=== PATIENT | female | born 1930 | race Caucasian/White ===

== ENCOUNTER → 2016-10-18 | Outpatient (CLI) | payer OTHER ==
[~2016-10-18] MED LIST: ACET325T82 PO; BENZ100C6 PO; BISA10SU5 RE; CALCTAB7 PO; CARB1SOL OPB; CMD/25 PO; CMD25 PO; DTRSR5 PO; FRRG PO; HYG/25 PO; LEVO125T4 PO; LEVO75TA PO; LPR25 PO; LSN20 PO; MELO7.5T5 PO; MEMA1CAP7 PO; METO25TA56 PO; OXYBUTYNIN PO; POTA-327 PO; POTA20TA16 PO; RIVA1DIS TOP; SIMV20TA2 PO; SIMV5TAB2 PO; SODIENE PR; SYN200 PO; VTMD1000 PO
[2016-10-18 12:45] LABS: BASO % 0.5 %; BASO ABS # 0.03 K/uL (0-0.2); EOS % 2.9 %; HEMATOCRIT 26.4 % (37-47); IG% 0.2 %; LYMPH % 22.6 %; LYMPH ABS # 1.46 K/uL (1.2-3.4); MEAN CORPUSCULAR HEMOGLOBIN 19.3 pg (25-34); MEAN CORPUSCULAR HGB CONC 29.2 g/dl (32-36); MEAN PLATELET VOLUME 10.8 fL (7.4-10.4); NEUT % 64.8 %; PLATELET COUNT 227 K/uL (130-400); WHITE BLOOD COUNT 6.47 K/uL (4.8-10.8)
[2016-10-18 13:01] LABS: ALT/SGPT 15 U/L (12-78); AST/SGOT 13 U/L (15-37); BLOOD UREA NITROGEN 23 mg/dl (7-18); BUN/CREATININE RATIO 28.3 (10-20); CALCIUM 9.3 mg/dl (8.5-10.1); CARBON DIOXIDE 20 mmol/L (21-32); CHLORIDE 109 mmol/L (98-107); CHOLESTEROL 201 mg/dl (0-200); CREATININE 0.82 mg/dl (0.60-1.20); GLUCOSE 118 mg/dl (70-99); POTASSIUM 4.3 mmol/L (3.5-5.1); SODIUM 141 mmol/L (136-145); TRIGLYCERIDES 131 mg/dl (0-150); VERY LOW DENSITY LIPOPROT CALC 26 mg/dl
[2016-10-18 13:10] LABS: ALB/GLOB RATIO 1.1 (0.9-2); ALKALINE PHOSPHATASE 69 U/L (45-117); CHOLESTEROL/HDL RATIO 3.5; HDL CHOLESTEROL 58 mg/dl; THYROID STIMULATING HORMONE 0.805 uIu/ml (0.300-4.500)
[2016-10-18 13:32] LABS: ESTIMATED AVERAGE GLUCOSE 126 mg/dl; HA1C FLAG Normal (Normal)
[2016-10-18 14:19] LABS: COMPLETE YES; MICROCYTOSIS PRESENT; OVALOCYTES 1+
== END | disposition home or self-care (01) ==
LOC: C.LABSPEC 12:23
PROVIDERS: ATTEND Internal Medicine
DX: E11.9 Type 2 diabetes mellitus without complications (principal); E78.5 Hyperlipidemia, unspecified; I10 Essential (primary) hypertension; E03.9 Hypothyroidism, unspecified; D64.9 Anemia, unspecified

== ENCOUNTER 2016-10-19 15:00 | Inpatient (IN) | payer OTHER ==
[~2016-10-19] VITALS: Ht 162.6 cm; Wt 71.0 kg
[2016-10-19] VITALS (9 sets, daily range): BP systolic 156–196; BP diastolic 64–87; PULSE 78–112; TEMP 36.4–36.8; O2SAT 96–99; Ht 162.6 cm; Wt 71.0 kg
[~2016-10-19 15:00] MED LIST changes: -CALCTAB7 PO; -DTRSR5 PO; -FRRG PO; -LEVO125T4 PO; -LSN20 PO; -MELO7.5T5 PO; -METO25TA56 PO; -OXYBUTYNIN PO; -POTA20TA16 PO; -SIMV5TAB2 PO; -SYN200 PO; -VTMD1000 PO
[2016-10-19] MEDS ORDERED: ACETAMINOPHEN 325 MG TAB PO PRN (16:15)
[2016-10-19] MEDS ORDERED: PANTOprazole INJ 80 MG in DEXTROSE 5% 100ML IV SCH (18:00)
[2016-10-19 18:27] LABS: HEMATOCRIT 26.4 % (37-47); MEAN CELL VOLUME 67.3 fL (80-100); MEAN CORPUSCULAR HEMOGLOBIN 19.4 pg (25-34); MEAN CORPUSCULAR HGB CONC 28.8 g/dl (32-36); MEAN PLATELET VOLUME 9.7 fL (7.4-10.4); PLATELET COUNT 203 K/uL (130-400); RED BLOOD COUNT 3.92 M/uL (4.2-5.4); WHITE BLOOD COUNT 6.38 K/uL (4.8-10.8)
[2016-10-19 18:33] LABS: INR 1.1 (0.9-1.1); PARTIAL THROMBOPLASTIN RATIO 0.9; PROTHROMBIN TIME (PATIENT) 11.4 SECONDS (9.0-12.0)
[2016-10-19 18:50] LABS: ALB/GLOB RATIO 1.1 (0.9-2); ALKALINE PHOSPHATASE 68 U/L (45-117); ALT/SGPT 16 U/L (12-78); AST/SGOT 11 U/L (15-37); BLOOD UREA NITROGEN 26 mg/dl (7-18); BUN/CREATININE RATIO 26.8 (10-20); CARBON DIOXIDE 23 mmol/L (21-32); CHLORIDE 110 mmol/L (98-107); CREATININE 0.98 mg/dl (0.60-1.20); GLUCOSE 125 mg/dl (70-99); POTASSIUM 4.5 mmol/L (3.5-5.1); SODIUM 142 mmol/L (136-145)
[2016-10-19 18:55] LABS: ANISOCYTOSIS PRESENT; BASO % 0.5 %; BASO ABS # 0.03 K/uL (0-0.2); COMPLETE YES; EOS % 1.7 %; IG% 0.2 %; LYMPH % 16.3 %; LYMPH ABS # 1.04 K/uL (1.2-3.4); MICROCYTOSIS PRESENT; MONO % 9.7 %; NEUT % 71.6 %; OVALOCYTES 1+
[2016-10-19] MEDS ORDERED: OXYBUTYNIN PO (19:40)
[2016-10-19] MEDS ORDERED: POTA20TA16 PO (19:40)
[2016-10-19] MEDS ORDERED: NURSING VERBAL MED ORDER ONE ×2 (19:45→21:30)
[2016-10-19] MEDS ORDERED: METO25TA56 PO (19:47)
[2016-10-19] MEDS ORDERED: LSN20 PO (19:48)
[2016-10-19] MEDS ORDERED: SIMV5TAB2 PO (19:50)
[2016-10-19] MEDS ORDERED: LEVO125T4 PO (19:50)
[2016-10-19] MEDS ORDERED: CALCTAB7 PO (19:51)
[2016-10-19] MEDS: METOPROLOL TARTRATE 25 MG TAB PO SCH (19:54)
[2016-10-19] MEDS: SODIUM CHLORIDE 0.9% 1000ML 1,000 ML IV SCH (19:54)
[2016-10-19] MEDS: SIMVASTATIN 5 MG TAB PO SCH (19:54)
[2016-10-19] MEDS ORDERED: MELO7.5T5 PO (19:58)
[2016-10-19] MEDS: LAVAGE SOLUTION 4000ML PO SCH (20:15)
[2016-10-19] MEDS: PANTOprazole INJ 40 MG in DEXTROSE 5% 100ML IV SCH ×2 (20:15→23:39)
[2016-10-19] MEDS: BISACODYL 5 MG TABEC PO SCH (20:57)
[2016-10-19] MEDS ORDERED: HydrALAZINE HCL 20 MG/ML VIAL IV. STA (21:30)
--- NOTE | 2016-10-19 22:13 | HISTORY & PHYSICAL EXAMINATION ---
DATE OF ADMISSION: 10/19/2016 An 86-year-old female, admitted directly from home with severe microcytic hypochromic anemia and evidence of GI bleed. The patient with multiple medical problems including inflammatory arthritis, arterial hypertension, hypothyroidism and severe osteoarthritis. She has a history of colonic polyps back in 2008; that was when she had a colonoscopy, she had some polyps and also she had an area of stenosis of the sigmoid colon. Subsequently, she underwent a sigmoid resection by Dr. Das and the pathology was benign. In 2009, she had a colonoscopy which did not really show any new pathology. The patient was seen in the office yesterday for regularly scheduled visits. Overall, she was doing well. She did not complain of any dizziness or any lightheadedness. She had no headache. No chest pain, no shortness of breath. Denied any abdominal pain, no nausea, no vomiting. Has not had any problem with her bowel movements. Did not notice any blood in her stool. She does not really recall seeing any dark stool. The patient does take Mobic for her osteoarthritis. When I saw yesterday multiple laboratory tests were ordered. Today, the reports became available. Her CBC showed a WBC count of 6470, hemoglobin 7.7, hematocrit 26.4. Her MCV was decreased to 66 and her MCH was down to 19.3. Her platelet count was 227. Her chemistry profile showed sodium of 141, potassium 4.3, chloride 109, CO2 20, BUN 23, creatinine 0.83, glucose 118, calcium 9.3, total bilirubin 0.8, AST 13, ALT 15, alkaline phosphatase 69, total protein 8, albumin 4.1, triglycerides 131 and cholesterol 201. Direct LDL 122, HDL cholesterol 58. Her TSH was 0.805. Her free T4 was 1.4. Once we received the results, we did call the patient and made arrangements for her to be admitted directly from home. PAST MEDICAL HISTORY: 1. She had a fall and fracture of her distal femur on 10/10/2014. She did require surgery. 2. She was admitted on 11/06/2014 with lethargy and severe weakness. At that time, she presented with an acute respiratory failure. Her creatinine was up to 3.27. She was dehydrated. She responded to treatment. 3. 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 4. Spinal stenosis, had prior surgery in 2006. 5. She had a fall in 2011 and sustained a scalp and facial lacerations. 6. Inflammatory polyarthritis. She has been on prednisone in the past. Also she has taken nonsteroidal anti-inflammatory medications. 7. Longstanding history of hypothyroidism, compensated. 8. Arterial hypertension, treated since the 1970s. 9. Dyspepsia and hiatal hernia. 10. Severe osteoarthritis, especially her knees. 11. Left facial neuropathy in 2010, was treated with Lyrica. 12. Urinary incontinence. She has had a urology evaluation in the past and was seen by Dr. Miller. She is on Ditropan. 13. Hysterectomy in 1972 because of prolapse. 14. Right knee surgery back in the for a cartilage injury. 15. Rotator cuff surgeries on both sides in 1988 and 1989. 16. Plantar fasciitis also requiring surgery in the past back in 1986. 17. Bilateral carpal tunnel release in 1990 and 1991. 18. Tonsillectomy in 1950. 19. Left cataract surgery on 07/13/2015. SOCIAL HISTORY: She is a . Has one daughter. No history of any smoking, no alcohol. No excessive coffee, tea or soft drinks. She worked at the [employer] for many years. 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 FAMILY HISTORY: Her mother in her 80s, had heart disease and hypertension. Her father at age 49, had tuberculosis. She had 4 brothers and 1 sister. One brother in a motor vehicle accident. One brother of cancer, not sure of the type. ALLERGIES: IT IS LISTED ON HER ALLERGY LIST THAT SHE IS ALLERGIC AND INTOLERANT TO MANY PRODUCTS AND MEDICATIONS INCLUDING BACITRACIN, CODEINE AND CORTISONE; but I know she is not allergic to cortisone because she has been on prednisone in the past and also she has received intra-articular injections of steroids. IT IS ALSO LISTED THAT SHE IS ALLERGIC TO ERYTHROMYCIN. SHE ALSO HAD A REACTION TO IV CONTRAST. SHE HAD CONTACT DERMATITIS WITH LATEX. ALSO IT IS LISTED THAT SHE HAD A REACTION TO NEOMYCIN, POLYMYXIN B, PROPRANOLOL AND TRAMADOL. CURRENT MEDICATIONS: Include; 1. Levothyroxine 200 mcg daily. 2. Lisinopril 20 mg daily. 3. Metoprolol tartrate 25 mg twice a day. 4. Ditropan XL 5 mg daily. 5. Potassium chloride 20 mEq daily. 6. Simvastatin 5 mg daily. 7. Calcium with vitamin D one tablet twice a day. 8. Vitamin D 2000 international units daily. 9. Meloxicam 7.5 mg daily. REVIEW OF SYSTEMS: Mostly as noted above. PHYSICAL EXAMINATION: GENERAL: Well-developed, in no acute distress. Her recorded weight is 71 kg, height 162.6 cm and BMI 26.9. VITAL SIGNS: On arrival her blood pressure was 189/64, pulse 112, respirations 20, temperature 36.7 and oxygen saturation 98% on room air. SKIN: Warm and dry. No rash. HEENT: She wears glasses. She has upper and lower partials. No mucosal abnormalities. NECK: Supple. Nontender. No adenopathy, no thyromegaly. No JVD. Normal carotid pulses. No bruits. CHEST: Normal. HEART: Regular heart sounds without any murmur, rub or gallop. LUNGS: Clear. ABDOMEN: Soft, nontender, without organomegaly or masses. Surgical scars. BACK: Scar from prior surgery. EXTREMITIES: Scars from prior surgeries. Osteoarthritis, especially of her right knee. No edema, clubbing or cyanosis. Absent dorsalis pedis pulses. Good posterior tibialis pulses. NEUROLOGIC: She is alert and oriented without evidence of any deficits. RECTAL: Showed no anorectal abnormality. Her stool tested positive for occult blood. LABORATORY TESTS: WBC count 6380, hemoglobin 7.6, hematocrit 26.4, MCV 67.3, MCH 19.4 and platelet count 203,000. Prothrombin time 11.4, INR 1.1 and PTT 22.8. Sodium 142, potassium 4.5, chloride 110, CO2 23, BUN 26, creatinine 0.98, glucose 125, calcium 9.0, total bilirubin 0.6, AST 11, ALT 16, alkaline phosphatase 68, total protein 7.8, albumin 4.1 and globulin 3.1. Urinalysis is still pending. Her electrocardiogram showed sinus rhythm without any acute abnormalities. ASSESSMENT: 1. Severe anemia; hemoglobin of 7.6, microcytic hypochromic, consistent with iron deficiency. 2. Evidence of gastrointestinal bleed with positive Hemoccult. 3. Arterial hypertension. 4. Hypothyroidism. 5. Osteopenia. 6. Vitamin D deficiency. 7. Inflammatory arthritis. 8. Osteoarthritis. She is on Mobic. PLAN: The patient was admitted to a medical bed. Resuscitation level 1. All her laboratory tests were ordered. GI consultation was requested. I spoke with Dr. Moeller. She was typed and cross matched for 2 units of packed RBCs. She will be receiving 2 units tonight. We will repeat her laboratory tests in the morning. She was continued on her oral medications. Her Mobic was discontinued. The plan as it stands tonight is we will transfuse her. She is currently in a stable medical condition. If everything remains stable tomorrow, then we will proceed with an EGD and colonoscopy.
[2016-10-20] VITALS (12 sets, daily range): BP systolic 131–174; BP diastolic 67–82; PULSE 0–80; TEMP 36.4–36.9; O2SAT 95–98
[2016-10-20] MEDS: BISACODYL 5 MG TABEC PO SCH (04:07)
[2016-10-20] MEDS: PANTOprazole INJ 40 MG in DEXTROSE 5% 100ML IV SCH ×3 (04:13→14:47)
[2016-10-20] MEDS: LAVAGE SOLUTION 4000ML PO SCH (04:13)
[2016-10-20] MEDS: LEVOTHYROXINE 200 MCG TAB PO SCH (04:44)
[2016-10-20] MEDS: SODIUM CHLORIDE 0.9% 1000ML 1,000 ML IV SCH ×2 (05:37→19:05)
[2016-10-20] MEDS ORDERED: MAGNESIUM CITRATE 296 ML/BTL ONE (06:27)
[2016-10-20] MEDS ORDERED: NURSING VERBAL MED ORDER ONE (06:30)
[2016-10-20 06:33] LABS: HEMATOCRIT 32.8 % (37-47); MEAN CELL VOLUME 69.9 fL (80-100); MEAN CORPUSCULAR HGB CONC 31.4 g/dl (32-36); MEAN PLATELET VOLUME 9.9 fL (7.4-10.4); PLATELET COUNT 181 K/uL (130-400); RED BLOOD COUNT 4.69 M/uL (4.2-5.4); WHITE BLOOD COUNT 6.58 K/uL (4.8-10.8)
[2016-10-20] MEDS ORDERED: MAGNESIUM CITRATE 296 ML/BTL PO STA (06:41)
[2016-10-20 07:04] LABS: BUN/CREATININE RATIO 21.3 (10-20); CALCIUM 8.8 mg/dl (8.5-10.1); CREATININE 0.91 mg/dl (0.60-1.20); POTASSIUM 4.2 mmol/L (3.5-5.1)
[2016-10-20] MEDS: LISINOPRIL 20 MG TAB PO SCH (07:58)
[2016-10-20] MEDS: METOPROLOL TARTRATE 25 MG TAB PO SCH ×2 (07:58→19:44)
[2016-10-20] MEDS ORDERED: ONDANSETRON INJ 8 MG in DEXTROSE 5% 50ML 50 ML IV PRN (08:30)
--- NOTE | 2016-10-20 09:33 | Clinical Documentation Query ---
[facility]ICAL [facility] QUERY Patient is an 86 year old female direct admit from home for severe microcytic hypochromic anemia and evidence of GI bleed. She is being monitored by serial hematology and is to be seen in consultation by GI and has been transfused 2 units of PRBC's. Please clarify as clinically appropriate. Thank you. In your clinical opinion is this patient being managed for: ( ) Acute blood loss microcytic hypochromic iron deficiency anemia ( x ) Chronic blood loss microcytic hypochromic iron deficiency anemia ( ) Other explanation of clinical findings (Please Explain) ( ) Unable to determine (Please Define) ( ) Need to Discuss ( ) Not Agree The medical record reflects the following clinical findings, treatment, and risk factors. Clinical Indicators: As above Treatment:She is being monitored by serial hematology and is to be seen in consultation by GI and has been transfused 2 units of PRBC's. Risk Factors: Age, Mobic use Please clarify and document your clinical opinion in the progress notes and discharge summary. Terms such as "probable", "suspected", "likely", "questionable", "possible", or "still to be ruled out" are acceptable. IF IN AGREEMENT, YOU MUST DOCUMENT ABOVE DIAGNOSTIC STATEMENT IN DAILY PROGRESS NOTES AND DISCHARGE SUMMARY. This document is not part of the patient's record. Thank You, Kameron Zambrano, RN [phone]
[2016-10-20] MEDS ORDERED: PROPOFOL IV EMULSION 10 MG/ML 20 ML VIAL IV ONE ×3 (10:30→11:40)
[2016-10-20] MEDS ORDERED: LIDOCAINE HCL 2% 2 ML VIAL (20MG/ML) ONE ×2 (10:30→10:33)
--- NOTE | 2016-10-20 10:50 | Gastroenterology Progress Note ---
Progress Note Date of Service: Oct 20, 2016 Subjective Pt evaluation today including: conversation w/ patient, physical exam, chart review (nothing in [facility] EMR), lab review, review of studies, review of inpatient medication list CC anemia HPI Pt noted to be anemicwhtih Hgb 7.7 and low MCV on 10/18/16. Looking back note Hgb 8.3 on 06/20/16 also low MCV. Pt with occosional gerd but otherwise no GI symptoms. NO bloody nor black stools. Hx of colon polyps and colon resection for sigmoid stenosis. Last colo 2009 reportedly negative. No recollection of previous EGD. Some abd pain with prep otherwise none. Dr Lees did rectal exam and noted to be heme positive. She is on Mobic for polyarthritis. Medications Current Inpatient Medications Medications (Trade) Dose Ordered Sig/Ya Route Start Time Stop Time Status Last Admin Dose Admin Acetaminophen 650 mg 650 mg Q4H PRN PO 10/19/16 16:15 11/18/16 16:14 Sodium Chloride (Nss 1000ml) 1,000 ml @ 75 mls/hr [id number] IV 10/19/16 16:30 11/18/16 16:29 10/20/16 05:37 75 MLS/HR Levothyroxine Sodium (Synthroid Tab) 200 mcg DAILYBB PO 10/20/16 06:30 11/19/16 06:59 Lisinopril (Zestril Tab) 20 mg QAM PO 10/20/16 08:00 11/19/16 08:59 10/20/16 07:58 20 MG Metoprolol Tartrate (Lopressor Tab) 25 mg BID PO 10/19/16 20:00 11/18/16 20:59 10/20/16 07:58 25 MG Simvastatin (Zocor Tab) 5 mg PM PO 10/19/16 21:00 11/18/16 20:59 10/19/16 19:54 5 MG Oxybutynin Chloride (Ditropan-Xl Tab) 5 mg QAM PO 10/20/16 08:00 11/19/16 08:59 Cholecalciferol 2000 inter.unit 2,000 inter.unit QAM PO 10/20/16 08:00 11/19/16 08:59 Pantoprazole Sodium 40 mg/ Dextrose 100 ml @ 20 mls/hr Q5H IV 10/19/16 18:15 11/18/16 18:14 10/20/16 09:49 20 MLS/HR Ondansetron HCl/ Dextrose (Zofran Inj/D5 50ml) 54 ml @ 200 mls/hr Q4H PRN IV 10/20/16 08:30 11/19/16 08:29 10/20/16 08:54 200 MLS/HR Objective Vital Signs Date Time Temp Pulse Resp B/P Pulse Ox O2 Delivery O2 Flow Rate FiO2 10/20/16 08:15 36.6 80 22 160/82 97 Room Air 10/20/16 04:15 36.8 76 18 164/70 10/20/16 03:45 36.8 75 18 172/72 10/20/16 03:10 36.6 80 22 160/82 97 Room Air 10/20/16 02:45 36.7 70 18 168/74 10/20/16 02:15 36.8 69 18 170/71 10/20/16 01:45 36.8 80 20 171/82 10/20/16 01:30 36.7 78 20 161/80 98 10/20/16 01:00 Room Air 10/19/16 23:50 36.8 79 20 167/71 97 10/19/16 23:23 88 179/74 10/19/16 22:50 36.7 80 18 179/69 96 10/19/16 22:15 36.7 83 18 156/73 97 10/19/16 21:50 36.4 86 18 182/78 97 10/19/16 21:20 36.7 84 18 196/87 98 10/19/16 21:05 36.6 84 18 188/76 97 10/19/16 20:46 36.7 78 18 188/74 99 0.0 10/19/16 19:11 36.7 112 20 189/64 98 Room Air Physical Exam General Appearance: WD/WN, no apparent distress Respiratory/Chest: lungs clear, no respiratory distress Cardiovascular: regular rate, rhythm, no edema, no murmur Abdomen: normal bowel sounds, non tender, soft, no organomegaly Neurologic/Psych: normal mood/affect, oriented x 3 Laboratory Results Last 24 Hours Test 10/19/16 18:12 10/20/16 06:02 White Blood Count 6.38 K/uL 6.58 K/uL Red Blood Count 3.92 M/uL 4.69 M/uL Hemoglobin 7.6 g/dL 10.3 g/dL Hematocrit 26.4 % 32.8 % Mean Corpuscular Volume 67.3 fL 69.9 fL Mean Corpuscular Hemoglobin 19.4 pg 22.0 pg Mean Corpuscular Hemoglobin Concent 28.8 g/dl 31.4 g/dl Platelet Count 203 K/uL 181 K/uL Mean Platelet Volume 9.7 fL 9.9 fL Neutrophils (%) (Auto) 71.6 % Lymphocytes (%) (Auto) 16.3 % Monocytes (%) (Auto) 9.7 % Eosinophils (%) (Auto) 1.7 % Basophils (%) (Auto) 0.5 % Neutrophils # (Auto) 4.57 K/uL Lymphocytes # (Auto) 1.04 K/uL Monocytes # (Auto) 0.62 K/uL Eosinophils # (Auto) 0.11 K/uL Basophils # (Auto) 0.03 K/uL RDW Standard Deviation 40.8 fL 49.5 fL RDW Coefficient of Variation 16.4 % 19.6 % Immature Granulocyte % (Auto) 0.2 % Immature Granulocyte # (Auto) 0.01 K/uL Anisocytosis PRESENT Microcytosis PRESENT Ovalocytes 1+ Prothrombin Time 11.4 SECONDS Prothromb Time International Ratio 1.1 Activated Partial Thromboplast Time 22.8 SECONDS Partial Thromboplastin Ratio 0.9 Sodium Level 142 mmol/L 142 mmol/L Potassium Level 4.5 mmol/L 4.2 mmol/L Chloride Level 110 mmol/L 110 mmol/L Carbon Dioxide Level 23 mmol/L 22 mmol/L Anion Gap 9.0 mmol/L 10.0 mmol/L Blood Urea Nitrogen 26 mg/dl 19 mg/dl Creatinine 0.98 mg/dl 0.91 mg/dl Estimated GFR () 61.4 67.1 Estimated GFR (Non- 53.0 57.9 BUN/Creatinine Ratio 26.8 21.3 Random Glucose 125 mg/dl 121 mg/dl Calcium Level 9.0 mg/dl 8.8 mg/dl Total Bilirubin 0.6 mg/dl Aspartate Amino Transf (AST/SGOT) 11 U/L Alanine Aminotransferase (ALT/SGPT) 16 U/L Alkaline Phosphatase 68 U/L Total Protein 7.8 gm/dl Albumin 4.1 gm/dl Globulin 3.7 gm/dl Albumin/Globulin Ratio 1.1 Est Creatinine Clear Calc Drug Dose 44.5 ml/min Assessment and Plan GI consult to be dictated also. Heme positive stool---No localizing signs/symptoms to recommend EGD and colonoscopy and she is prepped for that today. Procedures and risks explained which include but not limited to medication reaction, bleeding, perforation, aspiration and missed lesions. Microcytic anemia--presumably Fe deficiency from chronic GI blood loss.
--- NOTE | 2016-10-20 11:52 | GI REPORT ---
Procedure Date: 10/20/2016 10:57 AM Procedure: Upper GI endoscopy Indications: Iron deficiency anemia, Heme positive stool Medicines: Monitored Anesthesia Care Complications: No immediate complications. Estimated Blood Loss: Estimated blood loss was minimal. Procedure: Pre-Anesthesia Assessment: - The risks and benefits of the procedure and the sedation options and risks were discussed with the patient. All questions were answered and informed consent was obtained. - Patient identification and proposed procedure were verified prior to the procedure by the physician, the nurse and the medical device sales representative. The procedure was verified in the procedure room. After obtaining informed consent, the endoscope was passed under direct vision. Throughout the procedure, the patient's blood pressure, pulse, and oxygen saturations were monitored continuously. The Scope was introduced through the mouth, and advanced to the second part of duodenum. The upper GI endoscopy was accomplished without difficulty. The patient tolerated the procedure well. Procedure and risks explained to patient which include but not limited to medication reaction, bleeding, perforation, aspiration , and missed lesions. Judicious gas insufflation was used and gas removal done on the way out. The lumen was always visualized when advancing the scope. Prep was good. Washes and suctioning used as needed to get good visualization of the mucosa. Retroflexion to look at the fundus and cardia of the stomach and GE junction was done. Findings: Esophagogastric landmarks were identified: the Z-line was found at 35 cm from the incisors. A large hiatus hernia was present. Patchy mildly erythematous mucosa was found in the entire examined stomach. Striped mildly erythematous mucosa without bleeding was found in the gastric antrum. Biopsies were taken with a cold forceps for Helicobacter pylori testing. Estimated blood loss was minimal. The Z-line was irregular. Biopsies were taken with a cold forceps for histology. Estimated blood loss was minimal. The 2nd part of the duodenum was normal. Biopsies for histology were taken with a cold forceps for evaluation of celiac disease. Estimated blood loss was minimal. The exam was otherwise without abnormality. Impression: - Esophagogastric landmarks identified. - Large hiatus hernia. - Erythematous mucosa in the stomach. - Erythematous mucosa in the antrum. Biopsied. - Z-line irregular. Biopsied. - Normal 2nd part of the duodenum. Biopsied. - The examination was otherwise normal. Recommendation: - Return patient to [facility] for ongoing care. - No explanation for anemia and heme positive stool so proceed with colonoscopy. Kameron Marrero M.D. Kameron Marrero MD 10/20/2016 11:51:34 AM This report has been signed electronically. Note Initiated On: 10/20/2016 10:57 AM I attest to the content of the Intraoperative Record and orders documented therein, exceptions below
--- NOTE | 2016-10-20 12:08 | Anesthesiology Progress Note ---
Anesthesia Post Op Note Date & Time Oct 20, 2016 at 12:08 Vital Signs Pain Intensity: 0 Vital Signs Past 12 Hours Date Time Temp Pulse Resp B/P Pulse Ox O2 Delivery O2 Flow Rate FiO2 10/20/16 12:04 66 16 133/62 99 Room Air 10/20/16 11:49 60 16 110/53 96 Nasal Cannula 2 10/20/16 10:48 36.8 80 16 202/87 98 Room Air 10/20/16 08:15 36.6 80 22 160/82 97 Room Air 10/20/16 08:10 Room Air 10/20/16 04:15 36.8 76 18 164/70 10/20/16 03:45 36.8 75 18 172/72 10/20/16 03:10 36.6 80 22 160/82 97 Room Air 10/20/16 02:45 36.7 70 18 168/74 10/20/16 02:15 36.8 69 18 170/71 10/20/16 01:45 36.8 80 20 171/82 10/20/16 01:30 36.7 78 20 161/80 98 10/20/16 01:00 Room Air Notes Mental Status: alert / awake / arousable, participated in evaluation Pt Amnestic to Procedure: Yes Nausea / Vomiting: adequately controlled Pain: adequately controlled Airway Patency, RR, SpO2: stable & adequate BP & HR: stable & adequate Hydration State: stable & adequate Anesthetic Complications: no major complications apparent
--- NOTE | 2016-10-20 12:09 | GI REPORT ---
Procedure Date: 10/20/2016 10:56 AM Procedure: Colonoscopy Indications: Heme positive stool, Iron deficiency anemia Medicines: Monitored Anesthesia Care Complications: No immediate complications. Estimated Blood Loss: Estimated blood loss was minimal. Procedure: Pre-Anesthesia Assessment: - The risks and benefits of the procedure and the sedation options and risks were discussed with the patient. All questions were answered and informed consent was obtained. - Patient identification and proposed procedure were verified prior to the procedure by the physician, the nurse and the supervisor logging. The procedure was verified in the procedure room. After I obtained informed consent, the scope was passed under direct vision. Throughout the procedure, the patient's blood pressure, pulse, and oxygen saturations were monitored continuously. The scope was introduced through the anus with the intention of advancing to the cecum. The scope was advanced to the ascending colon but possibly the cecum before the procedure was aborted. Medications were given. The colonoscopy was performed without difficulty. The patient tolerated the procedure well. The quality of the bowel preparation was fair. The bowel preparation used was split dose golytely and an additional dose of Mag citrate. Procedure and risks explained to patient which include but not limited to med reaction, bleeding, perforation, aspiration and missed lesions. Judicious gas insufflation and gas removal done on the way out. The lumen always well visualized when advancing the scope. Washes and suctioning used as needed and was helpful for most of colon to obtain adequate prep but encountered stool in ascending colon versus cecum with chunks that could not be washed and suctioned. . Retroflexion in the rectum to look at the distal rectum and anal canal done. Findings: Two localized angioectasias one with bleeding on contact were found in the proximal ascending colon versus cecum. Coagulation for bleeding prevention using argon plasma was successful. Estimated blood loss was minimal. A 5 mm polyp was found in the transverse colon. The polyp was sessile. The polyp was removed with a lift and cut technique using a cold snare. Resection and retrieval were complete. Estimated blood loss was minimal. There was evidence of a prior end-to-side colo-colonic anastomosis in the sigmoid colon. This was patent and was characterized by healthy appearing mucosa. Exam to right colon either cecum or ascending colon but solid material noted which could not be washed and suctioned. The exam was otherwise without abnormality on direct and retroflexion views. 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 Treated with argon plasma coagulation (APC). - One 5 mm polyp in the transverse colon, removed using lift and cut and a cold snare. Resected and retrieved. - Patent end-to-side colo-colonic anastomosis, characterized by healthy appearing mucosa. - The examination was otherwise normal on direct and retroflexion views. - Exam to right colon either cecum or ascending colon but solid material noted which could not be washed and suctioned. - The examination was otherwise normal on direct and retroflexion views. Recommendation: - Return patient to hospital [facility] for ongoing care. - Discussed with Dr Lees and recommend repeat Colonoscopy with 2 day prep as outpt in 4 weeks to document adequate coagulation of AVMs and look at colon not able to be visulized today secondary to prep. Kameron Marrero M.D. Kameron Marrero MD 10/20/2016 12:08:37 PM This report has been signed electronically. Note Initiated On: 10/20/2016 10:56 AM I attest to the content of the Intraoperative Record and orders documented therein, exceptions below
--- NOTE | 2016-10-20 12:27 | GASTROINTESTINAL CONSULTATION ---
DATE OF CONSULTATION: 10/20/2016 REQUESTING PHYSICIAN: Miky Latham MD REASON FOR CONSULTATION: Anemia. CHIEF COMPLAINT: anemia. HISTORY OF PRESENT ILLNESS: The patient has not noted any gross red blood or black stools. No abdominal pain. No change in bowel habits. No dysphagia. She said she lost a lot of weight around the femur fracture surgery. She has chills as in being cold but no fever, no nausea, vomiting, occasional GERD. No knowledge of a hiatal hernia or liver disease. No knowledge of having an EGD. in the past. Per Dr. Latham's note, she had a colonoscopy in 2008 showing polyps and sigmoid stenosis and then showed a sigmoid resection by Dr. Das and a followup colonoscopy in 2009 was unremarkable. There was no [facility] records, going back in our [facility] records though, however, I saw she was anemic on 06/20/2016 with a hemoglobin of 8.3 and MCV 68. On October 18, her hemoglobin was 7.7 and on admission 7.6. After transfusion, up to 10.3. PT and PTT were okay. CMP: BUN 26, glucose 125, and chloride 110, otherwise unremarkable. PAST MEDICAL HISTORY: ALLERGIES: THERE ARE NUMEROUS ALLERGIES LISTED INCLUDING ALOE, BACITRACIN, CODEINE, CORTISONE, ERYTHROMYCIN, IODINATED CONTRAST, LATEX AND NEOMYCIN. MEDICATIONS: On admission included levothyroxine, lisinopril, metoprolol, Ditropan, potassium, simvastatin, calcium, vitamin D, and Meloxicam. MEDICAL PROBLEMS AND SURGERIES: Include distal femur fracture on 10/10/2014, acute respiratory failure in 2014, sigmoid resection in 2009, spinal stenosis surgery in 2006, inflammatory polyarthritis, hypothyroidism, hypertension and actually shows in Dr. Latham's note, she has a history of hiatal hernia, she is not aware of that. Left facial neuropathy, urinary incontinence, hysterectomy, knee surgery, rotator cuff surgery, plantar fasciotomy surgery, carpal tunnel surgery, tonsillectomy, and cataract surgery. FAMILY HISTORY: Coronary artery disease. SOCIAL HISTORY: Tobacco negative and ethanol negative. REVIEW OF SYSTEMS: CONSTITUTIONAL: Weak. EYES: Negative. EARS, NOSE, MOUTH AND THROAT: Negative. CARDIOVASCULAR: Negative. RESPIRATORY: Negative. GENITOURINARY: Negative. MUSCULOSKELETAL: Arthritis. INTEGUMENTARY: Skin is dry. PSYCHIATRIC: Negative. ENDOCRINE: Hypothyroidism. HEMATOLOGIC: As above. PHYSICAL EXAMINATION: GENERAL: Female, appears stated age in no acute distress. VITAL SIGNS: Most recent vital signs in the chart, temp 36.6, pulse 80, respirations 18, BP 160/82, and O2 saturation 97% on room air. EYES: Conjunctivae and lids normal. ENT: Oropharynx is clear. NECK: Without obvious mass or thyroid enlargement. RESPIRATORY: Normal effort, clear to anterior auscultation. CARDIOVASCULAR: Regular rate and rhythm. EXTREMITIES: Without edema. ABDOMEN: Positive bowel sounds, soft, nontender. No obvious organomegaly or masses are appreciated. I did not repeat a rectal examination. Dr. Latham says in his note he did one and that was heme positive. LYMPH: No obvious neck or groin nodes. MUSCULOSKELETAL: Digits and nails normal. SKIN: Without obvious rash or induration anteriorly. NEUROLOGIC: Cranial nerves intact. Sensation intact. PSYCHIATRIC: Recent and remote memory good. Insight and judgment good. DATA: As above. No current imaging studies. IMPRESSION AND PLAN: 1. Heme positive stool. There are no localizing signs or symptoms, so I recommend EGD and colonoscopy and she is prepped for both of those today. The procedure and risks explained, which include but are not limited to medication reaction, bleeding, perforation, aspiration and missed lesions. 2. Microcytic anemia, presumed iron deficiency from chronic GI blood loss ---as above. MTDD
[2016-10-20] MEDS: OXYBUTYNIN CHLORIDE 5 MG TABCR PO SCH (12:48)
[2016-10-20] MEDS: CHOLECALCIFEROL 1000 INTER.UNIT TAB PO SCH (12:48)
[2016-10-20 19:09] LABS: URINE APPEARANCE CLEAR (CLEAR); URINE BILIRUBIN NEG (NEG); URINE COLOR YELLOW; URINE EPITHELIAL CELL AUTO >30 /lpf (0-5); URINE NITRITE NEG (NEG); URINE SPECIFIC GRAVITY 1.014 (1.000-1.030); UROBILINOGEN NEG (NEG)
[2016-10-20 19:14] LABS: MANUAL MICROSCOPIC REQUIRED? NO; REVIEW REQ? NO
[2016-10-20] MEDS: SIMVASTATIN 5 MG TAB PO SCH (19:44)
--- NOTE | 2016-10-20 20:08 | PROGRESS NOTE ---
DATE: 10/20/2016 SUBJECTIVE: An 86-year-old female admitted with severe microcytic hypochromic anemia. Her medical problems include arterial hypertension, inflammatory arthritis, osteoarthritis, degenerative disc disease, and spinal stenosis required prior surgery. She has had prior sigmoid resection because of stenosis but the pathology was benign. The patient was admitted. Her stool tested positive for occult blood, but she did not have any acute fresh bleeding. The fact that her indices were significantly microcytic and hypochromic, is more in favor of chronic blood loss. The patient was admitted. She was started on IV Protonix. She was transfused 2 units of packed RBCs. GI consultation was requested and she was seen by Dr. Marrero. Today, patient had an EGD and a colonoscopy done. 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 The areas were treated. Overall, she is doing well. She is comfortable. She denied any headache or dizziness. No chest pain, no shortness of breath. No abdominal pain, no nausea, no vomiting. She is always quite uncomfortable with her prep for the colonoscopy. PHYSICAL EXAMINATION: GENERAL: Well-developed, in no acute distress. VITAL SIGNS: Blood pressure 131/67, pulse 67, respirations 16, temperature 36.4, oxygen saturation 98% on room air. SKIN: Warm and dry. No rash. HEENT: No mucosal abnormality. NECK: No JVD, no adenopathy. HEART: Regular heart sounds. LUNGS: Clear. ABDOMEN: Soft, nontender. BACK: Surgical scar from prior surgery. EXTREMITIES: No edema, clubbing, or cyanosis. TODAY'S LABORATORY TESTS: WBC count 6580, hemoglobin 10.3, hematocrit 32.8, platelet count 181,000. Sodium 142, potassium 4.2, chloride 110, CO2 22, BUN 19, creatinine 0.91, glucose 121, calcium 8.8. ASSESSMENT: 1. Severe anemia, microcytic hypochromic. 2. Chronic gastrointestinal blood loss. 3. Inflammatory arthritis. 4. Osteoarthritis. 5. Arterial hypertension. PLAN: 1. I spoke with Dr. Marrero after he did the procedure today. He did locate the AVM. He treated the lesions. He thought the preparation was not adequate, so he is recommending that we repeat her colonoscopy in about 4 weeks, looking for any additional AVM or any additional need for cauterization. 2. We will continue monitoring her hemoglobin and hematocrit. 3. We will see how she is in the morning. If her condition remains stable, she will be able to go home.
[2016-10-21] MEDS: LEVOTHYROXINE 200 MCG TAB PO SCH (06:39)
[2016-10-21 07:06] VITALS: BP 168/74; PULSE 76; TEMP 36.9; O2SAT 96
[2016-10-21] MEDS: LISINOPRIL 20 MG TAB PO SCH (07:44)
[2016-10-21] MEDS: OXYBUTYNIN CHLORIDE 5 MG TABCR PO SCH (07:44)
[2016-10-21] MEDS: METOPROLOL TARTRATE 25 MG TAB PO SCH (07:44)
[2016-10-21] MEDS: CHOLECALCIFEROL 1000 INTER.UNIT TAB PO SCH (07:44)
[2016-10-21 08:30] LABS: HEMATOCRIT 30.3 % (37-47); MEAN CELL VOLUME 71.1 fL (80-100); MEAN CORPUSCULAR HEMOGLOBIN 21.6 pg (25-34); MEAN CORPUSCULAR HGB CONC 30.4 g/dl (32-36); MEAN PLATELET VOLUME 10.2 fL (7.4-10.4); PLATELET COUNT 174 K/uL (130-400); RED BLOOD COUNT 4.26 M/uL (4.2-5.4); WHITE BLOOD COUNT 6.75 K/uL (4.8-10.8)
[2016-10-21] MEDS: SODIUM CHLORIDE 0.9% 1000ML 1,000 ML IV SCH (08:54)
[2016-10-21 08:58] LABS: BUN/CREATININE RATIO 17.4 (10-20); CALCIUM 8.6 mg/dl (8.5-10.1); CREATININE 0.89 mg/dl (0.60-1.20); POTASSIUM 4.2 mmol/L (3.5-5.1)
[2016-10-21] MEDS ORDERED: SYN200 PO (09:40)
[2016-10-21] MEDS ORDERED: VTMD1000 PO (09:40)
[2016-10-21] MEDS ORDERED: DTRSR5 PO (09:40)
[2016-10-21] MEDS ORDERED: FRRG PO (09:41)
--- NOTE | 2016-10-21 09:46 | Discharge Instructions ---
Discharge Instructions Date of Service Oct 21, 2016. Admission Reason for Admission: SEVERE ANEMIA GASTROINTESTINAL BLEED ARTERIAL HYPERTENSION INFLAMMATORY ARTHRITIS OSTEOARTHRITIS HYPOTHYROIDISM Discharge Discharge Diagnosis / Problem: ANGIOECTASIA RIGHT COLON.,ANEMIA Discharge Goals Goal(s): Decrease discomfort, Improve function, Increase independence, Improve disease control Activity Recommendations Activity Limitations: resume your previous activity . Instructions / Follow-Up Instructions / Follow-Up DR KUHN IN ONE WEEK Current Hospital Diet Patient's current hospital diet: AHA Diet (Heart Healthy) Discharge Diet Recommended Diet: Regular Diet Procedures Procedures Performed: EGD with biopsies, Colonoscopy with hemostatsis and polypectomy Pending Studies Studies pending at discharge: no List of pending studies: BIOPSY RESULTS Laboratory Results Hemoglobin A1c Test 10/18/16 09:45 Range/Units Estimated Average Glucose 126 mg/dl Hemoglobin A1c 6.0 H 4.5-5.6 % Lipid Panel Test 10/18/16 09:45 Range/Units Triglycerides Level 131 0-150 mg/dl Cholesterol Level 201 H 0-200 mg/dl HDL Cholesterol 58 mg/dl LDL Cholesterol Direct 122 mg/dl Cholesterol/HDL Ratio 3.5 LDL Cholesterol, Calculated mg/dl Medical Emergencies . Who to Call and When: Medical Emergencies: If at any time you feel your situation is an emergency, please call 911 immediately. . Non-Emergent Contact Non-Emergency issues call your: Primary Care Provider . . "Provider Documentation" section prepared by Miky Kuhn. VTE Core Measure Inpt VTE Proph given/why not?: Contraindicated
[2016-10-21 09:49] VITALS: BP 168/74; PULSE 76; TEMP 36.9; O2SAT 96
--- NOTE | 2016-10-21 21:22 | PROGRESS NOTE ---
DATE: 10/21/2016 SUBJECTIVE: This 86-year-old female admitted with microcytic hypochromic anemia and evidence of GI bleed. Her medical problems include arterial hypertension, inflammatory arthritis, osteoarthritis, and hypothyroidism. The patient was admitted. She was started on IV fluids. She was transfused 2 units of packed RBCs. She was seen in GI consultation by Dr. Marrero. Yesterday she had an EGD and a colonoscopy. She has evidence of angioectasia in the right colon, which was cauterized. Overall, she is doing well. Denied any problems or complaints. Good appetite. No abdominal pain, no nausea, no vomiting. PHYSICAL EXAMINATION: GENERAL: Well developed, in no distress. VITAL SIGNS: Blood pressure 168/74, pulse 76, respirations 18, temperature 36.9, oxygen saturation 96% on room air. SKIN: Warm and dry. No rash. HEENT: No evidence of any mucosal abnormality. NECK: No JVD, no adenopathy. HEART: Regular heart sounds. LUNGS: Clear. ABDOMEN: Soft, nontender. EXTREMITIES: No edema, clubbing, or cyanosis. LABORATORY TESTS: WBC count 6750, hemoglobin 9.2, hematocrit 30.3, platelet count 174,000. ASSESSMENT: 1. Severe anemia. Microcytic hypochromic. 2. Gastrointestinal bleed secondary to angioectasia. 3. Arterial hypertension. 4. Inflammatory arthritis. PLAN: 1. Overall, her condition is stable. She is completely asymptomatic. She is tolerating her diet. 2. She was discharged home today. 3. We will see her in the office next week. We will repeat her CBC. 4. Ferrous gluconate 324 mg 3 times a day was added.
--- NOTE | 2016-11-04 17:54 | DISCHARGE SUMMARY ---
DISCHARGE DIAGNOSES: 1. Angioectasia of the colon. 2. Severe anemia. 3. Gastrointestinal bleed secondary to the angioectasia. 4. Arterial hypertension. 5. Inflammatory arthritis. 6. Osteoarthritis. 7. Hypothyroidism. DISCHARGE MEDICATIONS: 1. Vitamin D3 2000 international units daily. 2. Ferrous gluconate 324 mg 3 times a day. 3. Levothyroxine 200 mcg daily. 4. Oxybutynin 5 mg daily. 5. Calcium with vitamin D 600 mg daily. 6. Lisinopril 20 mg daily. 7. Metoprolol tartrate 25 mg twice a day. 8. Potassium chloride 10 mEq 2 capsules daily. 9. Simvastatin 5 mg daily. CONSULTATIONS: 1. Dr. Kameron Marrero in gastroenterology. PROCEDURE: 1. EGD and colonoscopy both done by Dr. Marrero with argon plasma coagulation of the lesions. HISTORY OF PRESENT ILLNESS: Mrs. Krishna is an 86-year-old female admitted from home with severe microcytic hypochromic anemia with evidence of GI bleed. The patient with multiple medical problems as noted above. She was seen in the office on the day prior to her admission. She was doing well. She did not have any complaint of any dizziness or any lightheadedness. She had no headache. No chest pain or shortness of breath. No abdominal pain, no nausea or vomiting. Has not had any problem with her bowel movement. Did not notice any blood in her stool. When I saw her in the office blood tests were ordered. Her hemoglobin was markedly decreased to 7.7. Hematocrit 26.4. Her MCV and MCH were decreased. The rest her laboratory tests were all quite unremarkable. Once I received the lab results I contacted the patient and made arrangements for her to be admitted for further evaluation. Past medical history, social history and family history were all as noted. ALLERGIES: IT IS LISTED THAT SHE HAS MULTIPLE ALLERGIES AND INTOLERANCES TO DIFFERENT MEDICATIONS INCLUDING BACITRACIN, CODEINE AND CORTISONE. IT IS ALSO LISTED THAT SHE IS ALLERGIC TO ERYTHROMYCIN. SHE HAD REACTION TO IV CONTRAST. SHE HAS HAD DERMATITIS WITH THE LATEX. ALSO LISTED ALLERGY TO PROPRANOLOL, TRAMADOL, POLYMYXIN B AND NEOMYCIN. MEDICATIONS ON ADMISSION: All as noted on her history and physical. PHYSICAL EXAMINATION AND ADMISSION LABORATORY TESTS: All as noted. HOSPITAL COURSE: The patient was admitted to medical bed. Resuscitation level 1. All her laboratory tests were ordered. GI consultation was requested. Blood transfusions were ordered. She received a total of 2 units of packed RBCs. They were well tolerated. Her condition remained stable. The patient was seen in GI consultation by Dr. Marrero. An EGD was done was unremarkable. A colonoscopy was done. There was evidence of AVM in her colon that was treated with argon plasma coagulation. The procedure was well tolerated. Her condition improved. She remained completely asymptomatic. She was tolerating her diet. Ambulating. The patient was discharged home. Medications as noted above. We will be monitoring her blood count as an outpatient. We will monitor for any recurrent evidence of any bleeding in the future.
== END 2016-10-21 12:23 | disposition home or self-care (01) | DRG 379 ==
LOC: C.4E 16:15 → UNDOADMIN 17:28 → C.4E 17:28
PROVIDERS: ADMIT Internal Medicine; ATTEND Internal Medicine
PROC: 0DJ08ZZ Inspection of Upper Intestinal Tract, Via Natural or Artificial Opening Endoscopic (ICD-10-PCS; principal; 2016-10-20 10:37)
PROC: 0DJD8ZZ Inspection of Lower Intestinal Tract, Via Natural or Artificial Opening Endoscopic (ICD-10-PCS; principal; 2016-10-20 10:37)
DX: K92.2 Gastrointestinal hemorrhage, unspecified (principal); D50.9 Iron deficiency anemia, unspecified; E55.9 Vitamin D deficiency, unspecified; E03.9 Hypothyroidism, unspecified; M81.0 Age-related osteoporosis without current pathological fracture; I10 Essential (primary) hypertension; E11.9 Type 2 diabetes mellitus without complications; E78.5 Hyperlipidemia, unspecified

== ENCOUNTER → 2016-10-27 | Outpatient (CLI) | payer OTHER ==
[~2016-10-27] MED LIST changes: -ACET325T82 PO; -BENZ100C6 PO; -BISA10SU5 RE; +CALCTAB7 PO; -CARB1SOL OPB; -CMD/25 PO; -CMD25 PO; +DTRSR5 PO; +FRRG PO; -HYG/25 PO; -LEVO75TA PO; +LSN20 PO; -MEMA1CAP7 PO; -RIVA1DIS TOP; -SIMV20TA2 PO; +SIMV5TAB2 PO; -SODIENE PR; +SYN200 PO; +VTMD1000 PO
[2016-10-27 13:28] LABS: HEMATOCRIT 34.9 % (37-47); MEAN CELL VOLUME 73.8 fL (80-100); MEAN CORPUSCULAR HEMOGLOBIN 22.6 pg (25-34); MEAN CORPUSCULAR HGB CONC 30.7 g/dl (32-36); MEAN PLATELET VOLUME 10.7 fL (7.4-10.4); PLATELET COUNT 196 K/uL (130-400); RED BLOOD COUNT 4.73 M/uL (4.2-5.4); WHITE BLOOD COUNT 6.54 K/uL (4.8-10.8)
== END | disposition home or self-care (01) ==
LOC: C.LABSPEC 12:33
PROVIDERS: ATTEND Internal Medicine
DX: K92.2 Gastrointestinal hemorrhage, unspecified (principal); D64.9 Anemia, unspecified

== ENCOUNTER → 2016-12-27 | Outpatient (CLI) | payer OTHER ==
[2016-12-27 13:33] LABS: BASO % 0.3 %; BASO ABS # 0.02 K/uL (0-0.2); COMPLETE YES; EOS % 1.6 %; HEMATOCRIT 35.8 % (37-47); IG% 0.2 %; LYMPH % 22.7 %; MEAN CELL VOLUME 82.5 fL (80-100); MEAN CORPUSCULAR HEMOGLOBIN 27.4 pg (25-34); MEAN CORPUSCULAR HGB CONC 33.2 g/dl (32-36); MEAN PLATELET VOLUME 10.4 fL (7.4-10.4); MONO % 9.6 %; NEUT % 65.6 %; PLATELET COUNT 193 K/uL (130-400); RED BLOOD COUNT 4.34 M/uL (4.2-5.4); WHITE BLOOD COUNT 5.73 K/uL (4.8-10.8)
[2016-12-27 13:44] LABS: BLOOD UREA NITROGEN 17 mg/dl (7-18); BUN/CREATININE RATIO 23.3 (10-20); CALCIUM 9.3 mg/dl (8.5-10.1); CARBON DIOXIDE 27 mmol/L (21-32); CHLORIDE 109 mmol/L (98-107); CREATININE 0.75 mg/dl (0.60-1.20); GLUCOSE 117 mg/dl (70-99); POTASSIUM 4.5 mmol/L (3.5-5.1); SODIUM 142 mmol/L (136-145)
== END | disposition home or self-care (01) ==
LOC: C.LABSPEC 12:22
PROVIDERS: ATTEND Internal Medicine
DX: I10 Essential (primary) hypertension (principal); D64.9 Anemia, unspecified

== ENCOUNTER → 2017-04-25 | Outpatient (CLI) | payer OTHER ==
[2017-04-25 12:50] LABS: ALT/SGPT 38 U/L (12-78); BLOOD UREA NITROGEN 16 mg/dl (7-18); BUN/CREATININE RATIO 20.5 (10-20); CALCIUM 9.5 mg/dl (8.5-10.1); CARBON DIOXIDE 27 mmol/L (21-32); CHLORIDE 107 mmol/L (98-107); GLUCOSE 116 mg/dl (70-99); POTASSIUM 4.3 mmol/L (3.5-5.1); SODIUM 138 mmol/L (136-145)
[2017-04-25 13:01] LABS: ALKALINE PHOSPHATASE 110 U/L (45-117); AST/SGOT 28 U/L (15-37)
[2017-04-25 13:06] LABS: ESTIMATED AVERAGE GLUCOSE 117 mg/dl; HA1C FLAG Normal (Normal)
== END | disposition home or self-care (01) ==
LOC: C.LABSPEC 12:15
PROVIDERS: ATTEND Internal Medicine
DX: I10 Essential (primary) hypertension (principal); R73.9 Hyperglycemia, unspecified; E03.9 Hypothyroidism, unspecified

== ENCOUNTER → 2017-08-29 | Outpatient (CLI) | payer OTHER ==
[2017-08-29 13:51] LABS: BASO % 0.3 %; BASO ABS # 0.02 K/uL (0-0.2); EOS % 0.8 %; EOS ABS # 0.05 K/uL (0-0.5); HEMOGLOBIN 12.9 g/dL (12.0-16.0); IG# 0.01 K/uL (0.00-0.02); LYMPH % 20.5 %; LYMPH ABS # 1.28 K/uL (1.2-3.4); MEAN CELL VOLUME 90.3 fL (80-100); MEAN CORPUSCULAR HEMOGLOBIN 29.9 pg (25-34); MEAN CORPUSCULAR HGB CONC 33.1 g/dl (32-36); MEAN PLATELET VOLUME 11.2 fL (7.4-10.4); MONO % 9.5 %; MONO ABS # 0.59 K/uL (0.11-0.59); NEUT % 68.7 %; NEUT ABS # 4.29 K/uL (1.4-6.5); PLATELET COUNT 206 K/uL (130-400); RED CELL DISTRIBUTION WIDTH CV 12.7 % (11.5-14.5); RED CELL DISTRIBUTION WIDTH SD 42.4 fL (36.4-46.3); WHITE BLOOD COUNT 6.24 K/uL (4.8-10.8)
[2017-08-29 14:14] LABS: ALBUMIN 3.9 gm/dl (3.4-5.0); ALT/SGPT 18 U/L (12-78); AST/SGOT 17 U/L (15-37); BLOOD UREA NITROGEN 17 mg/dl (7-18); CALCIUM 9.1 mg/dl (8.5-10.1); CARBON DIOXIDE 26 mmol/L (21-32); CREATININE 0.89 mg/dl (0.60-1.20); GLUCOSE 106 mg/dl (70-99); POTASSIUM 4.5 mmol/L (3.5-5.1); SODIUM 137 mmol/L (136-145)
[2017-08-29 14:23] LABS: ALKALINE PHOSPHATASE 71 U/L (45-117); CHOLESTEROL 201 mg/dl (0-200); LDL CHOLESTEROL (DIRECT) 118 mg/dl; TOTAL PROTEIN 7.6 gm/dl (6.4-8.2)
== END | disposition home or self-care (01) ==
LOC: C.LABSPEC 12:19
PROVIDERS: ATTEND Internal Medicine
DX: E03.9 Hypothyroidism, unspecified (principal); I10 Essential (primary) hypertension; E78.5 Hyperlipidemia, unspecified; M19.90 Unspecified osteoarthritis, unspecified site

== ENCOUNTER 2017-10-10 14:02 | Emergency (ER) | payer OTHER ==
[~2017-10-10] VITALS: Ht 162.6 cm; Wt 67.0 kg
[~2017-10-10 14:02] MED LIST changes: -LSN20 PO; -SIMV5TAB2 PO
[2017-10-10 14:07] VITALS: TEMP 36.7; Ht 162.6 cm; Wt 67.0 kg
[2017-10-10] MEDS ORDERED: ACETAMINOPHEN 500 MG TAB PO STA (14:25)
[2017-10-10] MEDS ORDERED: MELO7.5T5 PO (15:24)
[2017-10-10] MEDS ORDERED: LEVO100T7 PO (15:24)
[2017-10-10] MEDS ORDERED: POTA10CA28 PO (15:24)
[2017-10-10] MEDS ORDERED: FERR324T PO (15:24)
[2017-10-10] MEDS ORDERED: OXYB5TAB PO (15:24)
--- NOTE | 2017-10-10 15:32 | DIAGNOSTIC IMAGING REPORT ---
R SHOULDER MIN 2 VIEWS ROUTINE CLINICAL HISTORY: L shoulder pain, heard/felt snap with abduction. COMPARISON: None FINDINGS: Incidental note is made of an anterior cervical spine fusion. Alignment of the left shoulder is anatomic anatomic. No fracture or suspicious lesion is identified. There is moderate to severe AC joint arthrosis with subacromial spurring. There is narrowing of the subacromial space. There is moderate arthritis of the left glenohumeral joint. IMPRESSION: 1. No acute fracture or dislocation of the left shoulder. 2. Moderate to severe osteoarthritis of the left acromioclavicular joint with subacromial spurring. Moderate osteoarthritis of the left glenohumeral joint. Electronically signed by: Bora Gale M.D. 10/10/2017 3:30 PM Dictated Date/Time: 10/10/2017 3:29 PM
--- NOTE | 2017-10-10 16:02 | EMERGENCY ROOM VISIT NOTE ---
History First contact with patient: 14:19 Chief Complaint: SHOULDER PAIN Stated Complaint: SHOULDER PAIN, NUMBNESS IN FINGERS History of Present Illness The patient is a 87 year old female who presents to the Emergency Room via private vehicle accompanied by female with complaints of "shoulder pain, numbness in fingers". The patient states that earlier today she was ascending a flight of steps she notes that she reached up with her left hand to adjust the light switch when she felt/heard a pop in the left anterior shoulder. She notes decreased range of motion at this time secondary to the pain that occurred when she heard the pop/snap. She rates the overall level of pain as an 8/10. The left shoulder is her area of concern and she is right-handed. She notes no chest pain or shortness of breath. She states that since she heard a snap there is a slight tingling sensation in her left hand however she notes that she still is able to appreciate sensation and movement of her hand. Review of Systems A complete 6-point Review of Systems was discussed with the patient, with pertinent positives and negatives listed in the History of Present Illness. All remaining Review of Systems questions can be considered negative unless otherwise specified. Past Medical/Surgical History Medical Problems: (1) ANEMIA. GI BLEED (2) ANEMIA. GI BLEED, (3) Benign hypertension (4) DJD (degenerative joint disease) (5) History of bronchitis (6) History of kidney stones (7) History of urinary tract infections Surgical Problems: (1) History of cholecystectomy (2) History of tonsillectomy Family History Diabetes mellitus Social History Smoking Status: Never Smoker Alcohol Use: none Drug Use: none Marital Status: Housing Status: lives with family Occupation Status: retired Current/Historical Medications Scheduled Ferrous Gluconate (Iron Supplement), 324 MG PO TIDM Levothyroxine Sodium (Levothyroxine Sodium), 100 MCG PO DAILY Lisinopril (Lisinopril), 1 TAB PO DAILY Meloxicam (Mobic), 7.5 MG PO DAILY Metoprolol Tartrate (Lopressor), 25 MG PO BID Oxybutynin Chloride (Oxybutynin Chloride Er), 5 MG PO DAILY Potassium Chloride (Micro-K Ext Rel), 10 MEQ PO DAILY Simvastatin (Zocor), 5 MG PO DAILY Allergies Coded Allergies: Bacitracin (Verified Allergy, Mild, itching, 07/13/15) Neomycin (Verified Allergy, Mild, itching, 07/13/15) Polymyxin B (Verified Allergy, Mild, itching, 07/13/15) Tramadol (Verified Allergy, Mild, 07/13/15) Aloe (Verified Allergy, Unknown, itching, 07/13/15) Codeine (Verified Allergy, Unknown, PT TOLERATED MORPHINE ON MULT ADMISSIONS, 07/13/15) Cortisone (Verified Allergy, Unknown, ., 06/11/15) Erythromycin (Verified Allergy, Unknown, 11/13/11) Iodinated Diagnostic Agents (Verified Allergy, Unknown, ., 07/13/15) Latex1 -Allergic Contact Dermititis (Verified Allergy, Unknown, 07/13/15) Propranolol (Verified Allergy, Unknown, 07/13/15) Triamcinolone (Verified Allergy, Unknown, ., 07/13/15) Physical Exam Vital Signs Date Time Temp Pulse Resp B/P (MAP) Pulse Ox O2 Delivery O2 Flow Rate FiO2 10/10/17 16:10 64 16 193/86 99 10/10/17 14:07 36.7 93 20 203/92 95 Room Air Physical Exam VITAL SIGNS - Vital signs and nursing notes were reviewed. Hypertensive at 203/ 92. Non-tachycardic and is saturating on room air 95%. She is afebrile. GENERAL -87-year-old female appearing her stated age who is in no acute distress. Communicates well with provider and answers questions appropriately. SKIN - Without rashes. No petechial rashes. The skin is intact overlying the left shoulder and upper extremity. HEAD - NC/AT. NECK - Neck with FROM. There is minimal tenderness to palpation overlying the left superior trapezius muscle the lateral aspect of the left side of the neck. LUNGS - Chest wall symmetric without accessory muscle use, intercostals retractions, or central cyanosis. Normal vesicular breath sounds CTA B/L. No wheezes, rales, or rhonchi appreciated. CARDIAC - no definite murmur noted. EXTREMITIES -decreased range of motion actively within the left shoulder. There is tenderness to palpation overlying the anterior most aspect of the left shoulder. There is no distal tenderness. Excellent pulse radially. 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 She is neurovascularly intact in this region. Medical Decision & Procedures ER Provider Diagnostic Interpretation: R SHOULDER MIN 2 VIEWS ROUTINE CLINICAL HISTORY: L shoulder pain, heard/felt snap with abduction. COMPARISON: None FINDINGS: Incidental note is made of an anterior cervical spine fusion. Alignment of the left shoulder is anatomic anatomic. No fracture or suspicious lesion is identified. There is moderate to severe AC joint arthrosis with subacromial spurring. There is narrowing of the subacromial space. There is moderate arthritis of the left glenohumeral joint. IMPRESSION: 1. No acute fracture or dislocation of the left shoulder. 2. Moderate to severe osteoarthritis of the left acromioclavicular joint with subacromial spurring. Moderate osteoarthritis of the left glenohumeral joint. Electronically signed by: Bora Gale M.D. 10/10/2017 3:30 PM Dictated Date/Time: 10/10/2017 3:29 PM Medications Administered Medications (Trade) Dose Ordered Sig/Ya Route Start Time Stop Time Status Last Admin Dose Admin Acetaminophen (Tylenol Tab) 500 mg NOW STAT PO 10/10/17 14:25 10/10/17 14:27 DC 10/10/17 15:07 500 MG Medical Decision Patient was seen and evaluated as above. She presents to us today with left shoulder pain status post lifting left hand above her head to adjust a light switch. Her pain is reducible on exam. There is no chest pain or shortness of breath. After obtaining a thorough history and physical examination the above work up was performed. X-ray reveals no acute fracture or dislocation. I suspect she is likely experiencing either ligamentous or musculature injury to the left shoulder. Benefits versus risk of adding a shoulder sling was discussed, and at this time I do not believe that this would be appropriate or concern for development of frozen shoulder. She states that she would like to follow up for her knee anyway with Dr. Farrell, and I informed her that if that is who she will see for the knees, then perhaps follow-up with him for the left shoulder would be appropriate as well. She was found be hypertensive here which she was made aware of, she notes that she is not this high however I believe that given her level of pain is likely contributing to this. However, she certainly is to follow-up with the family doctor to ensure that this is not persistent. In addition, she was given Tylenol here for pain. She is to use [id number] medications like Tylenol for her pain. She declined higher strength pain medication. She was also seen by the attending physician. The patient was educated upon management, had questions answered prior to discharge , and was discharged home in good condition. Case was discussed with the attending physician I attest that I have personally reviewed the patient medication list. The patient's blood pressure was reviewed and was found to be elevated likely secondary to situation however, PCP follow up is recommended. In the evaluation and treatment of this patient, the following differential diagnoses were considered: Shoulder Contusion, Shoulder Fracture, Shoulder Dislocation, Thoracic Outlet Syndrome, Adhesive Capsulitis, Rotator Cuff Tear, Proximal Clavicle Head Fracture, Apical Pneumonia, Pneumothorax, Hemothorax, or TB. Impression Primary Impression: Shoulder pain, left Departure Information Dispostion Home / Self-Care Condition GOOD Referrals Miky Benitez M.D. (PCP) Isael Farrell M.D. Patient Instructions My [facility] Additional Instructions You have been treated in the Emergency Department for Shoulder Pain. For pain control, you can use the following [id number] medicines (if >12 yo): - Regular strength (325mg/tab) Tylenol (acetaminophen) 2 tabs every 4-6 hours as needed. Do not exceed 12 tablets in a 24 hour period. Avoid taking more than 3 grams (3000 mg) of Tylenol per day. This includes any other sources of acetaminophen you may take on a regular basis. You have been provided the number for an Orthopaedic Surgeon. You should call this number as soon as possible to establish a follow-up visit from today's Emergency Department visit. Return to the Emergency Department if your current symptoms worsen despite treatment course outlined above, or if you develop any of the following symptoms : intractable pain despite aforementioned treatment course or new onset of numbness or tingling of the arm.
[2017-10-10 16:10] VITALS: BP 193/86; PULSE 64; O2SAT 99
[2017-10-10] MEDS ORDERED: LSN20 PO (19:48)
[2017-10-10] MEDS ORDERED: SIMV5TAB2 PO (19:50)
--- NOTE | 2017-10-10 20:55 | EMERGENCY ROOM VISIT NOTE ---
ED Visit Note First contact with patient: 14:19 I have personally evaluated this patient examined her and reviewed the pertinent labs and data. I have discussed the case with Sahil Payne, the physician appeals assistant and agree with the plan. Please refer to the PA note. This patient comes in after having left shoulder pain she was reaching for something and felt a pop. X-rays show no fracture or dislocation. On my exam , she has some mild tenderness laterally but has full range of motion. she has a good distal pulse. She has nothing to suggest that she has cardiac disease. there was no actual trauma directly to this. She is to follow-up with Dr. Farrell and return if any new problems or concerns.
== END 2017-10-10 16:12 | disposition home or self-care (01) ==
LOC: C.EDB 14:03 → C.EDD 16:12
DX: M25.512 Pain in left shoulder (principal); I10 Essential (primary) hypertension; M19.90 Unspecified osteoarthritis, unspecified site; Z87.440 Personal history of urinary (tract) infections; Z87.442 Personal history of urinary calculi; Z83.3 Family history of diabetes mellitus; Z79.899 Other long term (current) drug therapy; Z88.1 Allergy status to other antibiotic agents; Z88.5 Allergy status to narcotic agent; Z91.040 Latex allergy status; Z88.8 Allergy status to other drugs, medicaments and biological substances

== ENCOUNTER → 2017-12-26 | Outpatient (CLI) | payer OTHER ==
[~2017-12-26] MED LIST changes: -CALCTAB7 PO; -DTRSR5 PO; +FERR324T PO; -FRRG PO; +LEVO100T7 PO; +LSN20 PO; +MELO7.5T5 PO; +OXYB5TAB PO; -POTA-327 PO; +POTA10CA28 PO; +SIMV5TAB2 PO; -SYN200 PO; -VTMD1000 PO
[2017-12-26 17:15] LABS: BASO % 0.4 %; BASO ABS # 0.02 K/uL (0-0.2); EOS % 1.1 %; EOS ABS # 0.06 K/uL (0-0.5); HEMATOCRIT 37.2 % (37-47); HEMOGLOBIN 12.7 g/dL (12.0-16.0); IG# 0.01 K/uL (0.00-0.02); LYMPH % 24.1 %; LYMPH ABS # 1.27 K/uL (1.2-3.4); MEAN CELL VOLUME 89.2 fL (80-100); MEAN CORPUSCULAR HEMOGLOBIN 30.5 pg (25-34); MEAN CORPUSCULAR HGB CONC 34.1 g/dl (32-36); MEAN PLATELET VOLUME 10.3 fL (7.4-10.4); MONO % 8.7 %; MONO ABS # 0.46 K/uL (0.11-0.59); NEUT % 65.5 %; NEUT ABS # 3.45 K/uL (1.4-6.5); PLATELET COUNT 177 K/uL (130-400); RED CELL DISTRIBUTION WIDTH CV 13.6 % (11.5-14.5); WHITE BLOOD COUNT 5.27 K/uL (4.8-10.8)
[2017-12-26 17:44] LABS: ALBUMIN 3.9 gm/dl (3.4-5.0); ALKALINE PHOSPHATASE 80 U/L (45-117); ALT/SGPT 20 U/L (12-78); AST/SGOT 20 U/L (15-37); BLOOD UREA NITROGEN 15 mg/dl (7-18); CALCIUM 9.2 mg/dl (8.5-10.1); CARBON DIOXIDE 27 mmol/L (21-32); CHOLESTEROL 190 mg/dl (0-200); CREATININE 0.92 mg/dl (0.60-1.20); GLUCOSE 110 mg/dl (70-99); LDL CHOLESTEROL (DIRECT) 119 mg/dl; POTASSIUM 4.2 mmol/L (3.5-5.1); SODIUM 140 mmol/L (136-145); TOTAL PROTEIN 7.8 gm/dl (6.4-8.2)
[2017-12-26 17:45] LABS: HEMOGLOBIN A1C 5.6 % (4.5-5.6)
== END | disposition home or self-care (01) ==
LOC: C.LABSPEC 16:46
PROVIDERS: ATTEND Internal Medicine
DX: R73.9 Hyperglycemia, unspecified (principal); I10 Essential (primary) hypertension; E78.5 Hyperlipidemia, unspecified; E03.9 Hypothyroidism, unspecified; R10.9 Unspecified abdominal pain

== ENCOUNTER → 2017-12-28 | Outpatient (CLI) | payer OTHER ==
[~2017-12-28] MED LIST changes: +OPTIRAY 320 IV PRN
--- NOTE | 2017-12-28 09:13 | DIAGNOSTIC IMAGING REPORT ---
ABDOMEN AND PELVIS CT WITH ORAL CONTRAST CT DOSE: HISTORY: LEFT SIDE ABDOMINAL PAIN TECHNIQUE: Multiaxial CT images of the abdomen and pelvis were performed following the use of oral contrast. Intravenous contrast was not used due to the patient's reported contrast allergy. A dose lowering technique was utilized adhering to the principles of ALARA. COMPARISON STUDY: Abdomen and pelvis CT 05/03/2013. FINDINGS: Stable nodules within the base of the left lung with the largest measuring 9 mm. Large hiatus hernia is again noted. No pneumoperitoneum. No pneumatosis. Posterior fusion within the lower lumbar spine. Small fat-containing umbilical hernia. Trace left pleural effusion. A few jejunal diverticula. Cholecystectomy. The unenhanced liver, spleen, and adrenal glands are unremarkable. Bilateral renal hypodense lesions are incompletely characterized on this noncontrast study but favor cysts. No renal or ureteral stones. No hydronephrosis. Small bilateral peripelvic cysts. Hysterectomy. The bladder is unremarkable. The pancreas is within normal limits. Moderate calcified plaque within the normal caliber abdominal aorta. No retroperitoneal lymphadenopathy. Moderate to large amount well-formed stool seen within the distal colon and rectum. Suture material within the distal sigmoid colon consistent with prior partial resection of the colon. There is also moderate to large amount of stool within the proximal and transverse colon. Distal colon is decompressed. No bowel wall thickening or obstruction. IMPRESSION: 1. No bowel wall thickening or obstruction. 2. Moderate to large amount of well-formed stool seen throughout the colon. 3. Trace left pleural effusion. 4. Large hiatus hernia, unchanged. 5. Stable left lung base nodules. 6. Additional findings as described above. Electronically signed by: Eloy Ryder M.D. 12/28/2017 9:11 AM Dictated Date/Time: 12/28/2017 8:58 AM
== END | disposition home or self-care (01) ==
LOC: C.CTS 07:53
PROVIDERS: ATTEND Internal Medicine
DX: R10.9 Unspecified abdominal pain (principal)

== ENCOUNTER 2020-03-27 17:41 | Inpatient (IN) ==
[2020-03-27] MEDS ORDERED: SODIUM CHLORIDE 0.9% 1000ML 500 ML IV ONE ×3 (18:12→23:24)
[2020-03-27 18:45] LABS: Basophils # (auto) 0.01 K/uL (0-0.2); Basophils % (auto) 0.2 %; Eosinophils # (auto) 0.07 K/uL (0-0.5); Eosinophils % (auto) 1.1 %; Hematocrit (blood only) 29.2 % (37-47); Immature Granulocytes # (auto) 0.01 K/uL (0.00-0.02); Immature Granulocytes % (auto) 0.2 %; Lymphocytes # (auto) 1.11 K/uL (1.2-3.4); Lymphocytes % (auto) 17.2 %; Mean Corpuscular Hemoglobin 30.4 pg (25-34); Mean Corpuscular Hgb Conc 34.2 g/dL (32-36); Mean Corpuscular Volume 88.8 fL (80-100); Mean Platelet Volume 10.6 fL (7.4-10.4); Monocytes # (auto) 0.63 K/uL (0.11-0.59); Monocytes % (auto) 9.8 %; Neutrophils # (auto) 4.63 K/uL (1.4-6.5); Neutrophils % (auto) 71.5 %; Platelet Count 133 K/uL (130-400); RDW Coefficient of Variation 13.2 % (11.5-14.5); RDW Standard Deviation 42.6 fL (36.4-46.3); Red Blood Count 3.29 M/uL (4.2-5.4); White Blood Count 6.46 K/uL (4.8-10.8)
--- NOTE | 2020-03-27 18:47 | XRay Report ---
XR chest 1V portable CLINICAL HISTORY: weakness COMPARISON STUDY: 03/08/2019 FINDINGS: The study is slightly rotated. The cardiac and mediastinal contours remain stable. The steven ent remains hyperinflated. There is no failure. There is no focal pulmonary consolidation. There are no significant pleural effusions. Postsurgical changes are present the cervical spine.[ IMPRESSION: No active disease in the chest. ACT 112: Negative or not required by law. Electronically signed by: Suhas Claire M.D. 03/27/2020 6:45 PM
[2020-03-27 19:00] LABS: iSTAT Hemoglobin 10.2 g/dl (12.0-16.0); iSTAT Ionized Calcium 1.37 mmol/l (1.12-1.32); iSTAT Potassium 5.2 mmol/L (3.3-5.0)
[2020-03-27 19:11] LABS: Alanine Aminotransferase 20 U/L (12-78); Albumin Level 3.7 gm/dl (3.4-5.0); Aspartate Aminotransferase 18 U/L (15-37); BUN Creatinine Ratio 35.9 (10-20); Blood Urea Nitrogen 68 mg/dl (7-18); Calcium 8.9 mg/dl (8.5-10.1); Carbon Dioxide 15 mmol/L (21-32); Chloride 120 mmol/L (98-107); Est GFR (Non-African American) 23.3; Glucose 115 mg/dl (70-99); Potassium 5.3 mmol/L (3.5-5.1); Sodium 141 mmol/L (136-145)
[2020-03-27] MEDS ORDERED: SUCRALFATE 1 GM TAB PO STA (19:18)
[2020-03-27] MEDS ORDERED: GI COCKTAIL ED USE PO ONE (19:18)
[2020-03-27] MEDS ORDERED: FAMOTIDINE 40 MG TABLET PO ONE (19:18)
[2020-03-27 19:22] LABS: Alkaline Phosphatase 55 U/L (45-117); Bilirubin,Total 0.9 mg/dl (0.2-1); Creatine Kinase 54 U/L (26-192); Globulin 3.7 gm/dl (2.5-4.0); Total Protein 7.4 gm/dl (6.4-8.2); Troponin I < 0.015 ng/ml (0-0.045)
--- NOTE | 2020-03-27 19:23 | Emergency Department Note ---
History of Present Illness General Chief complaint: Illness Stated complaint: WEAKNESS Time Seen by Provider: 03/27/20 17:57 History of Present Illness Maximum Pain Intensity: 0 Home Medications Home Medications Medication Instructions Recorded Confirmed Type ferrous gluconate 324 mg PO DIRECTED 12/18/18 03/27/20 History levothyroxine 125 mcg PO QAM 12/18/18 03/27/20 History meloxicam [Mobic] 7.5 mg PO DAILY 12/18/18 03/27/20 History oxybutynin chloride 5 mg PO BID 12/18/18 03/27/20 History potassium chloride 2 tab PO QAM 12/18/18 03/27/20 History simvastatin 20 mg PO PM 12/18/18 03/27/20 History metoprolol tartrate 50 mg PO BID 03/08/19 03/27/20 History triamterene-hydrochlorothiazid 0 tab PO DAILY 07/08/19 03/27/20 History lisinopril 20 mg PO DAILY 03/27/20 03/27/20 History Allergies Allergy/AdvReac Type Severity Reaction Status Date / Time aloe Allergy Mild itching Verified 03/27/20 19:31 bacitracin Allergy Mild itching Verified 03/27/20 19:31 codeine Allergy Mild ITCHING Verified 03/27/20 19:31 cortisone Allergy Mild Rash Verified 03/27/20 19:31 erythromycin base Allergy Mild ITCHING Verified 03/27/20 19:31 latex Allergy Mild ITCHING Verified 03/27/20 19:31 neomycin Allergy Mild itching Verified 03/27/20 19:31 polymyxin B Allergy Mild itching Verified 03/27/20 19:31 tramadol Allergy Mild Rash Verified 03/27/20 19:31 triamcinolone Allergy Mild ITCHING Verified 03/27/20 19:31 Iodinated Contrast Media Allergy Unknown DOES NOT Verified 07/08/19 11:52 REMEMBER propranolol Allergy Unknown DOES NOT Verified 07/08/19 11:52 REMEMBER Past Med/Surg History Medical History Anemia Degenerative disc disease Hyperlipidemia Hypertension Hypothyroidism Rheumatoid arthritis Urinary frequency Surgical History Fusion of spine LUMBAR SURGERY X 2 History of adenoidectomy History of cataract surgery RT/LEFT History of cholecystectomy History of colonoscopy History of dilatation and curettage History of discectomy CERVICAL History of open reduction and internal fixation (ORIF) procedure RT FEMUR History of tonsillectomy History of tooth extraction History of total abdominal hysterectomy and bilateral salpingo-oophorectomy Family History Mother Family history of diabetes mellitus Social History Smoking Status: Never smoker Second Hand Exposure: No; Hx Alcohol Use: No Hx Substance Use: No Preferred Language: Lao Communication Ability: Effective Tests Superintendent Required: No Beliefs That Will Affect Care: None Current Living Situation: Family Current Living Situation Comment: Daughter Keya Feels Safe at Home: Yes Safety Concerns: Feels Safe At This Time Review of Systems A total of 10 systems reviewed and were otherwise negative Physical Exam Vital Signs Vital Signs - 24 hr 03/27/20 17:49 03/27/20 19:10 03/27/20 19:35 Temperature 36.7 C Temperature Source Oral Pulse Rate 101 H Pulse Rate [Apical] 97 H 72 Pulse Rate from SpO2 Sensor Respiratory Rate 16 18 18 Respiratory Effort / Characteristics Non-Labored Respiratory Depth Normal Blood Pressure 140/65 Blood Pressure [Left Arm] 127/101 H 140/74 Blood Pressure Mean 90 Blood Pressure Mean [Left Arm] 109 96 Blood Pressure Position [Left Arm] Sitting Sitting Pulse Oximetry 100 94 99 Oxygen Delivery Method Room Air Room Air Room Air Sepsis Recent Fever Within 48 Hours No Sepsis New/Unexplained Change in Mental Status No Sepsis Action Taken by Nursing No Action Required 03/27/20 20:09 03/27/20 20:20 03/27/20 20:30 Temperature Temperature Source Pulse Rate 94 H 100 H 96 H Pulse Rate [Apical] Pulse Rate from SpO2 Sensor 98 H 87 Respiratory Rate 24 23 37 H Respiratory Effort / Characteristics Respiratory Depth Blood Pressure 166/85 H 166/85 H 158/89 H Blood Pressure [Left Arm] Blood Pressure Mean 112 127 105 Blood Pressure Mean [Left Arm] Blood Pressure Position [Left Arm] Pulse Oximetry 100 97 96 Oxygen Delivery Method Sepsis Recent Fever Within 48 Hours Sepsis New/Unexplained Change in Mental Status Sepsis Action Taken by Nursing 03/27/20 21:31 03/27/20 22:00 Temperature Temperature Source Pulse Rate 95 H 88 Pulse Rate [Apical] Pulse Rate from SpO2 Sensor 96 H Respiratory Rate 22 22 Respiratory Effort / Characteristics Respiratory Depth Blood Pressure 178/77 H 160/77 H Blood Pressure [Left Arm] Blood Pressure Mean 128 100 Blood Pressure Mean [Left Arm] Blood Pressure Position [Left Arm] Pulse Oximetry 100 99 Oxygen Delivery Method Sepsis Recent Fever Within 48 Hours Sepsis New/Unexplained Change in Mental Status Sepsis Action Taken by Nursing VITAL SIGNS - Vital signs and nursing notes were reviewed. GENERAL - 89-year-old cachectic appearing stated age who is in no acute distress. Communicates well with provider and answers questions appropriately. SKIN - Without rashes. HEAD - NC/AT. EYES - PERRL with EOMI bilaterally. Sclera anicteric. Palpebral conjunctiva pink and moist with no injection noted. EARS - No deformities of external structures noted on gross examination bilaterally. No pain elicited with palpation of the tragus bilaterally. External auditory canals without discharge or otorrhea. Tympanic membranes pearly mancia without retraction or bulging. No fluid or purulent material visualized behind the TM. Handle of malleus, umbo, cone of light, pars tensa/flaccid all easily visualized. NOSE - Midline and without cyanosis. No epistaxis or purulent drainage noted. Septum midline without deviation or septal hematoma noted. MOUTH/OROPHARYNX - Without perioral cyanosis. Buccal mucosa pink and moist and without leukoplakia. Tongue midline with equal elevation of palate bilaterally. No tonsillar hypertrophy, erythema, or exudates noted. dentition noted. NECK - Neck with FROM. Supple to palpation. lymphadenopathy noted. No nuchal rigidity. LUNGS - Chest wall symmetric without accessory muscle use, intercostals retractions, or central cyanosis. Normal vesicular breath sounds CTA B/L. No wheezes, rales, or rhonchi appreciated. CARDIAC - RRR with S1/S2. No murmur, rubs, or gallops appreciated. ABDOMEN - Abdominal contour without pulsations or visible masses. BS normoactive all four quadrants. No tenderness, palpable masses, hepatosplenomegaly, or ascites noted. EXTREMITIES -Old surgical scars bilaterally to shoulders No clubbing or peripheral cyanosis. No pretibial edema present. +3/5 radial, posterior tibial, and dorsalis pedis pulses palpated throughout. +5/5 strength noted in UE/LE bilaterally. NEUROLOGIC - Cranial nerves II through XII grossly intact. Sensory intact to light touch throughout. Patellar reflexes +2/4. PSYCH - A&Ox3 and cooperates fully with examiner. Pt is very pleasant and interacts well with examiner. Course Administered Medications Diclofenac Sodium (Diclofenac Sod 1% Gel 100 Gm Tube) 2 gm EXT QID UMER Stop: 04/27/20 08:59 Last Admin: 03/28/20 13:01 Dose: 2 gm Documented by: [id number] Admin: 03/28/20 08:13 Dose: 2 gm Documented by: [id number] Famotidine (Famotidine 20 Mg Tab) 20 mg PO BID UMER Stop: 04/27/20 12:59 Last Admin: 03/28/20 13:01 Dose: 20 mg Documented by: [id number] Heparin Sodium (Porcine) (Heparin Sod 5,000 Unit/0.5 Ml Vial) 5,000 units SQ Q12 UMER Stop: 04/27/20 08:59 Last Admin: 03/28/20 08:12 Dose: 5,000 units Documented by: [id number] Cosigned by: [id number] Sodium Chloride (Nss 1000ml) 1,000 mls @ 80 mls/hr IV .[id number] UMER Stop: 04/27/20 12:29 Last Admin: 03/28/20 13:02 Dose: 80 mls/hr Documented by: [id number] Metoprolol Tartrate (Metoprolol Tartrate 50 Mg Tab) 50 mg PO BID UMER Stop: 04/27/20 08:59 Last Admin: 03/28/20 08:12 Dose: 50 mg Documented by: [id number] Discontinued Medications Al Hydrox/Mg Hydrox/Simethicone (Gi Cocktail Ed Use) 1 dose PO ONE ONE Stop: 03/27/20 19:19 Last Admin: 03/27/20 19:29 Dose: 1 dose Documented by: [id number] Famotidine (Famotidine 40 Mg Tablet) 40 mg PO NOW ONE Stop: 03/27/20 19:19 Last Admin: 03/27/20 19:29 Dose: Not Given Documented by: [id number] Famotidine (Famotidine 20 Mg Tab) Confirm Administered Dose 40 mg .ROUTE .STK- MED ONE Stop: 03/27/20 19:27 Last Admin: 03/27/20 19:29 Dose: 40 mg Documented by: [id number] Sodium Chloride (Nss 1000ml) 500 mls @ 999 mls/hr IV .Q31M ONE Stop: 03/27/20 18:42 Last Infusion: 03/27/20 19:13 Dose: 0 mls/hr Documented by: [id number] Admin: 03/27/20 18:36 Dose: 999 mls/hr Documented by: [id number] Sodium Chloride (Nss 1000ml) 500 mls @ 999 mls/hr IV .Q31M ONE Stop: 03/27/20 19:21 Last Infusion: 03/27/20 20:33 Dose: 0 mls/hr Documented by: [id number] Admin: 03/27/20 19:13 Dose: 999 mls/hr Documented by: [id number] Sodium Chloride (Nss 1000ml) 500 mls @ 999 mls/hr IV .Q31M ONE Stop: 03/27/20 23:54 Last Infusion: 03/28/20 00:33 Dose: 0 mls/hr Documented by: [id number] Admin: 03/28/20 00:01 Dose: 999 mls/hr Documented by: [id number] Sucralfate (Sucralfate 1 Gm Tab) 1 gm PO NOW STA Stop: 03/27/20 19:19 Last Admin: 03/27/20 19:29 Dose: 1 gm Documented by: [id number] Medical Decision Making Differential Diagnosis Infection, dehydration, metabolic abnormality, hypo/hyperglycemia, electrolyte disturbance, anemia, hypoxia, cardiac sources, intracerebral event, toxicologic, neurologic, as well as other pathologies. Medical Records Attestation: I reviewed the patient's medical records. Home Medications Current Medication List: was personally reviewed by me Laboratory Data Attestation: I reviewed the patient's lab results. Result diagrams: 03/28/20 07:29 03/28/20 07:29 Lab Results 03/27/20 03/27/20 03/27/20 Range/Units 18:30 18:30 18:47 WBC 6.46 (4.8-10.8) K/uL RBC 3.29 L (4.2-5.4) M/uL Hgb 10.0 L (12.0-16.0) g/dL POC Hgb 10.2 L (12.0-16.0) g/dl Hct 29.2 L (37-47) % POC Hct 30 L (37-47) % MCV 88.8 (80-100) fL MCH 30.4 (25-34) pg MCHC 34.2 (32-36) g/dL RDW Std Deviation 42.6 (36.4-46.3) fL RDW Coeff of Rafael 13.2 (11.5-14.5) % Plt Count 133 (130-400) K/uL MPV 10.6 H (7.4-10.4) fL Immature Gran % (Auto) 0.2 % Neut % (Auto) 71.5 % Lymph % (Auto) 17.2 % Baker % (Auto) 9.8 % Eos % (Auto) 1.1 % Baso % (Auto) 0.2 % Neut # (Auto) 4.63 (1.4-6.5) K/uL Lymph # (Auto) 1.11 L (1.2-3.4) K/uL Baker # (Auto) 0.63 H (0.11-0.59) K/uL Eos # (Auto) 0.07 (0-0.5) K/uL Baso # (Auto) 0.01 (0-0.2) K/uL Immature Gran # (Auto) 0.01 (0.00-0.02) K/uL POC Sodium 141 (135-144) mmol/L Sodium 141 (136-145) mmol/L POC Potassium 5.2 H (3.3-5.0) mmol/L Potassium 5.3 H (3.5-5.1) mmol/L POC Chloride 115 H (101-112) mmol/L Chloride 120 H (98-107) mmol/L Carbon Dioxide 15 L (21-32) mmol/L POC Total CO2 15 L (24-31) mmol/L Anion Gap 6.0 (3-11) POC Anion Gap 17.0 (16-25) mmol/L POC BUN 76 H (7-18) mg/dl BUN 68 H (7-18) mg/dl Creatinine 1.90 H (0.6-1.2) mg/dl POC Creatinine 2.0 H (0.6-1.3) mg/dl Est Cr Clr Drug Dosing Not Reportable Est GFR ( Amer) 27.0 Est GFR (Non-Af Amer) 23.3 BUN/Creatinine Ratio 35.9 H (10-20) Glucose 115 H (70-99) mg/dl POC Glucose (other) 114 H (70-99) mg/dl Calcium 8.9 (8.5-10.1) mg/dl POC Ioniz Calcium Curt 1.37 H (1.12-1.32) mmol/l Total Bilirubin 0.9 (0.2-1) mg/dl AST 18 (15-37) U/L ALT 20 (12-78) U/L Alkaline Phosphatase 55 (45-117) U/L Total Creatine Kinase 54 (26-192) U/L Troponin I < 0.015 (0-0.045) ng/ml Total Protein 7.4 (6.4-8.2) gm/dl Albumin 3.7 (3.4-5.0) gm/dl Globulin 3.7 (2.5-4.0) gm/dl Albumin/Globulin Ratio 1.0 (0.9-2) TSH 0.010 L (0.300-4.500) uIu/ml Free T4 1.95 H (0.8-1.6) ng/dl Specimen Hemolysis Imaging Data Attestation: I personally reviewed and interpreted this imaging study as follows: Radiologist's Impression: [facility], [place] [phone] CT Scan Report Patient: ROBBIE KRISHNA Date: 03/27/20 MR#: [id number]: [address] Acct ID:[id number]: Date: 1930[facility] Zip: [place] [address] Age: 89Location: 2W Sex: F Room/Bed: [facility] Att Phy: Bhupendra Sanchez M.D.Diagnosis: PRESYNCOPE,DEXTER,HYPERKALEMIA Cass Phy: Miky Benitez M.D.Service Date: 03/27/20 Fam Phy:Interpreting Phy: Suhas Claire MD Admit Phy: Kilo Flores MD Ordering Phy: Checo Roth MD cc: ~ CT head/brain wo con CLINICAL HISTORY: Weakness CHANGE IN NEUROLOGICAL STATUS COMPARISON STUDY: 03/08/2019 TECHNIQUE: Axial CT of the brain is performed from the vertex to the skull base. IV contrast was not administered for this examination. A dose lowering technique was utilized adhering to the principles of ALARA. CT DOSE: 1074.96 mGy.cm FINDINGS: No intra or extra-axial mass lesions are visualized. There is no CT evidence of acute cortical infarction. There is no evidence of midline shift. There is no acute hemorrhage. No calvarial fractures are visualized. There are patchy white matter hypodensities likely on a small vessel basis. There is no evidence of pathologic ventricular dilatation. There is no evidence of acute sinusitis IMPRESSION: No acute intracranial findings ACT 112: Negative or not required by law. Electronically signed by: Suhas Claire M.D. 03/28/2020 7:30 AM Dictated: 03/28/20728 Transcribed: 03/28/20728 17 Ready for Discharge: Author: Checo Roth MD Last Saved at 03/27/20 19:23 undefined undefined Differential Diagnosis Infection,dehydra tion,metabolicabnormality,hypo/hyperglycemia,electrolytedisturbance,anemia,hypox ia,cardiacsources,in tracerebralevent,toxicologic,neurologic,aswellasotherpathologies. Attestation Additional Comments Click to Enter Additional Comments Current Medication List Additional Comments Click to Enter Additional Comments Attestation Lab results narrative Click to Enter Lab results narrative Result diagrams Today 07:29 Today 07:29 Labs Lab Results 03/27/20 03/27/20 03/27/20 Range/Units 18:30 18:30 18:47 WBC 6.46 (4.8-10.8) K/uL RBC 3.29 L (4.2-5.4) M/uL Hgb 10.0 L (12.0-16.0) g/dL POC Hgb 10.2 L (12.0-16.0) g/dl Hct 29.2 L (37-47) % POC Hct 30 L (37-47) % MCV 88.8 (80-100) fL MCH 30.4 (25-34) pg MCHC 34.2 (32-36) g/dL RDW Std Deviation 42.6 (36.4-46.3) fL RDW Coeff of Rafael 13.2 (11.5-14.5) % Plt Count 133 (130-400) K/uL MPV 10.6 H (7.4-10.4) fL Immature Gran % (Auto) 0.2 % Neut % (Auto) 71.5 % Lymph % (Auto) 17.2 % Baker % (Auto) 9.8 % Eos % (Auto) 1.1 % Baso % (Auto) 0.2 % Neut # (Auto) 4.63 (1.4-6.5) K/uL Lymph # (Auto) 1.11 L (1.2-3.4) K/uL Baker # (Auto) 0.63 H (0.11-0.59) K/uL Eos # (Auto) 0.07 (0-0.5) K/uL Baso # (Auto) 0.01 (0-0.2) K/uL Immature Gran # (Auto) 0.01 (0.00-0.02) K/uL POC Sodium 141 (135-144) mmol/L Sodium 141 (136-145) mmol/L POC Potassium 5.2 H (3.3-5.0) mmol/L Potassium 5.3 H (3.5-5.1) mmol/L POC Chloride 115 H (101-112) mmol/L Chloride 120 H (98-107) mmol/L Carbon Dioxide 15 L (21-32) mmol/L POC Total CO2 15 L (24-31) mmol/L Anion Gap 6.0 (3-11) POC Anion Gap 17.0 (16-25) mmol/L POC BUN 76 H (7-18) mg/dl BUN 68 H (7-18) mg/dl Creatinine 1.90 H (0.6-1.2) mg/dl POC Creatinine 2.0 H (0.6-1.3) mg/dl Est Cr Clr Drug Dosing Not Reportable Est GFR ( Amer) 27.0 Est GFR (Non-Af Amer) 23.3 BUN/Creatinine Ratio 35.9 H (10-20) Glucose 115 H (70-99) mg/dl POC Glucose (other) 114 H (70-99) mg/dl Calcium 8.9 (8.5-10.1) mg/dl POC Ioniz Calcium Curt 1.37 H (1.12-1.32) mmol/l Total Bilirubin 0.9 (0.2-1) mg/dl AST 18 (15-37) U/L ALT 20 (12-78) U/L Alkaline Phosphatase 55 (45-117) U/L Total Creatine Kinase 54 (26-192) U/L Troponin I < 0.015 (0-0.045) ng/ml Total Protein 7.4 (6.4-8.2) gm/dl Albumin 3.7 (3.4-5.0) gm/dl Globulin 3.7 (2.5-4.0) gm/dl Albumin/Globulin Ratio 1.0 (0.9-2) TSH 0.010 L (0.300-4.500) uIu/ml Free T4 1.95 H (0.8-1.6) ng/dl Specimen Hemolysis Click to Enter Labs Attestation My Impression Click to Enter My Impression Radiologist's Impression [facility] [phone] :KATE KRISHNAdmitDate:03/27/20MR#:[id number]:[id number]:Priya hDate:2CityStZip:[place]Age:89Location:2WSex:FRoom/Bed:W256- 2AttPhy:Earnest SanchezDiagnosis:PRESYNCOPE,DEXTER,HYPERKALEMIAPriPhy:Miky Lees M.D.Serv iceDate:03/27/20FamP hy:InterpretingPhy:AriRShenaowitzMDAdmitPhy:PaulC. Flores MDOrderingPhy:KevinM. Satya,MDcc:~CThe ad/brainwoconCLINICALHISTORY:WeaknessCHANGEINNEUROLOGICALSTATUSCOMPARISONSTUDY:TECHNIQUE:Ax ialCTofthebrainisperformedfromthevertextotheskullbase.IVcontrastwasnotadminister edforthisexamination .AdoseloweringtechniquewasutilizedadheringtotheprinciplesofALARA.CTDOSE:1074.96m Gy.cmFINDINGS:Nointr aorextra-axialmasslesionsarevisualized.ThereisnoCTevidenceofacutecorticalinfarct ion.Thereisnoevidenc eofmidlineshift.Thereisnoacutehemorrhage.Nocalvarialfracturesarevisualized.There arepatchywhitematter hypodensitieslikelyonasmallvesselbasis.Thereisnoevidenceofpathologicventriculard ilatation.Thereisnoe videnceofacutesinusitisIMPRESSION:LuyczwarbrozdxclhqieppmxwhfDCO385:Negativeorno trequiredbylaw.Elect ronicallysignedby:Chanel Levin:30AMDictated:[id number] bed: Prescription Drug Monitoring Prescription Drug Findings Click to Enter Prescription Drug Findings Blood Pressure Findings Blood Pressure Disposition Additional Comments Click to Enter Additional Comments * MDM Narrative Click to Enter MDM Narrative Robbie Krishna, F1 ADM IN, 2W W256 -2 5ft 4.5in 50.3kg BMI: 18.7kg/m Search Chart itching itching ITCHING Rash ITCHING ITCHING itching itching Rash ITCHING DOES NOT REMEMBER DOES NOT REMEMBER No Data to Display ONSET Today 15:51 *from earlier documentation Signed 03/27/20 Signed 03/27/20 Signed 03/27/20 Signed 03/27/20 Trop I WBC Hb Hct Plt BUN Cr Na K BSG Glu Total Bili ROBBIE KRISHNA 89 F 1930 Sign [facility] [place] [phone] XRay Report Patient: ROBBIE KRISHNA Date: 03/27/20 MR#: [id number]: [address] [facility] Acct ID:[id number]: Date: 1930[facility] Zip: [place] [address] Age: 89Location: ED Sex: F Room/Bed: Att Phy:Diagnosis: WEAKNESS Cass Phy: Miky Benitez M.D.Service Date: 03/27/20 Fam Phy:Interpreting Phy: Suhas Claire MD Admit Phy: Ordering Phy: Checo Roth MD cc: ~ XR shoulder LT min 2V routine CLINICAL HISTORY: Left shoulder pain COMPARISON: None. DISCUSSION: No acute fractures or dislocations are visualized. The bones are osteopenic. Degenerative changes are present within the glenohumeral joint. Postsurgical changes are present within the cervical spine IMPRESSION: 1. Osteopenia 2. No acute fractures 3. Degenerative change ACT 112: Negative or not required by law. Electronically signed by: Suhas Claire M.D. 03/27/2020 7:43 PM Dictated: 03/27/201941 Transcribed: 03/27/201941 [place], [place] [phone] XRay Report Patient: ROBBIE KRISHNA Date: 03/27/20 MR#: [id number]: [address] [facility] Acct ID:[id number]: Date: [address] [place] [address] Zip: [place] [address] Age: 89Location: ED Sex: F Room/Bed: Att Phy:Diagnosis: WEAKNESS Cass Phy: Miky Benitez M.D.Service Date: 03/27/20 Fam Phy:Interpreting Phy: Suhas Claire MD Admit Phy: Ordering Phy: Checo Roth MD cc: ~ XR shoulder RT min 2V routine CLINICAL HISTORY: Right shoulder pain COMPARISON: None. DISCUSSION: No acute fractures are visualized. The bones are osteopenic. There are degenerative changes present. Postsurgical changes are present within the cervical spine IMPRESSION: 1. Osteopenia 2. No acute fractures 3. Mild degenerative change ACT 112: Negative or not required by law. Electronically signed by: Suhas Claire M.D. 03/27/2020 7:44 PM Dictated: 03/27/201942 Transcribed: 03/27/201942 [place], [place] [phone] XRay Report Patient: ROBBIE KRISHNA Date: 03/27/20 MR#: [id number]: [address] [facility] Acct ID:[id number]: Date: [address] [place] [address] Zip: [place] [address] Age: 89Location: ED Sex: F Room/Bed: Att Phy:Diagnosis: WEAKNESS Cass Phy: Miky Benitez M.D.Service Date: 03/27/20 [facility] Phy:Interpreting Phy: Suhas Claire MD Admit Phy: Ordering Phy: Checo Roth MD cc: ~ XR chest 1V portable CLINICAL HISTORY: weakness COMPARISON STUDY: 03/08/2019 FINDINGS: The study is slightly rotated. The cardiac and mediastinal contours remain stable. The patient remains hyperinflated. There is no failure. There is no focal pulmonary consolidation. There are no significant pleural effusions. Postsurgical changes are present the cervical spine.[ IMPRESSION: No active disease in the chest. ACT 112: Negative or not required by law. Electronically signed by: Suhas Claire M.D. 03/27/2020 6:45 PM Dictated: 03/27/201844 Transcribed: 03/27/201844 ECG Data Attestation: I personally reviewed and interpreted this ECG as follows: Indication: + weakness Rate (beats per minute): 87 Rhythm: + normal sinus ECG [place]: + Normal ECG ST segments: no ST depression and no ST elevation ECG Findings: + Q waves (Lateral, septal) Comparison ECG Date: from (03/08/2019) Change: the following changes noted (New lateral infarct) MDM Narrative Patient was seen and evaluated as above in room C3. Review was performed of nursing notes and vital signs. I did review pertinent previous visits and patient history. After obtaining a thorough history and physical examination the above work up was performed. This is an 89-year-old female who presents emergency department complaining of generalized weakness that has been ongoing for the past several weeks. Family is concerned that the patient is unable to take care of herself. Her creatinine is elevated and the patient potassium is also elevated. Due to this I did discuss the case to the hospital service who did agree to admit the patient. Patient family in agreement with the treatment plan. Patient was given a normal saline bolus while in the emergency department. The patient was evaluated during the global COVID-19 pandemic, and that diagnosis was suspected/considered upon their initial presentation. Their evaluation, treatment and testing was consistent with current guidelines for patients who present with complaints or symptoms that may be related to COVID- 19. Impression & Plan Hyperkalemia, DEXTER (acute kidney injury), Weakness Discharge Plan Visit Data Chief Complaint: Illness Stated Complaint: WEAKNESS ED Provider: Checo Roth Discharge Problem: Hyperkalemia, DEXTER (acute kidney injury), Weakness Patient Disposition: Admitted As Inpatient Discharge Instructions Interventions: ED Discharge Assessment Last Done: 03/27/20 22:43
[2020-03-27] MEDS ORDERED: FAMOTIDINE 20 MG TAB ONE (19:26)
[2020-03-27 19:35] LABS: T4 Free Thyroxine 1.95 ng/dl (0.8-1.6)
--- NOTE | 2020-03-27 19:44 | XRay Report ---
XR shoulder LT min 2V routine CLINICAL HISTORY: Left shoulder pain COMPARISON: None. DISCUSSION: No acute fractures or dislocations are visualized. The bones are osteopenic. Degenerative changes are present within the glenohumeral joint. Postsurgical changes are present within the cervi isma spine IMPRESSION: 1. Osteopenia 2. No acute fractures 3. Degenerative change ACT 112: Negative or not required by law. Electronically signed by: Suhas Claire M.D. 03/27/2020 7:43 PM
--- NOTE | 2020-03-27 19:45 | XRay Report ---
XR shoulder RT min 2V routine CLINICAL HISTORY: Right shoulder pain COMPARISON: None. DISCUSSION: No acute fractures are visualized. The bones are osteopenic. There are degenerative pompa es present. Postsurgical changes are present within the cervical spine IMPRESSION: 1. Osteopenia 2. No acute fractures 3. Mild degenerative change ACT 112: Negative or not required by law. Electronically signed by: Suhas Claire M.D. 03/27/2020 7:44 PM
--- NOTE | 2020-03-27 21:31 | History & Physical Report ---
Date of Service March 27, 2020 Assessment & Plan (1) Dehydration: (2) Hyperkalemia: (3) DEXTER (acute kidney injury): (4) Iatrogenic hyperthyroidism: Glenny is an 89-year-old female with a past medical history of hypothyroidism, degenerative joint disease, rheumatoid arthritis, hypertension, and hyperlipidemia who presents with weight loss, increasing appetite intolerance, hair loss, episodes of palpitations without syncope, and "just feeling off "who has an DEXTER with hyperkalemia, evidence of iatrogenic hyperthyroidism, and concern for septal/lateral EKG changes in the ED. Palpitations with presyncope, decreased appetite suspect 2/2 iatrogenic hyperthyroidism Patient reports her Synthroid dose has not changed in many years, but she has had weight loss due to decreased appetite TSH 0.010, free T4 1.9 on admission Hold Synthroid, anticipate T4 decrease of approximately 50% over 7 days with T3 decrease in approximately 24 hours Dose reduce Synthroid to 75 mcg when resumed Admit to [facility] telemetry React eval as below - CThead: No acute findings Concern for septal/lateral ischemic changes on EKG Dobutamine stress echo 01/2018 aborted due to hypertension, but normal EF 60-65% without resting changes observed at the time Patient without chest pain Troponin negative, trend x2. No ST changes. Deferred TTE at this time. Optimize electrolytes as above DEXTER 2/2 prerenal depletion, associated hyperkalemia Creatinine acutely elevated to 1.9 from baseline of approximately 1 Received 1 L NSS while in ED Poor p.o. intake, NSS 120 cc/h until improved Chronic left shoulder pain - Shoulder x-ray: Degenerative changes, no acute fracture or acute findings -Hyperthyroidism above may contribute to bone remodeling and pain, treatment as above Tylenol 650 mg p.o. as needed every 6 hours Defer oral Mobic/NSAID treatment due to hypertensive and cardiac concern May use Voltaren 4 g, and lidocaine patch as needed MedTele DVT: Heparin 5000 Diet: Regular Code: Full History of Present Illness Primary Care Provider: Miky Latham MD Glenny is a 89yo F here for decreased appetite and feelings of lightheadedness without syncope. She repots decreased appetite. She endorses sore throat. She has intermittent stomach aches which make her have to sit down to avoid passing out. Denies syncope, endorses pre-syncope. Endorses decreased fluid intake for 'a while.' SHe felt today was different in that the decreased appetite 'just hit me different' and she was itchy which made her concerned. She has been peeing regularly but her bowels 'were upset' and she had some intermittent diarrhea. She endorses decreased urinary output for ~2 days. Denies fevers, chills, and sweats. She endorses feeling 'very cold very often.' She endorses spells where she feels like her heart races and she is going to pass out if she does not sit down. Episodes are new in the last few days, happen sporadically once or twice a day. She has had some difficulty with memory. She has 'lost a lot of weight latel.' She broke her R femur in 2014 and went to [facility] for rehab. She feels she got very poor care and her leg 'is in terrible shape.' and the 'food turned my stomach.' passed on 2015, both were hard on her and caused her to lose weight. Weight stable int he last year, but with decreased appetite. Been losing hair at an increasing weight since being on her thyroid. Endorses dry cough x1 week after a sore throat. No muscle aches/body aches. No fever. No taste at all for several weeks. No sinus congestion. "Don't eat because nothing tastes good.' Last colo 'few years ago.' Social: Lives in [place] with her daughter. Denies alcohol, tobacco, recreational drug use. Code Status: Full Code Allergies Allergy/AdvReac Type Severity Reaction Status Date / Time aloe Allergy Mild itching Verified 03/27/20 19:31 bacitracin Allergy Mild itching Verified 03/27/20 19:31 codeine Allergy Mild ITCHING Verified 03/27/20 19:31 cortisone Allergy Mild Rash Verified 03/27/20 19:31 erythromycin base Allergy Mild ITCHING Verified 03/27/20 19:31 latex Allergy Mild ITCHING Verified 03/27/20 19:31 neomycin Allergy Mild itching Verified 03/27/20 19:31 polymyxin B Allergy Mild itching Verified 03/27/20 19:31 tramadol Allergy Mild Rash Verified 03/27/20 19:31 triamcinolone Allergy Mild ITCHING Verified 03/27/20 19:31 Iodinated Contrast Media Allergy Unknown DOES NOT Verified 07/08/19 11:52 REMEMBER propranolol Allergy Unknown DOES NOT Verified 07/08/19 11:52 REMEMBER Home Medications Home Medications Medication Instructions Recorded Confirmed Type ferrous gluconate 324 mg PO DIRECTED 12/18/18 03/27/20 History levothyroxine 125 mcg PO QAM 12/18/18 03/27/20 History meloxicam [Mobic] 7.5 mg PO DAILY 12/18/18 03/27/20 History oxybutynin chloride 5 mg PO BID 12/18/18 03/27/20 History potassium chloride 2 tab PO QAM 12/18/18 03/27/20 History simvastatin 20 mg PO PM 12/18/18 03/27/20 History metoprolol tartrate 50 mg PO BID 03/08/19 03/27/20 History triamterene-hydrochlorothiazid 0 tab PO DAILY 07/08/19 03/27/20 History lisinopril 20 mg PO DAILY 03/27/20 03/27/20 History Past Med/Surg History Medical History Anemia Degenerative disc disease Hyperlipidemia Hypertension Hypothyroidism Rheumatoid arthritis Urinary frequency Surgical History Fusion of spine LUMBAR SURGERY X 2 History of adenoidectomy History of cataract surgery RT/LEFT History of cholecystectomy History of colonoscopy History of dilatation and curettage History of discectomy CERVICAL History of open reduction and internal fixation (ORIF) procedure RT FEMUR History of tonsillectomy History of tooth extraction History of total abdominal hysterectomy and bilateral salpingo-oophorectomy Family History Mother Family history of diabetes mellitus Social History Smoking Status: Never smoker Second Hand Exposure: No; Hx Alcohol Use: No Hx Substance Use: No Preferred Language: German Communication Ability: Effective Coal Sample Tester Required: No Beliefs That Will Affect Care: None Current Living Situation: Family Current Living Situation Comment: Daughter Keya Feels Safe at Home: Yes Safety Concerns: Feels Safe At This Time Review of Systems Review of Systems: All systems reviewed & are unremarkable except as noted in HPI & below Physical Exam Physical Exam: General: A&Ox 2. Appears thin. No acute distress HEENT: Atraumatic, normocephalic. Peoples equal and reactive to light and accommodation. exophthalmos not appreciated. Pulm: CTAB A&P. -wheezes, -rales, -rhonchi. Symmetrical chest rise. No increase work of breathing. No respiratory distress. Cardiac: Tachycardic, -mrg. Radial pulses intact and symmetrical. Abdominal: Nontender, nondistended, soft. BS increased. Results & Data Results & Data ([facility]) Vital Signs (Past 12 Hours) Vital Signs Temp Pulse Pulse Resp BP BP Pulse Ox 03/27/20 20:09 94 H 24 166/85 H 100 03/27/20 19:35 72 18 140/74 99 03/27/20 19:10 97 H 18 127/101 H 94 03/27/20 17:49 36.7 C 101 H 16 140/65 100 Supervising Physician Co-Signing Physician Notes Attending addendum: I have physically seen this patient, have supervised the medical residents activities, and agree with the H&P unless as otherwise noted. Assessment and Plan: Abnormal EKG/presyncope/palpitations- Septal/lateral changes on EKG. The patient will be admitted to telemetry for serial cardiac enzymes, serial EKG's, cardiac rhythm monitoring and a 2-D echocardiogram with Dopplers. Hold dosing of levothyroxine for now, secondary to labs tending toward hyperthyroidism Consult cardiology Acute kidney injury- Creatinine 1.90 with baseline 1.09. Given 1 L normal saline in ED. Continue 120 mL's per hour. Repeat labs in a.m. Hypothyroidism- TSH 0.010 and free T4 1.9, both suggest need for thyroid hormone supplement to decrease. Will be held for now. Remaining notations as noted. Resident Activity Tracking Resident Involvement: Resident Care Provided Care Provided: Adult Hospital Medicine
[2020-03-27] MEDS ORDERED: ACETAMINOPHEN 325 MG TAB PO PRN (23:24)
[2020-03-27] MEDS ORDERED: POLYETHYLENE (MIRALAX) 17 GM PACK PO PRN (23:24)
[2020-03-28] LABS: Appearance Urine Clear (Clear); Bilirubin Urine Negative (Negative); Blood Urine 2+ (Negative); Color Urine Yellow; Glucose Urine UA Negative (Negative); Ketones Urine Negative (Negative); Leukocyte Esterase Urine 1+ (Negative); Nitrite Urine Negative (Negative); Protein Urine Negative (Negative); Specific Gravity Urine 1.025 (1.000-1.030); Urobilinogen Urine Negative (Negative)
[2020-03-28 00:37] LABS: Bacteria Urine Negative (Negative); Epithelial Cell Urine >30 /lpf (0-5); RBC Urine 0-4 /hpf (0-4); WBC Urine >30 /hpf (0-5)
--- NOTE | 2020-03-28 07:31 | CT Scan Report ---
CT head/brain wo con CLINICAL HISTORY: Weakness CHANGE IN NEUROLOGICAL STATUS COMPARISON STUDY: 03/08/2019 TECHNIQUE: Axial CT of the brain is performed from the vertex to the skull base. IV contrast was not administered for this examination. A dose lowering technique was utilized adhering to the principles of ALARA. CT DOSE: 1074.96 mGy.cm FINDINGS: No intra or extra-axial mass lesions are visualized. There is no CT evidence of acute cortical infarc tion. There is no evidence of midline shift. There is no acute hemorrhage. No calvarial fractures ar e visualized. There are patchy white matter hypodensities likely on a small vessel basis. There is no evidence of pathologic ventricular dilatation. There is no evidence of acute sinusitis IMPRESSION: No acute intracranial findings ACT 112: Negative or not required by law. Electronically signed by: Suhas Claire M.D. 03/28/2020 7:30 AM
[2020-03-28 08:02] LABS: Basophils # (auto) 0.01 K/uL (0-0.2); Basophils % (auto) 0.2 %; Eosinophils # (auto) 0.07 K/uL (0-0.5); Eosinophils % (auto) 1.7 %; Hematocrit (blood only) 28.1 % (37-47); Hemoglobin 9.6 g/dL (12.0-16.0); Immature Granulocytes # (auto) 0.01 K/uL (0.00-0.02); Immature Granulocytes % (auto) 0.2 %; Lymphocytes # (auto) 0.82 K/uL (1.2-3.4); Lymphocytes % (auto) 19.9 %; Mean Corpuscular Hemoglobin 30.1 pg (25-34); Mean Corpuscular Hgb Conc 34.2 g/dL (32-36); Mean Corpuscular Volume 88.1 fL (80-100); Mean Platelet Volume 10.5 fL (7.4-10.4); Monocytes # (auto) 0.44 K/uL (0.11-0.59); Monocytes % (auto) 10.7 %; Neutrophils # (auto) 2.78 K/uL (1.4-6.5); Neutrophils % (auto) 67.3 %; Platelet Count 115 K/uL (130-400); RDW Coefficient of Variation 13.1 % (11.5-14.5); RDW Standard Deviation 42.2 fL (36.4-46.3); Red Blood Count 3.19 M/uL (4.2-5.4); White Blood Count 4.13 K/uL (4.8-10.8)
[2020-03-28] MEDS: HEPARIN SOD 5,000 UNIT/0.5 ML VIAL SQ SCH ×2 (08:12→21:44)
[2020-03-28] MEDS: METOPROLOL TARTRATE 50 MG TAB PO SCH ×2 (08:12→22:12)
[2020-03-28] MEDS: DICLOFENAC SOD 1% GEL 100 GM TUBE EXT SCH ×4 (08:13→21:52)
[2020-03-28 09:47] LABS: BUN Creatinine Ratio 42.4 (10-20); Calcium 8.7 mg/dl (8.5-10.1); Est GFR (African American) 44.4; Est GFR (Non-African American) 38.3; Potassium 4.8 mmol/L (3.5-5.1)
[2020-03-28] MEDS: FAMOTIDINE 20 MG TAB PO SCH ×2 (13:01→21:47)
[2020-03-28] MEDS: SODIUM CHLORIDE 0.9% 1000ML 1,000 ML IV SCH (13:02)
--- NOTE | 2020-03-28 16:28 | Hospitalist Progress Note ---
Date of Service March 28, 2020 Assessment & Plan (1) Iatrogenic hyperthyroidism: Glenny is an 89-year-old female with a past medical history of hypothyroidism, degenerative joint disease, rheumatoid arthritis, hypertension, and hyperlipidemia who presents with weight loss, increasing appetite intolerance, hair loss, episodes of palpitations without syncope, and "just feeling off "who has an DEXTER with hyperkalemia, evidence of iatrogenic hyperthyroidism, and concern for septal/lateral EKG changes in the ED. Iatrogenic hyperthyroidism Admit to med telemetry -Patient with complaints of palpitations with presyncope, decreased appetite, significant hair loss TSH 0.010, free T4 1.9 on admission. Patient takes Synthroid 125 mcg Patient reports her Synthroid dose has not changed in many years, but she has had weight loss due to decreased appetite Hold Synthroid, anticipate T4 decrease of approximately 50% over 7 days with T3 decrease in approximately 24 hours Likely dose reduce Synthroid two standards to 88 mcg when resumed Patient notes improvement in symptoms since admission already Concern for septal/lateral ischemic changes on EKG Dobutamine stress echo 01/2018 aborted due to hypertension, but normal EF 60-65% without resting changes observed at the time Patient without chest pain. Low concern for ACS Troponin negative. No ST changes. Deferred TTE at this time. Optimize electrolytes as above DEXTER 2/2 prerenal depletion, associated hyperkalemia-resolved Creatinine acutely elevated to 1.9 on admission from baseline of approximately 1 In the setting of poor p.o. intake -NSS at 80 mls/hour Daily BMP Chronic left shoulder pain - Shoulder x-ray: Degenerative changes, no acute fracture or acute findings -Hyperthyroidism above may contribute to bone remodeling and pain, treatment as above Tylenol 650 mg p.o. as needed every 6 hours Defer oral Mobic/NSAID treatment due to hypertensive and cardiac concern May use Voltaren 4 g, and lidocaine patch as needed DVT prophylaxis: Heparin SQ 5000 Diet: Regular Code: Full Dispo: Med telemetry Admission and Anticipated Discharge Date Admission Date: March 27, 2020 Supervising Physician Co-Signing Physician Notes I also saw the patient with the resident physician and confirmed rios portions of the history and physical examination. I agree with the impression and plan as noted above. Upon examination, the patient is sleeping but she easily awakens to my voice. She does complain of some heartburn -she actually fell asleep in the midst of eating her lunch. When she awakens, she is alert and oriented. She is a fairly good historian. 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 DEXTER Improved with IV hydration BMP in a.m. Urine cultures pending Lisinopril and triamterenehydrochlorothiazide are being held Hypertension High but reasonable given we are holding her antihypertensives Reasonable to start lisinopril tomorrow if creatinine continues to improve It is not clear to me if she was taking the triamterenehydrochlorothiazide at home, but given her age, it may be best to see if we can maintain her blood pressure without thiazide diuretics. Due need to be cautious with respect to her potassium. Hypothyroidism, oversupplementation Hold Synthroid supplementation Restart reduced dose in a couple days Follow-up with PCP for TSH in 4 to 6 weeks. Subjective Patient found in bed this morning. No acute overnight events. Patient notes appetite is improved, ate more today. Denies other symptoms [place] of stomach aches, lightheadedness. Admits to some reflux symptoms. Patient with no other acute concerns or complaints. Review of Systems Review of Systems: All systems reviewed & are unremarkable except as noted in HPI & below Physical Exam Constitutional: + thin Eyes: PERRL, conjunctivae normal, anicteric sclerae ENMT: external ear and nose normal, oropharynx normal Cardiovascular: Rate/Rhythm: regular rhythm and + bradycardic Gastrointestinal (Abdomen): normal bowel sounds, soft, nontender, no hepatosplenomegaly Skin: no rashes, warm and dry Psychiatric: A+Ox3, euthymic affect Results & Data Results & Data ([facility]) Vital Signs (Past 12 Hours) Vital Signs Temp Pulse Pulse Pulse Resp BP BP 03/28/20 15:51 36.4 C L 58 L 18 148/64 H 03/28/20 15:06 51 L 03/28/20 11:27 36.3 C L 52 L 20 154/61 H 03/28/20 08:47 83 03/28/20 07:19 36.9 C 79 18 156/67 H 03/28/20 05:27 36.6 C 84 20 171/65 H Pulse Ox 03/28/20 15:51 97 03/28/20 15:06 03/28/20 11:27 03/28/20 08:47 03/28/20 07:19 100 03/28/20 05:27 99 Laboratory Results Laboratory Results - last 24 hr 03/27/20 03/27/20 03/27/20 18:30 18:30 18:47 WBC 6.46 RBC 3.29 L Hgb 10.0 L POC Hgb 10.2 L Hct 29.2 L POC Hct 30 L MCV 88.8 MCH 30.4 MCHC 34.2 RDW Std Deviation 42.6 RDW Coeff of Rafael 13.2 Plt Count 133 MPV 10.6 H Immature Gran % (Auto) 0.2 Neut % (Auto) 71.5 Lymph % (Auto) 17.2 [place] % (Auto) 9.8 Eos % (Auto) 1.1 Baso % (Auto) 0.2 Neut # (Auto) 4.63 Lymph # (Auto) 1.11 L [place] # (Auto) 0.63 H Eos # (Auto) 0.07 Baso # (Auto) 0.01 Immature Gran # (Auto) 0.01 POC Sodium 141 Sodium 141 POC Potassium 5.2 H Potassium 5.3 H POC Chloride 115 H Chloride 120 H Carbon Dioxide 15 L POC Total CO2 15 L Anion Gap 6.0 POC Anion Gap 17.0 POC BUN 76 H BUN 68 H Creatinine 1.90 H POC Creatinine 2.0 H Est Cr Clr Drug Dosing Not Reportable Est GFR ( Amer) 27.0 Est GFR (Non-Af Amer) 23.3 BUN/Creatinine Ratio 35.9 H Glucose 115 H POC Glucose POC Glucose (other) 114 H Calcium 8.9 POC Ioniz Calcium Curt 1.37 H Total Bilirubin 0.9 AST 18 ALT 20 Alkaline Phosphatase 55 Total Creatine Kinase 54 Troponin I < 0.015 Total Protein 7.4 Albumin 3.7 Globulin 3.7 Albumin/Globulin Ratio 1.0 TSH 0.010 L Free T4 1.95 H Specimen Hemolysis Urine Color Urine Appearance Urine pH Ur Specific [place] Urine Protein Urine Glucose (UA) Urine Ketones Urine Blood Urine Nitrite Urine Bilirubin Urine Urobilinogen Ur Leukocyte Esterase Urine RBC Urine WBC Ur Epithelial Cells Urine Bacteria 03/27/20 03/28/20 03/28/20 23:35 07:29 07:29 WBC 4.13 L RBC 3.19 L Hgb 9.6 L POC Hgb Hct 28.1 L POC Hct MCV 88.1 MCH 30.1 MCHC 34.2 RDW Std Deviation 42.2 RDW Coeff of Rafael 13.1 Plt Count 115 L MPV 10.5 H Immature Gran % (Auto) 0.2 Neut % (Auto) 67.3 Lymph % (Auto) 19.9 [place] % (Auto) 10.7 Eos % (Auto) 1.7 Baso % (Auto) 0.2 Neut # (Auto) 2.78 Lymph # (Auto) 0.82 L [place] # (Auto) 0.44 Eos # (Auto) 0.07 Baso # (Auto) 0.01 Immature Gran # (Auto) 0.01 POC Sodium Sodium 143 POC Potassium Potassium 4.8 POC Chloride Chloride 122 H Carbon Dioxide 16 L POC Total CO2 Anion Gap 5.0 POC Anion Gap POC BUN BUN 53 H Creatinine 1.26 H D POC Creatinine Est Cr Clr Drug Dosing 25.0 Est GFR ( Amer) 44.4 Est GFR (Non-Af Amer) 38.3 BUN/Creatinine Ratio 42.4 H Glucose 99 POC Glucose POC Glucose (other) Calcium 8.7 POC Ioniz Calcium Curt Total Bilirubin AST ALT Alkaline Phosphatase Total Creatine Kinase Troponin I Total Protein Albumin Globulin Albumin/Globulin Ratio TSH Free T4 Specimen Hemolysis Urine Color Yellow Urine Appearance Clear Urine pH 5.0 Ur Specific [place] 1.025 Urine Protein Negative Urine Glucose (UA) Negative Urine Ketones Negative Urine Blood 2+ H Urine Nitrite Negative Urine Bilirubin Negative Urine Urobilinogen Negative Ur Leukocyte Esterase 1+ H Urine RBC 0-4 Urine WBC >30 H Ur Epithelial Cells >30 H Urine Bacteria Negative 03/28/20 16:22 WBC RBC Hgb POC Hgb Hct POC Hct MCV MCH MCHC RDW Std Deviation RDW Coeff of [place] Plt Count MPV Immature Gran % (Auto) Neut % (Auto) Lymph % (Auto) [place] % (Auto) Eos % (Auto) Baso % (Auto) Neut # (Auto) Lymph # (Auto) [place] # (Auto) Eos # (Auto) Baso # (Auto) Immature Gran # (Auto) POC Sodium Sodium POC Potassium Potassium POC Chloride Chloride Carbon Dioxide POC Total CO2 Anion Gap POC Anion Gap POC BUN BUN Creatinine POC Creatinine Est Cr Clr Drug Dosing Est GFR ( Amer) Est GFR (Non-Af Amer) BUN/Creatinine Ratio Glucose POC Glucose 107 H POC Glucose (other) Calcium POC Ioniz Calcium Curt Total Bilirubin AST ALT Alkaline Phosphatase Total Creatine Kinase Troponin I Total Protein Albumin Globulin Albumin/Globulin Ratio TSH Free T4 Specimen Hemolysis Urine Color Urine Appearance Urine pH Ur Specific [place] Urine Protein Urine Glucose (UA) Urine Ketones Urine Blood Urine Nitrite Urine Bilirubin Urine Urobilinogen Ur Leukocyte Esterase Urine RBC Urine WBC Ur Epithelial Cells Urine Bacteria Medications Administered Current Inpatient Medications Acetaminophen (Acetaminophen 325 Mg Tab) 650 mg PO Q4H PRN PRN Reason: Pain or Fever Stop: 04/26/20 23:23 Diclofenac Sodium (Diclofenac Sod 1% Gel 100 Gm Tube) 2 gm EXT QID [facility] Stop: 04/27/20 08:59 Last Admin: 03/28/20 13:01 Dose: 2 gm Documented by: Famotidine (Famotidine 20 Mg Tab) 20 mg PO BID [facility] Stop: 04/27/20 12:59 Last Admin: 03/28/20 13:01 Dose: 20 mg Documented by: Heparin Sodium (Porcine) (Heparin Sod 5,000 Unit/0.5 Ml Vial) 5,000 units SQ Q12 [facility] Stop: 04/27/20 08:59 Last Admin: 03/28/20 08:12 Dose: 5,000 units Documented by: Sodium Chloride (Nss 1000ml) 1,000 mls @ 80 mls/hr IV .[id number] [facility] Stop: 04/27/20 12:29 Last Admin: 03/28/20 13:02 Dose: 80 mls/hr Documented by: Metoprolol Tartrate (Metoprolol Tartrate 50 Mg Tab) 50 mg PO BID [facility] Stop: 04/27/20 08:59 Last Admin: 03/28/20 08:12 Dose: 50 mg Documented by: Polyethylene Glycol (Polyethylene (Miralax) 17 Gm Pack) 17 gm PO DAILY PRN PRN Reason: Constipation Stop: 04/26/20 23:23 Simvastatin (Simvastatin 20 Mg Tab) 20 mg PO PM [facility] Stop: 04/27/20 20:59 Resident Activity Tracking Resident Involvement: Resident Care Provided Care Provided: Adult Hospital Medicine
--- NOTE | 2020-03-28 19:40 | Billing Data ---
Date of Service March 28, 2020 Coding Level of Care Code 55784 Initial Inpt Care Lvl 3
[2020-03-28] MEDS: SIMVASTATIN 20 MG TAB PO SCH (21:47)
[2020-03-29] MEDS: SODIUM CHLORIDE 0.9% 1000ML 1,000 ML IV SCH ×2 (01:01→13:33)
[2020-03-29] MEDS: HEPARIN SOD 5,000 UNIT/0.5 ML VIAL SQ SCH ×2 (08:40→22:07)
[2020-03-29 08:43] LABS: Basophils # (auto) 0.01 K/uL (0-0.2); Basophils % (auto) 0.2 %; Eosinophils # (auto) 0.09 K/uL (0-0.5); Eosinophils % (auto) 2.2 %; Hemoglobin 9.9 g/dL (12.0-16.0); Immature Granulocytes # (auto) 0.01 K/uL (0.00-0.02); Immature Granulocytes % (auto) 0.2 %; Lymphocytes # (auto) 1.02 K/uL (1.2-3.4); Lymphocytes % (auto) 24.9 %; Mean Corpuscular Hemoglobin 30.3 pg (25-34); Mean Corpuscular Hgb Conc 34.1 g/dL (32-36); Mean Corpuscular Volume 88.7 fL (80-100); Mean Platelet Volume 10.6 fL (7.4-10.4); Monocytes # (auto) 0.24 K/uL (0.11-0.59); Monocytes % (auto) 5.9 %; Neutrophils # (auto) 2.73 K/uL (1.4-6.5); Neutrophils % (auto) 66.6 %; Platelet Count 117 K/uL (130-400); RDW Coefficient of Variation 13.3 % (11.5-14.5); RDW Standard Deviation 43.3 fL (36.4-46.3); Red Blood Count 3.27 M/uL (4.2-5.4)
[2020-03-29] MEDS: FAMOTIDINE 20 MG TAB PO SCH ×2 (09:44→22:08)
[2020-03-29] MEDS: METOPROLOL TARTRATE 50 MG TAB PO SCH ×2 (09:44→23:53)
[2020-03-29] MEDS: DICLOFENAC SOD 1% GEL 100 GM TUBE EXT SCH ×4 (09:45→22:07)
[2020-03-29 09:46] LABS: BUN Creatinine Ratio 32.6 (10-20); Calcium 8.7 mg/dl (8.5-10.1); Creatinine Clr Calc Pharmacy 29.7 ml/min; Est GFR (African American) 54.1; Est GFR (Non-African American) 46.6; Potassium 4.5 mmol/L (3.5-5.1)
--- NOTE | 2020-03-29 10:14 | Hospitalist Progress Note ---
Date of Service March 29, 2020 Assessment & Plan (1) Iatrogenic hyperthyroidism: Glenny is an 89-year-old female with a past medical history of hypothyroidism, degenerative joint disease, rheumatoid arthritis, hypertension, and hyperlipidemia who presents with weight loss, increasing appetite intolerance, hair loss, episodes of palpitations without syncope, and "just feeling off "who has an DEXTER with hyperkalemia, evidence of iatrogenic hyperthyroidism, and concern for septal/lateral EKG changes in the ED. Iatrogenic hyperthyroidism TSH 0.010, free T4 1.9 on admission. Home Synthroid 125 mcg held Patient reports her Synthroid dose has not changed in many years, but she has had weight loss due to decreased appetite Likely dose reduce Synthroid two standards to 88 mcg when resumed Patient notes improvement in symptoms since admission already Concern for septal/lateral ischemic changes on EKG Dobutamine stress echo 01/2018 aborted due to hypertension, but normal EF 60-65% without resting changes observed at the time Patient without chest pain. Low concern for ACS Troponin negative. No ST changes. Deferred TTE at this time. Optimize electrolytes as above DEXTER 2/2 prerenal depletion, associated hyperkalemia-resolved Creatinine acutely elevated to 1.9 on admission from baseline of approximately 1 - resolved, Cr 1.07 today Chronic left shoulder pain - Shoulder x-ray: Degenerative changes, no acute fracture or acute findings -Hyperthyroidism above may contribute to bone remodeling and pain, treatment as above Tylenol 650 mg p.o. as needed every 6 hours Defer oral Mobic/NSAID treatment due to hypertensive and cardiac concern May use Voltaren 4 g, and lidocaine patch as needed DVT prophylaxis: Heparin SQ 5000 Diet: Regular Code: Full Dispo: Med telemetry Admission and Anticipated Discharge Date Admission Date: March 27, 2020 Supervising Physician Co-Signing Physician Notes I personally examined the patient and verified all rios points of history and exam, discussed case, and agree with decision making with Dr Westfall. feeling about the same - was upset wtih herself for "being nasty" with nursing this AM. dtr ended up having to go to ER earlier today. vitals noted nad heent nc at mmm breathing unlabored no accessory msucles good effort skin no rashes no pallor or icterus hyperthyroidism -synthroid reduced, will take time to level out DEXTER -likely dehydration related present on admission - now improved. OK to stop IVF delirium/metabolic encephalopathy -mild hallucinations and erratic behaviors likely relate to above + age, compounded by hospital environment -reassurrance, supportive care. remarkably, her inpatient roommate has done an incredible job voluntarily talking to calm her/ talk about familiar things to keep her calm and as oriented as possible! DVT proph - heparin SQ dispo - PT/OT eval and treat. almost certainly will need 24/7 supervision - so if doesn't need SNF/rehab then situation with dtr will be critical to her safety at home Subjective Feeling improved compared to admission this am. laments that she was irritable and mean to 2 of her nurses this morning. She says that she has been feeling off and feeling that she is floating above the wall, looking down on the clock and tv even though she recognizes that they are on the wall, not the floor. Review of Systems Constitutional: + chills and + fatigue; no fever and no body aches Respiratory: no cough and no dyspnea Cardiovascular: no chest pain, no dyspnea and no edema Gastrointestinal: no abdominal pain, no nausea, no vomiting, no constipation and no diarrhea/loose stools Integumentary: + dry skin and + change in hair Psychiatric: no auditory hallucinations and no visual hallucinations Physical Exam Constitutional: + thin, + frail appearing and cooperative; no acute distress and not ill appearing Respiratory: normal respiratory effort and able to speak in complete sentences; no respiratory distress, no labored breathing, no retractions, no cough and no audible wheezes Auscultation: lungs clear to auscultation bilaterally; no crackles, no rales, no rhonchi and no wheezes Cardiovascular: Rate/Rhythm: regular rate and regular rhythm Heart Sounds: normal S1 and normal S2; no gallop, no murmur and no cardiac rub Vessels: posterior tibial pulses present Extremities: no pedal edema and no edema Gastrointestinal (Abdomen): Inspection/Auscultation: abdomen normal to i nspection and normal bowel sounds; abdomen not distended Percussion/Palpation: abdomen soft; abdomen nontender, no guarding, abdomen not rigid and no abdominal mass Skin: + dry skin and + hair thinning Results & Data Results & [facility]) Vital Signs (Past 12 Hours) Vital Signs Temp Pulse Pulse Resp BP Pulse Ox 03/29/20 07:28 36.8 C 72 16 152/63 H 98 03/29/20 07:00 64 08/17/20 04:55 36.8 C 59 L 18 152/52 H 97 03/29/20 01:17 72 03/28/20 23:35 36.8 C 76 18 148/67 H 97 Laboratory Results WBC 4.10 K/uL (4.8-10.8) L 03/29/20 08:29 RBC 3.27 M/uL (4.2-5.4) L 03/29/20 08:29 Hgb 9.9 g/dL (12.0-16.0) L 03/29/20 08:29 POC Hgb 10.2 g/dl (12.0-16.0) L 03/27/20 18:47 Hct 29.0 % (37-47) L 03/29/20 08:29 POC Hct 30 % (37-47) L 03/27/20 18:47 MCV 88.7 fL (80-100) 03/29/20 08:29 MCH 30.3 pg (25-34) 03/29/20 08:29 MCHC 34.1 g/dL (32-36) 03/29/20 08:29 RDW Std Deviation 43.3 fL (36.4-46.3) 03/29/20 08:29 RDW Coeff of [place] 13.3 % (11.5-14.5) 03/29/20 08:29 Plt Count 117 K/uL (130-400) L 03/29/20 08:29 MPV 10.6 fL (7.4-10.4) H 03/29/20 08:29 Immature Gran % (Auto) 0.2 % 03/29/20 08:29 Neut % (Auto) 66.6 % 03/29/20 08:29 Lymph % (Auto) 24.9 % 03/29/20 08:29 [place] % (Auto) 5.9 % 03/29/20 08:29 Eos % (Auto) 2.2 % 03/29/20 08:29 Baso % (Auto) 0.2 % 03/29/20 08:29 Neut # (Auto) 2.73 K/uL (1.4-6.5) 03/29/20 08:29 Lymph # (Auto) 1.02 K/uL (1.2-3.4) L 03/29/20 08:29 [place] # (Auto) 0.24 K/uL (0.11-0.59) 03/29/20 08:29 Eos # (Auto) 0.09 K/uL (0-0.5) 03/29/20 08:29 Baso # (Auto) 0.01 K/uL (0-0.2) 03/29/20 08:29 Immature Gran # (Auto) 0.01 K/uL (0.00-0.02) 03/29/20 08:29 POC Sodium 141 mmol/L (135-144) 03/27/20 18:47 Sodium 146 mmol/L (136-145) H 03/29/20 08:29 POC Potassium 5.2 mmol/L (3.3-5.0) H 03/27/20 18:47 Potassium 4.5 mmol/L (3.5-5.1) 03/29/20 08:29 POC Chloride 115 mmol/L (101-112) H 03/27/20 18:47 Chloride 124 mmol/L (98-107) H 03/29/20 08:29 Carbon Dioxide 12 mmol/L (21-32) L 03/29/20 08:29 POC Total CO2 15 mmol/L (24-31) L 03/27/20 18:47 Anion Gap 10.0 (3-11) 03/29/20 08:29 POC Anion Gap 17.0 mmol/L (16-25) 03/27/20 18:47 POC BUN 76 mg/dl (7-18) H 03/27/20 18:47 BUN 35 mg/dl (7-18) H 03/29/20 08:29 Creatinine 1.07 mg/dl (0.6-1.2) 03/29/20 08:29 POC Creatinine 2.0 mg/dl (0.6-1.3) H 03/27/20 18:47 Est Cr Clr Drug Dosing 29.7 ml/min 03/29/20 08:29 Est GFR ( Amer) 54.1 03/29/20 08:29 Est GFR (Non-Af Amer) 46.6 03/29/20 08:29 BUN/Creatinine Ratio 32.6 (10-20) H 03/29/20 08:29 Glucose 96 mg/dl (70-99) 03/29/20 08:29 POC Glucose 107 mg/dl (70-99) H 03/28/20 16:22 POC Glucose (other) 114 mg/dl (70-99) H 03/27/20 18:47 Calcium 8.7 mg/dl (8.5-10.1) 03/29/20 08:29 POC Ioniz Calcium Curt 1.37 mmol/l (1.12-1.32) H 03/27/20 18:47 Total Bilirubin 0.9 mg/dl (0.2-1) 03/27/20 18:30 AST 18 U/L (15-37) 03/27/20 18:30 ALT 20 U/L (12-78) 03/27/20 18:30 Alkaline Phosphatase 55 U/L (45-117) 03/27/20 18:30 Total Creatine Kinase 54 U/L (26-192) 03/27/20 18:30 Troponin I < 0.015 ng/ml (0-0.045) 03/27/20 18:30 Total Protein 7.4 gm/dl (6.4-8.2) 03/27/20 18:30 Albumin 3.7 gm/dl (3.4-5.0) 03/27/20 18:30 Globulin 3.7 gm/dl (2.5-4.0) 03/27/20 18:30 Albumin/Globulin Ratio 1.0 (0.9-2) 03/27/20 18:30 TSH 0.010 uIu/ml (0.300-4.500) L 03/27/20 18:30 Free T4 1.95 ng/dl (0.8-1.6) H 03/27/20 18:30 Specimen Hemolysis 03/27/20 18:30 Urine Color Yellow 03/27/20 23:35 Urine Appearance Clear (Clear) 03/27/20 23:35 Urine pH 5.0 (4.5-7.5) 03/27/20 23:35 Ur Specific [place] 1.025 (1.000-1.030) 03/27/20 23:35 Urine Protein Negative (Negative) 03/27/20 23:35 Urine Glucose (UA) Negative (Negative) 03/27/20 23:35 Urine Ketones Negative (Negative) 03/27/20 23:35 Urine Blood 2+ (Negative) H 03/27/20 23:35 Urine Nitrite Negative (Negative) 03/27/20 23:35 Urine Bilirubin Negative (Negative) 03/27/20 23:35 Urine Urobilinogen Negative (Negative) 03/27/20 23:35 Ur Leukocyte Esterase 1+ (Negative) H 03/27/20 23:35 Urine RBC 0-4 /hpf (0-4) 03/27/20 23:35 Urine WBC >30 /hpf (0-5) H 03/27/20 23:35 Ur Epithelial Cells >30 /lpf (0-5) H 03/27/20 23:35 Urine Bacteria Negative (Negative) 03/27/20 23:35 Resident Activity Tracking Resident Involvement: Resident Care Provided Care Provided: Adult Hospital Medicine
--- NOTE | 2020-03-29 19:00 | Billing Data ---
Date of Service March 29, 2020 Coding Level of Care Code 82905 Subseq Hosp Care Lvl 3
[2020-03-29] MEDS: SIMVASTATIN 20 MG TAB PO SCH (22:08)
[2020-03-30] MEDS: DICLOFENAC SOD 1% GEL 100 GM TUBE EXT SCH ×3 (07:42→16:23)
[2020-03-30] MEDS: FAMOTIDINE 20 MG TAB PO SCH (07:42)
[2020-03-30] MEDS: METOPROLOL TARTRATE 50 MG TAB PO SCH (07:42)
[2020-03-30] MEDS: HEPARIN SOD 5,000 UNIT/0.5 ML VIAL SQ SCH (08:42)
--- NOTE | 2020-03-30 11:06 | Hospitalist Progress Note ---
Date of Service March 30, 2020 Assessment & Plan (1) Iatrogenic hyperthyroidism: Glenny is an 89-year-old female with a past medical history of hypothyroidism, degenerative joint disease, rheumatoid arthritis, hypertension, and hyperlipidemia who presents with weight loss, increasing appetite intolerance, hair loss, episodes of palpitations without syncope, and "just feeling off "who has an DEXTER with hyperkalemia, evidence of iatrogenic hyperthyroidism, and concern for septal/lateral EKG changes in the ED. Iatrogenic hyperthyroidism TSH 0.010, free T4 1.9 on admission. Home Synthroid 125 mcg held Patient reports her Synthroid dose has not changed in many years, but she has had weight loss due to decreased appetite Likely dose reduce Synthroid two standards to 88 mcg when resumed Patient notes improvement in symptoms since admission already Concern for septal/lateral ischemic changes on EKG Dobutamine stress echo 01/2018 aborted due to hypertension, but normal EF 60-65% without resting changes observed at the time Patient without chest pain. Low concern for ACS Troponin negative. No ST changes. Deferred TTE at this time. Optimize electrolytes as above DEXTER 2/2 prerenal depletion, associated hyperkalemia-resolved Creatinine acutely elevated to 1.9 on admission from baseline of approximately 1 - resolved, Cr 1.07 today Chronic left shoulder pain - Shoulder x-ray: Degenerative changes, no acute fracture or acute findings -Hyperthyroidism above may contribute to bone remodeling and pain, treatment as above Tylenol 650 mg p.o. as needed every 6 hours Defer oral Mobic/NSAID treatment due to hypertensive and cardiac concern May use Voltaren 4 g, and lidocaine patch as needed DVT prophylaxis: Heparin SQ 5000 Diet: Regular Code: Full Dispo: Med telemetry Admission and Anticipated Discharge Date Admission Date: March 27, 2020 Results & Data Results & Data ([facility]) Vital Signs (Past 12 Hours) Vital Signs Temp Pulse Resp BP Pulse Ox 03/30/20 04:57 36.6 C 82 20 184/72 H 96 03/29/20 23:26 36.5 C 76 20 176/69 H 96
--- NOTE | 2020-03-30 12:37 | Electrocardiogram Report ---
Test Reason : Blood Pressure : / mmHG Vent. Rate : 087 BPM Atrial Rate : 087 BPM P-R Int : 188 ms QRS Dur : 096 ms QT Int : 360 ms P-R-T Axes : 000 025 140 degrees QTc Int : 433 ms Poor data quality, interpretation may be adversely affected Normal sinus rhythm Septal infarct (cited on or before 27-MAR-2020) Lateral infarct , age undetermined Abnormal ECG When compared with ECG of 08-MAR-2019 17:42, Lateral infarct is now Present Confirmed by Cali Darby ([id number]) on 03/30/2020 12:37:20 PM Referred By: REFERRED SELF Confirmed By:Cali Darby
[2020-03-30 15:22] VITALS: TEMP 97.5; O2SAT 97
[2020-03-30 18:01] VITALS: BP 184/72; PULSE 58
--- NOTE | 2020-03-30 20:03 | Discharge Summary ---
Date of Service March 30, 2020 Admission HPI Per Admitting Provider Glenny is a 89yo F here for decreased appetite and feelings of lightheadedness without syncope. She repots decreased appetite. She endorses sore throat. She has intermittent stomach aches which make her have to sit down to avoid passing out. Denies syncope, endorses pre-syncope. Endorses decreased fluid intake for 'a while.' SHe felt today was different in that the decreased appetite 'just hit me different' and she was itchy which made her concerned. She has been peeing regularly but her bowels 'were upset' and she had some intermittent diarrhea. She endorses decreased urinary output for ~2 days. Denies fevers, chills, and sweats. She endorses feeling 'very cold very often.' She endorses spells where she feels like her heart races and she is going to pass out if she does not sit down. Episodes are new in the last few days, happen sporadically once or twice a day. She has had some difficulty with memory. She has 'lost a lot of weight latel.' She broke her R femur in 2014 and went to [facility] for rehab. She feels she got very poor care and her leg 'is in terrible shape.' and the 'food turned my stomach.' passed on 2015, both were hard on her and caused her to lose weight. Weight stable int he last year, but with decreased appetite. Been losing hair at an increasing weight since being on her thyroid. Endorses dry cough x1 week after a sore throat. No muscle aches/body aches. No fever. No taste at all for several weeks. No sinus congestion. "Don't eat because nothing tastes good.' Last colo 'few years ago.' Social: Lives in [place] with her daughter. Denies alcohol, tobacco, recreational drug use. Code Status: Full Code Principal Diagnosis hyperthyroidism DEXTER Discharge Exam gen aao pleasant nad heent nc at mmm breathing unlabored no accessory muscles good effort skin no rashes no pallor or icterus neuro no focal deficits Discharge Data Allergies Allergy/AdvReac Type Severity Reaction Status Date / Time aloe Allergy Mild itching Verified 03/27/20 19:31 bacitracin Allergy Mild itching Verified 03/27/20 19:31 codeine Allergy Mild ITCHING Verified 03/27/20 19:31 cortisone Allergy Mild Rash Verified 03/27/20 19:31 erythromycin base Allergy Mild ITCHING Verified 03/27/20 19:31 latex Allergy Mild ITCHING Verified 03/27/20 19:31 neomycin Allergy Mild itching Verified 03/27/20 19:31 polymyxin B Allergy Mild itching Verified 03/27/20 19:31 tramadol Allergy Mild Rash Verified 03/27/20 19:31 triamcinolone Allergy Mild ITCHING Verified 03/27/20 19:31 Iodinated Contrast Media Allergy Unknown DOES NOT Verified 07/08/19 11:52 REMEMBER propranolol Allergy Unknown DOES NOT Verified 07/08/19 11:52 REMEMBER Consultations 03/27/20 20:12 ED Decision to Admit Stat Ordered Studies 03/27/20 19:37 CT head/brain wo con Stat Hospital Course (1) Iatrogenic hyperthyroidism: Glenny is an 89-year-old female with a past medical history of hypothyroidism, degenerative joint disease, rheumatoid arthritis, hypertension, and hyperlipidemia who presents with weight loss, increasing appetite intolerance, hair loss, episodes of palpitations without syncope, and "just feeling off "who has an DEXTER with hyperkalemia, evidence of iatrogenic hyperthyroidism, and concern for septal/lateral EKG changes in the ED. Iatrogenic hyperthyroidism TSH 0.010, free T4 1.9 on admission. Home Synthroid 125 mcg held Patient reports her Synthroid dose has not changed in many years, but she has had weight loss due to decreased appetite stable for discharge - will Rx synthroid at 75mcg and have her follow up w PCP / repeat TSH ~4wks Concern for septal/lateral ischemic changes on EKG Dobutamine stress echo 01/2018 aborted due to hypertension, but normal EF 60-65% without resting changes observed at the time Patient without chest pain. Low concern for ACS Troponin negative. No ST changes. Deferred TTE at this time. DEXTER 2/2 prerenal depletion, associated hyperkalemia-resolved Creatinine acutely elevated to 1.9 on admission from baseline of approximately 1 - resolved, stable for home, outpt f/u Chronic left shoulder pain - Shoulder x-ray: Degenerative changes, no acute fracture or acute findings -Hyperthyroidism above may contribute to bone remodeling and pain, treatment as above underweight w BMI 18.9 -likely related heavily to iatrogenic hyperthyroidism stable for home, d/w dtr extensively >30mins Total Time Total Time Spent Total Time Spent (In Minutes): >30 Discharge Plan Discharge Items Patient Disposition: Home - Home Health Services Reason For Visit: PRESYNCOPE,DEXTER,HYPERKALEMIA Discharge Diagnosis: hyperthyroidism (see below - medication related), dehydration (resolved) Activity: Resume your previous activity Non-emergency contact: Primary Care Provider Call non-emergency contact if: you have any medication questions Follow-up/Referrals: Miky Latham MD [Primary Care Provider] - Diet: Regular Addtl Attending Provider Instructions: thyroid replacement -as we discussed, as we age, sometimes our metabolism of medications slows down -- because of this, there are times where we're on a medicine at the same dose we've had for a long time, but the "functional dose" ends up going up because we're not processing it as fast as we once did -- with thyroid hormone this becomes a "double problem" because then too much thyroid hormone drives our body on "overdrive" leading to weight loss - and making the dose of the synthroid functionally even higher -it's a little tough to tell exactly what the right dose will be for you moving forward - the only clear answer is "less" -thyroid hormone medicine like synthroid is a very slowly cleared medicine - so changes in dosing usually take a month or more to really show up on our labwork -we'll have you drop your dose to 75 mcg for the time being - and then by about the first week of april, dr mac will repeat thyroid bloodwork to see where you're running and make further dose adjustments if need be dehydration -you also were quite dry when you arrived - probably in part from the heat and partly from the thyroid levels -fortunately this has corrected nicely -try to make sure you get in at least 50 ounces of fluids a day -Dr Mac will keep an eye on how you're doing with this (and probably repeat labs for this as well) -to help protect against future dehydration, we've opted to have you stop your diuretic (triamterene/hydrochlorothiazide)(and once it's stopped you don't need the potassium either) -- if your blood pressure stays up, then Dr Mac can substitute a different medication -we'd also recommend minimizing how often you take the mobic (meloxicam) as medications like that can be a little hard on your kidneys when taken routinely (it's one of the safest anti-inflammatories, but it's always best to minimize taking them when you can - try substituting tylenol on less severe pain days, etc) delirium -as we discussed, the confusion (and at times agitation) you were feeling all fit with what we call a delirium -deliriums are VERY common in the hospital (somewhere upwards of 70% of older folks at least get a little delirious when they're admitted) -in your case, the overactive thyroid levels and the dehydration would be the "brink that lit the fire" and then simply being in the hospital environment would be enough to keep the confusion ongoing - since it's such a foreign environment -typically people do much better once they're back at home, but realize that it can sometimes still take a little while (usually a few days to a week) for the delirium to clear. in rare instances, it can actually take a few months for people to get back to normal, although i highly doubt this will be the case for you. Pending Studies at Discharge: No Stand-Alone Forms: [facility], Smoking Cessation Medications and DC Order Prescriptions: New levothyroxine [Synthroid] 75 mcg tablet 75 mcg PO DAILY Qty: 30 RF: 0 Continued simvastatin 20 mg Tablet 20 mg PO PM RF: 0 oxybutynin chloride 5 mg Tablet 5 mg PO BID RF: 0 ferrous gluconate 324 mg (37.5 mg iron) Tablet 324 mg PO DIRECTED RF: 0 lisinopril 20 mg tablet 20 mg PO DAILY RF: 0 metoprolol tartrate 50 mg Tablet 50 mg PO BID RF: 0 Discontinued potassium chloride 10 mEq Tablet Extended Release 2 tab PO QAM RF: 0 meloxicam [Mobic] 7.5 mg Tablet 7.5 mg PO DAILY RF: 0 levothyroxine 125 mcg Tablet 125 mcg PO QAM RF: 0 triamterene-hydrochlorothiazid 37.5-25 mg tablet 0 tab PO DAILY RF: 0 Discharge Orders: Discharge Order (Routine); Ordered 03/30/20 Ordered By: Avtar Gonzales Admission Data Admit Date/Time: 03/27/20 22:11 Attending Provider: Avtar oGnzales Admit Provider: Kilo Flores Primary Care Provider: Miky Latham Other Providers: Bhupendra Sanchez ; Jelena Westfall ; Paul Toth Other Interventions: Discharge Summary Assessment (RN) Last Done: 03/30/20 17:59 Coding Level of Care Code D/C Day Management >30 mins Diagnoses Iatrogenic hyperthyroidism E05.80
== END 2020-03-30 18:30 | disposition home or self-care (01) | DRG 644 ==
LOC: ED 17:41 → 2W 22:11 → SUATTDRO 22:11 → 2W 22:43
DX: E05.90 Thyrotoxicosis, unspecified without thyrotoxic crisis or storm; E86.0 Dehydration; Z88.1 Allergy status to other antibiotic agents; E03.9 Hypothyroidism, unspecified; Z98.1 Arthrodesis status; I10 Essential (primary) hypertension; R63.6 Underweight; N17.9 Acute kidney failure, unspecified; M25.512 Pain in left shoulder; E87.5 Hyperkalemia; Z91.040 Latex allergy status; Z68.1 Body mass index [BMI] 19.9 or less, adult; M06.9 Rheumatoid arthritis, unspecified

== ENCOUNTER 2020-07-27 14:36 | Observation (INO) ==
[2020-07-27] MEDS ORDERED: MoRPHine SULFATE 2 MG/ML CARP IV STA (14:48)
[2020-07-27] MEDS ORDERED: ONDANSETRON INJ 2 MG/ML 2 ML VIAL IV STA (14:48)
--- NOTE | 2020-07-27 14:53 | Emergency Department Note ---
Impression & Plan Ambulatory dysfunction, Ankle strain, Hypertensive urgency ED Provider Note NAME: ROBBIE JENKINS AGE: 89 SEX: F : 1930 ARRIVES VIA: Ambulance INFORMANT: Patient ED PROVIDER(S): Avtar Andersen DO CHIEF COMPLAINT: Left ankle pain HPI: Patient is an 89-year-old female who presents the ER who ambulates with a walker. She notes that she got up yesterday and slid down to the ground. She has been having left ankle pain since then. She denies hitting her head or neck. No chest pain or shortness of breath. No nausea, vomiting or diarrhea. She notes she only has pain when she walks on it. No tingling or numbness. Pain is currently a 0 out of 10 and she is not walking on it. No hip or back pain. No other extremity pain. She lives at home with her daughter. Daughter notes that she cannot help her get up due to her bad back. She has been sitting in 1 position all day as she cannot get around. ROS: See above HPI for pertinent positives & negatives. A total of 10 systems reviewed and were otherwise negative. PAST MEDICAL HISTORY:See Below PAST SURGICAL HISTORY:See Below FAMILY HISTORY:See Below SOCIAL HISTORY:See Below HOME MEDICATIONS:See Below ALLERGIES:See Below VITALS:See Below PHYSICAL EXAMINATION: GENERAL: Sitting up in bed, alert, chronically ill-appearing, disheveled HEAD: NC/AT EYE EXAM: normal conjunctiva. OROPHARYNX: Dry mucous membranes NECK: supple, no nuchal rigidity, no adenopathy, non-tender LUNGS: Clear to auscultation. Normal chest wall mechanics HEART: no murmurs, S1 normal and S2 normal ABDOMEN: abdomen soft, non-tender, normo-active bowel sounds, no masses, no rebound or guarding. BACK: Back is symmetrical on inspection and there is no deformity, no midline tenderness, no CVA tenderness. SKIN: no rashes and no bruising UPPER EXTREMITIES: upper extremities are grossly normal. LOWER EXTREMITIES: No pitting edema. Flexion-extension left hip, knee intact. No tenderness throughout the femur. Bruising over the left lateral malleolus. DP and PT 2 out of 4. Gross sensation intact. Tenderness over the left lateral malleolus tracking over the mid arch of the foot. Skin is intact. NEURO EXAM: Normal sensorium, cranial nerves II-XII grossly intact, normal speech, no gross weakness of arms, no gross weakness of legs. MEDICAL DECISION MAKING: Patient is an 89-year-old female who presents the ER for left foot pain. This occurred yesterday. She has been unable to move since then. She notes she has been taking her medications. IV was established blood work was obtained. Labs show no significant leukocytosis or anemia. BMP was unremarkable with exception of slightly elevated glucose at T bili 2.8. Troponin was detectable but not +0.022. Lipase was normal. Rapid Covid was negative. X-rays of the left robbins ankle and foot showed no acute fractures. Discussed with daughter who is unable to care for her at home as she cannot get up on her own and the daughter cannot help due to her bad back. Patient has not moved since yesterday. Patient cannot go home at this time. Discussed placement but with her elevated blood pressure favor admission. Blood pressure was initially 220 upon arrival and she is given a dose of morphine due to pain. Blood pressure trended down to 180 and then trended back up to 211. Patient denies any pain at this time. She was given a dose of hydralazine. Updated bedside. Discussed with hospitalist for further evaluation and likely placement. Triage Nursing notes reviewed. Prior medical records reviewed Vital Signs: reviewed and remarkable for HTN Differential diagnosis: Differential diagnoses include major intracranial, cervical, spinal, thoracic, abdominal, pelvic and neurologic injury. Fracture, contusion, sprain, strain, laceration, abrasions included as well. ER treatment provided: See below Diagnostics interpreted by me: ECG: Sinus rhythm rate of 71 Left axis No PVCs QTC 428 Cardiac Monitoring: An order was placed for continuous cardiac monitoring. The monitor shows a rate of 74 with sinus rhythm. Laboratory studies: As stated above and show below. Imaging studies: X-ray tib-fib, foot and ankle are unremarkable Consultation(s): Discussed with hospitalist for further evaluation ED COURSE: Procedures: none Critical Care: None Past Med/Surg History Medical History DEXTER (acute kidney injury) Ambulatory dysfunction Anemia Degenerative disc disease Dehydration Hyperkalemia Hyperlipidemia Hypertension Hypothyroidism Rheumatoid arthritis Urinary frequency Surgical History Fusion of spine LUMBAR SURGERY X 2 History of adenoidectomy History of cataract surgery RT/LEFT History of cholecystectomy History of colonoscopy History of dilatation and curettage History of discectomy CERVICAL History of open reduction and internal fixation (ORIF) procedure RT FEMUR History of tonsillectomy History of tooth extraction History of total abdominal hysterectomy and bilateral salpingo-oophorectomy Family History Mother Family history of diabetes mellitus Social History Smoking Status: Never smoker Second Hand Exposure: No; Hx Alcohol Use: No Hx Substance Use: No Preferred Language: Azeri Communication Ability: Effective Director Of Kids Required: No Beliefs That Will Affect Care: None marital status: / Current Living Situation: Family Current Living Situation Comment: Daughter Keya How many Children do You have: 1 Feels Safe at Home: Yes Assistive Devices: Walker Allergies Allergies Allergy/AdvReac Type Severity Reaction Status Date / Time aloe Allergy Mild itching Verified 03/27/20 19:31 bacitracin Allergy Mild itching Verified 03/27/20 19:31 codeine Allergy Mild ITCHING Verified 03/27/20 19:31 cortisone Allergy Mild Rash Verified 03/27/20 19:31 erythromycin base Allergy Mild ITCHING Verified 03/27/20 19:31 latex Allergy Mild ITCHING Verified 03/27/20 19:31 neomycin Allergy Mild itching Verified 03/27/20 19:31 polymyxin B Allergy Mild itching Verified 03/27/20 19:31 tramadol Allergy Mild Rash Verified 03/27/20 19:31 triamcinolone Allergy Mild ITCHING Verified 03/27/20 19:31 Iodinated Contrast Media Allergy Unknown DOES NOT Verified 07/08/19 11:52 REMEMBER propranolol Allergy Unknown DOES NOT Verified 07/08/19 11:52 REMEMBER Home Meds Home Medications Medication Instructions Recorded Confirmed oxybutynin chloride 5 mg PO BID 12/18/18 07/27/20 leflunomide 10 mg PO DAILY 06/17/20 07/27/20 triamterene-hydrochlorothiazid 0.5 tab PO DAILY 06/17/20 07/27/20 prednisone 10 mg PO DAILY 07/27/20 07/27/20 Previous Rx's Medication Instructions Recorded levothyroxine [Synthroid] 75 mcg PO DAILY #30 tab 03/30/20 Results & Data (ED) Vital Signs Vital Signs - 24 hr 07/27/20 14:44 07/27/20 15:51 07/27/20 15:53 Temperature 36.9 C Temperature Source Oral Pulse Rate 80 70 68 Pulse Rate [Apical] Pulse Rate from SpO2 Sensor 70 68 Pulse Rhythm [Apical] Pulse Strength [Apical] Respiratory Rate 18 13 18 Respiratory Effort / Characteristics Respiratory Depth Respiratory Pattern Blood Pressure 218/138 H Blood Pressure [Right Arm] Blood Pressure Mean 164 Blood Pressure Mean [Right Arm] Blood Pressure Position [Right Arm] Pulse Oximetry 98 97 97 Oxygen Delivery Method Room Air Sepsis Recent Fever Within 48 Hours No Sepsis New/Unexplained Change in Mental Status No Sepsis Action Taken by Nursing No Action Required 07/27/20 16:00 07/27/20 16:01 07/27/20 16:15 Temperature Temperature Source Pulse Rate 73 66 72 Pulse Rate [Apical] 79 Pulse Rate from SpO2 Sensor 74 66 70 Pulse Rhythm [Apical] Regular Pulse Strength [Apical] Normal Respiratory Rate 20 19 20 Respiratory Effort / Characteristics Non-Labored Respiratory Depth Normal Respiratory Pattern Regular Blood Pressure 211/106 H 196/79 H Blood Pressure [Right Arm] 211/106 H Blood Pressure Mean 165 93 Blood Pressure Mean [Right Arm] 141 Blood Pressure Position [Right Arm] Lying Pulse Oximetry 99 98 99 Oxygen Delivery Method Room Air Sepsis Recent Fever Within 48 Hours Sepsis New/Unexplained Change in Mental Status Sepsis Action Taken by Nursing 07/27/20 16:30 07/27/20 16:31 Temperature Temperature Source Pulse Rate 77 72 Pulse Rate [Apical] Pulse Rate from SpO2 Sensor 76 72 Pulse Rhythm [Apical] Pulse Strength [Apical] Respiratory Rate 18 22 Respiratory Effort / Characteristics Respiratory Depth Respiratory Pattern Blood Pressure 165/60 H Blood Pressure [Right Arm] Blood Pressure Mean 80 Blood Pressure Mean [Right Arm] Blood Pressure Position [Right Arm] Pulse Oximetry 99 98 Oxygen Delivery Method Sepsis Recent Fever Within 48 Hours Sepsis New/Unexplained Change in Mental Status Sepsis Action Taken by Nursing Laboratory Data Result diagrams: 07/27/20 15:14 07/27/20 15:14 Lab Results 07/27/20 07/27/20 07/27/20 Range/Units 15:14 15:14 16:36 WBC 7.01 (4.8-10.8) K/uL RBC 4.13 L (4.2-5.4) M/uL Hgb 12.5 (12.0-16.0) g/dL Hct 37.0 (37-47) % MCV 89.6 (80-100) fL MCH 30.3 (25-34) pg MCHC 33.8 (32-36) g/dL RDW Std Deviation 43.5 (36.4-46.3) fL RDW Coeff of Rafael 13.2 (11.5-14.5) % Plt Count 107 L (130-400) K/uL MPV 10.7 H (7.4-10.4) fL Immature Gran % (Auto) 0.1 % Neut % (Auto) 87.1 % Lymph % (Auto) 5.0 % Gove % (Auto) 7.7 % Eos % (Auto) 0.0 % Baso % (Auto) 0.1 % Neut # (Auto) 6.10 (1.4-6.5) K/uL Lymph # (Auto) 0.35 L (1.2-3.4) K/uL Gove # (Auto) 0.54 (0.11-0.59) K/uL Eos # (Auto) 0.00 (0-0.5) K/uL Baso # (Auto) 0.01 (0-0.2) K/uL Immature Gran # (Auto) 0.01 (0.00-0.02) K/uL Sodium 140 (136-145) mmol/L Potassium 4.0 (3.5-5.1) mmol/L Chloride 105 (98-107) mmol/L Carbon Dioxide 28 (21-32) mmol/L Anion Gap 7.0 (3-11) BUN 17 (7-18) mg/dl Creatinine 0.94 (0.6-1.2) mg/dl Est Cr Clr Drug Dosing 35.7 ml/min Est GFR ( Amer) 62.8 Est GFR (Non-Af Amer) 54.2 BUN/Creatinine Ratio 17.7 (10-20) Glucose 166 H (70-99) mg/dl Calcium 9.2 (8.5-10.1) mg/dl Total Bilirubin 2.8 H (0.2-1) mg/dl AST 23 (15-37) U/L ALT 29 (12-78) U/L Alkaline Phosphatase 60 (45-117) U/L Troponin I 0.022 (0-0.045) ng/ml Total Protein 7.1 (6.4-8.2) gm/dl Albumin 3.4 (3.4-5.0) gm/dl Globulin 3.7 (2.5-4.0) gm/dl Albumin/Globulin Ratio 0.9 (0.9-2) Lipase 50 L (73-393) U/L SARS-CoV-2 Ag (Rapid) Negative (Negative) Administered Medications Discontinued Medications Hydralazine HCl (Hydralazine Hcl 20 Mg/Ml Vial) 10 mg IV NOW STA Stop: 07/27/20 16:10 Last Admin: 07/27/20 16:17 Dose: 10 mg Documented by: [id number] Morphine Sulfate (Morphine Sulfate 2 Mg/Ml Carp) 2 mg IV NOW STA Stop: 07/27/20 14:49 Last Admin: 07/27/20 15:22 Dose: 2 mg Documented by: [id number] Ondansetron HCl (Ondansetron Inj 2 Mg/Ml 2 Ml Vial) 4 mg IV NOW STA Stop: 07/27/20 14:49 Last Admin: 07/27/20 15:23 Dose: 4 mg Documented by: [id number] Discharge Plan Visit Data Chief Complaint: Fall ED Provider: Avtar Andersen Discharge Problem: Ambulatory dysfunction, Ankle strain, Hypertensive urgency Forms Stand Alone Forms: [facility] Prescriptions Prescriptions: No Action oxybutynin chloride 5 mg Tablet 5 mg PO BID RF: 0 levothyroxine [Synthroid] 75 mcg tablet 75 mcg PO DAILY Qty: 30 RF: 0 leflunomide 10 mg tablet 10 mg PO DAILY RF: 0 triamterene-hydrochlorothiazid 37.5-25 mg tablet 0.5 tab PO DAILY RF: 0 prednisone 10 mg tablet 10 mg PO DAILY RF: 0
--- NOTE | 2020-07-27 15:03 | XRay Report ---
XR tibia fibula LT 2V CLINICAL HISTORY: l robbins pain COMPARISON: Left knee radiographs July 08, 2019. FINDINGS: No fracture within the left tibia or fibula is identified. No osseous lesion is noted. The re is no evidence for soft tissue gas. There is extensive vascular calcification. IMPRESSION: No acute osseous abnormality within the left tibia or fibula. ACT 112: Negative or not required by law. Electronically signed by: Bora Gale M.D. 07/27/2020 3:02 PM
--- NOTE | 2020-07-27 15:05 | XRay Report ---
LEFT FOOT 3 VIEWS CLINICAL HISTORY: Left foot pain. FINDINGS: 3 views of the left foot are compared to study dated 04/08/2014. The skeletal structures are osteopenic. No fracture is identified. Mild to moderate osteoarthritic change is seen at the first m etatarsophalangeal joint. Moderate to advanced osteophytic arthritic change is seen throughout the mi dfoot involving the intertarsal and tarsometatarsal joints. Degenerative spurring is seen along the d orsal aspect of the tarsal bones. There are large dorsal and plantar calcaneal enthesophytes. The ove rlying soft tissues are normal as imaged. There is atherosclerotic calcification of the regional daniel romana. IMPRESSION: 1. No acute bony abnormality is identified. 2. Osteopenia with degenerative change and large heel spurs as above. Electronically signed by: Jose Luis Jauregui M.D. 07/27/2020 3:03 PM
--- NOTE | 2020-07-27 15:05 | XRay Report ---
XR ankle LT min 3V routine CLINICAL HISTORY: Left ankle pain. COMPARISON STUDY: None. FINDINGS: The bones are osteopenic. No fracture or dislocation within the left ankle. There is mild d iffuse soft tissue swelling. Vascular calcifications are noted. There are plantar and posterior calca rema spurs. Advanced degenerative changes within the intertarsal joints with large dorsal osteophytes . IMPRESSION: No fracture or dislocation within the left ankle. ACT 112: Negative or not required by law. Electronically signed by: Eloy Ryder M.D. 07/27/2020 3:03 PM
[2020-07-27 15:25] LABS: Basophils # (auto) 0.01 K/uL (0-0.2); Basophils % (auto) 0.1 %; Hemoglobin 12.5 g/dL (12.0-16.0); Immature Granulocytes # (auto) 0.01 K/uL (0.00-0.02); Immature Granulocytes % (auto) 0.1 %; Lymphocytes # (auto) 0.35 K/uL (1.2-3.4); Mean Corpuscular Hemoglobin 30.3 pg (25-34); Mean Corpuscular Hgb Conc 33.8 g/dL (32-36); Mean Corpuscular Volume 89.6 fL (80-100); Mean Platelet Volume 10.7 fL (7.4-10.4); Monocytes # (auto) 0.54 K/uL (0.11-0.59); Monocytes % (auto) 7.7 %; Neutrophils % (auto) 87.1 %; Platelet Count 107 K/uL (130-400); RDW Coefficient of Variation 13.2 % (11.5-14.5); RDW Standard Deviation 43.5 fL (36.4-46.3); Red Blood Count 4.13 M/uL (4.2-5.4); White Blood Count 7.01 K/uL (4.8-10.8)
[2020-07-27 15:44] LABS: Albumin Level 3.4 gm/dl (3.4-5.0); BUN Creatinine Ratio 17.7 (10-20); Calcium 9.2 mg/dl (8.5-10.1); Creatinine Clr Calc Pharmacy 35.7 ml/min; Est GFR (African American) 62.8; Est GFR (Non-African American) 54.2
[2020-07-27 15:48] LABS: Albumin Globulin Ratio 0.9 (0.9-2); Bilirubin,Total 2.8 mg/dl (0.2-1); Globulin 3.7 gm/dl (2.5-4.0); Total Protein 7.1 gm/dl (6.4-8.2); Troponin I 0.022 ng/ml (0-0.045)
[2020-07-27] MEDS ORDERED: hydrALAZINE HCL 20 MG/ML VIAL IV STA (16:09)
--- NOTE | 2020-07-27 17:36 | History & Physical Report ---
Date of Service July 27, 2020 Assessment & Plan (1) Rheumatoid arthritis: (2) Ambulatory dysfunction: Glenny is in 89-year-old female with a past medical history of hypothyroidism, rheumatoid arthritis, hypertension, hyperlipidemia, and chronic deconditioning who presents following a fall when her left leg "just gave out (causing her to lower herself to the floor. Fall 2/2 Ambulatory Dysfunction/Chronic Deconditioning Patient reports she lowered herself to ground rapidly, did not hit her head. No cervical/spine tenderness Patient reports she has had chronic heaviness in her legs and 2 episodes where she had to lower herself to the ground because she felt like she could not hold up her full weight. Legs did not give way suddenly Neuro exam intact Suspect frail baseline with chronic deconditioning limiting safe ambulation at home PT/OT pending. Clinical exam with left ankle contusion, tender. Left knee/lower leg/ankle/foot x-ray show no fracture. Rheumatoid arthritis Continue leflunomide and prednisone CADDYMASTER doses Discussed osteoporosis risk and increased risk of falls especially with deconditioning with patient Hypothyroidism Continue Synthroid 70 mcg daily Patient feels clinically euthyroid, no adjustment since prior hospitalization Bladder spasm Continue CADDYMASTER oxybutynin 5 mg p.o. twice daily Hypertension Continue Tri-Met hearinghydrochlorothiazide 0.5 tabs p.o. daily, home dose Admit to medical telemetry overnight, Lopressor 2.5 mg every 6 hours as needed for systolic greater than 180 or diastolic greater than 95 DVT prophylaxis: Heparin 5000 3 times daily Diet: Low sodium Disposition: Medical/surgical with telemetry, observation CODE STATUS: DNR/DNI, discussed with patient at bedside (3) Weakness: (4) Fall: History of Present Illness Chief Complaint: Fall Primary Care Provider: Miky Latham MD Glenny is in 89-year-old female with a past medical history of hypothyroidism, rheumatoid arthritis, hypertension, hyperlipidemia, and chronic deconditioning who presents following a fall when her left leg "just gave out (causing her to lower herself to the floor. Glenny reports that she has been in her usual state of health since her last admission in March and "used to fall a lot, but have not fallen until recently ". She reports that she has had 2 episodes in the last week which "were not falls "but during which "she felt like her legs were going to give out under her, and that she could not hold herself up causing her to lower herself to the floor. She reports she remembers these events, did not strike her head, and did not lose consciousness. She is not lightheaded, dizzy, or feeling like she was going to pass out during these episodes, but noted that her "legs would just not do what I wanted them to "and felt like "they were just heavy, or someone was holding me down ". Reports her balance is chronically poor at baseline, but that it has not changed recently. She has not had any numbness, tingling, or sensation change. She denies vision change. She denies dysarthria or difficulty speaking. She reports she was very tired and "out of sorts "because her grandson had a birthday constitution party and she gets "exhausted and stressed out "from too much commotion, but otherwise denies confusion. Endorses chronic memory problems. She reports she does not want to go to rehab, she remembers breaking her right femur in 2014 and had a "awful "experience at [facility] during which she experienced, seeing things that other people could not, but did not understand what I was seeing ". She denies recent leg swelling, endorses some tenderness and ankle swelling in her left ankle since her above fall. Ports her pain feels improved is not having pain at rest but ankle is tender to the touch. Medical history: Reviewed. Medications. Patient reports she last took her medications this morning. Patient is not a good historian of her medications, has assistance from her daughter at home. Surgical history: Reviewed Allergies: Reviewed Social: Denies tobacco, alcohol, and recreational drug use. She lives in [facility] with her daughter. Reports that she is normally able to get around okay, but has been trying to get a bedside commode due to difficulty walking distances and heaviness in her legs. CODE STATUS: DNR/DNI, confirmed with patient Allergies Allergy/AdvReac Type Severity Reaction Status Date / Time aloe Allergy Mild itching Verified 03/27/20 19:31 bacitracin Allergy Mild itching Verified 03/27/20 19:31 codeine Allergy Mild ITCHING Verified 03/27/20 19:31 cortisone Allergy Mild Rash Verified 03/27/20 19:31 erythromycin base Allergy Mild ITCHING Verified 03/27/20 19:31 latex Allergy Mild ITCHING Verified 03/27/20 19:31 neomycin Allergy Mild itching Verified 03/27/20 19:31 polymyxin B Allergy Mild itching Verified 03/27/20 19:31 tramadol Allergy Mild Rash Verified 03/27/20 19:31 triamcinolone Allergy Mild ITCHING Verified 03/27/20 19:31 Iodinated Contrast Media Allergy Unknown DOES NOT Verified 07/08/19 11:52 REMEMBER propranolol Allergy Unknown DOES NOT Verified 07/08/19 11:52 REMEMBER Home Medications Medication Instructions Recorded Confirmed Type oxybutynin chloride 5 mg PO BID 12/18/18 07/27/20 History levothyroxine [Synthroid] 75 mcg PO DAILY #30 tab 03/30/20 07/27/20 Rx leflunomide 10 mg PO DAILY 06/17/20 07/27/20 History triamterene-hydrochlorothiazid 0.5 tab PO DAILY 06/17/20 07/27/20 History prednisone 10 mg PO DAILY 07/27/20 07/27/20 History Past Med/Surg History Medical History DEXTER (acute kidney injury) Ambulatory dysfunction Anemia Degenerative disc disease Dehydration Hyperkalemia Hyperlipidemia Hypertension Hypothyroidism Rheumatoid arthritis Urinary frequency Surgical History Fusion of spine LUMBAR SURGERY X 2 History of adenoidectomy History of cataract surgery RT/LEFT History of cholecystectomy History of colonoscopy History of dilatation and curettage History of discectomy CERVICAL History of open reduction and internal fixation (ORIF) procedure RT FEMUR History of tonsillectomy History of tooth extraction History of total abdominal hysterectomy and bilateral salpingo-oophorectomy Family History Mother Family history of diabetes mellitus Social History Smoking Status: Never smoker Second Hand Exposure: No; Hx Alcohol Use: No Hx Substance Use: No Preferred Language: Kosovan Communication Ability: Effective Bottling Supervisor Required: No Beliefs That Will Affect Care: None marital status: / Current Living Situation: Family Current Living Situation Comment: Daughter Keya How many Children do You have: 1 Other Information That Helps Us Care for You: No Feels Safe at Home: Yes Safety Concerns: Feels Safe At This Time Assistive Devices: Glasses Review of Systems Review of Systems: Constitutional: Denies fever, chills, malaise. Endorses global weakness Eyes: Denies double vision, vision change, eye pain ENT: Denies ear pain, sore throat, sinus pain Cardiovascular: Denies Chest pain, chest pressure, palpitations, extremity swelling Respiratory: Denies shortness of breath, cough, sputum production, difficulty breathing Gastrointestinal: Denies abdominal pain, nausea, vomiting, constipation, diarrhea Genitourinary: Denies urinary change Musculoskeletal: As noted in HPI. Also endorses chronic joint pains and arthritis diffusely but mostly in her hands. Integumentary: Versus bruising and tenderness at her left ankle, see HPI. Neurological: Denies headache, numbness, tingling, focal weakness. Endorses forgetfulness/poor memory Physical Exam Physical Exam: General: Thin, frail-appearing elderly white female. Psych: Alert to name, month, year, place. NAD. Cooperative. Thought process linear. HEENT: Atraumatic, normocephalic. See neuro below. Pulm: CTAB A&P. -wheezes, -rales, -rhonchi. Symmetrical chest rise. No increase work of breathing. No respiratory distress. Cardiac: RRR, -mrg. Radial pulses intact and symmetrical. Abdominal: Nontender, nondistended, soft. BS present. CRANIAL NERVES: II: Pupils equal and reactive, no relative afferent pupillary defect, no VF cuts III, IV, : EOM intact, no gaze preference or deviation, no nystagmus. V: nd VII: no asymmetry, no nasolabial fold flattening VIII: normal hearing to speech IX, X: normal palatal elevation, no uvular deviation XI: 5/5 head turn XII: midline tongue protrusion MOTOR: RUE: 5/5 Shoulder internal rotation, external rotation 5/5 Elbow flexion/extension 5/5 geographic information systems analyst strength, finger flexion/extension, interosseus LUE: 5/5 Shoulder internal rotation, external rotation 5/5 Elbow flexion/extension 5/5 geographic information systems analyst strength, finger flexion/extension, interosseus RLE: 4+/5 to hip flexion, ankle dorsiflexion/plantarflexion LLE: 4+/5 to hip flexion/extension, ankle dorsiflexion/plantarflexion SENSORY: Normal to touchin lower extremities without deficit or asymmetry Results & Data Results & Data ([facility]) Vital Signs (Past 12 Hours) Vital Signs Temp Pulse Pulse Resp BP BP Pulse Ox 07/27/20 16:31 72 22 165/60 H 98 07/27/20 16:30 77 18 99 07/27/20 16:15 72 20 196/79 H 99 07/27/20 16:01 66 79 19 211/106 H 211/106 H 98 07/27/20 16:00 73 20 99 07/27/20 15:53 68 18 97 07/27/20 15:51 70 13 97 07/27/20 14:44 36.9 C 80 18 218/138 H 98 Supervising Physician Co-Signing Physician Notes Resident Physician Supervision Note: I independently interviewed and examined the patient and verified the rios history and physical, reviewed labs and image studies, discussed the case with the resident Dr. Flores and agree with the findings and care plan. Resident Activity Tracking Resident Involvement: Resident Care Provided Care Provided: Adult Hospital Medicine
[2020-07-27] MEDS ORDERED: MAGNESIUM HYDROXIDE SUSP 30 ML UDC PO PRN (19:13)
[2020-07-27] MEDS ORDERED: ALUMINUM/MAGNESIUM SUSP 30 ML UDC PO PRN (19:13)
[2020-07-27] MEDS ORDERED: ONDANSETRON INJ 2 MG/ML 2 ML VIAL IV PRN (19:13)
[2020-07-27] MEDS ORDERED: ACETAMINOPHEN 325 MG TAB PO PRN (19:13)
[2020-07-27] MEDS: OXYBUTYNIN CHLORIDE 5 MG TAB PO SCH (20:58)
[2020-07-27] MEDS: HEPARIN SOD 5,000 UNIT/0.5 ML VIAL SQ SCH (20:58)
[2020-07-28] MEDS ORDERED: LEVOTHYROXINE SODIUM 75 MCG TABLET PO SCH (06:30)
[2020-07-28 06:54] LABS: Eosinophils # (auto) 0.02 K/uL (0-0.5); Eosinophils % (auto) 0.4 %; Hematocrit (blood only) 35.1 % (37-47); Hemoglobin 11.8 g/dL (12.0-16.0); Lymphocytes # (auto) 0.92 K/uL (1.2-3.4); Lymphocytes % (auto) 17.7 %; Mean Corpuscular Hemoglobin 30.3 pg (25-34); Mean Corpuscular Hgb Conc 33.6 g/dL (32-36); Mean Platelet Volume 10.9 fL (7.4-10.4); Monocytes # (auto) 0.52 K/uL (0.11-0.59); Neutrophils # (auto) 3.73 K/uL (1.4-6.5); Neutrophils % (auto) 71.9 %; Platelet Count 109 K/uL (130-400); RDW Coefficient of Variation 13.5 % (11.5-14.5); RDW Standard Deviation 44.6 fL (36.4-46.3); White Blood Count 5.19 K/uL (4.8-10.8)
--- NOTE | 2020-07-28 06:56 | Hospitalist Progress Note ---
Date of Service July 28, 2020 Assessment & Plan (1) Ambulatory dysfunction: Glenny is in 89-year-old female with a past medical history of hypothyroidism, rheumatoid arthritis, hypertension, hyperlipidemia, and chronic deconditioning who presents following a fall when her left leg "just gave out (causing her to lower herself to the floor). Fall 2/2 Ambulatory Dysfunction/Chronic Deconditioning Patient reports she lowered herself to ground rapidly, did not hit her head. No cervical/spine tenderness Patient reports she has had chronic heaviness in her legs and 2 episodes where she had to lower herself to the ground because she felt like she could not hold up her full weight. Legs did not give way suddenly Neuro exam intact Suspect frail baseline with chronic deconditioning limiting safe ambulation at home PT/OT pending. Clinical exam with left ankle contusion, tender. Left knee/lower leg/ankle/foot x-ray show no fracture. 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 twice daily Hypertension Continue Triameterinehydrochlorothiazide 0.5 tabs p.o. daily, home dose Admit to medical telemetry overnight, Lopressor 2.5 mg every 6 hours as needed for systolic greater than 180 or diastolic greater than 95 DVT prophylaxis: Heparin 5000 3 times daily Diet: Low sodium Disposition: Medical/surgical with telemetry, observation CODE STATUS: DNR/DNI, discussed with patient at bedside (2) Rheumatoid arthritis: (3) Weakness: (4) Fall: Admission and Anticipated Discharge Date Admission Date: July 27, 2020 Results & Data Results & Data ([facility]) Vital Signs (Past 12 Hours) Vital Signs Temp Pulse Pulse Pulse Pulse Resp BP 07/28/20 04:00 36.8 C 69 18 131/58 L 07/28/20 01:34 72 07/27/20 22:42 36.3 C L 80 20 107/56 L 07/27/20 19:20 36.7 C 76 18 159/69 H 07/27/20 19:13 36.7 C 75 71 18 162/62 H Pulse Ox 07/28/20 04:00 97 07/28/20 01:34 07/27/20 22:42 98 07/27/20 19:20 99 07/27/20 19:13 97
[2020-07-28 07:35] LABS: Albumin Level 2.9 gm/dl (3.4-5.0); BUN Creatinine Ratio 19.9 (10-20); Calcium 8.7 mg/dl (8.5-10.1); Creatinine Clr Calc Pharmacy 36.6 ml/min; Est GFR (African American) 67.1; Est GFR (Non-African American) 57.9; Potassium 3.5 mmol/L (3.5-5.1)
[2020-07-28 07:38] LABS: Albumin Globulin Ratio 0.8 (0.9-2); Bilirubin,Total 2.4 mg/dl (0.2-1); Globulin 3.6 gm/dl (2.5-4.0); Total Protein 6.5 gm/dl (6.4-8.2)
[2020-07-28] MEDS: HEPARIN SOD 5,000 UNIT/0.5 ML VIAL SQ SCH (08:01)
[2020-07-28] MEDS: OXYBUTYNIN CHLORIDE 5 MG TAB PO SCH (08:01)
[2020-07-28] MEDS ORDERED: TRIAMTERENE/HCTZ 37.5/25MG TAB PO SCH (09:00)
[2020-07-28] MEDS ORDERED: LEFLUNOMIDE 10 MG TAB PO SCH (09:00)
[2020-07-28] MEDS ORDERED: predniSONE 10 MG TABLET PO SCH (09:00)
[2020-07-28] MEDS ORDERED: SODIUM CHLORIDE 0.9% 1000ML 500 ML IV ONE (12:05)
--- NOTE | 2020-07-28 14:04 | Discharge Summary ---
Date of Service July 28, 2020 Admission HPI Per Admitting Provider Glenny is in 89-year-old female with a past medical history of hypothyroidism, rheumatoid arthritis, hypertension, hyperlipidemia, and chronic deconditioning who presents following a fall when her left leg "just gave out (causing her to lower herself to the floor. Glenny reports that she has been in her usual state of health since her last admission in March and "used to fall a lot, but have not fallen until recently ". She reports that she has had 2 episodes in the last week which "were not falls "but during which "she felt like her legs were going to give out under her, and that she could not hold herself up causing her to lower herself to the floor. She reports she remembers these events, did not strike her head, and did not lose consciousness. She is not lightheaded, dizzy, or feeling like she was going to pass out during these episodes, but noted that her "legs would just not do what I wanted them to "and felt like "they were just heavy, or someone was holding me down ". Reports her balance is chronically poor at baseline, but that it has not changed recently. She has not had any numbness, tingling, or sensation change. She denies vision change. She denies dysarthria or difficulty speaking. She reports she was very tired and "out of sorts "because her grandson had a birthday constitution party and she gets "exhausted and stressed out "from too much commotion, but otherwise denies confusion. Endorses chronic memory problems. She reports she does not want to go to rehab, she remembers breaking her right femur in 2014 and had a "awful "experience at [facility] during which she experienced, seeing things that other people could not, but did not understand what I was seeing ". She denies recent leg swelling, endorses some tenderness and ankle swelling in her left ankle since her above fall. Ports her pain feels improved is not having pain at rest but ankle is tender to the touch. Medical history: Reviewed. Medications. Patient reports she last took her medications this morning. Felix fadiamelissa is not a good historian of her medications, has assistance from her daughter at home. Surgical history: Reviewed Allergies: Reviewed Social: Denies tobacco, alcohol, and recreational drug use. She lives in [place] with her daughter. Reports that she is normally able to get around okay, but has been trying to get a bedside commode due to difficulty walking distances and heaviness in her legs. CODE STATUS: DNR/DNI, confirmed with patient Admission Exam Per Admitting Provider General: Thin, frail-appearing elderly white female. Psych: Alert to name, month, year, place. NAD. Cooperative. Thought process linear. HEENT: Atraumatic, normocephalic. See neuro below. Pulm: CTAB A&P. -wheezes, -rales, -rhonchi. Symmetrical chest rise. No increase work of breathing. No respiratory distress. Cardiac: RRR, -mrg. Radial pulses intact and symmetrical. Abdominal: Nontender, nondistended, soft. BS present. CRANIAL NERVES: II: Pupils equal and reactive, no relative afferent pupillary defect, no VF cuts III, IV, : EOM intact, no gaze preference or deviation, no nystagmus. V: nd VII: no asymmetry, no nasolabial fold flattening VIII: normal hearing to speech IX, X: normal palatal elevation, no uvular deviation XI: 5/5 head turn XII: midline tongue protrusion MOTOR: RUE: 5/5 Shoulder internal rotation, external rotation 5/5 Elbow flexion/extension 5/5 rod puller and coiler strength, finger flexion/extension, interosseus LUE: 5/5 Shoulder internal rotation, external rotation 5/5 Elbow flexion/extension 5/5 rod puller and coiler strength, finger flexion/extension, interosseus RLE: 4+/5 to hip flexion, ankle dorsiflexion/plantarflexion LLE: 4+/5 to hip flexion/extension, ankle dorsiflexion/plantarflexion SENSORY: Normal to touchin lower extremities without deficit or asymmetry Principal Diagnosis Fall secondary to ambulatory dysfunction and chronic deconditioning Discharge Exam Constitutional cooperative and comfortable; no acute distress, not in distress, not combative and not lethargic Eyes PERRL, conjunctivae normal, anicteric sclerae ENMT external ear and nose normal, oropharynx normal Neck trachea midline, no thyromegaly Respiratory normal respiratory effort, lungs clear to auscultation Cardiovascular Rate/Rhythm: regular rate and regular rhythm Heart Sounds: normal S1 and normal S2 Vessels: no JVD Extremities: no edema Gastrointestinal (Abdomen) normal bowel sounds, soft, nontender, no hepatosplenomegaly Musculoskeletal Head/Neck/Chest: normocephalic and head atraumatic Contusion to the lateral portion of the L foot and ankle Neurologic CN's II-XI intact bilaterally, moves all extremities and awake Psychiatric A+Ox3, euthymic affect Discharge Data Allergies Allergy/AdvReac Type Severity Reaction Status Date / Time aloe Allergy Mild itching Verified 03/27/20 19:31 bacitracin Allergy Mild itching Verified 03/27/20 19:31 codeine Allergy Mild ITCHING Verified 03/27/20 19:31 cortisone Allergy Mild Rash Verified 03/27/20 19:31 erythromycin base Allergy Mild ITCHING Verified 03/27/20 19:31 latex Allergy Mild ITCHING Verified 03/27/20 19:31 neomycin Allergy Mild itching Verified 03/27/20 19:31 polymyxin B Allergy Mild itching Verified 03/27/20 19:31 tramadol Allergy Mild Rash Verified 03/27/20 19:31 triamcinolone Allergy Mild ITCHING Verified 03/27/20 19:31 Iodinated Contrast Media Allergy Unknown DOES NOT Verified 07/08/19 11:52 REMEMBER propranolol Allergy Unknown DOES NOT Verified 07/08/19 11:52 REMEMBER Consultations 07/27/20 16:11 ED Decision to Admit Stat Hospital Course (1) Ambulatory dysfunction: Glenny is in 89-year-old female with a past medical history of hypothyroidism, rheumatoid arthritis, hypertension, hyperlipidemia, and chronic deconditioning who presented following a fall when her left leg "just gave out" (causing her to lower herself to the floor). Fall 2/2 Ambulatory Dysfunction/Chronic Deconditioning Patient reported she lowered herself to ground rapidly, did not hit her head. No cervical/spine tenderness Patient reports she has had chronic heaviness in her legs and 2 episodes where she had to lower herself to the ground because she felt like she could not hold up her full weight. Legs did not give way suddenly. Clinical exam with left ankle contusion, tender. Left knee/lower leg/ankle/foot x-ray show no fracture. Neuro exam intact Suspect frail baseline with chronic deconditioning limiting safe ambulation at home PT/OT while inpatient -Discharge to [facility] for rehab. Tachycardia -Patient with tachycardia the morning of 07/28/20 with rates in the 120-150's sinus -Given a 500ml bolus of NSS, improved rates to the mid 80's -Tachycardia likely secondary to reduced volume status, continue to push PO intake at rehab. Rheumatoid arthritis Continued leflunomide and prednisone home doses Discussed osteoporosis risk and increased risk of falls especially with deconditioning with patient. Hypothyroidism Continued Synthroid 70 mcg daily Patient feels clinically euthyroid, no adjustment since prior hospitalization, no adjustment made during this stay. Bladder spasm Continued RETREAD OPERATOR oxybutynin 5 mg p.o. twice daily Hypertension Continued Triamterenehydrochlorothiazide 0.5 tabs p.o. daily, home dose (2) Rheumatoid arthritis: (3) Weakness: (4) Fall: Total Time Total Time Spent Total Time Spent (In Minutes): See attending attestation Discharge Plan Discharge Items Patient Disposition: Transfer [facility] Reason For Visit: FALL, HYPERTENSIVE URGENCY Discharge Diagnosis: Fall secondary to ambulatory dysfunction/chronic deconditioning Activity: Resume your previous activity Non-emergency contact: Primary Care Provider Call non-emergency contact if: your symptoms worsen Follow-up/Referrals: Miky Latham MD [Primary Care Provider] - Diet: Low Sodium (2gm) Addtl Attending Provider Instructions: Glenny is in 89-year-old female with a past medical history of hypothyroidism, rheumatoid arthritis, hypertension, hyperlipidemia, and chronic deconditioning who presents following a fall when her left leg "just gave out (causing her to lower herself to the floor). Fall 2/2 Ambulatory Dysfunction/Chronic Deconditioning Patient reports she lowered herself to ground rapidly, did not hit her head. No cervical/spine tenderness Patient reported she has had chronic heaviness in her legs and 2 episodes where she had to lower herself to the ground because she felt like she could not hold up her full weight. Legs did not give way suddenly. Neuro exam intact Suspect frail baseline with chronic deconditioning limiting safe ambulation at home Clinical exam with left ankle contusion, tender. Left knee/lower leg/ankle/foot x-ray show no fracture. -Discharge to [facility] for inpatient rehab. Tachycardia -Noted tachycardia 120-150's on morning of 07/28/20 -Resolved with 500ml bolus of NSS -Likely due to dehydration, recommend patient continue with increased oral intake. Push fluids. Rheumatoid arthritis Continue leflunomide and prednisone home doses Hypothyroidism Continue Synthroid 70 mcg daily Patient feels clinically euthyroid, no adjustment since prior hospitalization Bladder spasm Continue RETREAD OPERATOR oxybutynin 5 mg p.o. twice daily Hypertension Continue Triamterenehydrochlorothiazide 0.5 tabs p.o. daily, home dose Diet: Low sodium Disposition: [facility] CODE STATUS: DNR/DNI Pending Studies at Discharge: No Stand-Alone Forms: My [facility] Skilled Items Patient informed of condition?: Yes DNR: Yes Discharge Level of Care: Skilled Communicable Disease: No Discharge Prognosis: Stable Lines: None Urinary Catheter: No Medications and DC Order Prescriptions: Continued oxybutynin chloride 5 mg Tablet 5 mg PO BID RF: 0 levothyroxine [Synthroid] 75 mcg tablet 75 mcg PO DAILY Qty: 30 RF: 0 leflunomide 10 mg tablet 10 mg PO DAILY RF: 0 triamterene-hydrochlorothiazid 37.5-25 mg tablet 0.5 tab PO DAILY RF: 0 prednisone 10 mg tablet 10 mg PO DAILY RF: 0 Discharge Orders: Discharge Order (Routine); Ordered 07/28/20 Ordered By: Hiren Frausto Admission Data Admit Date/Time: 07/27/20 16:59 Attending Provider: Johnna Naranjo Admit Provider: Johnna Naranjo Primary Care Provider: Miky Latham Other Providers: Johnna Naranjo ; [facility] Other Interventions: Discharge Summary Assessment (RN) Last Done: 07/28/20 14:42 Supervising Physician Co-Signing Physician Notes Resident Physician Supervision Note: I independently interviewed and examined the patient and verified the rios history and physical, reviewed labs and image studies, discussed the case with the resident Dr. Frausto and agree with the findings and care plan. Resident Activity Tracking Resident Involvement: Resident Care Provided Care Provided: Adult Hospital Medicine
--- NOTE | 2020-07-28 22:10 | Electrocardiogram Report ---
Test Reason : Blood Pressure : / mmHG Vent. Rate : 071 BPM Atrial Rate : 071 BPM P-R Int : 162 ms QRS Dur : 088 ms QT Int : 394 ms P-R-T Axes : 079 003 046 degrees QTc Int : 428 ms Poor data quality, interpretation may be adversely affected Normal sinus rhythm Septal infarct , age undetermined Abnormal ECG When compared with ECG of 17-JUN-2020 12:38, No significant change Confirmed by Baljinder Eckert ([id number]) on 07/28/2020 10:09:43 PM Referred By: REFERRED SELF Confirmed By:Baljinder Eckert
== END 2020-07-28 15:04 ==
LOC: ED 14:36 → 2W 14:36

== ENCOUNTER 2020-12-12 23:57 | Inpatient (IN) ==
[2020-12-13] MEDS ORDERED: SODIUM CHLORIDE 0.9% 1000ML 1,000 ML IV SCH (00:30)
[2020-12-13] MEDS ORDERED: ONDANSETRON INJ 2 MG/ML 2 ML VIAL IV STA (00:32)
[2020-12-13] MEDS ORDERED: fentaNYL citrate 100 MCG/2 ML VIAL IV STA (00:32)
[2020-12-13 01:16] LABS: Basophils # (auto) 0.01 K/uL (0-0.2); Basophils % (auto) 0.1 %; Eosinophils # (auto) 0.01 K/uL (0-0.5); Eosinophils % (auto) 0.1 %; Hematocrit (blood only) 36.5 % (37-47); Hemoglobin 12.6 g/dL (12.0-16.0); Immature Granulocytes # (auto) 0.01 K/uL (0.00-0.02); Immature Granulocytes % (auto) 0.1 %; Lymphocytes # (auto) 0.61 K/uL (1.2-3.4); Lymphocytes % (auto) 5.5 %; Mean Corpuscular Hgb Conc 34.5 g/dL (32-36); Mean Corpuscular Volume 89.7 fL (80-100); Mean Platelet Volume 10.8 fL (7.4-10.4); Monocytes # (auto) 1.12 K/uL (0.11-0.59); Neutrophils # (auto) 9.41 K/uL (1.4-6.5); Neutrophils % (auto) 84.2 %; Platelet Count 146 K/uL (130-400); RDW Coefficient of Variation 13.2 % (11.5-14.5); RDW Standard Deviation 43.6 fL (36.4-46.3); Red Blood Count 4.07 M/uL (4.2-5.4); White Blood Count 11.17 K/uL (4.8-10.8)
[2020-12-13 01:17] LABS: Appearance Urine Clear (Clear); Bacteria Urine Automated Negative (Negative); Bilirubin Urine Negative (Negative); Blood Urine Trace (Negative); Color Urine Yellow; Epithelial Cell Urine Auto >30 /lpf (0-5); Glucose Urine UA Negative (Negative); Ketones Urine Trace (Negative); Leukocyte Esterase Urine Negative (Negative); Nitrite Urine Negative (Negative); Protein Urine 3+ (Negative); RBC Urine Automated 0-4 /hpf (0-4); Specific Gravity Urine 1.018 (1.000-1.030); Urobilinogen Urine Negative (Negative)
[2020-12-13 01:21] LABS: Prothrombin Time 10.3 Seconds (9.0-12.0)
[2020-12-13 01:33] LABS: Albumin Level 3.4 gm/dl (3.4-5.0); BUN Creatinine Ratio 25.4 (10-20); Calcium 9.5 mg/dl (8.5-10.1); Creatinine Clr Calc Pharmacy 31.7 ml/min; Est GFR (African American) 54.3; Est GFR (Non-African American) 46.8; Magnesium 1.9 mg/dl (1.8-2.4); Potassium 4.2 mmol/L (3.5-5.1)
[2020-12-13 01:46] LABS: Bilirubin,Total 1.1 mg/dl (0.2-1); Globulin 3.6 gm/dl (2.5-4.0); Thyroid Stimulating Hormone 3.01 uIu/ml (0.300-4.500); Troponin I 0.079 ng/ml (0-0.045)
[2020-12-13 03:26] LABS: Influenza A virus by PCR Negative (Neg); Influenza B virus by PCR Negative (Neg); RSV by PCR Negative (Neg); SARS CoV2 RNA(COVID-19) InHosp NEGATIVE (Negative)
[2020-12-13] MEDS ORDERED: MoRPHine SULFATE 2 MG/ML CARP IV PRN (03:56)
[2020-12-13] MEDS ORDERED: ONDANSETRON INJ 2 MG/ML 2 ML VIAL IV PRN (03:56)
[2020-12-13] MEDS ORDERED: ACETAMINOPHEN 325 MG TAB PO PRN (03:56)
[2020-12-13] MEDS ORDERED: DICLOFENAC SOD 1% GEL 100 GM TUBE EXT SCH (04:00)
--- NOTE | 2020-12-13 04:09 | History & Physical Report ---
Date of Service December 13, 2020 Assessment & Plan (1) Fall: 89-year-old female with a past medical history of hypothyroidism, rheumatoid arthritis, hypertension, hyperlipidemia, and chronic deconditioning who presents following a fall onto her left side. Fall 2/2 Ambulatory Dysfunction/Chronic Deconditioning: -Patient has a history of ambulatory dysfunction, and was admitted in July and ultimately discharged to [facility] for acute rehab. -Patient reports she did not hit her head on her fall that occurred earlier today. -CT Head without evidence of acute intracranial process. -XR knee, hip, elbow without fracture. Tenderness and ecchymosis over right elbow, hip, and knee. -Normal neurologic exam. -Patient has a frail baseline with chronic deconditioning. Patient was not using walker when she fell, though they have many in the house. -PT/OT pending. -Case Management consult placed to assist with dispo planning; patient may again require acute rehab after this current fall. Elevated troponin, HTN, HLD: -Presents with troponin mildly elevated to 0.079; not previously elevated. -EKG performed while tachycardic shows EKG changes, specifically ST depressions in V6 with new T wave inversions in lead III. -Suspect change is rate dependent (demand ischemia). -Echo ordered. -Trend troponins. -Repeat EKG when no longer tachycardic. -Continue home lisinopril, metoprolol. -Continue simvastatin. Rheumatoid arthritis -Continue leflunomide and prednisone daily. Hypothyroidism -TSH 3.010. -Continue Synthroid 75 mcg daily. Bladder spasm: -Continue home Myrbetriq. CODE STATUS: FULL CODE Diet: Regular DVT prophylaxis: Heparin 5000 SQ BID Disposition: Med/Surg with telemetry for observation (2) Ambulatory dysfunction: History of Present Illness Chief Complaint: fall, elevated troponin Primary Care Provider: Miky Wells MD 89-year-old female with a past medical history of hypothyroidism, rheumatoid arthritis, hypertension, hyperlipidemia, and chronic deconditioning presented to ER with daughter following a fall earlier this evening onto her right side. She reports that she did not hit her head. She is unsure how long she was on the floor, as is her daughter. Her daughter heard her yelling and went in and found her on the ground. She called EMS at that time. Patient denies dizziness, headache, chest pain, SOB, lightheadedness before she fell. She reports getting caught on her bed's blankets as she was turning down her bed. She has a walker at home, but was not using it at the time of fall. Of note, she was admitted in July for a fall and required inpatient rehab for conditioning. In the ER patient was found to be mildly tachycardic and hypertensive. She was given 1L NSS at 125cc/hr. XR of right hip, elbow, and knee were performed without evidence of acute fracture. CT Head performed without acute intracranial pathology. Labwork showed elevated troponin to 0.079, and EKG showed sinus tachycardia with ST depression in V6 and T wave inversions in Lead III. She was given Fentanyl and Zofran, and hospitalist service was consulted for admission. Allergies Allergy/AdvReac Type Severity Reaction Status Date / Time aloe Allergy Mild itching Verified 12/13/20 00:29 bacitracin Allergy Mild itching Verified 12/13/20 00:29 codeine Allergy Mild ITCHING Verified 12/13/20 00:29 cortisone Allergy Mild Rash Verified 12/13/20 00:29 erythromycin base Allergy Mild ITCHING Verified 12/13/20 00:29 latex Allergy Mild ITCHING Verified 12/13/20 00:29 neomycin Allergy Mild itching Verified 12/13/20 00:29 polymyxin B Allergy Mild itching Verified 12/13/20 00:29 tramadol Allergy Mild Rash Verified 12/13/20 00:29 triamcinolone Allergy Mild ITCHING Verified 12/13/20 00:29 Iodinated Contrast Media Allergy Unknown DOES NOT Verified 12/13/20 00:29 REMEMBER propranolol Allergy Unknown DOES NOT Verified 12/13/20 00:29 REMEMBER Home Medications Medication Instructions Recorded Confirmed Type levothyroxine [Synthroid] 75 mcg PO DAILY #30 tab 03/30/20 12/13/20 Rx leflunomide 10 mg PO DAILY 06/17/20 12/13/20 History prednisone 10 mg PO DAILY 07/27/20 12/13/20 History lisinopril 20 mg PO DAILY 12/13/20 12/13/20 History metoprolol tartrate 50 mg PO BID 12/13/20 12/13/20 History simvastatin 20 mg PO DAILY 12/13/20 12/13/20 History Past Med/Surg History Medical History DEXTER (acute kidney injury) Ambulatory dysfunction Anemia Degenerative disc disease Dehydration Hyperkalemia Hyperlipidemia Hypertension Hypothyroidism Rheumatoid arthritis Urinary frequency Surgical History Fusion of spine LUMBAR SURGERY X 2 History of adenoidectomy History of cataract surgery RT/LEFT History of cholecystectomy History of colonoscopy History of dilatation and curettage History of discectomy CERVICAL History of open reduction and internal fixation (ORIF) procedure RT FEMUR History of tonsillectomy History of tooth extraction History of total abdominal hysterectomy and bilateral salpingo-oophorectomy Family History Mother Family history of diabetes mellitus Social History Smoking Status: Never smoker Second Hand Exposure: No; Hx Alcohol Use: No Hx Substance Use: No Preferred Language: German Communication Ability: Effective Setter Off Required: No Beliefs That Will Affect Care: None marital status: / Current Living Situation: Family Current Living Situation Comment: Daughter Keya How many Children do You have: 1 Feels Safe at Home: Yes Assistive Devices: Walker Review of Systems Review of Systems: All systems reviewed & are unremarkable except as noted in HPI & below Constitutional: no fever, no chills and no malaise Respiratory: no cough and no dyspnea Cardiovascular: no chest pain, no palpitations and no edema Gastrointestinal: no abdominal pain, no constipation and no diarrhea/loose stools Genitourinary: no dysuria and no hematuria Physical Exam Constitutional: well developed and + thin; no acute distress Eyes: PERRL, conjunctivae normal, anicteric sclerae ENMT: external ear and nose normal, oropharynx normal Neck: normal visual inspection Respiratory: normal respiratory effort, lungs clear to auscultation Cardiovascular: Rate/Rhythm: regular rhythm and + tachycardic Heart Sounds: no murmur Extremities: no edema Gastrointestinal (Abdomen): normal bowel sounds, soft, nontender, no hepatosplenomegaly Musculoskeletal: strength symmetric bilateral UE and LE; no cyanosis Skin: No rashes. Ecchymosis noted over right knee, right elbow, and right hip Neurologic: AAOx3, normal speech. Bilateral UE, LE, and face without sensory or motor deficits. No tremor. Psychiatric: A+Ox3, euthymic affect Results & Data Results & Data ([facility]) Vital Signs (Past 12 Hours) Vital Signs Temp Pulse Resp BP Pulse Ox 12/13/20 03:01 90 22 188/77 H 97 12/13/20 02:01 94 H 21 148/105 H 97 12/13/20 01:05 97 12/13/20 01:01 106 H 22 201/90 H 100 12/13/20 00:35 97 H 19 187/108 H 96 12/13/20 00:08 36.9 C 111 H 18 201/108 H 95 Code Status & VTE Plan VTE Prophylaxis Plan VTE Prophylaxis will be ordered: Yes Resident Activity Tracking Resident Involvement: Resident Care Provided Care Provided: Adult Hospital Medicine (1) Fall Encounter type: initial encounter Qualified Code(s): W19.XXXA - Unspecified fall, initial encounter
[2020-12-13] MEDS ORDERED: METOPROLOL TARTRATE 1 MG/ML VIAL IV PRN (04:25)
[2020-12-13] MEDS ORDERED: POLYETHYLENE (MIRALAX) 17 GM PACK PO PRN (04:48)
[2020-12-13] MEDS: DICLOFENAC SOD 1% GEL 100 GM TUBE EXT SCH ×3 (06:02→21:22)
[2020-12-13] MEDS: LEVOTHYROXINE SODIUM 75 MCG TABLET PO SCH (06:02)
--- NOTE | 2020-12-13 06:57 | XRay Report ---
XR chest 1V portable CLINICAL HISTORY: Weakness TRAUMA COMPARISON STUDY: 06/17/2020 FINDINGS: The heart is the upper limits of normal in size. There is no failure. There is no focal pul monary consolidation. There are no pleural effusions. There is a retrocardiac opacity consistent with a hiatal hernia. Postsurgical changes are present within the cervical spine. Arthritic changes are p resent within the shoulders.[No pneumothorax is visualized. IMPRESSION: No active disease in the chest. ACT 112: Negative or not required by law. Electronically signed by: Suhas Claire M.D. 12/13/2020 6:56 AM
--- NOTE | 2020-12-13 06:57 | XRay Report ---
XR elbow RT 3V CLINICAL HISTORY: Right elbow pain status post trauma COMPARISON: None. DISCUSSION: No acute fractures or dislocations are visualized. The fat pads are not displaced. There are multiple soft tissue calcifications most of which are vascular. There are also triceps insertional calcifications. IMPRESSION: No acute fractures or dislocations identified ACT 112: Negative or not required by law. Electronically signed by: Suhas Claire M.D. 12/13/2020 6:55 AM JAYLON
--- NOTE | 2020-12-13 06:59 | XRay Report ---
XR knee RT 1 or 2V routine CLINICAL HISTORY: Right knee pain status post trauma COMPARISON: October 2014 DISCUSSION: The bones are osteopenic. There are postsurgical changes involving the distal femur. Ther e are moderately advanced osteoarthritic changes within the knee. These are most pronounced within th e patellofemoral joint and medial joint compartment. IMPRESSION: 1. Postsurgical changes 2. No acute fractures 2. Advanced osteoarthritic changes ACT 112: Negative or not required by law. Electronically signed by: Suhas Claire M.D. 12/13/2020 6:58 AM
--- NOTE | 2020-12-13 07:00 | XRay Report ---
XR hip RT min 2V CLINICAL HISTORY: Right hip pain status post trauma COMPARISON: 03/08/2019 DISCUSSION: The bones are osteopenic. No acute fractures or dislocations are visualized. There are mi ld degenerative changes. IMPRESSION: No acute fractures or dislocations identified. ACT 112: Negative or not required by law. Electronically signed by: Suhas Claire M.D. 12/13/2020 6:59 AM
--- NOTE | 2020-12-13 07:00 | XRay Report ---
XR knee LT 1 or 2V routine CLINICAL HISTORY: Left knee pain status post trauma COMPARISON: 07/27/2020 DISCUSSION: The bones are osteopenic. There are vascular calcifications present. There are no acute f ractures or dislocations. There are mild osteoarthritic changes. IMPRESSION: No acute fractures or dislocations identified. ACT 112: Negative or not required by law. Electronically signed by: Suhas Claire M.D. 12/13/2020 6:58 AM
--- NOTE | 2020-12-13 07:40 | CT Scan Report ---
CT head/brain wo con CLINICAL HISTORY: Head pain status post trauma COMPARISON STUDY: 06/17/2020 TECHNIQUE: Axial CT of the brain is performed from the vertex to the skull base. IV contrast was not administered for this examination. A dose lowering technique was utilized adhering to the principles of ALARA. CT DOSE: 537.48 mGy.cm FINDINGS: No intra or extra-axial mass lesions are visualized. There is no CT evidence of acute cortical infarc tion. There is no evidence of midline shift. There is no acute hemorrhage. No calvarial fractures ar e visualized. There are moderate white matter hypodensities likely on a small vessel basis. There is no evidence of pathologic ventricular dilatation. There is minor left maxillary sinus mucosal thickening IMPRESSION: No acute intracranial findings ACT 112: Negative or not required by law. Electronically signed by: Suhas Claire M.D. 12/13/2020 7:38 AM
--- NOTE | 2020-12-13 08:15 | Emergency Department Note ---
History of Present Illness General Chief complaint: Fall Stated complaint: FALL Time Seen by Provider: 12/13/20 00:08 Source: patient and RN notes reviewed Mode of arrival: ambulatory Limitations: no limitations History of Present Illness Provider complaint: Fall, right elbow contusion, right knee and right hip Maximum Pain Intensity: 0 This patient is an 89-year-old female who presents to the emergency department by ambulance after a fall. Patient states she was making her bed prior to going to bed when she caught her foot on the comforter. Patient states she knew she was going down and called for her daughter however she could not hear her. Patient was able to get herself over to the phone to call. She denies any loss of consciousness or significant head injury but is uncertain as to whether or not she hit her head. She denies blood thinners. Patient is mostly concerned with her right elbow. She also complains of abrasions/contusions to the bilateral knees and the right hip. Home Medications Medication Instructions Recorded Confirmed Type levothyroxine [Synthroid] 75 mcg PO DAILY #30 tab 03/30/20 12/13/20 Rx leflunomide 10 mg PO DAILY 06/17/20 12/13/20 History prednisone 10 mg PO DAILY 07/27/20 12/13/20 History lisinopril 20 mg PO DAILY 12/13/20 12/13/20 History metoprolol tartrate 50 mg PO BID 12/13/20 12/13/20 History simvastatin 20 mg PO DAILY 12/13/20 12/13/20 History Allergies Allergy/AdvReac Type Severity Reaction Status Date / Time aloe Allergy Mild itching Verified 12/13/20 00:29 bacitracin Allergy Mild itching Verified 12/13/20 00:29 codeine Allergy Mild ITCHING Verified 12/13/20 00:29 cortisone Allergy Mild Rash Verified 12/13/20 00:29 erythromycin base Allergy Mild ITCHING Verified 12/13/20 00:29 latex Allergy Mild ITCHING Verified 12/13/20 00:29 neomycin Allergy Mild itching Verified 12/13/20 00:29 polymyxin B Allergy Mild itching Verified 12/13/20 00:29 tramadol Allergy Mild Rash Verified 12/13/20 00:29 triamcinolone Allergy Mild ITCHING Verified 12/13/20 00:29 Iodinated Contrast Media Allergy Unknown DOES NOT Verified 12/13/20 00:29 REMEMBER propranolol Allergy Unknown DOES NOT Verified 12/13/20 00:29 REMEMBER Past Med/Surg History Medical History DEXTER (acute kidney injury) Ambulatory dysfunction Anemia Degenerative disc disease Dehydration Hyperkalemia Hyperlipidemia Hypertension Hypothyroidism Rheumatoid arthritis Urinary frequency Surgical History Fusion of spine LUMBAR SURGERY X 2 History of adenoidectomy History of cataract surgery RT/LEFT History of cholecystectomy History of colonoscopy History of dilatation and curettage History of discectomy CERVICAL History of open reduction and internal fixation (ORIF) procedure RT FEMUR History of tonsillectomy History of tooth extraction History of total abdominal hysterectomy and bilateral salpingo-oophorectomy Family History Mother Family history of diabetes mellitus Social History Smoking Status: Never smoker Second Hand Exposure: No; Hx Alcohol Use: No Hx Substance Use: No Preferred Language: Bengali Communication Ability: Effective 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 and A total of 10 systems reviewed and were otherwise negative Physical Exam Vital Signs Vital Signs - 24 hr 12/13/20 00:08 12/13/20 00:35 12/13/20 01:01 Temperature 36.9 C Temperature Source Oral Pulse Rate 111 H 97 H 106 H Pulse Rate from SpO2 Sensor 98 H 107 H Respiratory Rate 18 19 22 Respiratory Depth Normal Blood Pressure 201/108 H 187/108 H 201/90 H Blood Pressure Mean 139 134 127 Pulse Oximetry 95 96 100 Oxygen Delivery Method Room Air Room Air Room Air Sepsis Recent Fever Within 48 Hours No Sepsis New/Unexplained Change in Mental Status N/A Sepsis Action Taken by Nursing No Action Required 12/13/20 01:05 12/13/20 02:01 12/13/20 03:01 Temperature Temperature Source Pulse Rate 94 H 90 Pulse Rate from SpO2 Sensor 94 H 90 Respiratory Rate 21 22 Respiratory Depth Blood Pressure 148/105 H 188/77 H Blood Pressure Mean 119 114 Pulse Oximetry 97 97 97 Oxygen Delivery Method Room Air Room Air Room Air Sepsis Recent Fever Within 48 Hours Sepsis New/Unexplained Change in Mental Status Sepsis Action Taken by Nursing Vital signs reviewed. General: Well-appearing, elderly 89-year-old female, in no significant distress. HEENT: No scleral icterus, PERRLA, neck supple. Atraumatic. Cardiovascular: Regular rate and rhythm, no extra sounds. Pulmonary: Clear to auscultation bilaterally, normal work of breathing. Abdomen: Soft, nontender, nondistended, positive bowel sounds. Musculoskeletal: Atraumatic, no peripheral edema. significant ecchymosis noted to the right elbow, approximately the middle third of the arm. Full range of motion without significant pain. No deformity. Supination and pronation intact without significant pain. Mild abrasion over the right iliac crest and bilateral knees, right greater than left. Nontender to palpation over the cervical spine. Neurologic: Patient awake alert and oriented x 3 Skin: Warm, dry, no rash. Course Administered Medications Amlodipine Besylate (Amlodipine Besylate 5 Mg Tab) 5 mg PO BID [facility] Stop: 01/16/21 08:59 Last Admin: 12/17/20 20:17 Dose: 5 mg Documented by: [id number] Admin: 12/17/20 09:18 Dose: 5 mg Documented by: [id number] Cyanocobalamin (Cyanocobalamin 1000 Mcg/Ml Vial) 1,000 mcg IM DAILY [facility] Stop: 12/18/20 15:00 Last Admin: 12/17/20 10:13 Dose: 1,000 mcg Documented by: [id number] Admin: 12/16/20 07:57 Dose: 1,000 mcg Documented by: [id number] Admin: 12/15/20 10:22 Dose: 1,000 mcg Documented by: [id number] Admin: 12/14/20 13:53 Dose: 1,000 mcg Documented by: [id number] Diclofenac Sodium (Diclofenac Sod 1% Gel 100 Gm Tube) 4 gm EXT Q8H [facility] Stop: 01/12/21 05:59 Last Admin: 12/17/20 20:19 Dose: 4 gm Documented by: [id number] Admin: 12/17/20 13:33 Dose: 4 gm Documented by: [id number] Admin: 12/17/20 05:53 Dose: 4 gm Documented by: [id number] Admin: 12/16/20 21:30 Dose: 4 gm Documented by: [id number] Admin: 12/16/20 12:00 Dose: 4 gm Documented by: [id number] Admin: 12/16/20 05:26 Dose: Not Given Documented by: [id number] Admin: 12/15/20 19:33 Dose: 4 gm Documented by: [id number] Admin: 12/15/20 13:41 Dose: Not Given Documented by: [id number] Admin: 12/15/20 05:59 Dose: 4 gm Documented by: [id number] Admin: 12/14/20 19:57 Dose: 4 gm Documented by: [id number] Admin: 12/14/20 13:49 Dose: 4 gm Documented by: [id number] Admin: 12/14/20 05:59 Dose: 4 gm Documented by: [id number] Admin: 12/13/20 21:22 Dose: Not Given Documented by: [id number] Admin: 12/13/20 14:27 Dose: Not Given Documented by: [id number] Admin: 12/13/20 06:02 Dose: 4 gm Documented by: [id number] Heparin Sodium (Porcine) (Heparin Sod 5,000 Unit/0.5 Ml Vial) 5,000 units SQ Q12 [facility] Stop: 01/12/21 08:59 Last Admin: 12/17/20 20:17 Dose: 5,000 units Documented by: [id number] Admin: 12/17/20 10:17 Dose: 5,000 units Documented by: [id number] Admin: 12/16/20 21:24 Dose: 5,000 units Documented by: [id number] Admin: 12/16/20 07:57 Dose: 5,000 units Documented by: [id number] Admin: 12/15/20 19:31 Dose: 5,000 units Documented by: [id number] Admin: 12/15/20 08:34 Dose: 5,000 units Documented by: [id number] Admin: 12/14/20 19:56 Dose: 5,000 units Documented by: [id number] Admin: 12/14/20 07:38 Dose: 5,000 units Documented by: [id number] Admin: 12/13/20 21:23 Dose: 5,000 units Documented by: [id number] Admin: 12/13/20 08:31 Dose: 5,000 units Documented by: [id number] Insulin Aspart (Insulin Aspart 100 Units/Ml 3 Ml Pen) 0 units SC ACHS [facility] Stop: 01/15/21 04:59 Last Admin: 12/17/20 20:21 Dose: Not Given Documented by: [id number] Cosigned by: [id number] Admin: 12/17/20 18:09 Dose: 3 units Documented by: [id number] Cosigned by: [id number] Admin: 12/17/20 13:24 Dose: 8 units Documented by: [id number] Cosigned by: [id number] Admin: 12/17/20 09:09 Dose: 2 units Documented by: [id number] Cosigned by: [id number] Admin: 12/16/20 21:27 Dose: Not Given Documented by: [id number] Cosigned by: [id number] Admin: 12/16/20 16:53 Dose: 5 units Documented by: [id number] Cosigned by: [id number] Admin: 12/16/20 12:00 Dose: 2 units Documented by: [id number] Cosigned by: [id number] Admin: 12/16/20 07:58 Dose: Not Given Documented by: [id number] Admin: 12/16/20 05:25 Dose: 1 units Documented by: [id number] Cosigned by: [id number] Insulin Glargine (Insulin Glargine Solostar 100 Units/Ml 3 Ml Pen) 5 units SC BID [facility] Stop: 01/15/21 04:59 Last Admin: 12/17/20 20:21 Dose: 5 units Documented by: [id number] Cosigned by: [id number] Admin: 12/17/20 10:10 Dose: 5 units Documented by: [id number] Cosigned by: [id number] Admin: 12/16/20 21:27 Dose: 5 units Documented by: [id number] Cosigned by: [id number] Admin: 12/16/20 05:26 Dose: 5 units Documented by: [id number] Cosigned by: [id number] Levothyroxine Sodium (Levothyroxine Sodium 75 Mcg Tablet) 75 mcg PO DAILYBB [facility] Stop: 01/12/21 06:29 Last Admin: 12/17/20 05:52 Dose: 75 mcg Documented by: [id number] Admin: 12/16/20 05:26 Dose: 75 mcg Documented by: [id number] Admin: 12/15/20 05:59 Dose: 75 mcg Documented by: [id number] Admin: 12/14/20 05:58 Dose: 75 mcg Documented by: [id number] Admin: 12/13/20 06:02 Dose: 75 mcg Documented by: [id number] Lidocaine (Lidocaine 5% 1 Patch) 1 patch TD QAM [facility] Stop: 01/12/21 08:59 Last Admin: 12/17/20 10:20 Dose: 1 patch Documented by: [id number] Admin: 12/16/20 07:57 Dose: 1 patch Documented by: [id number] Admin: 12/15/20 08:33 Dose: Not Given Documented by: [id number] Admin: 12/14/20 07:37 Dose: Not Given Documented by: [id number] Admin: 12/13/20 08:31 Dose: Not Given Documented by: [id number] Lisinopril (Lisinopril 20 Mg Tab) 20 mg PO DAILY [facility] Stop: 01/12/21 08:59 Last Admin: 12/17/20 09:19 Dose: 20 mg Documented by: [id number] Admin: 12/16/20 08:28 Dose: 20 mg Documented by: [id number] Admin: 12/15/20 08:32 Dose: 20 mg Documented by: [id number] Admin: 12/14/20 07:38 Dose: 20 mg Documented by: [id number] Admin: 12/13/20 08:29 Dose: 20 mg Documented by: [id number] Melatonin (Melatonin 3 Mg Tab) 3 mg PO HS PRN PRN Reason: Sleep Stop: 01/16/21 19:50 Last Admin: 12/17/20 20:23 Dose: 3 mg Documented by: [id number] Metoprolol Tartrate (Metoprolol Tartrate 50 Mg Tab) 50 mg PO BID [facility] Stop: 01/12/21 08:59 Last Admin: 12/17/20 20:18 Dose: 50 mg Documented by: [id number] Admin: 12/17/20 09:18 Dose: 50 mg Documented by: [id number] Admin: 12/16/20 21:28 Dose: 50 mg Documented by: [id number] Admin: 12/16/20 07:57 Dose: 50 mg Documented by: [id number] Admin: 12/15/20 19:32 Dose: 50 mg Documented by: [id number] Admin: 12/15/20 08:32 Dose: 50 mg Documented by: [id number] Admin: 12/14/20 19:55 Dose: 50 mg Documented by: [id number] Admin: 12/14/20 07:38 Dose: 50 mg Documented by: [id number] Admin: 12/13/20 21:23 Dose: 50 mg Documented by: [id number] Admin: 12/13/20 08:29 Dose: 50 mg Documented by: [id number] Mirabegron (Mirabegron Er 25 Mg Tab) 25 mg PO DAILY [facility] Stop: 01/12/21 08:59 Last Admin: 12/17/20 09:19 Dose: 25 mg Documented by: [id number] Admin: 12/16/20 07:57 Dose: 25 mg Documented by: [id number] Admin: 12/15/20 08:31 Dose: 25 mg Documented by: [id number] Admin: 12/14/20 07:38 Dose: 25 mg Documented by: [id number] Admin: 12/13/20 08:29 Dose: 25 mg Documented by: [id number] Miscellaneous (Arava~Order Awaiting Action) 1 ea N/A QS [facility] Stop: 01/12/21 07:59 Last Admin: 12/18/20 00:02 Dose: Not Given Documented by: [id number] Admin: 12/17/20 15:47 Dose: Not Given Documented by: [id number] Admin: 12/17/20 09:12 Dose: Not Given Documented by: [id number] Admin: 12/17/20 00:16 Dose: Not Given Documented by: [id number] Admin: 12/16/20 16:06 Dose: Not Given Documented by: [id number] Admin: 12/16/20 07:07 Dose: Not Given Documented by: [id number] Admin: 12/16/20 01:37 Dose: Not Given Documented by: [id number] Admin: 12/15/20 15:08 Dose: Not Given Documented by: [id number] Admin: 12/15/20 07:13 Dose: Not Given Documented by: [id number] Admin: 12/15/20 01:03 Dose: 1 ea Documented by: [id number] Admin: 12/14/20 15:38 Dose: Not Given Documented by: [id number] Admin: 12/14/20 07:36 Dose: Not Given Documented by: [id number] Admin: 12/13/20 23:26 Dose: Not Given Documented by: [id number] Admin: 12/13/20 15:05 Dose: Not Given Documented by: [id number] Admin: 12/13/20 08:30 Dose: Not Given Documented by: [id number] Miscellaneous (Remove Lidoderm Patch) 1 ea N/A DAILY@2100 [facility] Stop: 01/12/21 20:59 Last Admin: 12/17/20 20:20 Dose: 1 ea Documented by: [id number] Admin: 12/16/20 21:42 Dose: 1 ea Documented by: [id number] Admin: 12/15/20 19:33 Dose: Not Given Documented by: [id number] Admin: 12/14/20 19:57 Dose: Not Given Documented by: [id number] Admin: 12/13/20 21:22 Dose: Not Given Documented by: [id number] Polyethylene Glycol (Polyethylene (Miralax) 17 Gm Pack) 17 gm PO DAILY PRN PRN Reason: Constipation Stop: 01/12/21 04:47 Last Admin: 12/18/20 00:04 Dose: 17 gm Documented by: [id number] Prednisone (Prednisone 10 Mg Tablet) 10 mg PO DAILY [facility] Stop: 01/12/21 08:59 Last Admin: 12/17/20 09:19 Dose: 10 mg Documented by: [id number] Admin: 12/16/20 07:57 Dose: 10 mg Documented by: [id number] Admin: 12/15/20 08:31 Dose: 10 mg Documented by: [id number] Admin: 12/14/20 07:38 Dose: 10 mg Documented by: [id number] Admin: 12/13/20 08:30 Dose: 10 mg Documented by: [id number] Risperidone (Risperidone Odt 0.5 Mg Soltab) 0.5 mg PO [facility] Stop: 01/14/21 20:59 Last Admin: 12/17/20 20:19 Dose: 0.5 mg Documented by: [id number] Admin: 12/16/20 21:29 Dose: 0.5 mg Documented by: [id number] Admin: 12/15/20 19:31 Dose: 0.5 mg Documented by: [id number] Simvastatin (Simvastatin 20 Mg Tab) 20 mg PO DAILY [facility] Stop: 01/12/21 08:59 Last Admin: 12/17/20 09:22 Dose: 20 mg Documented by: [id number] Admin: 12/16/20 07:57 Dose: 20 mg Documented by: [id number] Admin: 12/15/20 08:32 Dose: 20 mg Documented by: [id number] Admin: 12/14/20 07:38 Dose: 20 mg Documented by: [id number] Admin: 12/13/20 08:29 Dose: 20 mg Documented by: [id number] Thiamine HCl (Thiamine Hcl 100 Mg Tab) 200 mg PO BID [facility] Stop: 01/13/21 15:54 Last Admin: 12/17/20 20:19 Dose: 200 mg Documented by: [id number] Admin: 12/17/20 09:20 Dose: 200 mg Documented by: [id number] Admin: 12/16/20 21:29 Dose: 200 mg Documented by: [id number] Admin: 12/16/20 07:57 Dose: 200 mg Documented by: [id number] Admin: 12/15/20 19:31 Dose: 200 mg Documented by: [id number] Admin: 12/15/20 08:33 Dose: 200 mg Documented by: [id number] Admin: 12/14/20 19:55 Dose: 200 mg Documented by: [id number] Admin: 12/14/20 17:25 Dose: 200 mg Documented by: [id number] Discontinued Medications Amlodipine Besylate (Amlodipine Besylate 5 Mg Tab) 2.5 mg PO NOW ONE Stop: 12/14/20 13:51 Last Admin: 12/14/20 15:04 Dose: 2.5 mg Documented by: [id number] Amlodipine Besylate (Amlodipine Besylate 5 Mg Tab) 2.5 mg PO BID [facility] Stop: 01/13/21 20:59 Last Admin: 12/16/20 21:24 Dose: 2.5 mg Documented by: [id number] Admin: 12/16/20 07:57 Dose: 2.5 mg Documented by: [id number] Admin: 12/15/20 19:32 Dose: 2.5 mg Documented by: [id number] Admin: 12/15/20 08:32 Dose: 2.5 mg Documented by: [id number] Admin: 12/14/20 21:22 Dose: 2.5 mg Documented by: [id number] Diclofenac Sodium (Diclofenac Sod 1% Gel 100 Gm Tube) 4 gm EXT Q8H [facility] Stop: 01/12/21 03:59 Last Admin: 12/13/20 05:11 Dose: Not Given Documented by: [id number] Fentanyl Citrate (Fentanyl Citrate 100 Mcg/2 Ml Vial) 25 mcg IV NOW STA Stop: 12/13/20 00:33 Last Admin: 12/13/20 01:00 Dose: 25 mcg Documented by: [id number] Haloperidol (Haloperidol 0.5 Mg Tab) 0.5 mg PO ONE STA Stop: 12/15/20 14:11 Last Admin: 12/15/20 14:46 Dose: 0.5 mg Documented by: [id number] Sodium Chloride (Nss 1000ml) 1,000 mls @ 125 mls/hr IV .Q8H [facility] Stop: 12/13/20 08:29 Last Infusion: 12/13/20 09:30 Dose: 0 mls/hr Documented by: [id number] Admin: 12/13/20 01:00 Dose: 125 mls/hr Documented by: [id number] Ondansetron HCl (Ondansetron Inj 2 Mg/Ml 2 Ml Vial) 4 mg IV NOW STA Stop: 12/13/20 00:33 Last Admin: 12/13/20 01:01 Dose: 4 mg Documented by: [id number] Prednisone (Prednisone 10 Mg Tablet) 30 mg PO NOW STA Stop: 12/13/20 09:32 Last Admin: 12/13/20 10:17 Dose: 30 mg Documented by: [id number] Risperidone (Risperidone Odt 0.5 Mg Soltab) 0.25 mg PO HS [facility] Stop: 01/13/21 20:59 Last Admin: 12/14/20 21:22 Dose: 0.25 mg Documented by: [id number] Medical Decision Making Differential Diagnosis Infection, dehydration, metabolic abnormality, elbow fracture, knee fracture, hip fracture, hypo/hyperglycemia, electrolyte disturbance, anemia, hypoxia, cardiac sources, intracerebral event, toxicologic, neurologic, as well as other pathologies. Medical Records Attestation: I reviewed the patient's medical records. Home Medications Current Medication List: was personally reviewed by me Laboratory Data Attestation: I reviewed the patient's lab results. Result diagrams: 12/17/20 07:04 12/17/20 12:14 Lab Results 12/13/20 12/13/20 12/13/20 Range/Units 00:42 00:42 00:42 WBC 11.17 H (4.8-10.8) K/uL RBC 4.07 L (4.2-5.4) M/uL Hgb 12.6 (12.0-16.0) g/dL Hct 36.5 L (37-47) % MCV 89.7 (80-100) fL MCH 31.0 (25-34) pg MCHC 34.5 (32-36) g/dL RDW Std Deviation 43.6 (36.4-46.3) fL RDW Coeff of Rafael 13.2 (11.5-14.5) % Plt Count 146 (130-400) K/uL MPV 10.8 H (7.4-10.4) fL Immature Gran % (Auto) 0.1 % Neut % (Auto) 84.2 % Lymph % (Auto) 5.5 % [place] % (Auto) 10.0 % Eos % (Auto) 0.1 % Baso % (Auto) 0.1 % Neut # (Auto) 9.41 H (1.4-6.5) K/uL Lymph # (Auto) 0.61 L (1.2-3.4) K/uL [place] # (Auto) 1.12 H (0.11-0.59) K/uL Eos # (Auto) 0.01 (0-0.5) K/uL Baso # (Auto) 0.01 (0-0.2) K/uL Immature Gran # (Auto) 0.01 (0.00-0.02) K/uL PT 10.3 (9.0-12.0) Seconds INR 1.0 (0.9-1.1) Sodium 140 (136-145) mmol/L Potassium 4.2 (3.5-5.1) mmol/L Chloride 108 H (98-107) mmol/L Carbon Dioxide 24 (21-32) mmol/L Anion Gap 9.0 (3-11) BUN 27 H (7-18) mg/dl Creatinine 1.06 (0.6-1.2) mg/dl Est Cr Clr Drug Dosing 31.7 ml/min Est GFR ( Amer) 54.3 Est GFR (Non-Af Amer) 46.8 BUN/Creatinine Ratio 25.4 H (10-20) Glucose 185 H (70-99) mg/dl Estimat Average Glucose mg/dl Hemoglobin A1c (4.5-5.6) % Calcium 9.5 (8.5-10.1) mg/dl Magnesium 1.9 (1.8-2.4) mg/dl Total Bilirubin 1.1 H (0.2-1) mg/dl AST 17 (15-37) U/L ALT 28 (12-78) U/L Alkaline Phosphatase 57 (45-117) U/L Total Creatine Kinase 63 (26-192) U/L Troponin I 0.079 H* (0-0.045) ng/ml Total Protein 7.0 (6.4-8.2) gm/dl Albumin 3.4 (3.4-5.0) gm/dl Globulin 3.6 (2.5-4.0) gm/dl Albumin/Globulin Ratio 1.0 (0.9-2) Vitamin B12 (193-986) pg/ml 25-OH Vitamin D Total (30-100) ng/ml TSH 3.010 (0.300-4.500) uIu/ml Urine Color Urine Appearance (Clear) Urine pH (4.5-7.5) Ur Specific [place] (1.000-1.030) Urine Protein (Negative) Urine Glucose (UA) (Negative) Urine Ketones (Negative) Urine Blood (Negative) Urine Nitrite (Negative) Urine Bilirubin (Negative) Urine Urobilinogen (Negative) Ur Leukocyte Esterase (Negative) Urine WBC (Auto) (0-5) /hpf Urine RBC (Auto) (0-4) /hpf U Hyaline Cast (Auto) (0-5) /lpf U Epithel Cells (Auto) (0-5) /lpf Urine Bacteria (Auto) (Negative) COVID-19 Eval Order SARS-CoV-2 (PCR) (Negative) Influenza Type A (PCR) (Neg) Influenza Type B (PCR) (Neg) RSV (RT-PCR) (Neg) 12/13/20 12/13/20 12/13/20 Range/Units 00:47 02:20 02:20 WBC (4.8-10.8) K/uL RBC (4.2-5.4) M/uL Hgb (12.0-16.0) g/dL Hct (37-47) % MCV (80-100) fL MCH (25-34) pg MCHC (32-36) g/dL RDW Std Deviation (36.4-46.3) fL RDW Coeff of Rafael (11.5-14.5) % Plt Count (130-400) K/uL MPV (7.4-10.4) fL Immature Gran % (Auto) % Neut % (Auto) % Lymph % (Auto) % [place] % (Auto) % Eos % (Auto) % Baso % (Auto) % Neut # (Auto) (1.4-6.5) K/uL Lymph # (Auto) (1.2-3.4) K/uL [place] # (Auto) (0.11-0.59) K/uL Eos # (Auto) (0-0.5) K/uL Baso # (Auto) (0-0.2) K/uL Immature Gran # (Auto) (0.00-0.02) K/uL PT (9.0-12.0) Seconds INR (0.9-1.1) Sodium (136-145) mmol/L Potassium (3.5-5.1) mmol/L Chloride (98-107) mmol/L Carbon Dioxide (21-32) mmol/L Anion Gap (3-11) BUN (7-18) mg/dl Creatinine (0.6-1.2) mg/dl Est Cr Clr Drug Dosing ml/min Est GFR ( Amer) Est GFR (Non-Af Amer) BUN/Creatinine Ratio (10-20) Glucose (70-99) mg/dl Estimat Average Glucose mg/dl Hemoglobin A1c (4.5-5.6) % Calcium (8.5-10.1) mg/dl Magnesium (1.8-2.4) mg/dl Total Bilirubin (0.2-1) mg/dl AST (15-37) U/L ALT (12-78) U/L Alkaline Phosphatase (45-117) U/L Total Creatine Kinase (26-192) U/L Troponin I (0-0.045) ng/ml Total Protein (6.4-8.2) gm/dl Albumin (3.4-5.0) gm/dl Globulin (2.5-4.0) gm/dl Albumin/Globulin Ratio (0.9-2) Vitamin B12 (193-986) pg/ml 25-OH Vitamin D Total (30-100) ng/ml TSH (0.300-4.500) uIu/ml Urine Color Yellow Urine Appearance Clear (Clear) Urine pH 5.0 (4.5-7.5) Ur Specific [place] 1.018 (1.000-1.030) Urine Protein 3+ H (Negative) Urine Glucose (UA) Negative (Negative) Urine Ketones Trace H (Negative) Urine Blood Trace H (Negative) Urine Nitrite Negative (Negative) Urine Bilirubin Negative (Negative) Urine Urobilinogen Negative (Negative) Ur Leukocyte Esterase Negative (Negative) Urine WBC (Auto) 1-5 (0-5) /hpf Urine RBC (Auto) 0-4 (0-4) /hpf U Hyaline Cast (Auto) 1-5 (0-5) /lpf U Epithel Cells (Auto) >30 H (0-5) /lpf Urine Bacteria (Auto) Negative (Negative) COVID-19 Eval Order CovFluRsv at [facility] SARS-CoV-2 (PCR) NEGATIVE (Negative) Influenza Type A (PCR) Negative (Neg) Influenza Type B (PCR) Negative (Neg) RSV (RT-PCR) Negative (Neg) 12/13/20 12/13/20 12/14/20 Range/Units 07:43 16:10 10:26 WBC (4.8-10.8) K/uL RBC (4.2-5.4) M/uL Hgb (12.0-16.0) g/dL Hct (37-47) % MCV (80-100) fL MCH (25-34) pg MCHC (32-36) g/dL RDW Std Deviation (36.4-46.3) fL RDW Coeff of Rafael (11.5-14.5) % Plt Count (130-400) K/uL MPV (7.4-10.4) fL Immature Gran % (Auto) % Neut % (Auto) % Lymph % (Auto) % [place] % (Auto) % Eos % (Auto) % Baso % (Auto) % Neut # (Auto) (1.4-6.5) K/uL Lymph # (Auto) (1.2-3.4) K/uL [place] # (Auto) (0.11-0.59) K/uL Eos # (Auto) (0-0.5) K/uL Baso # (Auto) (0-0.2) K/uL Immature Gran # (Auto) (0.00-0.02) K/uL PT (9.0-12.0) Seconds INR (0.9-1.1) Sodium 141 (136-145) mmol/L Potassium 3.8 (3.5-5.1) mmol/L Chloride 110 H (98-107) mmol/L Carbon Dioxide 26 (21-32) mmol/L Anion Gap 5.0 (3-11) BUN 29 H (7-18) mg/dl Creatinine 1.12 (0.6-1.2) mg/dl Est Cr Clr Drug Dosing 29.7 ml/min Est GFR ( Amer) 50.8 Est GFR (Non-Af Amer) 43.8 BUN/Creatinine Ratio 25.7 H (10-20) Glucose 270 H (70-99) mg/dl Estimat Average Glucose mg/dl Hemoglobin A1c (4.5-5.6) % Calcium 9.0 (8.5-10.1) mg/dl Magnesium (1.8-2.4) mg/dl Total Bilirubin (0.2-1) mg/dl AST (15-37) U/L ALT (12-78) U/L Alkaline Phosphatase (45-117) U/L Total Creatine Kinase (26-192) U/L Troponin I 0.413 H* 0.473 H* 0.204 H* (0-0.045) ng/ml Total Protein (6.4-8.2) gm/dl Albumin (3.4-5.0) gm/dl Globulin (2.5-4.0) gm/dl Albumin/Globulin Ratio (0.9-2) Vitamin B12 (193-986) pg/ml 25-OH Vitamin D Total (30-100) ng/ml TSH (0.300-4.500) uIu/ml Urine Color Urine Appearance (Clear) Urine pH (4.5-7.5) Ur Specific [place] (1.000-1.030) Urine Protein (Negative) Urine Glucose (UA) (Negative) Urine Ketones (Negative) Urine Blood (Negative) Urine Nitrite (Negative) Urine Bilirubin (Negative) Urine Urobilinogen (Negative) Ur Leukocyte Esterase (Negative) Urine WBC (Auto) (0-5) /hpf Urine RBC (Auto) (0-4) /hpf U Hyaline Cast (Auto) (0-5) /lpf U Epithel Cells (Auto) (0-5) /lpf Urine Bacteria (Auto) (Negative) COVID-19 Eval Order SARS-CoV-2 (PCR) (Negative) Influenza Type A (PCR) (Neg) Influenza Type B (PCR) (Neg) RSV (RT-PCR) (Neg) 12/14/20 12/14/20 12/15/20 Range/Units 10:26 10:26 08:35 WBC (4.8-10.8) K/uL RBC (4.2-5.4) M/uL Hgb (12.0-16.0) g/dL Hct (37-47) % MCV (80-100) fL MCH (25-34) pg MCHC (32-36) g/dL RDW Std Deviation (36.4-46.3) fL RDW Coeff of Rafael (11.5-14.5) % Plt Count (130-400) K/uL MPV (7.4-10.4) fL Immature Gran % (Auto) % Neut % (Auto) % Lymph % (Auto) % [place] % (Auto) % Eos % (Auto) % Baso % (Auto) % Neut # (Auto) (1.4-6.5) K/uL Lymph # (Auto) (1.2-3.4) K/uL [place] # (Auto) (0.11-0.59) K/uL Eos # (Auto) (0-0.5) K/uL Baso # (Auto) (0-0.2) K/uL Immature Gran # (Auto) (0.00-0.02) K/uL PT (9.0-12.0) Seconds INR (0.9-1.1) Sodium 143 (136-145) mmol/L Potassium 3.4 L (3.5-5.1) mmol/L Chloride 112 H (98-107) mmol/L Carbon Dioxide 25 (21-32) mmol/L Anion Gap 7.0 (3-11) BUN 25 H (7-18) mg/dl Creatinine 1.00 (0.6-1.2) mg/dl Est Cr Clr Drug Dosing 33.5 ml/min Est GFR ( Amer) 58.3 Est GFR (Non-Af Amer) 50.3 BUN/Creatinine Ratio 25.0 H (10-20) Glucose 255 H (70-99) mg/dl Estimat Average Glucose mg/dl Hemoglobin A1c (4.5-5.6) % Calcium 9.2 (8.5-10.1) mg/dl Magnesium (1.8-2.4) mg/dl Total Bilirubin (0.2-1) mg/dl AST (15-37) U/L ALT (12-78) U/L Alkaline Phosphatase (45-117) U/L Total Creatine Kinase (26-192) U/L Troponin I (0-0.045) ng/ml Total Protein (6.4-8.2) gm/dl Albumin (3.4-5.0) gm/dl Globulin (2.5-4.0) gm/dl Albumin/Globulin Ratio (0.9-2) Vitamin B12 202 (193-986) pg/ml 25-OH Vitamin D Total 42.8 (30-100) ng/ml TSH (0.300-4.500) uIu/ml Urine Color Urine Appearance (Clear) Urine pH (4.5-7.5) Ur Specific [place] (1.000-1.030) Urine Protein (Negative) Urine Glucose (UA) (Negative) Urine Ketones (Negative) Urine Blood (Negative) Urine Nitrite (Negative) Urine Bilirubin (Negative) Urine Urobilinogen (Negative) Ur Leukocyte Esterase (Negative) Urine WBC (Auto) (0-5) /hpf Urine RBC (Auto) (0-4) /hpf U Hyaline Cast (Auto) (0-5) /lpf U Epithel Cells (Auto) (0-5) /lpf Urine Bacteria (Auto) (Negative) COVID-19 Eval Order SARS-CoV-2 (PCR) (Negative) Influenza Type A (PCR) (Neg) Influenza Type B (PCR) (Neg) RSV (RT-PCR) (Neg) 12/15/20 Range/Units 08:35 WBC (4.8-10.8) K/uL RBC (4.2-5.4) M/uL Hgb (12.0-16.0) g/dL Hct (37-47) % MCV (80-100) fL MCH (25-34) pg MCHC (32-36) g/dL RDW Std Deviation (36.4-46.3) fL RDW Coeff of Rafael (11.5-14.5) % Plt Count (130-400) K/uL MPV (7.4-10.4) fL Immature Gran % (Auto) % Neut % (Auto) % Lymph % (Auto) % [place] % (Auto) % Eos % (Auto) % Baso % (Auto) % Neut # (Auto) (1.4-6.5) K/uL Lymph # (Auto) (1.2-3.4) K/uL [place] # (Auto) (0.11-0.59) K/uL Eos # (Auto) (0-0.5) K/uL Baso # (Auto) (0-0.2) K/uL Immature Gran # (Auto) (0.00-0.02) K/uL PT (9.0-12.0) Seconds INR (0.9-1.1) Sodium (136-145) mmol/L Potassium (3.5-5.1) mmol/L Chloride (98-107) mmol/L Carbon Dioxide (21-32) mmol/L Anion Gap (3-11) BUN (7-18) mg/dl Creatinine (0.6-1.2) mg/dl Est Cr Clr Drug Dosing ml/min Est GFR ( Amer) Est GFR (Non-Af Amer) BUN/Creatinine Ratio (10-20) Glucose (70-99) mg/dl Estimat Average Glucose 174 mg/dl Hemoglobin A1c 7.7 H (4.5-5.6) % Calcium (8.5-10.1) mg/dl Magnesium (1.8-2.4) mg/dl Total Bilirubin (0.2-1) mg/dl AST (15-37) U/L ALT (12-78) U/L Alkaline Phosphatase (45-117) U/L Total Creatine Kinase (26-192) U/L Troponin I (0-0.045) ng/ml Total Protein (6.4-8.2) gm/dl Albumin (3.4-5.0) gm/dl Globulin (2.5-4.0) gm/dl Albumin/Globulin Ratio (0.9-2) Vitamin B12 (193-986) pg/ml 25-OH Vitamin D Total (30-100) ng/ml TSH (0.300-4.500) uIu/ml Urine Color Urine Appearance (Clear) Urine pH (4.5-7.5) Ur Specific [place] (1.000-1.030) Urine Protein (Negative) Urine Glucose (UA) (Negative) Urine Ketones (Negative) Urine Blood (Negative) Urine Nitrite (Negative) Urine Bilirubin (Negative) Urine Urobilinogen (Negative) Ur Leukocyte Esterase (Negative) Urine WBC (Auto) (0-5) /hpf Urine RBC (Auto) (0-4) /hpf U Hyaline Cast (Auto) (0-5) /lpf U Epithel Cells (Auto) (0-5) /lpf Urine Bacteria (Auto) (Negative) COVID-19 Eval Order SARS-CoV-2 (PCR) (Negative) Influenza Type A (PCR) (Neg) Influenza Type B (PCR) (Neg) RSV (RT-PCR) (Neg) Imaging Data Radiologist's Impression: Elbow X-Ray 12/13/20 00:26 XR elbow RT 2V CLINICAL HISTORY: Right elbow pain status post trauma COMPARISON: None. DISCUSSION: No acute fractures or dislocations are visualized. The fat pads are not displaced. There are multiple soft tissue calcifications most of which are vascular. There are also triceps insertional calcifications. IMPRESSION: No acute fractures or dislocations identified ACT 112: Negative or not required by law. Electronically signed by: Suhas Claire M.D. 12/13/2020 6:[address] 12/13/20 00:26 CT head/brain wo con CLINICAL HISTORY: Head pain status post trauma COMPARISON STUDY: 06/17/2020 TECHNIQUE: Axial CT of the brain is performed from the vertex to the skull base. IV contrast was not administered for this examination. A dose lowering technique was utilized adhering to the principles of ALARA. CT DOSE: 537.48 mGy.cm FINDINGS: No intra or extra-axial mass lesions are visualized. There is no CT evidence of acute cortical infarction. There is no evidence of midline shift. There is no acute hemorrhage. No calvarial fractures are visualized. There are moderate white matter hypodensities likely on a small vessel basis. There is no evidence of pathologic ventricular dilatation. There is minor left maxillary sinus mucosal thickening IMPRESSION: No acute intracranial findings ACT 112: Negative or not required by law. Electronically signed by: Suhas Claire M.D. 12/13/2020 7:38 AM Knee X-Ray 12/13/20 00:26 XR knee LT 1 or 2V routine CLINICAL HISTORY: Left knee pain status post trauma COMPARISON: 07/27/2020 DISCUSSION: The bones are osteopenic. There are vascular calcifications present. There are no acute fractures or dislocations. There are mild osteoarthritic changes. IMPRESSION: No acute fractures or dislocations identified. ACT 112: Negative or not required by law. Electronically signed by: Suhas Claire M.D. 12/13/2020 6:58 AM Knee X-Ray 12/13/20 00:26 XR knee RT 1 or 2V routine CLINICAL HISTORY: Right knee pain status post trauma COMPARISON: October 2014 DISCUSSION: The bones are osteopenic. There are postsurgical changes involving the distal femur. There are moderately advanced osteoarthritic changes within the knee. These are most pronounced within the patellofemoral joint and medial joint compartment. IMPRESSION: 1. Postsurgical changes 2. No acute fractures 2. Advanced osteoarthritic changes ACT 112: Negative or not required by law. Electronically signed by: Suhas Claire M.D. 12/13/2020 6:58 AM Chest X-Ray 12/13/20 00:27 XR chest 1V portable CLINICAL HISTORY: Weakness TRAUMA COMPARISON STUDY: 06/17/2020 FINDINGS: The heart is the upper limits of normal in size. There is no failure. There is no focal pulmonary consolidation. There are no pleural effusions. There is a retrocardiac opacity consistent with a hiatal hernia. Postsurgical changes are present within the cervical spine. Arthritic changes are present within the shoulders.[No pneumothorax is visualized. IMPRESSION: No active disease in the chest. ACT 112: Negative or not required by law. Electronically signed by: Suhas Claire M.D. 12/13/2020 6:56 AM Hip X-Ray 12/13/20 00:32 XR hip RT min 2V CLINICAL HISTORY: Right hip pain status post trauma COMPARISON: 03/08/2019 DISCUSSION: The bones are osteopenic. No acute fractures or dislocations are visualized. There are mild degenerative changes. IMPRESSION: No acute fractures or dislocations identified. ACT 112: Negative or not required by law. Electronically signed by: Suhas Claire M.D. 12/13/2020 6:59 AM ECG Data Attestation: I personally reviewed and interpreted this ECG as follows: Indication: + weakness Rate (beats per minute): 100 Rhythm: + sinus rhythm ECG ST segments: + Nonspecific ST abnormalities and + repolarization abnormalities ECG Findings: + LVH and + Other (Premature supraventricular complexes); no PACs and no PVCs Blood Pressure Blood Pressure Findings: Elevated blood pressure Blood Pressure Disposition: further management by hospitalist Head Trauma GCS Score: 15 MDM Narrative This patient was evaluated and appeared to be in no significant distress. IV access was obtained and laboratory work was drawn. An order for cardiac monitoring was placed and the patient is noted to be in a sinus rhythm at 97 bpm. Patient was given IV fentanyl and Zofran for her discomforts. CT imaging of the head reveals no evidence of acute intracranial abnormality. X-ray of the right elbow, right hip and bilateral knees were performed and are negative for acute fracture. Patient's laboratory work reveals mildly elevated troponin. EK G reveals LVH with repolarization abnormality. An ambulation trial was attempted by nursing with the patient and she was unable to bear any significant weight without pain. Nursing felt she had failed the trial significantly. Patient was discussed with the hospitalist service who will evaluate the patient for further management. Impression & Plan Fall, Contusion of elbow, right, Contusion of hip, right, Contusion of knee, right, Contusion of knee, left, Weakness, Elevated troponin Discharge Plan Visit Data Chief Complaint: Fall Stated Complaint: FALL ED Provider: Mecca Peace Discharge Problem: Fall, Contusion of elbow, right, Contusion of hip, right, Contusion of knee, right, Contusion of knee, left, Weakness, Elevated troponin Patient Disposition: Admitted As Inpatient Discharge Instructions Interventions: ED Discharge Assessment Last Done: 12/13/20 04:34 Discharge Problem: Fall Qualifiers: Encounter type: initial encounter Qualified Code(s): W19.XXXA - Unspecified fall, initial encounter Contusion of elbow, right Qualifiers: Encounter type: initial encounter Qualified Code(s): S50.01XA - Contusion of right elbow, initial encounter Contusion of hip, right Qualifiers: Encounter type: initial encounter Qualified Code(s): S70.01XA - Contusion of right hip, initial encounter Contusion of knee, right Qualifiers: Encounter type: initial encounter Qualified Code(s): S80.01XA - Contusion of right knee, initial encounter Contusion of knee, left Qualifiers: Encounter type: initial encounter Qualified Code(s): S80.02XA - Contusion of left knee, initial encounter
[2020-12-13] MEDS: lisinopril 20 MG TAB PO SCH (08:29)
[2020-12-13] MEDS: SIMVASTATIN 20 MG TAB PO SCH (08:29)
[2020-12-13] MEDS: MIRABEGRON ER 25 MG TAB PO SCH (08:29)
[2020-12-13] MEDS: METOPROLOL TARTRATE 50 MG TAB PO SCH ×2 (08:29→21:23)
[2020-12-13] MEDS: predniSONE 10 MG TABLET PO SCH (08:30)
[2020-12-13] MEDS: LIDOCAINE 5% 1 PATCH TD SCH (08:31)
[2020-12-13] MEDS: HEPARIN SOD 5,000 UNIT/0.5 ML VIAL SQ SCH ×2 (08:31→21:23)
--- NOTE | 2020-12-13 09:08 | Electrocardiogram Report ---
Test Reason : Blood Pressure : / mmHG Vent. Rate : 100 BPM Atrial Rate : 100 BPM P-R Int : 166 ms QRS Dur : 102 ms QT Int : 364 ms P-R-T Axes : 095 006 007 degrees QTc Int : 469 ms Poor data quality, interpretation may be adversely affected Sinus rhythm with Premature supraventricular complexes Moderate voltage criteria for LVH, may be normal variant Nonspecific ST and T wave abnormality Abnormal ECG When compared with ECG of 27-JUL-2020 15:14, HR has increased by 29 bpm Criteria for Septal infarct no longer present Premature supraventricular complexes are now Present Confirmed by Toni Avila ([id number]) on 12/13/2020 9:08:11 AM Referred By: REFERRED SELF Confirmed By:Toni Avila
--- NOTE | 2020-12-13 09:24 | Electrocardiogram Report ---
Test Reason : Blood Pressure : / mmHG Vent. Rate : 086 BPM Atrial Rate : 086 BPM P-R Int : 160 ms QRS Dur : 100 ms QT Int : 364 ms P-R-T Axes : 077 010 -29 degrees QTc Int : 435 ms Poor data quality, interpretation may be adversely affected Normal sinus rhythm Minimal voltage criteria for LVH, may be normal variant Possible Old Septal infarct Abnormal ECG When compared with ECG of 13-DEC-2020 00:38, Premature supraventricular complexes are no longer Present Borderline Criteria for Septal infarct now present Confirmed by Toni Avila ([id number]) on 12/13/2020 9:24:28 AM Referred By: REFERRED SELF Confirmed By:Toni Avila
[2020-12-13] MEDS ORDERED: predniSONE 10 MG TABLET PO STA (09:31)
--- NOTE | 2020-12-13 10:20 | XCELERA ---
[id number]
--- NOTE | 2020-12-13 21:28 | Hospitalist Progress Note ---
Date of Service December 13, 2020 Assessment & Plan (1) Fall: accidental no prodromal symptoms check b12 level in am due to chronic ambulatory dysfunction suspect proprioceptive deficits due to age, advanced OA and RA, etc all contribute to fall risk patient adamant about NO rehab post-d/c daughter ok with bringing patient home - they live together (2) Rheumatoid arthritis: steroid dependent no active flare but in light of stress of fall will give "stress dose steroids" with 30mg additional today (3) Weakness: PT, OT recheck labs am COVID neg no evidence of any complicating infectious process (4) Hypertension: cont BB & OANH adjust if needed BPs high - due to pain? extra steroids? follow for now (5) Hypothyroidism: TSH wnl cont synthroid w/o changes (6) Elevated troponin: doubt ACS no ACS / cardiac symptoms echo w/o wall motion abnormalities likely myocardial demand ischemia (7) DVT prophylaxis: heparin BID ideally pt attend inpatient rehab post-d/c but patient refusing daughter aware watch overnight d/c home with HH tomorrow if stable and doing well cont local wound care to skin tears etc Admission and Anticipated Discharge Date Admission Date: December 13, 2020 Subjective tele overnight wnl patient adamant she is NOT going to rehab - attended [facility] - hated the food, had urinary incontinence and felt staff did not respond, etc. has been to [facility] in past - does not wish to go there either daughter lives w/ her -- essentially there [id number] mild discomfort around knees, R>L ,but denies pain in other locations Review of Systems Respiratory: no cough and no dyspnea Cardiovascular: no chest pain Gastrointestinal: no abdominal pain Physical Exam Constitutional: + thin and + frail appearing; no acute distress and no altered mental status ENMT: external ear and nose normal, oropharynx normal Respiratory: normal respiratory effort, lungs clear to auscultation Cardiovascular: Rate/Rhythm: regular rate and regular rhythm Heart Sounds: normal S1 and normal S2 Vessels: posterior tibial pulses present and dorsalis pedis pulses present; no JVD Extremities: no edema Gastrointestinal (Abdomen): normal bowel sounds, soft, nontender, no hepatosplenomegaly Musculoskeletal: traumatic ecchymoses around both knees; a few skin tears on b/l LEs, worse on right; no pain with passive ROM of either hip, either knee, or either ankle; no pain in shoulders, elbows, hands; no active synovitis of any joint; RA changes (Chronic) of small joints hands Results & Data Results & Data ([facility]) Vital Signs (Past 12 Hours) Vital Signs Temp Pulse Pulse Resp BP Pulse Ox 12/13/20 19:01 36.7 C 78 18 145/70 H 96 12/13/20 15:22 36.7 C 73 18 139/68 96 12/13/20 14:55 72 12/13/20 11:20 36.2 C L 67 19 126/72 98 all imaging reviewed and negative for fracture PG Care Time/CCT Total # of Minutes Spent Total Time Spent with Patient: Total time spent is greater than 50% in coordination of care (as documented) at patient's floor/unit and/or counseling patient: Coding Level of Care Code 62459 Subseq Obs Care Lvl 2 Diagnoses Fall W19.XXXA Encounter type: initial encounter Rheumatoid arthritis M06.9 Weakness R53.1 Hypertension I10 Hypothyroidism E03.9 Elevated troponin R77.8 DVT prophylaxis Z29.9 (1) Fall Encounter type: initial encounter Qualified Code(s): W19.XXXA - Unspecified fall, initial encounter
[2020-12-14] MEDS: LEVOTHYROXINE SODIUM 75 MCG TABLET PO SCH (05:58)
[2020-12-14] MEDS: DICLOFENAC SOD 1% GEL 100 GM TUBE EXT SCH ×3 (05:59→19:57)
[2020-12-14] MEDS: LIDOCAINE 5% 1 PATCH TD SCH (07:37)
[2020-12-14] MEDS: MIRABEGRON ER 25 MG TAB PO SCH (07:38)
[2020-12-14] MEDS: HEPARIN SOD 5,000 UNIT/0.5 ML VIAL SQ SCH ×2 (07:38→19:56)
[2020-12-14] MEDS: predniSONE 10 MG TABLET PO SCH (07:38)
[2020-12-14] MEDS: METOPROLOL TARTRATE 50 MG TAB PO SCH ×2 (07:38→19:55)
[2020-12-14] MEDS: SIMVASTATIN 20 MG TAB PO SCH (07:38)
[2020-12-14] MEDS: lisinopril 20 MG TAB PO SCH (07:38)
--- NOTE | 2020-12-14 09:32 | Electrocardiogram Report ---
Test Reason : Blood Pressure : / mmHG Vent. Rate : 077 BPM Atrial Rate : 077 BPM P-R Int : 166 ms QRS Dur : 102 ms QT Int : 382 ms P-R-T Axes : 074 002 006 degrees QTc Int : 432 ms Normal sinus rhythm Possible Old Septal infarct (cited on or before 27-MAR-2020) Abnormal ECG When compared with ECG of 13-DEC-2020 05:58, No significant change was found Confirmed by Toni Avila ([id number]) on 12/14/2020 9:31:49 AM Referred By: REFERRED SELF Confirmed By:Toni Avila
[2020-12-14 11:19] LABS: BUN Creatinine Ratio 25.7 (10-20); Creatinine Clr Calc Pharmacy 29.7 ml/min; Est GFR (African American) 50.8; Est GFR (Non-African American) 43.8; Potassium 3.8 mmol/L (3.5-5.1)
[2020-12-14 11:33] LABS: Troponin I 0.204 ng/ml (0-0.045)
[2020-12-14] MEDS ORDERED: amLODIPine BESYLATE 5 MG TAB PO ONE (13:50)
[2020-12-14] MEDS: CYANOCOBALAMIN 1000 MCG/ML VIAL IM SCH (13:53)
[2020-12-14] MEDS: THIAMINE HCL 100 MG TAB PO SCH ×2 (17:25→19:55)
--- NOTE | 2020-12-14 19:13 | Magnetic Resonance Report ---
MRI OF THE BRAIN WITHOUT CONTRAST CLINICAL HISTORY: visual disturbance, falls; eval subacute CVA COMPARISON STUDY: Noncontrast head CT dated 12/13/2020 FINDINGS: Sagittal T1, axial diffusion, proton density and T2 weighted axial, coronal FLAIR, and axial T1-weigh dmitry images were acquired. No intra or extra-axial mass lesions are visualized Axial diffusion-weighted images reveal no evidence of acute or subacute infarction. There is no evidence of ventricular dilatation. Proton density T2-weighted and FLAIR images reveal moderate foci of increased T2 signal within the wh ite matter, likely on a small vessel basis. Gradient echo images reveal a 2.5 mm focus of decreased signal within the left posterior lateral thal amus, likely representing hemosiderin from a prior tiny hemorrhage or alternatively, a tiny calcifica tion. This is not felt to be of acute clinical significance. Foci of decreased signal within the basa l ganglia, likely are secondary to basal ganglial mineralization There are no abnormal flow voids. IMPRESSION: 1. No acute intracranial findings 2. No evidence of intracranial mass in this noncontrast study 3. No evidence of acute or subacute infarction 4. Moderate white matter disease likely on a small vessel ischemic basis ACT 112: Negative or not required by law. Electronically signed by: Suhas Claire M.D. 12/14/2020 7:12 PM
--- NOTE | 2020-12-14 19:51 | Hospitalist Progress Note ---
Date of Service December 14, 2020 Assessment & Plan (1) Visual disturbance: I ordered MRI brain shortly after my visit today. MRI returned negative for old CVA or new CVA; no tumor, no acute ICH. Atrophy present. Her visual complaints may simply be very severe visual hallucinations - especially given the daughter's report. The hallucinations are scary to the patient and she is quite bothered by them. Thus, will start risperdal 0.25mg HS. re-eval tomorrow. will recommend eye exam post-d/c as well. given the nystagmus start thiamine 200mg BID in the event she has thiamine def (2) Fall: accidental no prodromal symptoms suspect proprioceptive deficits due to age, advanced OA and RA, etc all contribute to fall risk vitamin B12 deficiency can contribute to the proprioceptive issues and fall risk can also contribute to visual/mental status issues nursing staff report that patient sprung up out of bed today and nearly fell patient still adamant about going home at discharge daughter supports that plan (3) Rheumatoid arthritis: steroid dependent no active flare (4) Weakness: PT, OT COVID neg no evidence of any complicating infectious process B12 def can contribute to chronic weakness (5) Hypertension: cont BB & OANH increase amlodipine to 2.5mg BID (6) Hypothyroidism: TSH wnl cont synthroid w/o changes (7) Elevated troponin: doubt ACS no ACS / cardiac symptoms echo w/o wall motion abnormalities likely myocardial demand ischemia (8) Vitamin B12 deficiency: start b12 injections 1000mcg daily while hospitalized then 1000mcg po daily at home (9) DVT prophylaxis: heparin BID ideally pt attend inpatient rehab post-d/c but patient refusing daughter aware she still supports her mother returning home patient is not ready for discharge observe overnight on the risperdal Admission and Anticipated Discharge Date Admission Date: December 13, 2020 Subjective patient feeling confused during visit having visual disturbance/hallucinations she states that when she looks forward at the wall the TV and clock "fold downwards face-down" she also feels she is floating near the ceiling she is scared by these experiences has had this at home as well as at the hospital I spoke with pt's daughter by phone and she confirmed she has hallucinations at home - sees people that aren't there, etc denies visual loss, visual field cuts, or blurry vision Review of Systems Constitutional: no fever and no fatigue Respiratory: no cough and no dyspnea Cardiovascular: no chest pain Gastrointestinal: no abdominal pain, no nausea and no vomiting Physical Exam Constitutional: + thin, + altered mental status and + frail appearing; no acute distress Eyes: + nystagmus (with right lateral gaze ) visual turner full by direct confrontation ENMT: external ear and nose normal, oropharynx normal Respiratory: normal respiratory effort, lungs clear to auscultation Cardiovascular: Rate/Rhythm: regular rate and regular rhythm Heart Sounds: normal S1 and normal S2 Vessels: posterior tibial pulses present and dorsalis pedis pulses present; no JVD Extremities: no edema Gastrointestinal (Abdomen): normal bowel sounds, soft, nontender, no hepatosplenomegaly Neurologic: + confused; no focal motor deficits Cranial Nerves: EOM intact bilaterally +babinski on right Results & Data Results & Data ([facility]) Vital Signs (Past 12 Hours) Vital Signs Temp Pulse Pulse Resp BP BP Pulse Ox 12/14/20 19:16 36.2 C L 80 19 197/102 H 98 12/14/20 16:48 67 12/14/20 15:12 36.4 C L 97 H 16 176/75 H 95 12/14/20 11:40 36.5 C 62 18 185/75 H 97 12/14/20 09:18 190/89 H 194/74 H 12/14/20 09:00 82 Laboratory Results Laboratory Results - last 24 hr 12/14/20 12/14/20 12/14/20 10:26 10:26 10:26 Sodium 141 Potassium 3.8 Chloride 110 H Carbon Dioxide 26 Anion Gap 5.0 BUN 29 H Creatinine 1.12 Est Cr Clr Drug Dosing 29.7 Est GFR ( Amer) 50.8 Est GFR (Non-Af Amer) 43.8 BUN/Creatinine Ratio 25.7 H Glucose 270 H Calcium 9.0 Troponin I 0.204 H* Vitamin B12 202 25-OH Vitamin D Total 42.8 PG Care Time/CCT Total # of Minutes Spent Total Time Spent with Patient: Total time spent is greater than 50% in coordination of care (as documented) at patient's floor/unit and/or counseling patient: Coding Level of Care Code 63302 Subseq Obs Care Lvl 3 Diagnoses Visual disturbance H53.9 Fall W19.XXXA Encounter type: initial encounter Rheumatoid arthritis M06.9 Weakness R53.1 Hypertension I10 Hypothyroidism E03.9 Elevated troponin R77.8 Vitamin B12 deficiency E53.8 DVT prophylaxis Z29.9 (1) Fall Encounter type: initial encounter Qualified Code(s): W19.XXXA - Unspecified fall, initial encounter
[2020-12-14] MEDS ORDERED: risperiDONE ODT 0.5 MG SOLTAB PO SCH (21:00)
[2020-12-14] MEDS: amLODIPine BESYLATE 5 MG TAB PO SCH (21:22)
[2020-12-15] MEDS: DICLOFENAC SOD 1% GEL 100 GM TUBE EXT SCH ×3 (05:59→19:33)
[2020-12-15] MEDS: LEVOTHYROXINE SODIUM 75 MCG TABLET PO SCH (05:59)
[2020-12-15] MEDS: predniSONE 10 MG TABLET PO SCH (08:31)
[2020-12-15] MEDS: MIRABEGRON ER 25 MG TAB PO SCH (08:31)
[2020-12-15] MEDS: lisinopril 20 MG TAB PO SCH (08:32)
[2020-12-15] MEDS: METOPROLOL TARTRATE 50 MG TAB PO SCH ×2 (08:32→19:32)
[2020-12-15] MEDS: amLODIPine BESYLATE 5 MG TAB PO SCH ×2 (08:32→19:32)
[2020-12-15] MEDS: SIMVASTATIN 20 MG TAB PO SCH (08:32)
[2020-12-15] MEDS: LIDOCAINE 5% 1 PATCH TD SCH (08:33)
[2020-12-15] MEDS: THIAMINE HCL 100 MG TAB PO SCH ×2 (08:33→19:31)
[2020-12-15] MEDS: HEPARIN SOD 5,000 UNIT/0.5 ML VIAL SQ SCH ×2 (08:34→19:31)
[2020-12-15 09:13] LABS: Calcium 9.2 mg/dl (8.5-10.1); Creatinine Clr Calc Pharmacy 33.5 ml/min; Est GFR (African American) 58.3; Est GFR (Non-African American) 50.3; Potassium 3.4 mmol/L (3.5-5.1)
[2020-12-15 09:33] LABS: Estimated Average Glucose 174 mg/dl; Hemoglobin A1C 7.7 % (4.5-5.6)
[2020-12-15] MEDS: CYANOCOBALAMIN 1000 MCG/ML VIAL IM SCH (10:22)
[2020-12-15] MEDS ORDERED: haloperidoL 0.5 MG TAB PO STA (14:10)
[2020-12-15] MEDS: risperiDONE ODT 0.5 MG SOLTAB PO SCH (19:31)
--- NOTE | 2020-12-16 04:41 | Hospitalist Progress Note ---
Date of Service December 15, 2020 Assessment & Plan (1) Visual disturbance: Ongoing. MRI w/o old or new CVA. Her visual complaints are odd. However, I believe they are severe visual hallucinations. Daughter confirmed her mother had been having these hallucinations at home for some time. The hallucinations are scary to the patient and she is quite bothered by them. She tolerated the risperdal 0.25mg last night but given that these hallucinations are persistent will increase to 0.5mg tonight. During my visit she was actively hallucinating - gave haldol 0.5mg po x 1 as well. given the nystagmus on exam continue thiamine 200mg BID in the event she has thiamine deficiency/Wernecke's. (2) Fall: accidental no prodromal symptoms suspect proprioceptive deficits due to age, advanced OA and RA, etc all contribute to fall risk vitamin B12 deficiency can contribute to the proprioceptive issues and fall risk can also contribute to visual/mental status issues supplement the thiamine - thiamine def can cause neuropathy and balance issues patient still adamant about going home at discharge daughter supports that plan (3) Rheumatoid arthritis: steroid dependent no active flare (4) Weakness: PT, OT COVID neg no evidence of any complicating infectious process B12 def can contribute to chronic weakness - supplement (5) Hypertension: cont BB & OANH cont amlodipine 2.5mg BID (6) Hypothyroidism: TSH wnl cont synthroid w/o changes (7) Elevated troponin: doubt ACS no ACS / cardiac symptoms echo w/o wall motion abnormalities likely myocardial demand ischemia (8) Vitamin B12 deficiency: b12 injections 1000mcg daily while hospitalized then 1000mcg po daily at home supplement thiamine 200mg BID as well (9) Diabetes mellitus, new onset: a1c noted patient is quite thin - 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) pharmacy consult for insulin management change diet to T1DM diet (10) DVT prophylaxis: heparin BID ideally pt attend inpatient rehab post-d/c but patient refusing daughter aware she still supports her mother returning home change observation to admission given ongoing hallucinations, new onset DM, etc Admission and Anticipated Discharge Date Admission Date: December 15, 2020 Subjective patient still having severe visual disturbance/hallucinations still having the experience of seeing the TV and clock "folded down on themselves" and feeling like she is floating on the ceiling during the visit she asked several times if "I could tie her down to the bed so that she wouldn't float" I reassured her she was in the bed and was safe she admits to hearing voices of people talking to her at home she has not had this at the hospital she has had visual hallucinations of seeing people in the room at her home and had this at least once in the hospital she was confused during the visit - did not know the day or year Review of Systems Constitutional: no fever Respiratory: no cough and no dyspnea Cardiovascular: no chest pain Gastrointestinal: no abdominal pain Musculoskeletal: + joint pain (right knee - from recent fall ) Physical Exam Constitutional: + thin, + altered mental status and + frail appearing; no acute distress Eyes: + nystagmus (still present; horizontal ) ENMT: external ear and nose normal, oropharynx normal Respiratory: normal respiratory effort, lungs clear to auscultation Cardiovascular: Rate/Rhythm: regular rate and regular rhythm Heart Sounds: normal S1 and normal S2 Vessels: posterior tibial pulses present and dorsalis pedis pulses present; no JVD Extremities: no edema Gastrointestinal (Abdomen): normal bowel sounds, soft, nontender, no hepatosplenomegaly Skin: Trauma: + evidence of skin trauma (ecchymoses about the right knee improving; skin tear right knee area) Neurologic: + confused; no focal motor deficits Results & Data Results & Data ([facility]) Vital Signs (Past 12 Hours) Vital Signs Temp Pulse Pulse Resp BP Pulse Ox 12/16/20 02:06 36.4 C L 71 16 163/79 H 97 12/16/20 00:00 77 12/15/20 23:04 36.4 C L 64 16 158/76 H 96 12/15/20 19:06 36.4 C L 88 18 132/78 97 Laboratory Results Laboratory Results - last 24 hr 12/15/20 12/15/20 08:35 08:35 Sodium 143 Potassium 3.4 L Chloride 112 H Carbon Dioxide 25 Anion Gap 7.0 BUN 25 H Creatinine 1.00 Est Cr Clr Drug Dosing 33.5 Est GFR ( Amer) 58.3 Est GFR (Non-Af Amer) 50.3 BUN/Creatinine Ratio 25.0 H Glucose 255 H Estimat Average Glucose 174 Hemoglobin A1c 7.7 H Calcium 9.2 PG Care Time/CCT Total # of Minutes Spent Total Time Spent with Patient: Total time spent is greater than 50% in coordination of care (as documented) at patient's floor/unit and/or counseling patient: Coding Level of Care Code 43154 Subseq Hosp Care Lvl 3 Diagnoses Visual disturbance H53.9 Fall W19.XXXA Encounter type: initial encounter Rheumatoid arthritis M06.9 Weakness R53.1 Hypertension I10 Hypothyroidism E03.9 Elevated troponin R77.8 Vitamin B12 deficiency E53.8 Diabetes mellitus, new onset E11.9 DVT prophylaxis Z29.9 (1) Fall Encounter type: initial encounter Qualified Code(s): W19.XXXA - Unspecified fall, initial encounter
[2020-12-16] MEDS ORDERED: PHARMACY GLYCEMIC MGMT CONSULT PRN (04:48)
[2020-12-16] MEDS ORDERED: CARBOHYDRATES FOR HYPOGLYCEMIA PO PRN (05:00)
[2020-12-16] MEDS ORDERED: DEXTROSE 50% 50 ML SYRINGE IV PRN (05:00)
[2020-12-16] MEDS ORDERED: GLUCOSE 40% GEL 15 GM TUBE PO PRN (05:00)
[2020-12-16] MEDS ORDERED: GLUCAGON FOR INJ 1 MG VIAL SQ PRN (05:00)
[2020-12-16] MEDS ORDERED: GLUCOSE 10 TABS/TUBE PO PRN (05:00)
[2020-12-16] MEDS: INSULIN ASPART 100 UNITS/ML 3 ML PEN SC SCH ×5 (05:25→21:27)
[2020-12-16] MEDS: LEVOTHYROXINE SODIUM 75 MCG TABLET PO SCH (05:26)
[2020-12-16] MEDS: INSULIN GLARGINE SOLOSTAR 100 UNITS/ML 3 ML PEN SC SCH ×2 (05:26→21:27)
[2020-12-16] MEDS: DICLOFENAC SOD 1% GEL 100 GM TUBE EXT SCH ×3 (05:26→21:30)
[2020-12-16] MEDS: SIMVASTATIN 20 MG TAB PO SCH (07:57)
[2020-12-16] MEDS: amLODIPine BESYLATE 5 MG TAB PO SCH ×2 (07:57→21:24)
[2020-12-16] MEDS: predniSONE 10 MG TABLET PO SCH (07:57)
[2020-12-16] MEDS: METOPROLOL TARTRATE 50 MG TAB PO SCH ×2 (07:57→21:28)
[2020-12-16] MEDS: CYANOCOBALAMIN 1000 MCG/ML VIAL IM SCH (07:57)
[2020-12-16] MEDS: MIRABEGRON ER 25 MG TAB PO SCH (07:57)
[2020-12-16] MEDS: HEPARIN SOD 5,000 UNIT/0.5 ML VIAL SQ SCH ×2 (07:57→21:24)
[2020-12-16] MEDS: THIAMINE HCL 100 MG TAB PO SCH ×2 (07:57→21:29)
[2020-12-16] MEDS: LIDOCAINE 5% 1 PATCH TD SCH (07:57)
[2020-12-16] MEDS: lisinopril 20 MG TAB PO SCH (08:28)
--- NOTE | 2020-12-16 15:17 | Pharmacy Report ---
Pharmacy Glycemic Short Note 2 - Date of Service December 16, 2020 - Glycemic Short BSG Results (Last 24 hours): 12/16/20 12/16/20 12/16/20 05:24 07:44 11:42 POC Glucose 163 H 128 H 164 H OUTPATIENT ANTIDIABETIC REGIMEN: * n/a * Pt takes prednisone 10mg PO daily chronically. * HbA1c: 7.7% (12/15/20) ASSESSMENT: * Ms Krishna had a couple of episodes of hyperglycemia during admission (BSG >2 00mg/dL). This is likely due to steroid use. * Lantus and Novolog added conservatively this morning. * Do not anticipate that patient will require large doses of insulin. Will continue to adjust as required. PLAN FOR INPATIENT GLYCEMIC CONTROL: * Hold outpatient oral diabetes medications * Basal insulin * Lantus 5 units SQ BID * Bolus insulin * NovoLog per scale ACHS or Q6hrs while NPO * Goal Range: Low 110 mg/dL - High 140 mg/dL * Correction Factor: 45 mg/dL/unit * Nutritional / Prandial insulin per carb ratio of 1 unit per 15 grams CHO consumed PLAN FOR DISCHARGE: * HbA1c: 7.7% * This A1c would indeed indicate diabetes, however, goal A1c for an 89yo patient would be ~less than 8%, so do not anticipate that pt will reuqire the addition of any new medications. * Would recommend CDE consult to discuss important diet/lifestyle considerations.
--- NOTE | 2020-12-16 17:35 | Hospitalist Progress Note ---
Date of Service December 16, 2020 Assessment & Plan (1) Visual disturbance: Visual hallucinations - improved w/ risperdal 0.5mg HS. Daughter confirmed her mother had been having these hallucinations at home for some time. Given the nystagmus on exam continue thiamine 200mg BID in the event she has thiamine deficiency/Wernecke's contributing to her current state. (2) Encephalopathy acute: Patient continues with confusion/delirium. I suspect she has encephalopathy in setting of a baseline cognitive dysfunction. The risperdal should help the delirium. I will stop telemetry. Move to med/surg and try to optimize her environment -- access to windows/s unlight, reinforce sleep-wake cycle, etc. Replace low B12 with IM B12 injections. Cont thiamine supplementation. MRI brain a few days ago without old or new CVA. No evidence of UTI, pneumonia, COVID or other infectious issue. (3) Fall: accidental present on admission no prodromal symptoms suspect proprioceptive deficits due to age, advanced OA and RA, etc all contribute to fall risk vitamin B12 deficiency can contribute to the proprioceptive issues and fall risk can also contribute to visual/mental status issues supplement the thiamine - thiamine def can cause neuropathy and balance issues daughter now supportive of SNF for rehab at discharge - [facility]?? (4) Rheumatoid arthritis: steroid dependent no active flare (5) Weakness: age-related physical debility continue PT, OT COVID neg no evidence of any complicating infectious process B12 def can contribute to chronic weakness - supplement as above (6) Hypertension: cont BB & OANH cont amlodipine 2.5mg BID BPs still high - may need to titrate amlodipine further (7) Hypothyroidism: TSH wnl cont synthroid w/o changes (8) Elevated troponin: doubt ACS no ACS / cardiac symptoms echo w/o wall motion abnormalities likely myocardial demand ischemia (9) Vitamin B12 deficiency: b12 injections 1000mcg daily while hospitalized then 1000mcg po daily at home supplement thiamine 200mg BID as well (10) Diabetes mellitus, new onset: a1c 7.7% patient is quite thin - 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) pharmacy consult for insulin management change diet to T1DM diet DM education (11) Age-related physical debility: as above (12) DVT prophylaxis: heparin BID daughter extensively updated by phone today dispo - SNF d/c tele EKG today without QTc prolongation in setting of risperdal usage Admission and Anticipated Discharge Date Admission Date: December 15, 2020 Subjective patient state's visual hallucinations -- floating near ceiling, feeling like she is going to fall, TV/clock falling off wall, seeing people in room, etc -- are better however, during the visit, she reported "going to surgery this am" interestingly she knows it is 2020 and that she is in hospital denies new complaints appetite fair-poor tele overnight - wnl Review of Systems Constitutional: + fatigue and + anorexia; no fever Respiratory: no cough and no dyspnea Cardiovascular: no chest pain Gastrointestinal: no abdominal pain, no nausea and no vomiting Physical Exam Constitutional: + thin, + altered mental status and + frail appearing; no acu te distress Eyes: + nystagmus (still present; horizontal ) ENMT: external ear and nose normal, oropharynx normal Respiratory: normal respiratory effort, lungs clear to auscultation Cardiovascular: Rate/Rhythm: regular rate and regular rhythm Heart Sounds: normal S1 and normal S2 Vessels: posterior tibial pulses present and dorsalis pedis pulses present; no JVD Extremities: no edema Gastrointestinal (Abdomen): normal bowel sounds, soft, nontender, no hepatosplenomegaly Skin: Trauma: + evidence of skin trauma (ecchymoses about the right knee improving; skin tear right knee area) Neurologic: + confused Psychiatric: Insight: + poor insight Results & Data Results & Data ([facility]) Vital Signs (Past 12 Hours) Vital Signs Temp Pulse Pulse Resp BP Pulse Ox 12/16/20 15:08 36.4 C L 68 18 161/67 H 96 12/16/20 14:52 83 12/16/20 11:34 36.4 C L 73 18 153/70 H 96 12/16/20 08:00 36.3 C L 89 18 174/73 H 96 12/16/20 07:21 77 Laboratory Results Laboratory Results - last 24 hr 12/16/20 12/16/20 12/16/20 05:24 07:44 11:42 POC Glucose 163 H 128 H 164 H 12/16/20 16:50 POC Glucose 186 H PG Care Time/CCT Total # of Minutes Spent Total Time Spent with Patient: Total time spent is greater than 50% in coordination of care (as documented) at patient's floor/unit and/or counseling patient: Coding Level of Care Code 97648 Subseq Hosp Care Lvl 3 Diagnoses Visual disturbance H53.9 Encephalopathy acute G93.40 Fall W19.XXXA Encounter type: initial encounter Rheumatoid arthritis M06.9 Weakness R53.1 Hypertension I10 Hypothyroidism E03.9 Elevated troponin R77.8 Vitamin B12 deficiency E53.8 Diabetes mellitus, new onset E11.9 Age-related physical debility R54 DVT prophylaxis Z29.9 (1) Fall Encounter type: initial encounter Qualified Code(s): W19.XXXA - Unspecified fall, initial encounter
[2020-12-16] MEDS: risperiDONE ODT 0.5 MG SOLTAB PO SCH (21:29)
[2020-12-17] MEDS: LEVOTHYROXINE SODIUM 75 MCG TABLET PO SCH (05:52)
[2020-12-17] MEDS: DICLOFENAC SOD 1% GEL 100 GM TUBE EXT SCH ×3 (05:53→20:19)
[2020-12-17 07:56] LABS: Hematocrit (blood only) 36.8 % (37-47); Hemoglobin 12.3 g/dL (12.0-16.0); Mean Corpuscular Hemoglobin 30.3 pg (25-34); Mean Corpuscular Hgb Conc 33.4 g/dL (32-36); Mean Corpuscular Volume 90.6 fL (80-100); Platelet Count 141 K/uL (130-400); RDW Coefficient of Variation 13.4 % (11.5-14.5); RDW Standard Deviation 44.5 fL (36.4-46.3); Red Blood Count 4.06 M/uL (4.2-5.4)
[2020-12-17 08:54] LABS: BUN Creatinine Ratio 24.5 (10-20); Calcium 9.4 mg/dl (8.5-10.1); Creatinine Clr Calc Pharmacy 36.4 ml/min; Est GFR (African American) 67.1; Est GFR (Non-African American) 57.9
[2020-12-17] MEDS: INSULIN ASPART 100 UNITS/ML 3 ML PEN SC SCH ×4 (09:09→20:21)
--- NOTE | 2020-12-17 09:09 | Electrocardiogram Report ---
Test Reason : Blood Pressure : / mmHG Vent. Rate : 083 BPM Atrial Rate : 083 BPM P-R Int : 208 ms QRS Dur : 098 ms QT Int : 394 ms P-R-T Axes : 082 026 052 degrees QTc Int : 462 ms Normal sinus rhythm Anteroseptal infarct (cited on or before 27-MAR-2020) Minor Non-specific intra-ventricular conduction delay Nonspecific ST abnormality Inferior leads Abnormal ECG When compared with ECG of 14-DEC-2020 06:21, No significant change Confirmed by Toni Avila ([id number]) on 12/17/2020 9:09:09 AM Referred By: REFERRED SELF Confirmed By:Toni Avila
[2020-12-17] MEDS: METOPROLOL TARTRATE 50 MG TAB PO SCH ×2 (09:18→20:18)
[2020-12-17] MEDS: amLODIPine BESYLATE 5 MG TAB PO SCH ×2 (09:18→20:17)
[2020-12-17] MEDS: MIRABEGRON ER 25 MG TAB PO SCH (09:19)
[2020-12-17] MEDS: lisinopril 20 MG TAB PO SCH (09:19)
[2020-12-17] MEDS: predniSONE 10 MG TABLET PO SCH (09:19)
[2020-12-17] MEDS: THIAMINE HCL 100 MG TAB PO SCH ×2 (09:20→20:19)
[2020-12-17] MEDS: SIMVASTATIN 20 MG TAB PO SCH (09:22)
[2020-12-17] MEDS: INSULIN GLARGINE SOLOSTAR 100 UNITS/ML 3 ML PEN SC SCH ×2 (10:10→20:21)
[2020-12-17] MEDS: CYANOCOBALAMIN 1000 MCG/ML VIAL IM SCH (10:13)
[2020-12-17] MEDS: HEPARIN SOD 5,000 UNIT/0.5 ML VIAL SQ SCH ×2 (10:17→20:17)
[2020-12-17] MEDS: LIDOCAINE 5% 1 PATCH TD SCH (10:20)
[2020-12-17 12:41] LABS: Potassium 3.8 mmol/L (3.5-5.1)
[2020-12-17 12:42] LABS: Magnesium 2.1 mg/dl (1.8-2.4)
--- NOTE | 2020-12-17 20:16 | Hospitalist Progress Note ---
Date of Service December 17, 2020 Assessment & Plan (1) Visual disturbance: Visual hallucinations - improved w/ risperdal 0.5mg HS. Daughter confirmed her mother had been having these hallucinations at home for some time. Suspect she has underlying dementia at baseline. Given the nystagmus on exam continue thiamine 200mg BID in the event she has thiamine deficiency/Wernecke's contributing to her current state. (2) Encephalopathy acute: Patient continues with confusion/delirium. I suspect she has encephalopathy in setting of a baseline cognitive dysfunction/dementia. The risperdal should help the delirium. She may need the risperdal BID since she is also having daytime symptoms. Continue to try to optimize her environment -- access to windows/sunlight, reinforce sleep-wake cycle, etc. Replace low B12 with IM B12 injections. Cont thiamine supplementation. MRI brain a few days ago without old or new CVA. No evidence of UTI, pneumonia, COVID or other infectious issue. (3) Fall: accidental present on admission no prodromal symptoms suspect proprioceptive deficits due to age, advanced OA and RA, etc all contribute to fall risk vitamin B12 deficiency can contribute to the proprioceptive issues and fall risk can also contribute to visual/mental status issues supplement the thiamine - thiamine def can cause neuropathy and balance issues daughter now supportive of SNF for rehab at discharge - [facility]?? (4) Rheumatoid arthritis: steroid dependent - prednisone 10mg/day no active flare (5) Weakness: age-related physical debility continue PT, OT COVID neg no evidence of any complicating infectious process B12 def can contribute to chronic weakness - supplement as above Cont thiamine supplementation as well (6) Hypertension: cont BB & OANH cont amlodipine but increase to 5mg BID (7) Hypothyroidism: TSH wnl cont synthroid w/o changes (8) Elevated troponin: doubt ACS no ACS / cardiac symptoms echo w/o wall motion abnormalities likely myocardial demand ischemia (9) Vitamin B12 deficiency: b12 injections 1000mcg daily while hospitalized vit B12 level 200 then 1000mcg po daily at home supplement thiamine 200mg BID as well (10) Diabetes mellitus, new onset: a1c 7.7% patient is quite thin - 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 what did he say?" she also didn't realize that she had a roommate in bed 1 she denied, however, that she is still experiencing the visual hallucinations of floating on the ceiling, the clock falling off the wall, etc. nursing reports she has had a good day with fair appetite and orientation relatively intact Review of Systems Respiratory: no cough and no dyspnea Cardiovascular: no chest pain Gastrointestinal: no abdominal pain Physical Exam Constitutional: + thin, + altered mental status and + frail appearing; no acute distress Eyes: + nystagmus (horizontal, 2-3 beats w/ lateral gaze ) ENMT: external ear and nose normal, oropharynx normal Respiratory: normal respiratory effort, lungs clear to auscultation Cardiovascular: Rate/Rhythm: regular rate and regular rhythm Heart Sounds: normal S1 and normal S2 Vessels: posterior tibial pulses present and dorsalis pedis pulses present; no JVD Extremities: no edema Gastrointestinal (Abdomen): normal bowel sounds, soft, nontender, no hepatosplenomegaly Skin: Trauma: + evidence of skin trauma (ecchymoses about the right knee improving; skin tear right knee area) Neurologic: + confused Results & Data Results & Data ([facility]) Vital Signs (Past 12 Hours) Vital Signs Temp Pulse Resp BP Pulse Ox 12/17/20 15:34 36.4 C L 73 16 136/74 98 12/17/20 10:56 96 12/17/20 10:23 69 92/52 L Laboratory Results Laboratory Results - last 24 hr 12/16/20 12/17/20 12/17/20 20:58 07:04 07:04 WBC 5.40 RBC 4.06 L Hgb 12.3 Hct 36.8 L MCV 90.6 MCH 30.3 MCHC 33.4 RDW Std Deviation 44.5 RDW Coeff of Rafael 13.4 Plt Count 141 MPV 11.0 H Sodium 143 Potassium Chloride 110 H Carbon Dioxide 25 Anion Gap 8.0 BUN 22 H Creatinine 0.89 Est Cr Clr Drug Dosing 36.4 Est GFR ( Amer) 67.1 Est GFR (Non-Af Amer) 57.9 BUN/Creatinine Ratio 24.5 H Glucose 143 H POC Glucose 105 H Calcium 9.4 Magnesium 12/17/20 12/17/20 12/17/20 07:43 11:14 12:14 WBC RBC Hgb Hct MCV MCH MCHC RDW Std Deviation RDW Coeff of Rafael Plt Count MPV Sodium Potassium 3.8 Chloride Carbon Dioxide Anion Gap BUN Creatinine Est Cr Clr Drug Dosing Est GFR ( Amer) Est GFR (Non-Af Amer) BUN/Creatinine Ratio Glucose POC Glucose 123 H 202 H Calcium Magnesium 2.1 12/17/20 16:45 WBC RBC Hgb Hct MCV MCH MCHC RDW Std Deviation RDW Coeff of Rafael Plt Count MPV Sodium Potassium Chloride Carbon Dioxide Anion Gap BUN Creatinine Est Cr Clr Drug Dosing Est GFR ( Amer) Est GFR (Non-Af Amer) BUN/Creatinine Ratio Glucose POC Glucose 132 H Calcium Magnesium PG Care Time/CCT Total # of Minutes Spent Total Time Spent with Patient: Total time spent is greater than 50% in coordination of care (as documented) at patient's floor/unit and/or counseling patient: Coding Level of Care Code 40569 Subseq Hosp Care Lvl 2 Diagnoses Visual disturbance H53.9 Encephalopathy acute G93.40 Fall W19.XXXA Encounter type: initial encounter Rheumatoid arthritis M06.9 Weakness R53.1 Hypertension I10 Hypothyroidism E03.9 Elevated troponin R77.8 Vitamin B12 deficiency E53.8 Diabetes mellitus, new onset E11.9 Age-related physical debility R54 DVT prophylaxis Z29.9 (1) Fall Encounter type: initial encounter Qualified Code(s): W19.XXXA - Unspecified fall, initial encounter
[2020-12-17] MEDS: risperiDONE ODT 0.5 MG SOLTAB PO SCH (20:19)
[2020-12-17] MEDS: MELATONIN 3 MG TAB PO PRN (20:23)
[2020-12-18] MEDS: DICLOFENAC SOD 1% GEL 100 GM TUBE EXT SCH ×3 (06:02→20:05)
[2020-12-18] MEDS: LEVOTHYROXINE SODIUM 75 MCG TABLET PO SCH (06:02)
--- NOTE | 2020-12-18 08:16 | Hospitalist Progress Note ---
Date of Service December 18, 2020 Assessment & Plan (1) Visual disturbance: Visual hallucinations - resolved w/ risperdal 0.5mg HS. Daughter confirmed her mother had been having these hallucinations at home for some time. continue thiamine 200mg BID (2) Encephalopathy acute: Patient continues with confusion/delirium. suspect she has encephalopathy in setting of a baseline cognitive dysfunction. The risperdal has helped the delirium. Replace low B12 with IM B12 injections. Cont thiamine supplementation. MRI brain a few days ago without old or new CVA. No evidence of UTI, pneumonia, COVID or other infectious issue. (3) Fall: accidental no prodromal symptoms suspect proprioceptive deficits due to age, advanced OA and RA, etc all contribute to fall risk vitamin B12 deficiency can contribute to the proprioceptive issues and fall risk can also contribute to visual/mental status issues supplement the thiamine - thiamine def can cause neuropathy and balance issues daughter now supportive of SNF for rehab at discharge - [facility]?? (4) Rheumatoid arthritis: steroid dependent no active flare, no concern for addisons (5) Weakness: age-related physical debility continue PT, OT COVID neg no evidence of any complicating infectious process B12 def can contribute to chronic weakness - supplement as above (6) Hypertension: cont BB & OANH cont amlodipine 2.5mg BID BPs still high - may need to titrate amlodipine further (7) Hypothyroidism: TSH wnl cont synthroid w/o changes (8) Elevated troponin: doubt ACS no ACS / cardiac symptoms echo w/o wall motion abnormalities likely myocardial demand ischemia (9) Vitamin B12 deficiency: b12 injections 1000mcg daily while hospitalized then 1000mcg po daily at home supplement thiamine 200mg BID as well (10) Diabetes mellitus, new onset: a1c 7.7% pharmacy consult for insulin management DM education (11) Age-related physical debility: as above (12) DVT prophylaxis: heparin BID daughter extensively updated by phone today dispo - SNF d/c tele EKG today without QTc prolongation in setting of risperdal usage Admission and Anticipated Discharge Date Admission Date: December 15, 2020 Subjective patient resting comfortably, she offered no complaints she denied hallucinations today states she is leaving sunday and case management is projecting [facility] sunday nursing reports she continues to have a good day Review of Systems Review of Systems: Unobtainable due to cognitive status Physical Exam Physical Exam: The patient appeared calm with agitation buried beneath Vital signs as documented. Head exam is normocephalic atraumatic Neck is without JVD, thyromegaly, or carotid bruits. Lungs are clear to auscultation, no focal loss of breath sounds Cardiac exam, Rhythm is regular.. No murmurs, rubs or gallops. Abdominal exam reveals normal bowel sounds, soft non tender, no masses Extremities are nonedematous and both pedal pulses are present Neurologic exam is alert and oriented x2, no focal loss of strength or sensation Skin is without bruises or rashes Results & Data Results & Data ([facility]) Vital Signs (Past 12 Hours) Vital Signs Temp Pulse Resp BP Pulse Ox 12/18/20 00:04 97.3 F L 66 17 167/76 H 94 PG Care Time/CCT Total # of Minutes Spent Total Time Spent with Patient: Total time spent is greater than 50% in coordination of care (as documented) at patient's floor/unit and/or counseling patient: Coding Level of Care Code 87525 Subseq Hosp Care Lvl 2 Diagnoses Visual disturbance H53.9 Encephalopathy acute G93.40 Fall W19.XXXA Encounter type: initial encounter Rheumatoid arthritis M06.9 Weakness R53.1 Hypertension I10 Hypothyroidism E03.9 Elevated troponin R77.8 Vitamin B12 deficiency E53.8 Diabetes mellitus, new onset E11.9 Age-related physical debility R54 DVT prophylaxis Z29.9 (1) Fall Encounter type: initial encounter Qualified Code(s): W19.XXXA - Unspecified fall, initial encounter
[2020-12-18] MEDS: INSULIN ASPART 100 UNITS/ML 3 ML PEN SC SCH ×4 (08:54→20:44)
[2020-12-18] MEDS: MIRABEGRON ER 25 MG TAB PO SCH (08:56)
[2020-12-18] MEDS: amLODIPine BESYLATE 5 MG TAB PO SCH ×2 (08:56→20:03)
[2020-12-18] MEDS: METOPROLOL TARTRATE 50 MG TAB PO SCH ×2 (08:57→20:04)
[2020-12-18] MEDS: THIAMINE HCL 100 MG TAB PO SCH ×2 (08:57→20:05)
[2020-12-18] MEDS: SIMVASTATIN 20 MG TAB PO SCH (08:57)
[2020-12-18] MEDS: predniSONE 10 MG TABLET PO SCH (08:57)
[2020-12-18] MEDS: CYANOCOBALAMIN 1000 MCG/ML VIAL IM SCH (08:58)
[2020-12-18] MEDS: HEPARIN SOD 5,000 UNIT/0.5 ML VIAL SQ SCH ×2 (08:58→20:04)
[2020-12-18] MEDS ORDERED: INSULIN GLARGINE SOLOSTAR 100 UNITS/ML 3 ML PEN SC SCH ×2 (09:00→21:00)
[2020-12-18] MEDS: lisinopril 20 MG TAB PO SCH (09:04)
[2020-12-18] MEDS: LIDOCAINE 5% 1 PATCH TD SCH (09:05)
--- NOTE | 2020-12-18 12:46 | Pharmacy Report ---
Pharmacy Glycemic Short Note 2 - Date of Service December 18, 2020 - Glycemic Short BSG Results (Last 24 hours): 12/17/20 12/17/20 12/18/20 16:45 20:19 08:30 POC Glucose 132 H 132 H 178 H 12/18/20 12:12 POC Glucose 88 OUTPATIENT ANTIDIABETIC REGIMEN: * n/a * Pt takes prednisone 10mg PO daily chronically. * HbA1c: 7.7% (12/15/20) ASSESSMENT: 12/18: * Patient's BSGs were well controlled yesterday; however, fasting BSG was elevated at 178 mg/dL today * Increased Lantus this AM but lunch BSG dropped significantly to 88 mg/dL * Will decrease Lantus this evening back to 5 units BID * Tightened CF/CR this AM given high fasting but may have been too aggressive given lunch BSG * Will loosen with lunch 12/16: * Ms Krishna had a couple of episodes of hyperglycemia during admission (BSG >200mg/dL). This is likely due to steroid use. * Lantus and Novolog added conservatively this morning. * Do not anticipate that patient will require large doses of insulin. Will continue to adjust as required. PLAN FOR INPATIENT GLYCEMIC CONTROL: * Basal insulin * Lantus 8 units SC x 1 this AM * Lantus 5 units SC BID * Bolus insulin * NovoLog per scale ACHS or Q6hrs while NPO * Goal Range: Low 110 mg/dL - High 140 mg/dL * Correction Factor: 30 mg/dL/unit * Nutritional / Prandial insulin per carb ratio of 1 unit per 8 grams CHO consumed PLAN FOR DISCHARGE: * HbA1c: 7.7% * This A1c would indeed indicate diabetes, however, goal A1c for an 89yo patient would be ~less than 8%, so do not anticipate that pt will require the addition of any new medications. * Would recommend CDE consult to discuss important diet/lifestyle considerations.
[2020-12-18] MEDS: risperiDONE ODT 0.5 MG SOLTAB PO SCH (20:05)
[2020-12-19] MEDS: DICLOFENAC SOD 1% GEL 100 GM TUBE EXT SCH ×3 (06:25→20:31)
[2020-12-19] MEDS: LEVOTHYROXINE SODIUM 75 MCG TABLET PO SCH (06:25)
[2020-12-19] MEDS: amLODIPine BESYLATE 5 MG TAB PO SCH ×2 (09:30→20:29)
[2020-12-19] MEDS: LIDOCAINE 5% 1 PATCH TD SCH (09:30)
[2020-12-19] MEDS: HEPARIN SOD 5,000 UNIT/0.5 ML VIAL SQ SCH ×2 (09:30→20:29)
[2020-12-19] MEDS: lisinopril 20 MG TAB PO SCH (09:31)
[2020-12-19] MEDS: predniSONE 10 MG TABLET PO SCH (09:31)
[2020-12-19] MEDS: METOPROLOL TARTRATE 50 MG TAB PO SCH ×2 (09:31→20:30)
[2020-12-19] MEDS: MIRABEGRON ER 25 MG TAB PO SCH (09:31)
[2020-12-19] MEDS: INSULIN ASPART 100 UNITS/ML 3 ML PEN SC SCH ×4 (09:32→20:32)
[2020-12-19] MEDS: THIAMINE HCL 100 MG TAB PO SCH ×2 (09:32→20:31)
[2020-12-19] MEDS: SIMVASTATIN 20 MG TAB PO SCH (09:32)
--- NOTE | 2020-12-19 11:03 | Pharmacy Report ---
Pharmacy Glycemic Short Note 2 - Date of Service December 19, 2020 - Glycemic Short BSG Results (Last 24 hours): 12/18/20 12/18/20 12/18/20 12:12 16:51 20:38 POC Glucose 88 152 H 138 H 12/19/20 08:12 POC Glucose 71 OUTPATIENT ANTIDIABETIC REGIMEN: * n/a * Pt takes prednisone 10mg PO daily chronically. * HbA1c: 7.7% (12/15/20) ASSESSMENT: 12/19: * Patient's BSGs were acceptable yesterday: [id number] mg/dL * Fasting was low at 71 mg/dL today * Will hold AM Lantus dose * No change to Novolog 12/18: * Patient's BSGs were well controlled yesterday; however, fasting BSG was elev ated at 178 mg/dL today * Increased Lantus this AM but lunch BSG dropped significantly to 88 mg/dL * Will decrease Lantus this evening back to 5 units BID * Tightened CF/CR this AM given high fasting but may have been too aggressive given lunch BSG * Will loosen with lunch PLAN FOR INPATIENT GLYCEMIC CONTROL: * Basal insulin * Held AM Lantus * Resume Lantus 5 units SC BID this evening * Bolus insulin * NovoLog per scale ACHS or Q6hrs while NPO * Goal Range: Low 110 mg/dL - High 140 mg/dL * Correction Factor: 30 mg/dL/unit * Nutritional / Prandial insulin per carb ratio of 1 unit per 8 grams CHO consumed PLAN FOR DISCHARGE: * HbA1c: 7.7% * This A1c would indeed indicate diabetes, however, goal A1c for an 89yo patient would be ~less than 8%, so do not anticipate that pt will require the addition of any new medications. * Would recommend CDE consult to discuss important diet/lifestyle considerations.
--- NOTE | 2020-12-19 14:43 | Hospitalist Progress Note ---
Date of Service December 19, 2020 Assessment & Plan (1) Visual disturbance: Visual hallucinations - resolved w/ risperdal 0.5mg HS. Daughter confirmed her mother had been having these hallucinations at home for some time. continue thiamine 200mg BID (2) Encephalopathy acute: Patient continues with confusion/delirium. suspect she has encephalopathy in setting of a baseline cognitive dysfunction. The risperdal has helped the delirium. Replace low B12 with IM B12 injections. Cont thiamine supplementation. MRI brain a few days ago without old or new CVA. No evidence of UTI, pneumonia, COVID or other infectious issue. (3) Fall: accidental no prodromal symptoms suspect proprioceptive deficits due to age, advanced OA and RA, etc all contribute to fall risk vitamin B12 deficiency can contribute to the proprioceptive issues and fall risk can also contribute to visual/mental status issues supplement the thiamine - thiamine def can cause neuropathy and balance issues daughter now supportive of SNF for rehab at discharge - [facility]?? (4) Rheumatoid arthritis: steroid dependent no active flare, no concern for addisons (5) Weakness: age-related physical debility continue PT, OT COVID neg no evidence of any complicating infectious process B12 def can contribute to chronic weakness - supplement as above Cont thiamine supplementation as well (6) Hypertension: cont BB & OANH cont amlodipine but increase to 5mg BID (7) Hypothyroidism: TSH wnl cont synthroid w/o changes (8) Elevated troponin: doubt ACS no ACS / cardiac symptoms echo w/o wall motion abnormalities likely myocardial demand ischemia (9) Vitamin B12 deficiency: b12 injections 1000mcg daily while hospitalized vit B12 level 200 then 1000mcg po daily at home supplement thiamine 200mg BID as well (10) Diabetes mellitus, new onset: a1c 7.7% pharmacy consult for insulin management DM education (11) Age-related physical debility: as above (12) DVT prophylaxis: heparin BID daughter extensively updated by phone yesterday dispo - SNF EKG without QTc prolongation in setting of risperdal usage Admission and Anticipated Discharge Date Admission Date: December 15, 2020 Subjective patient resting comfortably, she offered no complaints she continues to deny hallucinations today states she is leaving Sunday and case management is projecting discharge to [facility] on Sunday nursing reports she continues to have a good day Review of Systems Review of Systems: Unobtainable due to cognitive status Physical Exam Physical Exam: The patient appeared calm with agitation buried beneath Vital signs as documented. Head exam is normocephalic atraumatic Neck is without JVD, thyromegaly, or carotid bruits. Lungs are clear to auscultation, no focal loss of breath sounds Cardiac exam, Rhythm is regular.. No murmurs, rubs or gallops. Abdominal exam reveals normal bowel sounds, soft non tender, no masses Extremities are nonedematous and both pedal pulses are present Neurologic exam is alert and oriented x2, no focal loss of strength or sensation Skin is without bruises or rashes Results & Data Results & Data ([facility]) Vital Signs (Past 12 Hours) Vital Signs Temp Pulse Resp BP Pulse Ox 12/19/20 07:53 97.3 F L 85 15 154/68 H 92 PG Care Time/CCT Total # of Minutes Spent Total Time Spent with Patient: Total time spent is greater than 50% in coordination of care (as documented) at patient's floor/unit and/or counseling patient: Coding Level of Care Code 56885 Subseq Hosp Care Lvl 2 Diagnoses Visual disturbance H53.9 Encephalopathy acute G93.40 Fall W19.XXXA Encounter type: initial encounter Rheumatoid arthritis M06.9 Weakness R53.1 Hypertension I10 Hypothyroidism E03.9 Elevated troponin R77.8 Vitamin B12 deficiency E53.8 Diabetes mellitus, new onset E11.9 Age-related physical debility R54 DVT prophylaxis Z29.9 (1) Fall Encounter type: initial encounter Qualified Code(s): W19.XXXA - Unspecified fall, initial encounter
[2020-12-19] MEDS: risperiDONE ODT 0.5 MG SOLTAB PO SCH (20:31)
[2020-12-19] MEDS: MELATONIN 3 MG TAB PO PRN (20:34)
[2020-12-20] MEDS: LEVOTHYROXINE SODIUM 75 MCG TABLET PO SCH (06:12)
[2020-12-20] MEDS: DICLOFENAC SOD 1% GEL 100 GM TUBE EXT SCH (06:12)
[2020-12-20] MEDS ORDERED: INSULIN GLARGINE SOLOSTAR 100 UNITS/ML 3 ML PEN SC SCH ×2 (09:00)
[2020-12-20] MEDS: amLODIPine BESYLATE 5 MG TAB PO SCH (09:51)
[2020-12-20] MEDS: predniSONE 10 MG TABLET PO SCH (09:52)
[2020-12-20] MEDS: METOPROLOL TARTRATE 50 MG TAB PO SCH (09:52)
[2020-12-20] MEDS: SIMVASTATIN 20 MG TAB PO SCH (09:52)
[2020-12-20] MEDS: lisinopril 20 MG TAB PO SCH (09:52)
[2020-12-20] MEDS: MIRABEGRON ER 25 MG TAB PO SCH (09:52)
[2020-12-20] MEDS: THIAMINE HCL 100 MG TAB PO SCH (09:52)
[2020-12-20] MEDS: INSULIN ASPART 100 UNITS/ML 3 ML PEN SC SCH ×2 (09:55→13:13)
[2020-12-20] MEDS: LIDOCAINE 5% 1 PATCH TD SCH (10:01)
[2020-12-20] MEDS: HEPARIN SOD 5,000 UNIT/0.5 ML VIAL SQ SCH (10:03)
--- NOTE | 2020-12-23 16:32 | Discharge Summary ---
Date of Service December 20, 2020 Admission HPI Per Admitting Provider 89-year-old female with a past medical history of hypothyroidism, rheumatoid arthritis, hypertension, hyperlipidemia, and chronic deconditioning presented to ER with daughter following a fall earlier this evening onto her right side. She reports that she did not hit her head. She is unsure how long she was on the floor, as is her daughter. Her daughter heard her yelling and went in and found her on the ground. She called EMS at that time. Patient denies dizziness, headache, chest pain, SOB, lightheadedness before she fell. She reports getting caught on her bed's blankets as she was turning down her bed. She has a walker at home, but was not using it at the time of fall. Of note, she was admitted in July for a fall and required inpatient rehab for conditioning. In the ER patient was found to be mildly tachycardic and hypertensive. She was given 1L NSS at 125cc/hr. XR of right hip, elbow, and knee were performed without evidence of acute fracture. CT Head performed without acute intracranial pathology. Labwork showed elevated troponin to 0.079, and EKG showed sinus tachycardia with ST depression in V6 and T wave inversions in Lead III. She was given Fentanyl and Zofran, and hospitalist service was consulted for admission. Principal Diagnosis Encephalopathy Discharge Exam Constitutional well developed, + thin and + frail appearing; no acute distress Neck trachea midline, no thyromegaly Respiratory normal respiratory effort, lungs clear to auscultation Cardiovascular RRR, no murmur, no edema Gastrointestinal (Abdomen) normal bowel sounds, soft, nontender, no hepatosplenomegaly Musculoskeletal Head/Neck/Chest: normocephalic, head atraumatic and neck supple Extremities: extremities normal to inspection and + abnormal strength (generalized weakness); no cyanosis, no clubbing and no petechiae Skin + turgor decreased and + dry skin Neurologic normal touch/pain/proprioception, CN's II-XI intact bilaterally, moves all extremities and awake; no focal motor deficits Psychiatric Orientation: alert, oriented to person and cooperative; + not oriented to place and + not oriented to time Discharge Data Allergies Allergy/AdvReac Type Severity Reaction Status Date / Time aloe Allergy Mild itching Verified 12/13/20 00:29 bacitracin Allergy Mild itching Verified 12/13/20 00:29 codeine Allergy Mild ITCHING Verified 12/13/20 00:29 cortisone Allergy Mild Rash Verified 12/13/20 00:29 erythromycin base Allergy Mild ITCHING Verified 12/13/20 00:29 latex Allergy Mild ITCHING Verified 12/13/20 00:29 neomycin Allergy Mild itching Verified 12/13/20 00:29 polymyxin B Allergy Mild itching Verified 12/13/20 00:29 tramadol Allergy Mild Rash Verified 12/13/20 00:29 triamcinolone Allergy Mild ITCHING Verified 12/13/20 00:29 Iodinated Contrast Media Allergy Unknown DOES NOT Verified 12/13/20 00:29 REMEMBER propranolol Allergy Unknown DOES NOT Verified 12/13/20 00:29 REMEMBER Consultations 12/13/20 02:04 ED Decision to Admit Stat Ordered Studies 12/13/20 00:26 CT head/brain wo con Urgent 12/14/20 15:52 MR brain wo con Routine Hospital Course (1) Encephalopathy acute: Patient presented with confusion/delirium. suspect she has encephalopathy in setting of a baseline cognitive dysfunction. The risperdal has helped the delirium. Replace low B12 with IM B12 injections. Cont thiamine supplementation. MRI brain a few days ago without old or new CVA. No evidence of UTI, pneumonia, COVID or other infectious issue she is calmer now, still with confusion but less agitated, less hallucinations continue on Thiamine, Risperdal 0.5mg HS (2) Visual disturbance: Visual hallucinations - resolved w/ risperdal 0.5mg HS. Daughter confirmed her mother had been having these hallucinations at home for some time. continue thiamine 200mg BID, continue Risperdal 0.5mg HS discharge to SNF rehab (3) Fall: accidental no prodromal symptoms suspect proprioceptive deficits due to age, advanced OA and RA, etc all contribute to fall risk vitamin B12 deficiency can contribute to the proprioceptive issues and fall risk can also contribute to visual/mental status issues supplement the thiamine - thiamine def can cause neuropathy and balance issues daughter now supportive of SNF for rehab at discharge - [facility] (4) Rheumatoid arthritis: steroid dependent no active flare, no concern for addisons (5) Weakness: age-related physical debility continue PT, OT COVID neg no evidence of any complicating infectious process B12 def can contribute to chronic weakness - supplement as above Cont thiamine supplementation as well (6) Hypertension: cont BB & OANH cont amlodipine but increase to 5mg BID (7) Hypothyroidism: TSH wnl cont synthroid w/o changes (8) Elevated troponin: doubt ACS no ACS / cardiac symptoms echo w/o wall motion abnormalities likely myocardial demand ischemia (9) Vitamin B12 deficiency: b12 injections 1000mcg daily while hospitalized vit B12 level 200 then 1000mcg po daily at home supplement thiamine 200mg BID as well (10) Diabetes mellitus, new onset: a1c 7.7% pharmacy consult for insulin management DM education (11) Age-related physical debility: as above (12) DVT prophylaxis: heparin BID daughter extensively updated by phone by Dr. Bruno dispo - [facility] Total Time Total Time Spent Total Time Spent (In Minutes): 31 Total Time Includes: Examination of the Patient, Discharge Planning and Medication Reconciliation Discharge Plan Discharge Items Patient Disposition: Transfer Long-Term Fac Reason For Visit: FALL, CONTUSIONS, WEAKNESS Discharge Diagnosis: Encephalopathy Hallucinations Weakness and falls Condition on Discharge: Good Goals: Risperdal for hallucinations improve strength and mobility with rehab Activity: Resume your previous activity Non-emergency contact: Primary Care Provider Call non-emergency contact if: you have any medication questions and your symptoms worsen Follow-up/Referrals: Miky Latham MD [Primary Care Provider] - (one week after discharge from rehab) Diet: Carb Consistent or DM2 Addtl Attending Provider Instructions: Medications: - THIAMINE: continue 200mg twice a day for supplementation, to help with any possible neuropathy and cognitive impairment - NORVASC: was on 5mg daily, increased to twice a day for better blood pressure control - RISPERDAL: 0.5mg at bedtime, started for hallucinations and it is helping, she has been having hallucinations for some time according to family Hallucinations, weakness, falls at home: ongoing for some time risperdal is helping with hallucinations no obvious cause for weakness (no infection, metabolic abnormalities, acute kidney injury) family agrees with rehab, will go to SNF DM type II, new diagnosis HbA1c is 7.7%, not on any medications for diabetes given her age of 89 and her propensity for weakness and falls, a goal for her would be HbA1c of < 8.0% recommend that she follow a low carbohydrate diet she is on Prednisone chronically for rheumatoid arthritis which cannot be stopped would not recommend adding any new medications at this time while here she was on Lantus 5mg BID and Novolog sliding scale Pending Studies at Discharge: No Stand-Alone Forms: My [facility] Skilled Items Patient informed of condition?: Yes DNR: No Discharge Level of Care: Skilled Communicable Disease: No Discharge Prognosis: Stable Lines: None Urinary Catheter: No Medications and DC Order Prescriptions: New amlodipine [Norvasc] 5 mg Tablet 5 mg PO BID 30 Days Qty: 60 RF: 2 risperidone 0.5 mg Tablet,Disintegrating 0.5 mg PO HS 30 Days Qty: 30 RF: 3 thiamine HCl (vitamin B1) [Vitamin B-1] 100 mg Tablet 200 mg PO BID 30 Days Qty: 120 RF: 2 Myrbetriq 25 mg Tablet Extended Release 24 Hr 25 mg PO DAILY 30 Days Qty: 30 RF: 3 Continued levothyroxine [Synthroid] 75 mcg tablet 75 mcg PO DAILY Qty: 30 RF: 0 leflunomide 10 mg tablet 10 mg PO DAILY RF: 0 prednisone 10 mg tablet 10 mg PO DAILY RF: 0 lisinopril 20 mg Tablet 20 mg PO DAILY RF: 0 simvastatin 20 mg Tablet 20 mg PO DAILY RF: 0 metoprolol tartrate 50 mg Tablet 50 mg PO BID RF: 0 Discharge Orders: Discharge Order (Routine); Ordered 12/20/20 Ordered By: Marlo Maradiaga Admission Data Admit Date/Time: 12/15/20 14:11 Attending Provider: Marlo Maradiaga Admit Provider: Roselyn Echeverria Primary Care Provider: Miky Latham Other Providers: Marty Zayas Henry[place] ; Bhupendra Sanchez Other Interventions: Discharge Summary Assessment (RN) Last Done: 12/20/20 10:43 Coding Level of Care Code D/C Day Management >30 mins Diagnoses Encephalopathy acute G93.40 Visual disturbance H53.9 Fall W19.XXXA Encounter type: initial encounter Rheumatoid arthritis M06.9 Weakness R53.1 Hypertension I10 Hypothyroidism E03.9 Elevated troponin R77.8 Vitamin B12 deficiency E53.8 Diabetes mellitus, new onset E11.9 Age-related physical debility R54 DVT prophylaxis Z29.9
== END 2020-12-20 13:43 | DRG 884 ==
LOC: 2W 23:57 → ED 23:57 → SUATTDRO 12-13 03:56 → 2W 12-13 04:34 → SUATTDRO 12-15 14:11 → 3N 12-16 19:44

== ENCOUNTER 2021-02-15 17:46 | Inpatient (IN) ==
[2021-02-15] MEDS ORDERED: ACETAMINOPHEN 1,000 MG/100 ML VIAL IV STA (18:57)
[2021-02-15] MEDS ORDERED: SODIUM CHLORIDE 0.9% 500 ML IV ONE (18:57)
--- NOTE | 2021-02-15 19:10 | Emergency Department Note ---
Impression & Plan Fall, Rheumatoid arthritis, Physical deconditioning ED Provider Note NAME: ROBBIE JENKINS AGE: 89 SEX: F : 1930 ARRIVES VIA: Walk-In INFORMANT: Patient, daughter ED PROVIDER(S): Checo Roth MD CHIEF COMPLAINT: multiple falls, ambulatory dysfx HPI: This is an 89-year-old female brought in by her daughter. The patient reports she was seen by home health rehab today. Home health was concerned that the patient had 2 falls and sent the patient to the emergency department. The patient reports that she fell on her right hip sometime last evening. She describes the pain as an aching sensation with no radiation. She reports not taking anything for the pain prior to arrival. She reports walking on the hip makes the pain worse however rest makes the pain better. The patient's daughter reports that the patient had a second fall earlier today and that the patient has a hematoma to her left anterior robbins. ROS: See above HPI for pertinent positives & negatives. A total of 10 systems reviewed and were otherwise negative. PAST MEDICAL HISTORY: See Below PAST SURGICAL HISTORY: See Below FAMILY HISTORY: See Below SOCIAL HISTORY: See Below HOME MEDICATIONS: See Below ALLERGIES: See Below VITALS: See Below PHYSICAL EXAMINATION: VITAL SIGNS - Vital signs and nursing notes were reviewed. GENERAL - 89-year-old female appearing stated age who is in no acute distress. Communicates well with provider and answers questions appropriately. SKIN - left hematoma to the robbins approx 3"x4', large contusion to Rt hip appears old approx 4"x6" HEAD - NC/AT. EYES - PERRL with EOMI bilaterally. Sclera anicteric. Palpebral conjunctiva pink and moist with no injection noted. EARS - No deformities of external structures noted on gross examination bilaterally. NOSE - Midline and without cyanosis. No epistaxis or purulent drainage noted. Septum midline without deviation or septal hematoma noted. MOUTH/OROPHARYNX - Without perioral cyanosis. Buccal mucosa pink and moist and without leukoplakia. Tongue midline with equal elevation of palate bilaterally. No tonsillar hypertrophy, erythema, or exudates noted. NECK - Neck with FROM. Supple to palpation. No nuchal rigidity. LUNGS - Chest wall symmetric without accessory muscle use, intercostals retractions, or central cyanosis. Normal vesicular breath sounds CTA B/L. No wheezes, rales, or rhonchi appreciated. CARDIAC - RRR with S1/S2. No murmur, rubs, or gallops appreciated. ABDOMEN - Abdominal contour without pulsations or visible masses. BS normoactive all four quadrants. No tenderness, palpable masses, hepatosplenomegaly, or ascites noted. EXTREMITIES - No clubbing or peripheral cyanosis. No pretibial edema present. +3/5 radial, posterior tibial, and dorsalis pedis pulses palpated throughout. +5 /5 strength noted in UE/LE bilaterally. NEUROLOGIC - Cranial nerves II through XII grossly intact. Sensory intact to light touch throughout. Patellar reflexes +2/4. PSYCH - A&Ox3 and cooperates fully with examiner. Pt is very pleasant and interacts well with examiner. MEDICAL DECISION MAKING: Patient was seen and evaluated as above in room B5. Review was performed of nursing notes and vital signs. I did review pertinent previous visits and patient history. After obtaining a thorough history and physical examination the above work up was performed. This is an 89-year-old female has had multiple falls over the past 2 days. She needed to be ambulated by 3 members of nursing staff between the bathroom as well as the bed. Patient and family are concerned that they can no longer care for the patient at home due to the multiple falls for this reason I did discuss the case with case management who recommended that the patient be admitted to the medicine service. An order was placed for continuous cardiac monitoring. The monitor shows a rate of 86 with Normal SInus rhythm. The patient was evaluated during a period of high volume and high acuity during the global COVID-19 pandemic, and that diagnosis was suspected/considered upon their initial presentation. Their evaluation, treatment and testing was consistent with current guidelines for patients who present with complaints or symptoms that may be related to COVID-19. Patient was seen while provider was wearing PPE. Triage Nursing notes reviewed. Prior medical records reviewed Vital Signs: reviewed and remarkable for no significant abnormalities Differential diagnosis: Fracture, subluxation, dislocation, contusion, ligamentous injury, neurovascular, compartment syndrome, rhabdomyolysis, as well as other pathologies. 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 Laboratory studies: As stated above and show below. Imaging studies: See below Consultation(s): Internal Medicine Past Med/Surg History Medical History DEXTER (acute kidney injury) Ambulatory dysfunction Anemia Contusion of elbow, right Contusion of hip, right Contusion of knee, left Contusion of knee, right Degenerative disc disease Dehydration Hyperkalemia Hyperlipidemia Hypertension Hypothyroidism Rheumatoid arthritis Urinary frequency Surgical History Fusion of spine LUMBAR SURGERY X 2 History of adenoidectomy History of cataract surgery RT/LEFT History of cholecystectomy History of colonoscopy History of dilatation and curettage History of discectomy CERVICAL History of open reduction and internal fixation (ORIF) procedure RT FEMUR History of tonsillectomy History of tooth extraction History of total abdominal hysterectomy and bilateral salpingo-oophorectomy Family History Mother Family history of diabetes mellitus Social History Smoking Status: Never smoker Second Hand Exposure: No; Hx Alcohol Use: No Hx Substance Use: No Preferred Language: Occitan Communication Ability: Effective [employer] Consultant Required: No Beliefs That Will Affect Care: None marital status: / Current Living Situation: Family Current Living Situation Comment: Daughter lives with her How many Children do You have: 1 Other Information That Helps Us Care for You: No Feels Safe at Home: Yes Safety Concerns: Feels Safe At This Time Assistive Devices: Walker Allergies Allergies Allergy/AdvReac Type Severity Reaction Status Date / Time aloe Allergy Mild itching Verified 12/13/20 00:29 bacitracin Allergy Mild itching Verified 12/13/20 00:29 codeine Allergy Mild ITCHING Verified 12/13/20 00:29 cortisone Allergy Mild Rash Verified 12/13/20 00:29 erythromycin base Allergy Mild ITCHING Verified 12/13/20 00:29 latex Allergy Mild ITCHING Verified 12/13/20 00:29 neomycin Allergy Mild itching Verified 12/13/20 00:29 polymyxin B Allergy Mild itching Verified 12/13/20 00:29 tramadol Allergy Mild Rash Verified 12/13/20 00:29 triamcinolone Allergy Mild ITCHING Verified 12/13/20 00:29 Iodinated Contrast Media Allergy Unknown DOES NOT Verified 12/13/20 00:29 REMEMBER propranolol Allergy Unknown DOES NOT Verified 12/13/20 00:29 REMEMBER Home Meds Home Medications Medication Instructions Recorded Confirmed leflunomide 10 mg PO DAILY 06/17/20 12/13/20 prednisone 10 mg PO DAILY 07/27/20 12/13/20 lisinopril 20 mg PO DAILY 12/13/20 12/13/20 metoprolol tartrate 50 mg PO BID 12/13/20 12/13/20 simvastatin 20 mg PO DAILY 12/13/20 12/13/20 Previous Rx's Medication Instructions Recorded levothyroxine [Synthroid] 75 mcg PO DAILY #30 tab 03/30/20 amlodipine [Norvasc] 5 mg PO BID 30 Days #60 tab 12/20/20 mirabegron [Myrbetriq] 25 mg PO DAILY 30 Days #30 tab 12/20/20 risperidone 0.5 mg PO HS 30 Days #30 tab 12/20/20 thiamine HCl (vitamin B1) [Vitamin 200 mg PO BID 30 Days #120 tab 12/20/20 B-1] Results & Data (ED) Vital Signs Vital Signs - 24 hr 02/15/21 18:29 02/15/21 18:56 Temperature 36.8 C Temperature Source Temporal Artery Scan Pulse Rate 96 H 86 Respiratory Rate 18 30 H Respiratory Effort / Characteristics Non-Labored Spontaneous Respiratory Depth Normal Respiratory Pattern Regular Blood Pressure 126/70 Blood Pressure Mean 88 Blood Pressure Position Sitting Pulse Oximetry 97 98 Oxygen Delivery Method Room Air Room Air Sepsis Recent Fever Within 48 Hours No Sepsis New/Unexplained Change in Mental Status N/A Sepsis Action Taken by Nursing No Action Required Laboratory Data Result diagrams: 02/15/21 18:59 02/15/21 18:59 Lab Results 02/15/21 02/15/21 02/15/21 Range/Units 18:59 18:59 19:13 WBC 8.99 (4.8-10.8) K/uL RBC 4.05 L (4.2-5.4) M/uL Hgb 12.6 (12.0-16.0) g/dL Hct 37.8 (37-47) % MCV 93.3 (80-100) fL MCH 31.1 (25-34) pg MCHC 33.3 (32-36) g/dL RDW Std Deviation 47.2 H (36.4-46.3) fL RDW Coeff of Rafael 13.7 (11.5-14.5) % Plt Count 159 (130-400) K/uL MPV 10.8 H (7.4-10.4) fL Immature Gran % (Auto) 0.1 % Neut % (Auto) 92.7 % Lymph % (Auto) 4.4 % Smith % (Auto) 2.7 % Eos % (Auto) 0.0 % Baso % (Auto) 0.1 % Neut # (Auto) 8.33 H (1.4-6.5) K/uL Lymph # (Auto) 0.40 L (1.2-3.4) K/uL Smith # (Auto) 0.24 (0.11-0.59) K/uL Eos # (Auto) 0.00 (0-0.5) K/uL Baso # (Auto) 0.01 (0-0.2) K/uL Immature Gran # (Auto) 0.01 (0.00-0.02) K/uL Sodium 141 (136-145) mmol/L Potassium 3.8 (3.5-5.1) mmol/L Chloride 109 H (98-107) mmol/L Carbon Dioxide 22 (21-32) mmol/L Anion Gap 10.0 (3-11) BUN 25 H (7-18) mg/dl Creatinine 1.16 (0.6-1.2) mg/dl Est Cr Clr Drug Dosing 28.8 ml/min Est GFR ( Amer) 48.7 ml/min Est GFR (Non-Af Amer) 42.0 ml/min BUN/Creatinine Ratio 21.9 H (10-20) Glucose 186 H (70-99) mg/dl Calcium 8.9 (8.5-10.1) mg/dl Total Bilirubin 1.0 (0.2-1) mg/dl AST 13 L (15-37) U/L ALT 21 (12-78) U/L Alkaline Phosphatase 61 (45-117) U/L Total Creatine Kinase 66 (26-192) U/L Troponin I 0.047 H* (0-0.045) ng/ml Total Protein 7.5 (6.4-8.2) gm/dl Albumin 4.0 (3.4-5.0) gm/dl Globulin 3.5 (2.5-4.0) gm/dl Albumin/Globulin Ratio 1.1 (0.9-2) TSH 1.300 (0.300-4.500) uIu/ml COVID-19 Eval Order Covid19 at [facility] SARS-CoV-2 (PCR) (Negative) 02/15/21 Range/Units 19:13 WBC (4.8-10.8) K/uL RBC (4.2-5.4) M/uL Hgb (12.0-16.0) g/dL Hct (37-47) % MCV (80-100) fL MCH (25-34) pg MCHC (32-36) g/dL RDW Std Deviation (36.4-46.3) fL RDW Coeff of Rafael (11.5-14.5) % Plt Count (130-400) K/uL MPV (7.4-10.4) fL Immature Gran % (Auto) % Neut % (Auto) % Lymph % (Auto) % Smith % (Auto) % Eos % (Auto) % Baso % (Auto) % Neut # (Auto) (1.4-6.5) K/uL Lymph # (Auto) (1.2-3.4) K/uL Smith # (Auto) (0.11-0.59) K/uL Eos # (Auto) (0-0.5) K/uL Baso # (Auto) (0-0.2) K/uL Immature Gran # (Auto) (0.00-0.02) K/uL Sodium (136-145) mmol/L Potassium (3.5-5.1) mmol/L Chloride (98-107) mmol/L Carbon Dioxide (21-32) mmol/L Anion Gap (3-11) BUN (7-18) mg/dl Creatinine (0.6-1.2) mg/dl Est Cr Clr Drug Dosing ml/min Est GFR ( Amer) ml/min Est GFR (Non-Af Amer) ml/min BUN/Creatinine Ratio (10-20) Glucose (70-99) mg/dl Calcium (8.5-10.1) mg/dl Total Bilirubin (0.2-1) mg/dl AST (15-37) U/L ALT (12-78) U/L Alkaline Phosphatase (45-117) U/L Total Creatine Kinase (26-192) U/L Troponin I (0-0.045) ng/ml Total Protein (6.4-8.2) gm/dl Albumin (3.4-5.0) gm/dl Globulin (2.5-4.0) gm/dl Albumin/Globulin Ratio (0.9-2) TSH (0.300-4.500) uIu/ml COVID-19 Eval Order SARS-CoV-2 (PCR) NEGATIVE (Negative) Administered Medications Amlodipine Besylate (Amlodipine Besylate 5 Mg Tab) 5 mg PO BID [facility] Stop: 03/18/21 08:59 Last Admin: 02/16/21 21:07 Dose: 5 mg Documented by: [id number] Admin: 02/16/21 10:02 Dose: 5 mg Documented by: [id number] Enoxaparin Sodium (Enoxaparin Inj 30 Mg/0.3 Ml Syr) 30 mg SQ Q24H UMER Stop: 03/18/21 08:59 Last Admin: 02/16/21 10:05 Dose: 30 mg Documented by: [id number] Leflunomide (Leflunomide 10 Mg Tab) 10 mg PO DAILY [facility] Stop: 03/18/21 08:59 Last Admin: 02/16/21 10:03 Dose: 10 mg Documented by: [id number] Levothyroxine Sodium (Levothyroxine Sodium 75 Mcg Tablet) 75 mcg PO DAILYBB [facility] Stop: 03/18/21 06:29 Last Admin: 02/16/21 05:46 Dose: 75 mcg Documented by: [id number] Lisinopril (Lisinopril 20 Mg Tab) 20 mg PO DAILY [facility] Stop: 03/18/21 08:59 Last Admin: 02/16/21 10:02 Dose: 20 mg Documented by: [id number] Metoprolol Tartrate (Metoprolol Tartrate 50 Mg Tab) 50 mg PO BID [facility] Stop: 03/18/21 08:59 Last Admin: 02/16/21 21:08 Dose: 50 mg Documented by: [id number] Admin: 02/16/21 10:04 Dose: 50 mg Documented by: [id number] Mirabegron (Mirabegron Er 25 Mg Tab) 25 mg PO DAILY [facility] Stop: 03/18/21 08:59 Last Admin: 02/16/21 10:04 Dose: 25 mg Documented by: [id number] Multivitamins (Multivitamin Tab) 1 tab PO QAM [facility] Stop: 03/18/21 08:59 Last Admin: 02/16/21 10:04 Dose: 1 tab Documented by: [id number] Prednisone (Prednisone 10 Mg Tablet) 10 mg PO DAILY [facility] Stop: 03/18/21 08:59 Last Admin: 02/16/21 10:03 Dose: 10 mg Documented by: [id number] Risperidone (Risperidone Odt 0.5 Mg Soltab) 0.5 mg PO HS [facility] Stop: 03/18/21 20:59 Last Admin: 02/16/21 21:08 Dose: 0.5 mg Documented by: [id number] Simvastatin (Simvastatin 20 Mg Tab) 20 mg PO DAILY [facility] Stop: 03/18/21 08:59 Last Admin: 02/16/21 10:03 Dose: 20 mg Documented by: [id number] Thiamine HCl (Thiamine Hcl 100 Mg Tab) 200 mg PO BID [facility] Stop: 03/18/21 08:59 Last Admin: 02/16/21 21:08 Dose: 200 mg Documented by: [id number] Admin: 02/16/21 10:04 Dose: 200 mg Documented by: [id number] Discontinued Medications Sodium Chloride (Nss) 500 mls @ 999 mls/hr IV .Q31M ONE Stop: 02/15/21 19:27 Last Infusion: 02/15/21 19:54 Dose: 0 mls/hr Documented by: [id number] Admin: 02/15/21 19:10 Dose: 999 mls/hr Documented by: [id number] Acetaminophen (Ofirmev) 1,000 mg in 100 mls @ 400 mls/hr IV NOW STA Stop: 02/15/21 19:11 Last Infusion: 02/15/21 19:26 Dose: 0 mls/hr Documented by: [id number] Admin: 02/15/21 19:10 Dose: 400 mls/hr Documented by: [id number] Discharge Plan Visit Data Chief Complaint: Fall Stated Complaint: FALL, HIP PAIN ED Provider: Checo Roth Discharge Problem: Fall, Rheumatoid arthritis, Physical deconditioning Patient Disposition: Admitted As Inpatient Discharge Instructions Interventions: ED Discharge Assessment Last Done: 07/06/21 22:46 Discharge Problem: Fall Qualifiers: Encounter type: initial encounter Qualified Code(s): W19.XXXA - Unspecified fall, initial encounter Rheumatoid arthritis Qualifiers: Rheumatoid arthritis location: unspecified site Rheumatoid factor presence: unspecified presence Qualified Code(s): M06.9 - Rheumatoid arthritis, unspecified
[2021-02-15 19:14] LABS: Basophils # (auto) 0.01 K/uL (0-0.2); Basophils % (auto) 0.1 %; Hematocrit (blood only) 37.8 % (37-47); Hemoglobin 12.6 g/dL (12.0-16.0); Immature Granulocytes # (auto) 0.01 K/uL (0.00-0.02); Immature Granulocytes % (auto) 0.1 %; Lymphocytes % (auto) 4.4 %; Mean Corpuscular Hemoglobin 31.1 pg (25-34); Mean Corpuscular Hgb Conc 33.3 g/dL (32-36); Mean Corpuscular Volume 93.3 fL (80-100); Mean Platelet Volume 10.8 fL (7.4-10.4); Monocytes # (auto) 0.24 K/uL (0.11-0.59); Monocytes % (auto) 2.7 %; Neutrophils # (auto) 8.33 K/uL (1.4-6.5); Neutrophils % (auto) 92.7 %; Platelet Count 159 K/uL (130-400); RDW Coefficient of Variation 13.7 % (11.5-14.5); RDW Standard Deviation 47.2 fL (36.4-46.3); Red Blood Count 4.05 M/uL (4.2-5.4); White Blood Count 8.99 K/uL (4.8-10.8)
[2021-02-15 19:32] LABS: BUN Creatinine Ratio 21.9 (10-20); Calcium 8.9 mg/dl (8.5-10.1); Creatinine Clr Calc Pharmacy 28.8 ml/min; Est GFR (African American) 48.7 ml/min; Potassium 3.8 mmol/L (3.5-5.1)
[2021-02-15 19:46] LABS: Albumin Globulin Ratio 1.1 (0.9-2); Globulin 3.5 gm/dl (2.5-4.0); Thyroid Stimulating Hormone 1.3 uIu/ml (0.300-4.500); Total Protein 7.5 gm/dl (6.4-8.2); Troponin I 0.047 ng/ml (0-0.045)
--- NOTE | 2021-02-15 20:24 | CT Scan Report ---
CT SCAN OF THE BRAIN WITHOUT IV CONTRAST CLINICAL HISTORY: Falls. COMPARISON STUDY: CT of the brain dated 12/13/2020. TECHNIQUE: Unenhanced axial CT scan of the brain is performed from the vertex to the skull base. A do se lowering technique was utilized adhering to the principles of ALARA. CT DOSE: 537.48 mGy.cm FINDINGS: Brain parenchyma: There are age-related involutional changes noting advanced confluent subcortical a nd periventricular microangiopathic change. There is no hemorrhage, mass effect, or evidence of acute territorial ischemia by CT criteria. Lopez-white matter differentiation is preserved. No extra-axial fluid collection is seen. Ventricles, sulci, cisterns: Prominent secondary to involutional change. Intracranial vasculature: There is atherosclerotic calcification of the cavernous carotid and vertebr al arteries. Calvarium: The skeletal structures are osteopenic. No depressed calvarial fracture is identified. Sinuses and mastoids: Trace mucosal thickening is seen within the maxillary antra. The remaining para nasal sinuses are clear. The mastoid air cells are well pneumatized. Orbits: The bony orbits are grossly intact. There are bilateral ocular lens implants. IMPRESSION: There is no hemorrhage, mass effect, or evidence of acute territorial ischemia by CT vinicius disla. ACT 112: Negative or not required by law. Electronically signed by: Jose Luis Jauregui M.D. 02/15/2021 8:22 PM
--- NOTE | 2021-02-15 21:06 | XRay Report ---
SINGLE VIEW CHEST CLINICAL HISTORY: Generalized weakness. FINDINGS: 2 AP, portable, upright chest radiographs are compared to study dated 12/13/2020. The heart i s top normal in size noting atherosclerotic calcification of the thoracic aorta. The pulmonary vascul ature is noncongested. Chronic interstitial thickening is similar to previous. There is mild bibasila r scarring/atelectasis. A hiatal hernia is noted. No airspace consolidation or large pleural effusion is identified. No pneumothorax is seen. The skeletal structures are osteopenic. The bony thorax is g rossly intact. Fusion hardware is noted in the lower cervical spine. Surgical clips are noted in the upper abdomen. IMPRESSION: 1. No active disease in the chest. 2. Hiatal hernia. ACT 112: Negative or not required by law. Electronically signed by: Jose Luis Jauregui M.D. 02/15/2021 9:04 PM
--- NOTE | 2021-02-15 21:13 | XRay Report ---
LEFT TIBIA AND FIBULA 2 VIEWS CLINICAL HISTORY: Fall with left leg injury. FINDINGS: AP and lateral views of the left tibia and fibula are compared to study dated 07/27/2020. T he skeletal structures are osteopenic. There is no radiographic evidence of left tibial or fibular fr acture. The knee and ankle joints are grossly maintained. There is mild pretibial soft tissue edema. Atherosclerotic calcification is noted in the regional arteries. There is a large dorsal calcaneal en thesophyte. IMPRESSION: Pretibial soft tissue swelling with no fracture identified. Electronically signed by: Jose Luis Jauregui M.D. 02/15/2021 9:12 PM
--- NOTE | 2021-02-15 21:17 | XRay Report ---
SINGLE VIEW PELVIS; 3 VIEWS RIGHT FEMUR CLINICAL HISTORY: Fall with right leg pain. FINDINGS: An AP view of the pelvis with AP, frog-leg, and crosstable lateral views of the right femur are correlated with radiographs of the right hip dated 12/13/2020 and radiographs of the right femur d ated 11/10/2014. The skeletal structures are osteopenic. There is no radiographic evidence of acute fr acture involving the hips or bony pelvis. There is no radiographic evidence of acute right femoral fr acture. There is chronic posttraumatic deformity of the distal femur status post buttress plate fixat ion. The orthopedic hardware appears intact. Mild to moderate degenerative joint space narrowing is p resent in the hips. Advanced arthritic change is noted in the partially imaged right knee joint. The overlying soft tissues are normal as visualized. Advanced degenerative and postoperative change is pa rtially visualized in the lumbar spine. There is no evidence of bowel obstruction. IMPRESSION: 1. There is no radiographic evidence of acute fracture involving the hips or bony pelvis. 2. There is no radiographic evidence of acute right femoral fracture. 3. Osteopenia with chronic posttraumatic, degenerative, and postoperative changes as above. Electronically signed by: Jose Luis Jauregui M.D. 02/15/2021 9:15 PM
--- NOTE | 2021-02-15 22:11 | History & Physical Report ---
Date of Service February 15, 2021 Assessment & Plan (1) Age-related physical debility: 89 yo F Hx hypothyroidism, RA on chronic steroid therapy, HTN, frequent falls admitted for physical deconditioning/debility likely requiring SNF placement. Physical deconditioning: - Recently admitted 12/2020 for falls related to weakness, improved with PT/OT and patient was at SNF for several weeks. - Again with fall x2 today with weakness of her legs. - No acute fractures, pathologies on imaging performed today. - No labwork that would suggest metabolic cause of falls. Hx of symptomatic anemia in the past, no blood loss this visit and Hgb normal. - PT/OT/Case Management orders placed; patient will likely require SNF on discharge. - Daily multivitamin given frailty and BMI. Elevated troponin: - Troponin 0.047 in ER; no changes on EKG and no complaints of chest pain. - History of elevated troponins on previous admissions. - Will not trend given no concern of [place] at this time. Hypothyroidism: - Continue home levothyroxine. HTN, HLD: - Continue home amlodipine, lisinopril, simvastatin. RA: - Continue home prednisone, leflunomide. Code Status: FULL CODE; long conversation had with patient and her daughter. Patient elects to be full code. She understands that due to her age and comorbidities, resuscitation efforts would likely be unsuccessful, however she would like to "try for her granddaughter" if her heart stops or she requires intubation. FEN: Regular DVT ppx: Lovenox Dispo: Med/Surg (2) Elevated glucose: (3) Physical deconditioning: (4) Hypothyroidism: (5) Hypertension: (6) Rheumatoid arthritis: History of Present Illness Chief Complaint: falls, weakness Primary Care Provider: Miky Latham MD 89 yo F presented to ER with daughter for complaints of LE weakness / "locking up" causing fall x2 today at home. She was using her walker during these falls. She does not endorse hitting her head with falls. She did not feel dizzy or lightheaded prior to the falls. No complaints of chest pain, SOB, recent fevers or chills, nausea or vomiting, diarrhea, urinary symptoms. She was admitted as recently as 12/2020 for weakness and deconditioning leading to falls, after which she went to SNF. She was discharged home about a month ago from SNF. Daughter admits that it takes a village to take care of her mother, and she is very stubborn about wanting to be home. In the ER patient had imaging including CT head, XR chest, hip/pelvis, left leg without acute pathology/fracture. Labwork largely normal save for troponin 0.047; history of elevated troponins on other admissions and no complaints of CP or anginal equivalents. Patient and patient's daughter admit that she may need to go back to SNF for PT/OT. Allergies Allergy/AdvReac Type Severity Reaction Status Date / Time aloe Allergy Mild itching Verified 12/13/20 00:29 bacitracin Allergy Mild itching Verified 12/13/20 00:29 codeine Allergy Mild ITCHING Verified 12/13/20 00:29 cortisone Allergy Mild Rash Verified 12/13/20 00:29 erythromycin base Allergy Mild ITCHING Verified 12/13/20 00:29 latex Allergy Mild ITCHING Verified 12/13/20 00:29 neomycin Allergy Mild itching Verified 12/13/20 00:29 polymyxin B Allergy Mild itching Verified 12/13/20 00:29 tramadol Allergy Mild Rash Verified 12/13/20 00:29 triamcinolone Allergy Mild ITCHING Verified 12/13/20 00:29 Iodinated Contrast Media Allergy Unknown DOES NOT Verified 12/13/20 00:29 REMEMBER propranolol Allergy Unknown DOES NOT Verified 12/13/20 00:29 REMEMBER Home Medications Medication Instructions Recorded Confirmed Type levothyroxine [Synthroid] 75 mcg PO DAILY #30 tab 03/30/20 12/13/20 Rx leflunomide 10 mg PO DAILY 06/17/20 12/13/20 History prednisone 10 mg PO DAILY 07/27/20 12/13/20 History lisinopril 20 mg PO DAILY 12/13/20 12/13/20 History metoprolol tartrate 50 mg PO BID 12/13/20 12/13/20 History simvastatin 20 mg PO DAILY 12/13/20 12/13/20 History amlodipine [Norvasc] 5 mg PO BID 30 Days #60 tab 12/20/20 Rx mirabegron [Myrbetriq] 25 mg PO DAILY 30 Days #30 tab 12/20/20 Rx risperidone 0.5 mg PO HS 30 Days #30 tab 12/20/20 Rx thiamine HCl (vitamin B1) [Vitamin 200 mg PO BID 30 Days #120 tab 12/20/20 Rx B-1] Past Med/Surg History Medical History DEXTER (acute kidney injury) Ambulatory dysfunction Anemia Contusion of elbow, right Contusion of hip, right Contusion of knee, left Contusion of knee, right Degenerative disc disease Dehydration Hyperkalemia Hyperlipidemia Hypertension Hypothyroidism Rheumatoid arthritis Urinary frequency Surgical History Fusion of spine LUMBAR SURGERY X 2 History of adenoidectomy History of cataract surgery RT/LEFT History of cholecystectomy History of colonoscopy History of dilatation and curettage History of discectomy CERVICAL History of open reduction and internal fixation (ORIF) procedure RT FEMUR History of tonsillectomy History of tooth extraction History of total abdominal hysterectomy and bilateral salpingo-oophorectomy Family History Mother Family history of diabetes mellitus Social History Smoking Status: Never smoker Second Hand Exposure: No; Hx Alcohol Use: No Hx Substance Use: No Preferred Language: Setswana Communication Ability: Effective Feed House Supervisor Required: No Beliefs That Will Affect Care: None marital status: / Current Living Situation: Family Current Living Situation Comment: Daughter lives with her How many Children do You have: 1 Other Information That Helps Us Care for You: No Feels Safe at Home: Yes Safety Concerns: Feels Safe At This Time Assistive Devices: Walker Review of Systems Review of Systems: All systems reviewed & are unremarkable except as noted in HPI & below Constitutional: no fever, no chills and no malaise Respiratory: no cough and no dyspnea Cardiovascular: no chest pain, no palpitations and no edema Gastrointestinal: no abdominal pain, no constipation and no diarrhea/loose stools Genitourinary: no dysuria and no hematuria Physical Exam Constitutional: WD/WN, vitals as above Eyes: PERRL, conjunctivae normal, anicteric sclerae ENMT: external ear and nose normal, oropharynx normal Neck: normal visual inspection Respiratory: normal respiratory effort, lungs clear to auscultation Cardiovascular: RRR, no murmur, no edema Gastrointestinal (Abdomen): normal bowel sounds, soft, nontender, no hepatosplenomegaly Skin: no rashes, warm and dry Neurologic: No focal neurologic deficits Psychiatric: A+Ox3, euthymic affect Results & Data Results & Data ([facility]) Vital Signs (Past 12 Hours) Vital Signs Temp Pulse Pulse Resp BP BP Pulse Ox 02/15/21 21:03 86 18 139/70 97 02/15/21 19:00 87 18 145/72 H 02/15/21 18:56 86 30 H 98 02/15/21 18:29 36.8 C 96 H 18 126/70 97 Supervising Physician Co-Signing Physician Notes Patient seen and examined, chart reviewed, case discussed with Dr. Echeverria and I agree with her assessment and plan as above. Briefly, patient is an 89yo female with history of HTN, RA on steroids and frequent falls presenting after a fall at home - secondary to weakness in legs, "giving out". No additional complaints at this time. On physical exam patient is afebrile, HD stable, NAD Skin - intact HEENT - NC/AT, PERRL, EOMI, Neck supple, some draining noted in left eye Hear t- +S1/S2, regular, no m/r/g Lungs - CTA Abd- +BS, soft, NT/ND Ext - No edema Labs and images reviewed Assessment/Plan -PT/OT evaluation appreciated -Case management - patient will most likely need placement -Elevated troponin as discussed above - patient with history of the same. No chest discomfort or EKG evidence of ischemia -Remainder of plan as above Resident Activity Tracking Resident Involvement: Resident Care Provided Care Provided: Adult [facility] Medicine
[2021-02-15] MEDS ORDERED: ACETAMINOPHEN 325 MG TAB PO PRN (23:20)
[2021-02-15] MEDS ORDERED: ONDANSETRON INJ 2 MG/ML 2 ML VIAL IV PRN (23:20)
[2021-02-16 02:17] LABS: Appearance Urine Clear (Clear); Bacteria Urine Automated Negative (Negative); Bilirubin Urine Negative (Negative); Blood Urine Negative (Negative); Color Urine Yellow; Epithelial Cell Urine Auto 20-30 /lpf (0-5); Glucose Urine UA Negative (Negative); Ketones Urine Negative (Negative); Leukocyte Esterase Urine Trace (Negative); Nitrite Urine Negative (Negative); Protein Urine Negative (Negative); RBC Urine Automated 0-4 /hpf (0-4); Specific Gravity Urine 1.009 (1.000-1.030); Urobilinogen Urine Negative (Negative)
[2021-02-16] MEDS: LEVOTHYROXINE SODIUM 75 MCG TABLET PO SCH (05:46)
--- NOTE | 2021-02-16 08:00 | Hospitalist Progress Note ---
Date of Service February 16, 2021 Assessment & Plan (1) Age-related physical debility: 89 yo F Hx hypothyroidism, RA on chronic steroid therapy, HTN, frequent falls admitted for physical deconditioning/debility likely requiring SNF placement. Physical deconditioning: - Recently admitted 12/2020 for falls related to weakness, improved with PT/OT and patient was at SNF for several weeks. - Again with fall x2 today with weakness of her legs. - No acute fractures, pathologies on imaging performed today. - No labwork that would suggest metabolic cause of falls. Hx of symptomatic anemia in the past, no blood loss this visit and Hgb normal. - PT/OT/Case Management orders placed; patient will likely require SNF on discharge. - Daily multivitamin given frailty and BMI. - QID boost supplementation added to meals for increased caloric intake. ideal body weight: 55.68 kgs, current weight 51.6 kg. Elevated troponin: - Troponin 0.047 in ER; no changes on EKG and no complaints of chest pain. - History of elevated troponins on previous admissions. - Will not trend given no concern of [place] at this time. Hypothyroidism: - Continue home levothyroxine. HTN, HLD: - Continue home amlodipine, lisinopril, simvastatin. RA: - Continue home prednisone, leflunomide. Code Status: FULL CODE; long conversation had with patient and her daughter. Patient elects to be full code. She understands that due to her age and comorbidities, resuscitation efforts would likely be unsuccessful, however she would like to "try for her granddaughter" if her heart stops or she requires intubation. FEN: Regular DVT ppx: Lovenox Dispo: Med/Surg; rehab vs snf pending PT and authorization (2) Elevated glucose: (3) Physical deconditioning: (4) Hypothyroidism: (5) Hypertension: (6) Rheumatoid arthritis: Admission and Anticipated Discharge Date Admission Date: February 15, 2021 Supervising Physician Co-Signing Physician Notes I personally examined the patient and verified all rios points of history and exam, discussed case, and agree with decision making with Dr Westfall No complaints. Visiting with her motel keeper when I see her. Awaiting placement. Vitals noted, in general she is awake and alert pleasant no distress. HEENT normocephalic atraumatic mucous membranes moist. Breathing unlabored no accessory muscle use good effort. Skin shows no rashes no pallor or icterus. Neuro without focal deficits. Weakness/deconditioningwithout any clear medical underlying exacerbating factorPT/OT eval and treat, anticipate SNF. Otherwise as above Subjective pleasant 89 yo F admitted overnight for multiple falls at home. Recently admitted for muscular decompensation, sent to rehab, improved and went home. states that she felt strong at home but could feel her legs getting weaker and weaker. Denies any unilateral weakness/numbness/pain. Denies dizziness/lightheaded. Review of Systems Constitutional: no fever, no chills, no sweats and no fatigue Respiratory: no cough and no dyspnea Cardiovascular: no chest pain, no dyspnea on exertion and no edema Gastrointestinal: no abdominal pain, no nausea and no vomiting Musculoskeletal: no myalgia Neurologic: + falls and + generalized weakness; no gait abnormality, no unsteadiness, no tingling, no numbness and no headache(s) Endocrine: no fatigue Physical Exam Physical Exam: Constitutional: elderly,, in no apparent distress, laying comfortably in bed. Eyes: EOMI, pupils equal and reactive bilaterally, no scleral icterus Cardiac: RRR, no murmurs, gallops or rubs. Normal S1, S2 Pulm: CTA BL, no wheezes, rhonchi, crackles or rubs, moving air well throughout both lungs Abd: soft, nontender, nondistended, normal bowel sounds, no rebound or guarding Extremities: 2+ peripheral pulses, no edema Neuro: no focal deficits, moving all 4 limbs, A&Ox3 Results & Data Results & Data ([facility]) Vital Signs (Past 12 Hours) Vital Signs Temp Pulse Resp BP BP Pulse Ox 02/15/21 23:36 152/70 H 02/15/21 23:21 36.6 C 79 17 189/75 H 98 02/15/21 22:41 88 18 139/85 96 02/15/21 22:00 88 18 166/82 H 98 02/15/21 21:03 86 18 139/70 97
[2021-02-16] MEDS: lisinopril 20 MG TAB PO SCH (10:02)
[2021-02-16] MEDS: amLODIPine BESYLATE 5 MG TAB PO SCH ×2 (10:02→21:07)
[2021-02-16] MEDS: LEFLUNOMIDE 10 MG TAB PO SCH (10:03)
[2021-02-16] MEDS: SIMVASTATIN 20 MG TAB PO SCH (10:03)
[2021-02-16] MEDS: predniSONE 10 MG TABLET PO SCH (10:03)
[2021-02-16] MEDS: METOPROLOL TARTRATE 50 MG TAB PO SCH ×2 (10:04→21:08)
[2021-02-16] MEDS: MIRABEGRON ER 25 MG TAB PO SCH (10:04)
[2021-02-16] MEDS: THIAMINE HCL 100 MG TAB PO SCH ×2 (10:04→21:08)
[2021-02-16] MEDS: MULTIVITAMIN TAB PO SCH (10:04)
[2021-02-16] MEDS: ENOXAPARIN INJ 30 MG/0.3 ML SYR SQ SCH (10:05)
--- NOTE | 2021-02-16 17:07 | Billing Data ---
Date of Service February 16, 2021 Coding Level of Care Code 14141 Subseq Hosp Care Lvl 1
[2021-02-16] MEDS: risperiDONE ODT 0.5 MG SOLTAB PO SCH (21:08)
--- NOTE | 2021-02-17 00:07 | Billing Data ---
Date of Service February 15, 2021 Coding Level of Care Code 59528 Initial Inpt Care Lvl 2
[2021-02-17] MEDS: LEVOTHYROXINE SODIUM 75 MCG TABLET PO SCH (05:34)
--- NOTE | 2021-02-17 06:04 | Electrocardiogram Report ---
Test Reason : Blood Pressure : / mmHG Vent. Rate : 086 BPM Atrial Rate : 086 BPM P-R Int : 152 ms QRS Dur : 096 ms QT Int : 366 ms P-R-T Axes : 079 -08 060 degrees QTc Int : 437 ms Poor data quality, interpretation may be adversely affected Sinus rhythm with Premature atrial complexes Left ventricular hypertrophy with repolarization abnormality Cannot rule out Septal infarct (cited on or before 27-MAR-2020) Abnormal ECG When compared with ECG of 16-DEC-2020 17:11, Premature atrial complexes are now Present Questionable change in initial forces of Anteroseptal leads ST no longer elevated in Anterior leads Nonspecific T wave abnormality now evident in Lateral leads Confirmed by Baljinder Eckert ([id number]) on 02/17/2021 6:04:28 AM Referred By: REFERRED SELF Confirmed By:Baljinder Eckert
[2021-02-17] MEDS: MIRABEGRON ER 25 MG TAB PO SCH (07:49)
[2021-02-17] MEDS: predniSONE 10 MG TABLET PO SCH (07:49)
[2021-02-17] MEDS: SIMVASTATIN 20 MG TAB PO SCH (07:49)
[2021-02-17] MEDS: METOPROLOL TARTRATE 50 MG TAB PO SCH ×2 (07:50→21:41)
[2021-02-17] MEDS: THIAMINE HCL 100 MG TAB PO SCH ×2 (07:50→21:42)
[2021-02-17] MEDS: amLODIPine BESYLATE 5 MG TAB PO SCH ×2 (07:50→21:39)
[2021-02-17] MEDS: LEFLUNOMIDE 10 MG TAB PO SCH (07:51)
[2021-02-17] MEDS: MULTIVITAMIN TAB PO SCH (07:51)
[2021-02-17] MEDS: lisinopril 20 MG TAB PO SCH (07:51)
[2021-02-17] MEDS: ENOXAPARIN INJ 30 MG/0.3 ML SYR SQ SCH (07:52)
[2021-02-17] MEDS ORDERED: GLUCOSE 40% GEL 15 GM TUBE PO PRN (09:24)
[2021-02-17] MEDS ORDERED: GLUCAGON FOR INJ 1 MG VIAL SQ PRN (09:24)
[2021-02-17] MEDS ORDERED: DEXTROSE 50% 50 ML SYRINGE IV PRN (09:24)
[2021-02-17] MEDS ORDERED: CARBOHYDRATES FOR HYPOGLYCEMIA PO PRN (09:24)
[2021-02-17] MEDS ORDERED: GLUCOSE 10 TABS/TUBE PO PRN (09:24)
--- NOTE | 2021-02-17 09:24 | Hospitalist Progress Note ---
Date of Service February 17, 2021 Assessment & Plan (1) Age-related physical debility: 89 yo F Hx hypothyroidism, RA on chronic steroid therapy, HTN, frequent falls admitted for physical deconditioning/debility likely requiring SNF placement. Physical deconditioning: - Recently admitted 12/2020 for falls related to weakness, improved with PT/OT and patient was at SNF for several weeks. - Again with fall x2 today with weakness of her legs. - No acute fractures, pathologies on imaging performed today. - No labwork that would suggest metabolic cause of falls. Hx of symptomatic anemia in the past, no blood loss this visit and Hgb normal. - PT/OT/Case Management orders placed; patient will likely require SNF on discharge. - Daily multivitamin given frailty and BMI. - QID boost supplementation added to meals for increased caloric intake. ideal body weight: 55.68 kgs, current weight 51.6 kg. Hospital Induced Delirium - window side bed to help with surrounding stabilization - blinds up in AM, closed at sunset - frequent re-orientation Elevated troponin: - Troponin 0.047 in ER; no changes on EKG and no complaints of chest pain. - History of elevated troponins on previous admissions. - Will not trend given no concern of [place] at this time. Hypothyroidism: - Continue home levothyroxine. HTN, HLD: - Continue home amlodipine, lisinopril, simvastatin. RA: - Continue home prednisone, leflunomide. Code Status: FULL CODE; FEN: carb control DVT ppx: Lovenox Dispo: Med/Surg; rehab recommending rehab, pending authorization (2) Elevated glucose: (3) Physical deconditioning: (4) Hypothyroidism: (5) Hypertension: (6) Rheumatoid arthritis: Admission and Anticipated Discharge Date Admission Date: February 15, 2021 Supervising Physician Co-Signing Physician Notes I personally examined the patient and verified all rios points of history and exam, discussed case, and agree with decision making with Dr Westfall No acute complaints. Apparently was a bit delirious overnight, but doing better now. Vitals noted, in general she is awake and alert pleasant no distress. HEENT normocephalic atraumatic mucous membranes moist. Breathing unlabored no accessory muscle use good effort. Skin shows no rashes no pallor or icterus. Neuro without focal deficits. Weakness/deconditioningwhile highly likely predominantly deconditioning, on further review she did have a low B12 level a few months agowhich may be contributory (although not entirely causative)supplement B12 IM for now and n.p.o. after discharge, follow-up after dischargePT/OT eval and treat, anticipate SNF. Otherwise as above Subjective doing well this morning. has been trying to walk with nursing using walker. enjoying the boost supplements. states that overnight she did have 2 episodes of hallucinations where she was looking down on the room as if she was floating above it, even though she knew she was sitting. She states she has a history of these during previous hospitalizations and is quite perturbed by them. discussed hospital delirium and that being most likely source. Review of Systems Review of Systems: All systems reviewed & are unremarkable except as noted in Subjective Physical Exam Physical Exam: Constitutional: elderly,, in no apparent distress,sitting in chair at bedside Eyes: EOMI, pupils equal and reactive bilaterally, no scleral icterus Cardiac: RRR, no murmurs, gallops or rubs. Normal S1, S2 Pulm: CTA BL, no wheezes, rhonchi, crackles or rubs, moving air well throughout both lungs Abd: soft, nontender, nondistended, normal bowel sounds, no rebound or guarding Extremities: 2+ peripheral pulses, no edema Neuro: no focal deficits, moving all 4 limbs, A&Ox3 Results & Data Results & Data ([facility]) Vital Signs (Past 12 Hours) Vital Signs Temp Pulse Resp BP BP Pulse Ox 02/17/21 07:58 36.5 C 75 20 187/79 H 97 02/16/21 22:35 36.7 C 64 16 124/63 97 Resident Activity Tracking Resident Involvement: Resident Care Provided Care Provided: Adult Hospital Medicine (1) Rheumatoid arthritis Rheumatoid arthritis location: unspecified site Rheumatoid factor presence: unspecified presence Qualified Code(s): M06.9 - Rheumatoid arthritis, unspecified
[2021-02-17] MEDS: INSULIN ASPART 100 UNITS/ML 3 ML PEN SC SCH ×3 (13:01→21:01)
[2021-02-17] MEDS: CYANOCOBALAMIN 1000 MCG/ML VIAL IM SCH (13:03)
--- NOTE | 2021-02-17 19:08 | Billing Data ---
Date of Service February 17, 2021 Coding Level of Care Code 85950 Subseq Hosp Care Lvl 2
[2021-02-17] MEDS: risperiDONE ODT 0.5 MG SOLTAB PO SCH (21:42)
[2021-02-18] MEDS: LEVOTHYROXINE SODIUM 75 MCG TABLET PO SCH (05:46)
--- NOTE | 2021-02-18 08:43 | Hospitalist Progress Note ---
Date of Service February 18, 2021 Assessment & Plan (1) Age-related physical debility: 89 yo F Hx hypothyroidism, RA on chronic steroid therapy, HTN, frequent falls admitted for physical deconditioning/debility likely requiring SNF placement. Physical deconditioning: - Recently admitted 12/2020 for falls related to weakness, improved with PT/OT and patient was at SNF for several weeks. - Again with fall x2 today with weakness of her legs. - No acute fractures, pathologies on imaging performed today. - No labwork that would suggest metabolic cause of falls. Hx of symptomatic anemia in the past, no blood loss this visit and Hgb normal. - PT/OT/Case Management orders placed; patient will likely require SNF on discharge. - Daily multivitamin given frailty and BMI. - QID boost supplementation added to meals for increased caloric intake. ideal body weight: 55.68 kgs, current weight 51.6 kg. Hospital Induced Delirium - window side bed to help with surrounding stabilization - blinds up in AM, closed at sunset - frequent re-orientation Elevated troponin: - Troponin 0.047 in ER; no changes on EKG and no complaints of chest pain. - History of elevated troponins on previous admissions. - Will not trend given no concern of [place] at this time. Hypothyroidism: - Continue home levothyroxine. HTN, HLD: - Continue home amlodipine, lisinopril, simvastatin. RA: - Continue home prednisone, leflunomide. Code Status: FULL CODE; FEN: carb control DVT ppx: Lovenox Dispo: Med/Surg; rehab recommending rehab, pending authorization (2) Elevated glucose: (3) Physical deconditioning: (4) Hypothyroidism: (5) Hypertension: (6) Rheumatoid arthritis: Admission and Anticipated Discharge Date Admission Date: February 15, 2021 Physical Exam Physical Exam: Constitutional: elderly,, in no apparent distress,sitting in chair at bedside Eyes: EOMI, pupils equal and reactive bilaterally, no scleral icterus Cardiac: RRR, no murmurs, gallops or rubs. Normal S1, S2 Pulm: CTA BL, no wheezes, rhonchi, crackles or rubs, moving air well throughout both lungs Abd: soft, nontender, nondistended, normal bowel sounds, no rebound or guarding Extremities: 2+ peripheral pulses, no edema Neuro: no focal deficits, moving all 4 limbs, A&Ox3 Results & Data Results & Data ([facility]) Vital Signs (Past 12 Hours) Vital Signs Temp Pulse Resp BP Pulse Ox 02/18/21 07:28 36.4 C L 56 L 18 153/71 H 98 02/17/21 22:22 36.5 C 60 16 158/65 H 98 (1) Rheumatoid arthritis Rheumatoid arthritis location: unspecified site Rheumatoid factor presence: unspecified presence Qualified Code(s): M06.9 - Rheumatoid arthritis, unspecified
[2021-02-18] MEDS: INSULIN ASPART 100 UNITS/ML 3 ML PEN SC SCH ×2 (09:29→13:14)
[2021-02-18] MEDS: SIMVASTATIN 20 MG TAB PO SCH (09:30)
[2021-02-18] MEDS: MULTIVITAMIN TAB PO SCH (09:30)
[2021-02-18] MEDS: MIRABEGRON ER 25 MG TAB PO SCH (09:30)
[2021-02-18] MEDS: ENOXAPARIN INJ 30 MG/0.3 ML SYR SQ SCH (09:30)
[2021-02-18] MEDS: lisinopril 20 MG TAB PO SCH (09:30)
[2021-02-18] MEDS: predniSONE 10 MG TABLET PO SCH (09:30)
[2021-02-18] MEDS: THIAMINE HCL 100 MG TAB PO SCH (09:30)
[2021-02-18] MEDS: METOPROLOL TARTRATE 50 MG TAB PO SCH (09:31)
[2021-02-18] MEDS: CYANOCOBALAMIN 1000 MCG/ML VIAL IM SCH (09:31)
[2021-02-18] MEDS: amLODIPine BESYLATE 5 MG TAB PO SCH (09:31)
[2021-02-18] MEDS: LEFLUNOMIDE 10 MG TAB PO SCH (09:31)
--- NOTE | 2021-02-18 13:59 | Discharge Summary ---
Date of Service February 18, 2021 Admission HPI Per Admitting Provider 89 yo F presented to ER with daughter for complaints of LE weakness / "locking up" causing fall x2 today at home. She was using her walker during these falls. She does not endorse hitting her head with falls. She did not feel dizzy or lightheaded prior to the falls. No complaints of chest pain, SOB, recent fevers or chills, nausea or vomiting, diarrhea, urinary symptoms. She was admitted as recently as 12/2020 for weakness and deconditioning leading to falls, after which she went to SNF. She was discharged home about a month ago from SNF. Daughter admits that it takes a village to take care of her mother, and she is very stubborn about wanting to be home. In the ER patient had imaging including CT head, XR chest, hip/pelvis, left leg without acute pathology/fracture. Labwork largely normal save for troponin 0.047; history of elevated troponins on other admissions and no complaints of CP or anginal equivalents. Patient and patient's daughter admit that she may need to go back to SNF for PT/OT. Admission Exam Per Admitting Provider Constitutional: WD/WN, vitals as above Eyes: PERRL, conjunctivae normal, anicteric sclerae ENMT: external ear and nose normal, oropharynx normal Neck: normal visual inspection Respiratory: normal respiratory effort, lungs clear to auscultation Cardiovascular: RRR, no murmur, no edema Gastrointestinal (Abdomen): normal bowel sounds, soft, nontender, no hepatosplenomegaly Skin: no rashes, warm and dry Neurologic: No focal neurologic deficits Psychiatric: A+Ox3, euthymic affect Principal Diagnosis age related debilitation Discharge Exam Constitutional: in no apparent distress, sitting comfortably in chair at bedside Eyes: EOMI, pupils equal and reactive bilaterally, no scleral icterus Cardiac: RRR, no murmurs, gallops or rubs. Normal S1, S2 Pulm: CTA BL, no wheezes, rhonchi, crackles or rubs, moving air well throughout both lungs Abd: soft, nontender, nondistended, normal bowel sounds, no rebound or guarding Extremities: 2+ peripheral pulses, no edema Neuro: no focal deficits, moving all 4 limbs, A&Ox3 Discharge Data Allergies Allergy/AdvReac Type Severity Reaction Status Date / Time aloe Allergy Mild itching Verified 12/13/20 00:29 bacitracin Allergy Mild itching Verified 12/13/20 00:29 codeine Allergy Mild ITCHING Verified 12/13/20 00:29 cortisone Allergy Mild Rash Verified 12/13/20 00:29 erythromycin base Allergy Mild ITCHING Verified 12/13/20 00:29 latex Allergy Mild ITCHING Verified 12/13/20 00:29 neomycin Allergy Mild itching Verified 12/13/20 00:29 polymyxin B Allergy Mild itching Verified 12/13/20 00:29 tramadol Allergy Mild Rash Verified 12/13/20 00:29 triamcinolone Allergy Mild ITCHING Verified 12/13/20 00:29 Iodinated Contrast Media Allergy Unknown DOES NOT Verified 12/13/20 00:29 REMEMBER propranolol Allergy Unknown DOES NOT Verified 12/13/20 00:29 REMEMBER Consultations 02/15/21 21:26 ED Decision to Admit Stat Ordered Studies 02/15/21 18:52 CT head/brain wo con Stat Hospital Course (1) Age-related physical debility: 89 yo F Hx hypothyroidism, RA on chronic steroid therapy, HTN, frequent falls admitted for physical deconditioning/debility likely requiring SNF placement. Physical deconditioning: - readmitted for physical deconditioning causing multiple falls at home from legs "giving out under" her. negative metabolic workup for source of falls. - QID boost supplementation added to meals for increased protein intake/muscle mass. ideal body weight: 55.68 kgs, current weight 51.6 kg. - started on daily multivitamin Hospital Induced Delirium - window side bed to help with surrounding stabilization - blinds up in AM, closed at sunset - frequent re-orientation Discharged to inpatient rehab at [facility]. Other chronic medical conditions managed per home regimens. (2) Elevated glucose: (3) Physical deconditioning: (4) Hypothyroidism: (5) Hypertension: (6) Rheumatoid arthritis: Total Time Total Time Spent Total Time Spent (In Minutes): Less than 30 Discharge Plan Discharge Items Patient Disposition: Transfer Inpatient Rehab Fac Reason For Visit: AGE RELATED DEBILITY, DECONDITIONING, LE WEAKNESS Discharge Diagnosis: age related debility, deconditioning Activity: Resume your previous activity Non-emergency contact: Primary Care Provider Call non-emergency contact if: you have any medication questions Follow-up/Referrals: Miky Latham MD [Primary Care Provider] - Diet: Carb Consistent or DM2 Addtl Attending Provider Instructions: (1) Age-related physical debility: 89 yo F Hx hypothyroidism, RA on chronic steroid therapy, HTN, frequent falls admitted for physical deconditioning/debility likely requiring SNF placement. Physical deconditioning: - Recently admitted 12/2020 for falls related to weakness, improved with PT/OT and patient was at SNF for several weeks. - Again with fall x2 with weakness of her legs. - No acute fractures, pathologies on imaging performed today. - No labwork that would suggest metabolic cause of falls. Hx of symptomatic anemia in the past, no blood loss this visit and Hgb normal. - PT/OT recommending REhab placement - Daily multivitamin given frailty and low BMI, balanced by low glycemic index - QID boost supplementation added to meals for increased caloric intake. ideal body weight: 55.68 kgs, current weight 51.6 kg. - requires sliding scale insulin coverage with increased eating habits. Recommend carb counted diet. BSG management Goal BSG Range: Low _110mg/dL, High 140_mg/dL Correction Factor: _50mg/dL/unit Carbohydrate ratio = _25_ g/unit BSGs ACHS if eating, q6h if npo If pt is NPO, do NOT hold correction factor insulin without an order Hospital Induced Delirium - window side bed to help with surrounding stabilization - blinds up in AM, closed at sunset - frequent re-orientation Elevated troponin: - Troponin 0.047 in ER; no changes on EKG and no complaints of chest pain. - History of elevated troponins on previous admissions. - Will not trend given no concern of [facility] at this time. Hypothyroidism: - Continue home levothyroxine. HTN, HLD: - Continue home amlodipine, lisinopril, simvastatin. RA: - Continue home prednisone, leflunomide. Code Status: FULL CODE; FEN: carb control DVT ppx: Lovenox Dispo: Med/Surg; rehab recommending rehab, pending authorization (2) Elevated glucose: (3) Physical deconditioning: (4) Hypothyroidism: (5) Hypertension: (6) Rheumatoid arthritis: Pending Studies at Discharge: No Stand-Alone Forms: [facility] Skilled Items Patient informed of condition?: Yes DNR: No Discharge Level of Care: Acute rehab Communicable Disease: No Discharge Prognosis: Stable Lines: None Urinary Catheter: No Medications and DC Order Prescriptions: New cyanocobalamin (vitamin B-12) 1,000 mcg tablet 1,000 mcg PO DAILY Qty: 30 RF: 3 Continued levothyroxine [Synthroid] 75 mcg tablet 75 mcg PO DAILY Qty: 30 RF: 0 leflunomide 10 mg tablet 10 mg PO DAILY RF: 0 prednisone 10 mg tablet 10 mg PO DAILY RF: 0 lisinopril 20 mg Tablet 20 mg PO DAILY RF: 0 simvastatin 20 mg Tablet 20 mg PO DAILY RF: 0 metoprolol tartrate 50 mg Tablet 50 mg PO BID RF: 0 amlodipine [Norvasc] 5 mg Tablet 5 mg PO BID 30 Days Qty: 60 RF: 2 risperidone 0.5 mg Tablet,Disintegrating 0.5 mg PO HS 30 Days Qty: 30 RF: 3 thiamine HCl (vitamin B1) [Vitamin B-1] 100 mg Tablet 200 mg PO BID 30 Days Qty: 120 RF: 2 Myrbetriq 25 mg Tablet Extended Release 24 Hr 25 mg PO DAILY 30 Days Qty: 30 RF: 3 Discharge Orders: Discharge Order (Routine); Ordered 02/18/21 Ordered By: Jelena Westfall Admission Data Admit Date/Time: 02/15/21 22:16 Attending Provider: Avtar Gonzales Admit Provider: Roselyn Echeverria Primary Care Provider: Miky Latham Other Providers: Malia Farrell ; Jelena Westfall ; Marty Zayas [facility] Other Interventions: Discharge Summary Assessment (RN) Last Done: 02/18/21 14:10 Supervising Physician Co-Signing Physician Notes I personally examined the patient and verified all rios points of history and exam, discussed case, and agree with decision making with Dr Westfall Had a little bit more hallucinations overnight, but lucid now. Fortunately had rehab bed today. Vitals noted, in general she is awake and alert pleasant no distress. HEENT normocephalic atraumatic mucous membranes moist. Breathing unlabored no accessory muscle use good effort. Skin shows no rashes no pallor or icterus. Neuro without focal deficits. Weakness/deconditioningwhile highly likely predominantly deconditioning, although she did have a low B12 level a few months agowhich may be contributory (although not entirely causative)supplemented B12 IM while in hospital, and then changed to p.o. after discharge, follow-up after discharge with a B12 level around early May. PT/OT eval and treat, SNF with rehab emphasisstable for discharge Otherwise as above Resident Activity Tracking Resident Involvement: Resident Care Provided Care Provided: Adult Hospital Medicine
--- NOTE | 2021-02-18 16:24 | Billing Data ---
Date of Service February 18, 2021 Coding Level of Care Code D/C Day Management <30 mins
== END 2021-02-18 15:02 | DRG 884 ==
LOC: ED 17:46 → SUATTDRO 22:16 → 3W 22:16

== ENCOUNTER 2021-03-02 11:22 | Inpatient (IN) ==
[2021-03-02 12:20] LABS: Basophils # (auto) 0.01 K/uL (0-0.2); Basophils % (auto) 0.1 %; Eosinophils # (auto) 0.05 K/uL (0-0.5); Eosinophils % (auto) 0.4 %; Hematocrit (blood only) 34.6 % (37-47); Hemoglobin 11.1 g/dL (12.0-16.0); Immature Granulocytes # (auto) 0.04 K/uL (0.00-0.02); Immature Granulocytes % (auto) 0.3 %; Lymphocytes # (auto) 0.65 K/uL (1.2-3.4); Lymphocytes % (auto) 5.6 %; Mean Corpuscular Hemoglobin 30.4 pg (25-34); Mean Corpuscular Hgb Conc 32.1 g/dL (32-36); Mean Corpuscular Volume 94.8 fL (80-100); Monocytes % (auto) 8.7 %; Neutrophils % (auto) 84.9 %; Platelet Count 151 K/uL (130-400); RDW Coefficient of Variation 13.3 % (11.5-14.5); RDW Standard Deviation 46.9 fL (36.4-46.3); Red Blood Count 3.65 M/uL (4.2-5.4); White Blood Count 11.55 K/uL (4.8-10.8)
[2021-03-02 12:39] LABS: Alanine Aminotransferase 25 U/L (12-78); Albumin Level 3.1 gm/dl (3.4-5.0); Aspartate Aminotransferase 15 U/L (15-37); BUN Creatinine Ratio 44.7 (10-20); Blood Urea Nitrogen 44 mg/dl (7-18); Carbon Dioxide 28 mmol/L (21-32); Chloride 112 mmol/L (98-107); Creatinine Clr Calc Pharmacy 33.9 ml/min; Est GFR (Non-African American) 50.9 ml/min; Glucose 128 mg/dl (70-99); Lipase 161 U/L (73-393); Potassium 4.5 mmol/L (3.5-5.1); Sodium 141 mmol/L (136-145)
[2021-03-02 12:44] LABS: Albumin Globulin Ratio 0.8 (0.9-2); Alkaline Phosphatase 70 U/L (45-117); Bilirubin,Total 0.7 mg/dl (0.2-1); Globulin 3.7 gm/dl (2.5-4.0); Total Protein 6.8 gm/dl (6.4-8.2); Troponin I < 0.015 ng/ml (0-0.045)
--- NOTE | 2021-03-02 13:10 | XRay Report ---
XR chest 1V portable CLINICAL HISTORY: Chest Pain COMPARISON STUDY: Chest radiograph February 15, 2021. FINDINGS: Anterior cervical spine fusion partially imaged. There has been interval development of ext ensive left lung airspace opacity with volume loss. Right lung is clear. There is no pneumothorax. Th ere is a probable left pleural effusion. A hiatal hernia is present. There is no evidence for pulmona ry edema. IMPRESSION: 1. Interval development of extensive left lung opacity with volume loss. This favors extensive atelec tasis, possibly related to mucus plugging. Consideration might be given to further evaluation with br onchoscopy. Suspected left pleural effusion. 2. Hiatal hernia. ACT 112: Negative or not required by law. Electronically signed by: Bora Gale M.D. 03/02/2021 1:09 PM
[2021-03-02] MEDS ORDERED: VANCOMYCIN HCL 1,250 MG in SODIUM CHLORIDE 0.9% 500 ML IV ONE (13:29)
[2021-03-02] MEDS ORDERED: CEFEPIME 2,000 MG/20 ML VIAL IV STA (13:29)
[2021-03-02] MEDS ORDERED: VANCOMYCIN CONSULT ACTIVE PRN (13:29)
[2021-03-02] MEDS ORDERED: ACETAMINOPHEN 1,000 MG/100 ML VIAL IV STA (13:29)
[2021-03-02] MEDS: SODIUM CHLORIDE 0.9% 1000ML 1,000 ML IV SCH ×2 (13:57→23:15)
[2021-03-02] MEDS ORDERED: ONDANSETRON INJ 2 MG/ML 2 ML VIAL ONE (14:09)
--- NOTE | 2021-03-02 14:26 | Emergency Department Note ---
History of Present Illness General Chief complaint: Chest Pain Stated complaint: Chest pain on inspiration Time Seen by Provider: 03/02/21 12:40 Source: patient Mode of arrival: EMS Limitations: no limitations History of Present Illness Provider complaint: chest pain, sob Onset (ago): hour(s) Location: chest Radiation: non-radiation Severity: moderate Pain Consistency: + constant Relieved By: + none Exacerbated By: + movement Associated symptoms: + chest pain, + cough, + loss of appetite and + shortness of breath; no fever/chills or no nausea/vomiting This is an 82-year-old female brought in by EMS from a local nursing facility due to complaints of chest pain and cough. Patient states chest pain woke her up very early this morning. No treatment prior to arrival. She states the pain is across the entire front of her chest, no radiation into back, arms, or neck. Patient denies any prior similar events. Patient states he has had an ongoing cough since she was discharged from the hospital several weeks ago. She states she did feel slightly more short of breath than usual. Patient found to be hypoxic and was placed on oxygen. Patient denies any pulmonary history including asthma or COPD. Denies any prior tobacco abuse. Patient denies any recent change in medications. Patient denies any cardiac history. Pt seen during a time of high acuity and national emergency pandemic while wearing PPE. Home Medications Medication Instructions Recorded Confirmed Type levothyroxine 75 mcg tablet 75 mcg PO DAILY #30 tab 03/30/20 03/02/21 Rx (Synthroid) leflunomide 10 mg tablet 10 mg PO DAILY 06/17/20 03/02/21 History prednisone 10 mg tablet 10 mg PO DAILY 07/27/20 03/02/21 History lisinopril 20 mg tablet 20 mg PO DAILY 12/13/20 03/02/21 History metoprolol tartrate 50 mg tablet 50 mg PO BID 12/13/20 03/02/21 History simvastatin 20 mg tablet 20 mg PO DAILY 12/13/20 03/02/21 History amlodipine 5 mg tablet (Norvasc) 5 mg PO BID 30 Days #60 tab 12/20/20 03/02/21 Rx mirabegron 25 mg tablet,extended 25 mg PO DAILY 30 Days #30 tab 12/20/20 03/02/21 Rx release 24 hr (Myrbetriq) risperidone 0.5 mg disintegrating 0.5 mg PO HS 30 Days #30 tab 12/20/20 03/02/21 Rx tablet thiamine HCl (vitamin B1) 100 mg 200 mg PO BID 30 Days #120 tab 12/20/20 03/02/21 Rx tablet (Vitamin B-1) cyanocobalamin (vitamin B-12) 1,000 mcg PO DAILY #30 tab 02/17/21 03/02/21 Rx 1,000 mcg tablet glipizide 5 mg tablet 5 mg PO DAILY 03/02/21 03/02/21 History metformin 1,000 mg tablet 1,000 mg PO QAM 03/02/21 03/02/21 History metformin 500 mg tablet 500 mg PO QPM 03/02/21 03/02/21 History omeprazole 20 mg tablet,delayed 20 mg PO BID 03/02/21 03/02/21 History release Allergies Allergy/AdvReac Type Severity Reaction Status Date / Time aloe Allergy Mild itching Verified 12/13/20 00:29 bacitracin Allergy Mild itching Verified 12/13/20 00:29 codeine Allergy Mild ITCHING Verified 12/13/20 00:29 cortisone Allergy Mild Rash Verified 12/13/20 00:29 erythromycin base Allergy Mild ITCHING Verified 12/13/20 00:29 latex Allergy Mild ITCHING Verified 12/13/20 00:29 neomycin Allergy Mild itching Verified 12/13/20 00:29 polymyxin B Allergy Mild itching Verified 12/13/20 00:29 tramadol Allergy Mild Rash Verified 12/13/20 00:29 triamcinolone Allergy Mild ITCHING Verified 12/13/20 00:29 Iodinated Contrast Media Allergy Unknown DOES NOT Verified 12/13/20 00:29 REMEMBER propranolol Allergy Unknown DOES NOT Verified 12/13/20 00:29 REMEMBER Past Med/Surg History Medical History (Updated 03/04/21 @ 23:41 by Dalia Vann DO) Acute hypoxemic respiratory failure DEXTER (acute kidney injury) Ambulatory dysfunction Anemia Contusion of elbow, right Contusion of hip, right Contusion of knee, left Contusion of knee, right Degenerative disc disease Dehydration Hyperkalemia Hyperlipidemia Hypertension Hypothyroidism Left lower lobe pneumonia Parapneumonic effusion Rheumatoid arthritis Urinary frequency Surgical History Fusion of spine LUMBAR SURGERY X 2 History of adenoidectomy History of cataract surgery RT/LEFT History of cholecystectomy History of colonoscopy History of dilatation and curettage History of discectomy CERVICAL History of open reduction and internal fixation (ORIF) procedure RT FEMUR History of tonsillectomy History of tooth extraction History of total abdominal hysterectomy and bilateral salpingo-oophorectomy Family History Mother Family history of diabetes mellitus Social History Smoking Status: Never smoker Second Hand Exposure: No; Hx Alcohol Use: No Hx Substance Use: No Preferred Language: Palauan Communication Ability: Effective Big Data Developer Required: No Beliefs That Will Affect Care: None marital status: / Current Living Situation: Snf Current Living Situation Comment: Daughter lives with her How many Children do You have: 1 Feels Safe at Home: Yes Assistive Devices: Walker Review of Systems A total of 10 systems reviewed and were otherwise negative All systems reviewed & are unremarkable except as noted in HPI & below Physical Exam Vital Signs Vital Signs - 24 hr 03/02/21 11:29 03/02/21 11:30 03/02/21 11:37 Pulse Rate 69 70 71 Pulse Rate from SpO2 Sensor 64 71 Respiratory Rate 20 22 28 H Respiratory Effort / Characteristics Non-Labored Respiratory Depth Normal Blood Pressure 160/66 H Blood Pressure Mean 97 Blood Pressure Position Lying Pulse Oximetry 91 90 92 Oxygen Delivery Method Nasal Cannula Nasal Cannula Nasal Cannula Oxygen Flow Rate 4 4 4 Sepsis Recent Fever Within 48 Hours No Sepsis New/Unexplained Change in Mental Status No Sepsis Action Taken by Nursing No Action Required Oxygen Flow Rate - Titration Pulse Oximetry Post Tiitration 03/02/21 11:47 03/02/21 12:00 03/02/21 12:13 Pulse Rate 75 Pulse Rate from SpO2 Sensor 66 Respiratory Rate 22 Respiratory Effort / Characteristics Respiratory Depth Blood Pressure 130/53 L Blood Pressure Mean 78 Blood Pressure Position Pulse Oximetry 86 L 90 91 Oxygen Delivery Method Nasal Cannula Nasal Cannula Nasal Cannula Oxygen Flow Rate 4 4 Sepsis Recent Fever Within 48 Hours Sepsis New/Unexplained Change in Mental Status Sepsis Action Taken by Nursing Oxygen Flow Rate - Titration 4 Pulse Oximetry Post Tiitration 92 03/02/21 12:30 03/02/21 13:00 03/02/21 13:30 Pulse Rate 70 73 68 Pulse Rate from SpO2 Sensor 99 H 73 73 Respiratory Rate 24 20 20 Respiratory Effort / Characteristics Respiratory Depth Blood Pressure 124/58 L 132/53 L 122/65 Blood Pressure Mean 80 79 84 Blood Pressure Position Pulse Oximetry 90 90 91 Oxygen Delivery Method Nasal Cannula Nasal Cannula Nasal Cannula Oxygen Flow Rate 4 4 4 Sepsis Recent Fever Within 48 Hours Sepsis New/Unexplained Change in Mental Status Sepsis Action Taken by Nursing Oxygen Flow Rate - Titration Pulse Oximetry Post Tiitration 03/02/21 14:01 03/02/21 14:30 03/02/21 14:58 Pulse Rate 79 78 Pulse Rate from SpO2 Sensor 73 Respiratory Rate 20 20 Respiratory Effort / Characteristics Respiratory Depth Blood Pressure Blood Pressure Mean Blood Pressure Position Pulse Oximetry 91 91 88 L Oxygen Delivery Method Nasal Cannula Nasal Cannula Nasal Cannula Oxygen Flow Rate 4 4 4 Sepsis Recent Fever Within 48 Hours Sepsis New/Unexplained Change in Mental Status Sepsis Action Taken by Nursing Oxygen Flow Rate - Titration 5 Pulse Oximetry Post Tiitration 92 03/02/21 15:00 Pulse Rate 74 Pulse Rate from SpO2 Sensor 74 Respiratory Rate 20 Respiratory Effort / Characteristics Respiratory Depth Blood Pressure 142/57 H Blood Pressure Mean 85 Blood Pressure Position Pulse Oximetry 90 Oxygen Delivery Method Nasal Cannula Oxygen Flow Rate 5 Sepsis Recent Fever Within 48 Hours Sepsis New/Unexplained Change in Mental Status Sepsis Action Taken by Nursing Oxygen Flow Rate - Titration Pulse Oximetry Post Tiitration GENERAL: alert, unwell appearing, well nourished, no distress, non-toxic, nasal cannula in place EYE EXAM: normal conjunctiva, PERRL and EOM's grossly intact OROPHARYNX: no exudate, no erythema, lips, buccal mucosa, and tongue normal and mucous membranes are moist NECK: supple, no nuchal rigidity, no adenopathy, non-tender LUNGS: Diminished to auscultation. Normal chest wall mechanics, no w/r/r, mildly increased work of breathing with use of abdominal wall muscles HEART: no murmurs, S1 normal and S2 normal ABDOMEN: abdomen soft, non-tender, normo-active bowel sounds, no masses, no rebound or guarding. BACK: Back is symmetrical on inspection and there is no deformity, no midline tenderness, no CVA tenderness. SKIN: no rashes and no bruising UPPER EXTREMITIES: upper extremities are grossly normal. FROM, nml pulses b/l. LOWER EXTREMITIES: No pitting edema. FROM, nml pulses b/l. NEURO EXAM: Normal sensorium, cranial nerves II-XII grossly intact, normal sp eech, no gross weakness of arms, no gross weakness of legs. Gross sensation intact. Course Course 1506: Discussed with Dr. Mendoza. 152: Discussed with on-call pulmonology, Dr. Parker. 1528: Updated Dr. Mendoza. Administered Medications Acetaminophen (Acetaminophen 325 Mg Tab) 650 mg PO Q4H PRN PRN Reason: Pain or Fever Stop: 04/01/21 18:19 Last Admin: 03/03/21 01:56 Dose: 650 mg Documented by: [id number] Admin: 03/02/21 19:51 Dose: 650 mg Documented by: [id number] Amlodipine Besylate (Amlodipine Besylate 5 Mg Tab) 5 mg PO BID [facility] Stop: 04/01/21 20:59 Last Admin: 03/04/21 20:27 Dose: 5 mg Documented by: [id number] Admin: 03/04/21 08:15 Dose: 5 mg Documented by: [id number] Admin: 03/03/21 20:45 Dose: Not Given Documented by: [id number] Admin: 03/03/21 13:57 Dose: 5 mg Documented by: [id number] Admin: 03/02/21 20:31 Dose: 5 mg Documented by: [id number] Cyanocobalamin (Cyanocobalamin 500 Mcg Tablet (Vitamin B-12)) 1,000 mcg PO DAILY UMER Stop: 04/02/21 08:59 Last Admin: 03/04/21 08:14 Dose: 1,000 mcg Documented by: [id number] Admin: 03/03/21 13:58 Dose: 1,000 mcg Documented by: [id number] Enoxaparin Sodium (Enoxaparin Inj 40 Mg/0.4 Ml Syr) 40 mg SQ Q24H [facility] Stop: 04/01/21 19:59 Last Admin: 03/02/21 20:29 Dose: 40 mg Documented by: [id number] Insulin Aspart (Insulin Aspart 100 Units/Ml 3 Ml Pen) 0 units SC ACHS UMER Stop: 04/01/21 21:29 Last Admin: 03/04/21 20:28 Dose: 2 units Documented by: [id number] Cosigned by: [id number] Admin: 03/04/21 17:50 Dose: 6 units Documented by: [id number] Cosigned by: [id number] Admin: 03/04/21 12:27 Dose: 4 units Documented by: [id number] Cosigned by: [id number] Admin: 03/04/21 08:15 Dose: 2 units Documented by: [id number] Cosigned by: [id number] Admin: 03/03/21 20:46 Dose: 2 units Documented by: [id number] Cosigned by: [id number] Admin: 03/03/21 17:36 Dose: 4 units Documented by: [id number] Cosigned by: [id number] Admin: 03/03/21 13:45 Dose: Not Given Documented by: [id number] Admin: 03/03/21 07:48 Dose: Not Given Documented by: [id number] Admin: 03/02/21 23:15 Dose: Not Given Documented by: [id number] Insulin Glargine (Insulin Glargine Solostar 100 Units/Ml 3 Ml Pen) 5 units SC BID [facility] Stop: 04/03/21 20:59 Last Admin: 03/04/21 21:09 Dose: 5 units Documented by: [id number] Cosigned by: [id number] Leflunomide (Leflunomide 10 Mg Tab) 10 mg PO DAILY [facility] Stop: 04/02/21 08:59 Last Admin: 03/04/21 08:13 Dose: 10 mg Documented by: [id number] Admin: 03/03/21 13:57 Dose: 10 mg Documented by: [id number] Levothyroxine Sodium (Levothyroxine Sodium 75 Mcg Tablet) 75 mcg PO DAILYBB [facility]MER Stop: 04/02/21 06:29 Last Admin: 03/04/21 05:55 Dose: 75 mcg Documented by: [id number] Admin: 03/03/21 05:41 Dose: Not Given Documented by: [id number] Lisinopril (Lisinopril 20 Mg Tab) 20 mg PO DAILY UMER Stop: 04/02/21 08:59 Last Admin: 03/04/21 08:16 Dose: 20 mg Documented by: [id number] Admin: 03/03/21 13:58 Dose: 20 mg Documented by: [id number] Metoprolol Tartrate (Metoprolol Tartrate 50 Mg Tab) 50 mg PO BID UMER Stop: 04/01/21 20:59 Last Admin: 03/04/21 20:27 Dose: 50 mg Documented by: [id number] Admin: 03/04/21 08:14 Dose: 50 mg Documented by: [id number] Admin: 03/03/21 20:46 Dose: Not Given Documented by: [id number] Admin: 03/03/21 07:51 Dose: 50 mg Documented by: [id number] Admin: 03/02/21 20:31 Dose: 50 mg Documented by: [id number] Mirabegron (Mirabegron Er 25 Mg Tab) 25 mg PO DAILY UMER Stop: 04/02/21 08:59 Last Admin: 03/04/21 08:14 Dose: 25 mg Documented by: [id number] Admin: 03/03/21 13:57 Dose: 25 mg Documented by: [id number] Pantoprazole Sodium (Pantoprazole 40 Mg Tab) 40 mg PO BID UMER Stop: 04/01/21 20:59 Last Admin: 03/04/21 20:27 Dose: 40 mg Documented by: [id number] Admin: 03/04/21 08:14 Dose: 40 mg Documented by: [id number] Admin: 03/03/21 20:44 Dose: 40 mg Documented by: [id number] Admin: 03/03/21 13:58 Dose: 40 mg Documented by: [id number] Admin: 03/02/21 20:31 Dose: 40 mg Documented by: [id number] Risperidone (Risperidone Odt 0.5 Mg Soltab) 0.5 mg PO HS UMER Stop: 04/01/21 20:59 Last Admin: 03/04/21 20:27 Dose: 0.5 mg Documented by: [id number] Admin: 03/03/21 20:44 Dose: 0.5 mg Documented by: [id number] Admin: 03/02/21 20:31 Dose: 0.5 mg Documented by: [id number] Simvastatin (Simvastatin 20 Mg Tab) 20 mg PO DAILY UMER Stop: 04/02/21 08:59 Last Admin: 03/04/21 08:15 Dose: 20 mg Documented by: [id number] Admin: 03/03/21 13:57 Dose: 20 mg Documented by: [id number] Thiamine HCl (Thiamine Hcl 100 Mg Tab) 200 mg PO BID UMER Stop: 04/01/21 20:59 Last Admin: 03/04/21 20:29 Dose: 200 mg Documented by: [id number] Admin: 03/04/21 08:14 Dose: 200 mg Documented by: [id number] Admin: 03/03/21 20:44 Dose: 200 mg Documented by: [id number] Admin: 03/03/21 13:57 Dose: 200 mg Documented by: [id number] Admin: 03/02/21 20:30 Dose: 200 mg Documented by: [id number] Discontinued Medications Fentanyl Citrate (Fentanyl Citrate 100 Mcg/2 Ml Vial) Confirm Administered Dose 100 mcg .ROUTE .STK-MED ONE Stop: 03/03/21 10:30 Last Increment: 03/03/21 10:50 Dose: 25 mcg Documented by: [id number] Sodium Chloride (Nss 1000ml) 1,000 mls @ 125 mls/hr IV .Q8H UMER Stop: 04/01/21 13:14 Last Infusion: 03/04/21 08:59 Dose: 0 mls/hr Documented by: [id number] Admin: 03/04/21 08:58 Dose: Not Given Documented by: [id number] Admin: 03/03/21 23:34 Dose: 125 mls/hr Documented by: [id number] Infusion: 03/03/21 22:05 Dose: 125 mls/hr Documented by: [id number] Admin: 03/03/21 14:05 Dose: 125 mls/hr Documented by: [id number] Infusion: 03/03/21 11:29 Dose: 125 mls/hr Documented by: [id number] Admin: 03/03/21 03:29 Dose: 125 mls/hr Documented by: [id number] Admin: 03/02/21 23:15 Dose: Not Given Documented by: [id number] Infusion: 03/02/21 21:57 Dose: 125 mls/hr Documented by: [id number] Admin: 03/02/21 13:57 Dose: 125 mls/hr Documented by: [id number] Acetaminophen (Ofirmev) 1,000 mg in 100 mls @ 400 mls/hr IV NOW STA Stop: 03/02/21 13:43 Last Infusion: 03/02/21 17:47 Dose: 0 mls/hr Documented by: [id number] Admin: 03/02/21 13:58 Dose: 400 mls/hr Documented by: [id number] Vancomycin HCl 1,250 mg/ (Sodium Chloride) 525 mls @ 200 mls/hr IV NOW ONE Stop: 03/02/21 16:06 Last Infusion: 03/02/21 17:47 Dose: 0 mls/hr Documented by: [id number] Admin: 03/02/21 14:51 Dose: 200 mls/hr Documented by: [id number] Cefepime HCl (Maxipime) 2,000 mg in 20 mls @ 5 mls/min IV NOW STA; Protocol Stop: 03/02/21 13:32 Last Admin: 03/02/21 13:56 Dose: 5 mls/min Documented by: [id number] Piperacillin Sod/Tazobactam (Sod 3.375 gm/ Dextrose) 115 mls @ 230 mls/hr IV NOW ONE; Protocol Stop: 03/02/21 20:29 Last Infusion: 03/02/21 21:08 Dose: 0 mls/hr Documented by: [id number] Admin: 03/02/21 20:29 Dose: 230 mls/hr Documented by: [id number] Piperacillin Sod/Tazobactam (Sod 3.375 gm/ Dextrose) 115 mls @ 28.75 mls/hr IV Q8H [facility]; Protocol Stop: 03/10/21 01:59 Last Infusion: 03/04/21 20:42 Dose: 0 mls/hr Documented by: [id number] Admin: 03/04/21 17:50 Dose: 28.8 mls/hr Documented by: [id number] Infusion: 03/04/21 15:00 Dose: 0 mls/hr Documented by: [id number] Admin: 03/04/21 10:25 Dose: 28.8 mls/hr Documented by: [id number] Infusion: 03/04/21 06:40 Dose: 0 mls/hr Documented by: [id number] Admin: 03/04/21 02:40 Dose: 28.8 mls/hr Documented by: [id number] Infusion: 03/03/21 21:36 Dose: 0 mls/hr Documented by: [id number] Admin: 03/03/21 17:36 Dose: 28.8 mls/hr Documented by: [id number] Infusion: 03/03/21 17:28 Dose: 0 mls/hr Documented by: [id number] Admin: 03/03/21 12:15 Dose: 28.8 mls/hr Documented by: [id number] Infusion: 03/03/21 06:06 Dose: 0 mls/hr Documented by: [id number] Admin: 03/03/21 01:54 Dose: 28.8 mls/hr Documented by: [id number] Methylprednisolone 20 mg/ (Syringe) 0.32 mls @ 1.5 mls/min IV BID UMER Stop: 04/02/21 08:59 Last Admin: 03/04/21 20:28 Dose: 1.5 mls/min Documented by: [id number] Admin: 03/04/21 08:13 Dose: 1.5 mls/min Documented by: [id number] Admin: 03/03/21 20:46 Dose: 1.5 mls/min Documented by: [id number] Admin: 03/03/21 09:18 Dose: 1.5 mls/min Documented by: [id number] Insulin Glargine (Insulin Glargine Solostar 100 Units/Ml 3 Ml Pen) 5 units SC QAM [facility] Stop: 04/03/21 08:59 Last Admin: 03/04/21 10:55 Dose: 5 units Documented by: [id number] Cosigned by: [id number] Midazolam HCl (Midazolam Hcl 5 Mg/Ml 1 Ml Vial) Confirm Administered Dose 10 mg .ROUTE .STK-MED ONE Stop: 03/03/21 10:30 Last Increment: 03/03/21 10:50 Dose: 2 mg Documented by: [id number] Ondansetron HCl (Ondansetron Inj 2 Mg/Ml 2 Ml Vial) Confirm Administered Dose 4 mg .ROUTE .STK-MED ONE Stop: 03/02/21 14:10 Last Admin: 03/02/21 14:20 Dose: 4 mg Documented by: [id number] Ondansetron HCl (Ondansetron Inj 2 Mg/Ml 2 Ml Vial) 4 mg IV NOW [facility] Stop: 03/02/21 14:49 Last Admin: 03/02/21 14:51 Dose: 4 mg Documented by: [id number] Sodium Chloride (Sodium Chlor 7% 4 Ml Neb) 4 ml NEB BIDR [facility] Stop: 04/01/21 18:59 Last Admin: 03/03/21 07:24 Dose: 4 ml Documented by: [id number] Admin: 03/02/21 19:59 Dose: 4 ml Documented by: [id number] Critical Care Time Critical Care Time: Yes Total Critical Care Time: 42 Critical care of 42 min performed to assess and manage high likelihood of life-threatening hypoxia and dyspnea, involving labs and imaging performed with assessment to evaluate hypoxia and dyspnea diagnosis with frequent reassessment. This time includes bedside time, treatment discussions with patient/family/consultants, documentation time and excludes procedure time. Medical Decision Making Differential Diagnosis Differential diagnoses includes but is not limited to acute coronary syndrome, myocardial infarction, pericarditis, pulmonary embolus, aortic dissection, pneumonia, pneumothorax, musculoskeletal, shingles, esophageal. Medical Records Attestation: I reviewed the patient's medical records. Home Medications Current Medication List: was personally reviewed by me Laboratory Data Attestation: I reviewed the patient's lab results. Result diagrams: 03/04/21 06:20 03/04/21 06:20 Lab Results 03/02/21 03/02/21 03/02/21 Range/Units 12:00 12:00 12:00 WBC 11.55 H (4.8-10.8) K/uL RBC 3.65 L (4.2-5.4) M/uL Hgb 11.1 L (12.0-16.0) g/dL Hct 34.6 L (37-47) % MCV 94.8 (80-100) fL MCH 30.4 (25-34) pg MCHC 32.1 (32-36) g/dL RDW Std Deviation 46.9 H (36.4-46.3) fL RDW Coeff of Rafael 13.3 (11.5-14.5) % Plt Count 151 (130-400) K/uL MPV 11.0 H (7.4-10.4) fL Immature Gran % (Auto) 0.3 % Neut % (Auto) 84.9 % Lymph % (Auto) 5.6 % Wilkes % (Auto) 8.7 % Eos % (Auto) 0.4 % Baso % (Auto) 0.1 % Neut # (Auto) 9.80 H (1.4-6.5) K/uL Lymph # (Auto) 0.65 L (1.2-3.4) K/uL Wilkes # (Auto) 1.00 H (0.11-0.59) K/uL Eos # (Auto) 0.05 (0-0.5) K/uL Baso # (Auto) 0.01 (0-0.2) K/uL Immature Gran # (Auto) 0.04 H (0.00-0.02) K/uL Sodium 141 (136-145) mmol/L Potassium 4.5 (3.5-5.1) mmol/L Chloride 112 H (98-107) mmol/L Carbon Dioxide 28 (21-32) mmol/L Anion Gap 1.0 L (3-11) BUN 44 H (7-18) mg/dl Creatinine 0.99 (0.6-1.2) mg/dl Est Cr Clr Drug Dosing 33.9 ml/min Est GFR ( Amer) 59.0 ml/min Est GFR (Non-Af Amer) 50.9 ml/min BUN/Creatinine Ratio 44.7 H (10-20) Glucose 128 H (70-99) mg/dl Lactate (0.4-2.0) mmol/L Calcium 9.0 (8.5-10.1) mg/dl Total Bilirubin 0.7 (0.2-1) mg/dl AST 15 (15-37) U/L ALT 25 (12-78) U/L Alkaline Phosphatase 70 (45-117) U/L Troponin I < 0.015 (0-0.045) ng/ml NT-Pro-B Natriuret Pep 2198 H (0-1800) pg/ml Total Protein 6.8 (6.4-8.2) gm/dl Albumin 3.1 L (3.4-5.0) gm/dl Globulin 3.7 (2.5-4.0) gm/dl Albumin/Globulin Ratio 0.8 L (0.9-2) Lipase 161 (73-393) U/L Procalcitonin (0-0.5) ng/ml COVID-19 Eval Order SARS-CoV-2 (PCR) (Negative) 03/02/21 03/02/21 03/02/21 Range/Units 12:00 14:00 14:00 WBC (4.8-10.8) K/uL RBC (4.2-5.4) M/uL Hgb (12.0-16.0) g/dL Hct (37-47) % MCV (80-100) fL MCH (25-34) pg MCHC (32-36) g/dL RDW Std Deviation (36.4-46.3) fL RDW Coeff of Rafael (11.5-14.5) % Plt Count (130-400) K/uL MPV (7.4-10.4) fL Immature Gran % (Auto) % Neut % (Auto) % Lymph % (Auto) % Wilkes % (Auto) % Eos % (Auto) % Baso % (Auto) % Neut # (Auto) (1.4-6.5) K/uL Lymph # (Auto) (1.2-3.4) K/uL Wilkes # (Auto) (0.11-0.59) K/uL Eos # (Auto) (0-0.5) K/uL Baso # (Auto) (0-0.2) K/uL Immature Gran # (Auto) (0.00-0.02) K/uL Sodium (136-145) mmol/L Potassium (3.5-5.1) mmol/L Chloride (98-107) mmol/L Carbon Dioxide (21-32) mmol/L Anion Gap (3-11) BUN (7-18) mg/dl Creatinine (0.6-1.2) mg/dl Est Cr Clr Drug Dosing ml/min Est GFR ( Amer) ml/min Est GFR (Non-Af Amer) ml/min BUN/Creatinine Ratio (10-20) Glucose (70-99) mg/dl Lactate (0.4-2.0) mmol/L Calcium (8.5-10.1) mg/dl Total Bilirubin (0.2-1) mg/dl AST (15-37) U/L ALT (12-78) U/L Alkaline Phosphatase (45-117) U/L Troponin I (0-0.045) ng/ml NT-Pro-B Natriuret Pep (0-1800) pg/ml Total Protein (6.4-8.2) gm/dl Albumin (3.4-5.0) gm/dl Globulin (2.5-4.0) gm/dl Albumin/Globulin Ratio (0.9-2) Lipase (73-393) U/L Procalcitonin < 0.05 (0-0.5) ng/ml COVID-19 Eval Order Covid19 at [facility] SARS-CoV-2 (PCR) NEGATIVE (Negative) 03/02/21 Range/Units 14:16 WBC (4.8-10.8) K/uL RBC (4.2-5.4) M/uL Hgb (12.0-16.0) g/dL Hct (37-47) % MCV (80-100) fL MCH (25-34) pg MCHC (32-36) g/dL RDW Std Deviation (36.4-46.3) fL RDW Coeff of Rafael (11.5-14.5) % Plt Count (130-400) K/uL MPV (7.4-10.4) fL Immature Gran % (Auto) % Neut % (Auto) % Lymph % (Auto) % Wilkes % (Auto) % Eos % (Auto) % Baso % (Auto) % Neut # (Auto) (1.4-6.5) K/uL Lymph # (Auto) (1.2-3.4) K/uL Wilkes # (Auto) (0.11-0.59) K/uL Eos # (Auto) (0-0.5) K/uL Baso # (Auto) (0-0.2) K/uL Immature Gran # (Auto) (0.00-0.02) K/uL Sodium (136-145) mmol/L Potassium (3.5-5.1) mmol/L Chloride (98-107) mmol/L Carbon Dioxide (21-32) mmol/L Anion Gap (3-11) BUN (7-18) mg/dl Creatinine (0.6-1.2) mg/dl Est Cr Clr Drug Dosing ml/min Est GFR ( Amer) ml/min Est GFR (Non-Af Amer) ml/min BUN/Creatinine Ratio (10-20) Glucose (70-99) mg/dl Lactate 2.5 H* (0.4-2.0) mmol/L Calcium (8.5-10.1) mg/dl Total Bilirubin (0.2-1) mg/dl AST (15-37) U/L ALT (12-78) U/L Alkaline Phosphatase (45-117) U/L Troponin I (0-0.045) ng/ml NT-Pro-B Natriuret Pep (0-1800) pg/ml Total Protein (6.4-8.2) gm/dl Albumin (3.4-5.0) gm/dl Globulin (2.5-4.0) gm/dl Albumin/Globulin Ratio (0.9-2) Lipase (73-393) U/L Procalcitonin (0-0.5) ng/ml COVID-19 Eval Order SARS-CoV-2 (PCR) (Negative) Imaging Data Radiologist's Impression: Chest X-Ray 03/02/21 12:12 XR chest 1V portable CLINICAL HISTORY: Chest Pain COMPARISON STUDY: Chest radiograph February 15, 2021. FINDINGS: Anterior cervical spine fusion partially imaged. There has been interval development of extensive left lung airspace opacity with volume loss. Right lung is clear. There is no pneumothorax. There is a probable left pleural effusion. A hiatal hernia is present. There is no evidence for pulmonary edema. IMPRESSION: 1. Interval development of extensive left lung opacity with volume loss. This favors extensive atelectasis, possibly related to mucus plugging. Consideration might be given to further evaluation with bronchoscopy. Suspected left pleural effusion. 2. Hiatal hernia. ACT 112: Negative or not required by law. Electronically signed by: Bora Gale M.D. 03/02/2021 1:[address] 03/02/21 13:51 CT chest diagnostic wo con CLINICAL HISTORY: large left pleural effusion COMPARISON STUDY: Chest x-ray dated 03/02/2021 CT DOSE: 323.43 mGy.cm TECHNIQUE: CT of the thorax was performed from the thoracic inlet to the lung bases. Images are reviewed in the axial, sagittal, and coronal planes. IV contrast was not administered for this examination. A dose lowering technique was utilized adhering to the principles of ALARA. FINDINGS: Thyroid: Imaged portions of the thyroid gland are normal in appearance. Thoracic aorta: The thoracic aorta is normal in course and caliber, noting standard 3 vessel arch anatomy. Heart: There are coronary artery calcifications. There is no significant pericardial fluid. Lungs and pleural spaces: There is a small left pleural effusion. There is left lung atelectasis/consolidation with volume loss. There is mucoid debris within the ashley. There is obstruction of the central left bronchi with debris. Mediastinum: Mediastinal lymph nodes are the upper limits of normal in size. Deb: There is known to pathologic hilar adenopathy given the limitations of a noncontrast study Axilla: There is no evidence of pathologic axillary lymphadenopathy Upper abdomen: There is a hiatal hernia. There are bilateral renal cysts. The gallbladder appears surgically absent. Postsurgical changes are present within the spine. Skeletal structures: There are no lytic or blastic osseous lesions. IMPRESSION: 1. Small left pleural effusion 2. Marked left lung volume loss with left lung atelectasis/consolidation. The central left bronchi are occluded with debris. 3. Hiatal hernia ACT 112: Negative or not required by law. Electronically signed by: Suhas Claire M.D. 03/02/2021 2:51 PM MDM Narrative This is an 89-year-old female who presents from a nursing facility due to increased shortness of breath and cough. Patient most concerned for possible pneumonia as she states she has been coughing since her last admission here. Patient's chest x-ray with near complete opacification of the left lung. Patient was hemodynamically stable although did require oxygen to maintain saturations. Additional labs ordered after noting this chest x-ray including blood cultures, and IV antibiotics ordered after review of patient's recent admission. No prior history of aspiration. Patient sent for CT imaging. Patient was given Zofran for nausea to help prevent any vomiting and increased risk of aspiration. Case discussed with hospitalist and then at their request with pulmonology. Pulmonology recommended hypertonic saline nebs as well as the addition of Flagyl to the current antibiotics I started in the emergency room. This information was relayed to Dr. Mendoza. Mild anemia was noted on patient's initial labs. Patient's BNP elevated likely secondary to the lung involvement, I do not suspect acute CHF An order was placed for continuous cardiac monitoring. The monitor shows a rate of _88_ with _normal sinus__ rhythm. Impression & Plan Dyspnea, Atelectasis of left lung, Left lower lobe pneumonia, Pleural effusion, Hypoxia Discharge Plan Visit Data Chief Complaint: Chest Pain Stated Complaint: Chest pain on inspiration ED Provider: Dalia Vann Discharge Problem: Dyspnea, Atelectasis of left lung, Left lower lobe pneumonia, Pleural effusion, Hypoxia Patient Disposition: Admitted As Inpatient Condition: Fair Discharge Instructions Interventions: ED Discharge Assessment Last Done: 03/02/21 18:02 Discharge Problem: Dyspnea Qualifiers: Dyspnea type: shortness of breath Qualified Code(s): R06.02 - Shortness of breath Left lower lobe pneumonia Qualifiers: Pneumonia type: due to unspecified organism Qualified Code(s): J18.9 - Pneumonia, unspecified organism
[2021-03-02] MEDS ORDERED: ONDANSETRON INJ 2 MG/ML 2 ML VIAL IV STA (14:48)
--- NOTE | 2021-03-02 14:53 | CT Scan Report ---
CT chest diagnostic wo con CLINICAL HISTORY: large left pleural effusion COMPARISON STUDY: Chest x-ray dated 03/02/2021 CT DOSE: 323.43 mGy.cm TECHNIQUE: CT of the thorax was performed from the thoracic inlet to the lung bases. Images are revi ewed in the axial, sagittal, and coronal planes. IV contrast was not administered for this examinatio n. A dose lowering technique was utilized adhering to the principles of ALARA. FINDINGS: Thyroid: Imaged portions of the thyroid gland are normal in appearance. Thoracic aorta: The thoracic aorta is normal in course and caliber, noting standard 3 vessel arch leslie ernst. Heart: There are coronary artery calcifications. There is no significant pericardial fluid. Lungs and pleural spaces: There is a small left pleural effusion. There is left lung atelectasis/cons olidation with volume loss. There is mucoid debris within the ashley. There is obstruction of the patrick tral left bronchi with debris. Mediastinum: Mediastinal lymph nodes are the upper limits of normal in size. Deb: There is known to pathologic hilar adenopathy given the limitations of a noncontrast study Axilla: There is no evidence of pathologic axillary lymphadenopathy Upper abdomen: There is a hiatal hernia. There are bilateral renal cysts. The gallbladder appears alicea rgically absent. Postsurgical changes are present within the spine. Skeletal structures: There are no lytic or blastic osseous lesions. IMPRESSION: 1. Small left pleural effusion 2. Marked left lung volume loss with left lung atelectasis/consolidation. The central left bronchi are occluded with debris. 3. Hiatal hernia ACT 112: Negative or not required by law. Electronically signed by: Suhas Claire M.D. 03/02/2021 2:51 PM
--- NOTE | 2021-03-02 16:28 | Electrocardiogram Report ---
Test Reason : Blood Pressure : / mmHG Vent. Rate : 069 BPM Atrial Rate : 069 BPM P-R Int : 182 ms QRS Dur : 110 ms QT Int : 386 ms P-R-T Axes : 110 -19 002 degrees QTc Int : 413 ms Normal sinus rhythm Septal infarct (cited on or before 27-MAR-2020) Abnormal ECG When compared with ECG of 15-FEB-2021 18:55, Premature atrial complexes are no longer Present Questionable change in initial forces of Septal leads Nonspecific T wave abnormality no longer evident in Lateral leads Confirmed by Cali Darby ([id number]) on 03/02/2021 4:27:59 PM Referred By: Marty loaiza [facility] Confirmed By:Cali Darby
--- NOTE | 2021-03-02 16:29 | History & Physical Report ---
Date of Service March 02, 2021 Assessment & Plan (1) Collapse of left lung: Plan: From CT scan, appears that patient has significant mucous plugging in the proximal left bronchial tree causing left lower lobe collapse with a deviation of bronchial tree and heart. Admit to a telemetry bed Continue oxygen support as able ER physician discussed with pulmonology, recommending antibiotic treatment along with hypertonic saline nebulizer treatments Patient is received cefepime and vancomycin, will liner roll changer to Zosyn Tentative plan for bronchoscopy tomorrow if patient can tolerate Speech eval for swallowing prior to discharge to rule out silent aspiration (2) Hypothyroidism: Plan: Continue levothyroxine 75 mcg daily (3) Hypertension: Plan: Blood pressure stable Continue amlodipine 5 mg twice daily, metoprolol 50mg qd (4) Diabetes mellitus, new onset: Plan: I will hold glipizide and Metformin for now Sliding scale insulin Carb controlled diet when cleared for p.o.'s Check hemoglobin A1c History of Present Illness Chief Complaint: Pleuritic chest pain Primary Care Provider: Chana Ferguson at [place] This is an 89-year-old female with past medical history chronic kidney insufficiency, hypertension, hypothyroidism, that presents with a chief complaint of pleuritic chest pain. Patient is a very limited historian for me. Per ER documentation, patient was brought in by EMS from a local nursing facility complaining of chest pain and cough. She apparently woke up very little in the morning with these complaints. Patient did tell me that she was feeling fine yesterday. When asked, she does admit to occasional cough with some production. She is complaining of dull chest pressure which worsens with inspiration. She was found to be hypoxic with an O2 sat of 88% was started on nasal cannula which she is tolerating well. Last documented status 100%. Blood pressure and other vitals are stable. She looks to be comfortable in no acute distress. Work-up in the emergency room included chest x-ray and CT scan, shows's left- sided lung collapse, likely secondary to mucous plugging. There is a small pleural effusion. There is deviation of the heart and bronchial tree to the left. Patient is now being admitted for further work-up and treatment of this. Allergies Allergy/AdvReac Type Severity Reaction Status Date / Time aloe Allergy Mild itching Verified 12/13/20 00:29 bacitracin Allergy Mild itching Verified 12/13/20 00:29 codeine Allergy Mild ITCHING Verified 12/13/20 00:29 cortisone Allergy Mild Rash Verified 12/13/20 00:29 erythromycin base Allergy Mild ITCHING Verified 12/13/20 00:29 latex Allergy Mild ITCHING Verified 12/13/20 00:29 neomycin Allergy Mild itching Verified 12/13/20 00:29 polymyxin B Allergy Mild itching Verified 12/13/20 00:29 tramadol Allergy Mild Rash Verified 12/13/20 00:29 triamcinolone Allergy Mild ITCHING Verified 12/13/20 00:29 Iodinated Contrast Media Allergy Unknown DOES NOT Verified 12/13/20 00:29 REMEMBER propranolol Allergy Unknown DOES NOT Verified 12/13/20 00:29 REMEMBER Home Medications Medication Instructions Recorded Confirmed Type levothyroxine 75 mcg tablet 75 mcg PO DAILY #30 tab 03/30/20 03/02/21 Rx (Synthroid) leflunomide 10 mg tablet 10 mg PO DAILY 06/17/20 03/02/21 History prednisone 10 mg tablet 10 mg PO DAILY 07/27/20 03/02/21 History lisinopril 20 mg tablet 20 mg PO DAILY 12/13/20 03/02/21 History metoprolol tartrate 50 mg tablet 50 mg PO BID 12/13/20 03/02/21 History simvastatin 20 mg tablet 20 mg PO DAILY 12/13/20 03/02/21 History amlodipine 5 mg tablet (Norvasc) 5 mg PO BID 30 Days #60 tab 12/20/20 03/02/21 Rx mirabegron 25 mg tablet,extended 25 mg PO DAILY 30 Days #30 tab 12/20/20 03/02/21 Rx release 24 hr (Myrbetriq) risperidone 0.5 mg disintegrating 0.5 mg PO HS 30 Days #30 tab 12/20/20 03/02/21 Rx tablet thiamine HCl (vitamin B1) 100 mg 200 mg PO BID 30 Days #120 tab 12/20/20 03/02/21 Rx tablet (Vitamin B-1) cyanocobalamin (vitamin B-12) 1,000 mcg PO DAILY #30 tab 02/17/21 03/02/21 Rx 1,000 mcg tablet glipizide 5 mg tablet 5 mg PO DAILY 03/02/21 03/02/21 History metformin 1,000 mg tablet 1,000 mg PO QAM 03/02/21 03/02/21 History metformin 500 mg tablet 500 mg PO QPM 03/02/21 03/02/21 History omeprazole 20 mg tablet,delayed 20 mg PO BID 03/02/21 03/02/21 History release Past Med/Surg History Medical History DEXTER (acute kidney injury) Ambulatory dysfunction Anemia Contusion of elbow, right Contusion of hip, right Contusion of knee, left Contusion of knee, right Degenerative disc disease Dehydration Hyperkalemia Hyperlipidemia Hypertension Hypothyroidism Rheumatoid arthritis Urinary frequency Surgical History Fusion of spine LUMBAR SURGERY X 2 History of adenoidectomy History of cataract surgery RT/LEFT History of cholecystectomy History of colonoscopy History of dilatation and curettage History of discectomy CERVICAL History of open reduction and internal fixation (ORIF) procedure RT FEMUR History of tonsillectomy History of tooth extraction History of total abdominal hysterectomy and bilateral salpingo-oophorectomy Family History Mother Family history of diabetes mellitus Social History Smoking Status: Never smoker Second Hand Exposure: No; Hx Alcohol Use: No Hx Substance Use: No Preferred Language: Urdu Communication Ability: Effective Weigher And Mixer Required: No Beliefs That Will Affect Care: None marital status: / Current Living Situation: Family Current Living Situation Comment: Daughter lives with her How many Children do You have: 1 Feels Safe at Home: Yes Assistive Devices: Walker Review of Systems Constitutional: no fever, no chills, no weakness, no weight loss and no weight gain Eyes: as per Subjective / HPI Respiratory: + cough, + chest congestion and + pain with cough; no dyspnea and no dyspnea on exertion Cardiovascular: + chest pain; no orthopnea, no palpitations, no lightheadedness and no edema Gastrointestinal: no abdominal pain, no nausea, no vomiting, no constipation and no diarrhea/loose stools Genitourinary: no dysuria, no difficulty urinating, no urinary frequency, no urinary hesitancy, no urinary urgency and no flank pain Musculoskeletal: no back pain, no neck pain, no joint pain, no stiffness and no myalgia Integumentary: no rash Neurologic: no gait abnormality, no unsteadiness, no falls and no generalized weakness Physical Exam Constitutional: cooperative; no acute distress Neck: trachea midline, no thyromegaly Respiratory: normal respiratory effort Auscultation: lungs clear to auscultation bilaterally, + diminished lung sounds and + crackles; no rales, no rhonchi and no wheezes coarse rales L apex, absent L base Cardiovascular: Rate/Rhythm: regular rate and regular rhythm Heart Sounds: normal S1 and normal S2 Gastrointestinal (Abdomen): Inspection/Auscultation: abdomen normal to inspection Percussion/Palpation: abdomen soft; abdomen nontender, no guarding, abdomen not rigid and no hepatosplenomegaly Skin: no rashes, warm and dry Results & Data Results & Data ([facility]) Vital Signs (Past 12 Hours) Vital Signs Pulse Resp BP Pulse Ox 03/02/21 16:00 73 20 119/52 L 100 03/02/21 15:30 71 22 115/64 92 03/02/21 15:00 74 20 142/57 H 90 03/02/21 14:58 88 L 03/02/21 14:30 78 20 91 03/02/21 14:01 79 20 91 03/02/21 13:30 68 20 122/65 91 03/02/21 13:00 73 20 132/53 L 90 03/02/21 12:30 70 24 124/58 L 90 03/02/21 12:13 91 03/02/21 12:00 75 22 130/53 L 90 03/02/21 11:47 86 L 03/02/21 11:37 71 28 H 160/66 H 92 03/02/21 11:30 70 22 90 03/02/21 11:29 69 20 91 Laboratory Results Laboratory Results WBC 11.55 K/uL (4.8-10.8) H 03/02/21 12:00 RBC 3.65 M/uL (4.2-5.4) L 03/02/21 12:00 Hgb 11.1 g/dL (12.0-16.0) L 03/02/21 12:00 Hct 34.6 % (37-47) L 03/02/21 12:00 MCV 94.8 fL (80-100) 03/02/21 12:00 MCH 30.4 pg (25-34) 03/02/21 12:00 MCHC 32.1 g/dL (32-36) 03/02/21 12:00 RDW Std Deviation 46.9 fL (36.4-46.3) H 03/02/21 12:00 RDW Coeff of Rafael 13.3 % (11.5-14.5) 03/02/21 12:00 Plt Count 151 K/uL (130-400) 03/02/21 12:00 MPV 11.0 fL (7.4-10.4) H 03/02/21 12:00 Immature Gran % (Auto) 0.3 % 03/02/21 12:00 Neut % (Auto) 84.9 % 03/02/21 12:00 Lymph % (Auto) 5.6 % 03/02/21 12:00 Meigs % (Auto) 8.7 % 03/02/21 12:00 Eos % (Auto) 0.4 % 03/02/21 12:00 Baso % (Auto) 0.1 % 03/02/21 12:00 Neut # (Auto) 9.80 K/uL (1.4-6.5) H 03/02/21 12:00 Lymph # (Auto) 0.65 K/uL (1.2-3.4) L 03/02/21 12:00 Meigs # (Auto) 1.00 K/uL (0.11-0.59) H 03/02/21 12:00 Eos # (Auto) 0.05 K/uL (0-0.5) 03/02/21 12:00 Baso # (Auto) 0.01 K/uL (0-0.2) 03/02/21 12:00 Immature Gran # (Auto) 0.04 K/uL (0.00-0.02) H 03/02/21 12:00 Sodium 141 mmol/L (136-145) 03/02/21 12:00 Potassium 4.5 mmol/L (3.5-5.1) 03/02/21 12:00 Chloride 112 mmol/L (98-107) H 03/02/21 12:00 Carbon Dioxide 28 mmol/L (21-32) 03/02/21 12:00 Anion Gap 1.0 (3-11) L 03/02/21 12:00 BUN 44 mg/dl (7-18) H 03/02/21 12:00 Creatinine 0.99 mg/dl (0.6-1.2) 03/02/21 12:00 Est Cr Clr Drug Dosing 33.9 ml/min 03/02/21 12:00 Est GFR ( Amer) 59.0 ml/min 03/02/21 12:00 Est GFR (Non-Af Amer) 50.9 ml/min 03/02/21 12:00 BUN/Creatinine Ratio 44.7 (10-20) H 03/02/21 12:00 Glucose 128 mg/dl (70-99) H 03/02/21 12:00 Lactate 2.5 mmol/L (0.4-2.0) H* 03/02/21 14:16 Calcium 9.0 mg/dl (8.5-10.1) 03/02/21 12:00 Total Bilirubin 0.7 mg/dl (0.2-1) 03/02/21 12:00 AST 15 U/L (15-37) 03/02/21 12:00 ALT 25 U/L (12-78) 03/02/21 12:00 Alkaline Phosphatase 70 U/L (45-117) 03/02/21 12:00 Troponin I < 0.015 ng/ml (0-0.045) 03/02/21 12:00 NT-Pro-B Natriuret Pep 2198 pg/ml (0-1800) H 03/02/21 12:00 Total Protein 6.8 gm/dl (6.4-8.2) 03/02/21 12:00 Albumin 3.1 gm/dl (3.4-5.0) L 03/02/21 12:00 Globulin 3.7 gm/dl (2.5-4.0) 03/02/21 12:00 Albumin/Globulin Ratio 0.8 (0.9-2) L 03/02/21 12:00 Lipase 161 U/L (73-393) 03/02/21 12:00 Procalcitonin < 0.05 ng/ml (0-0.5) 03/02/21 12:00 COVID-19 Eval Order Covid19 at [facility] 03/02/21 14:00 SARS-CoV-2 (PCR) NEGATIVE (Negative) 03/02/21 14:00 Impressions Chest X-Ray 03/02/21 12:12 XR chest 1V portable CLINICAL HISTORY: Chest Pain COMPARISON STUDY: Chest radiograph February 15, 2021. FINDINGS: Anterior cervical spine fusion partially imaged. There has been interval development of extensive left lung airspace opacity with volume loss. Right lung is clear. There is no pneumothorax. There is a probable left pleural effusion. A hiatal hernia is present. There is no evidence for pulmonary edema. IMPRESSION: 1. Interval development of extensive left lung opacity with volume loss. This favors extensive atelectasis, possibly related to mucus plugging. Consideration might be given to further evaluation with bronchoscopy. Suspected left pleural effusion. 2. Hiatal hernia. ACT 112: Negative or not required by law. Electronically signed by: Bora Gale M.D. 03/02/2021 1:[address] 03/02/21 13:51 CT chest diagnostic wo con CLINICAL HISTORY: large left pleural effusion COMPARISON STUDY: Chest x-ray dated 03/02/2021 CT DOSE: 323.43 mGy.cm TECHNIQUE: CT of the thorax was performed from the thoracic inlet to the lung bases. Images are reviewed in the axial, sagittal, and coronal planes. IV contrast was not administered for this examination. A dose lowering technique was utilized adhering to the principles of ALARA. FINDINGS: Thyroid: Imaged portions of the thyroid gland are normal in appearance. Thoracic aorta: The thoracic aorta is normal in course and caliber, noting standard 3 vessel arch anatomy. Heart: There are coronary artery calcifications. There is no significant pericardial fluid. Lungs and pleural spaces: There is a small left pleural effusion. There is left lung atelectasis/consolidation with volume loss. There is mucoid debris within the ashley. There is obstruction of the central left bronchi with debris. Mediastinum: Mediastinal lymph nodes are the upper limits of normal in size. Deb: There is known to pathologic hilar adenopathy given the limitations of a noncontrast study Axilla: There is no evidence of pathologic axillary lymphadenopathy Upper abdomen: There is a hiatal hernia. There are bilateral renal cysts. The gallbladder appears surgically absent. Postsurgical changes are present within the spine. Skeletal structures: There are no lytic or blastic osseous lesions. IMPRESSION: 1. Small left pleural effusion 2. Marked left lung volume loss with left lung atelectasis/consolidation. The central left bronchi are occluded with debris. 3. Hiatal hernia ACT 112: Negative or not required by law. Electronically signed by: Suhas Claire M.D. 03/02/2021 2:51 PM PG Care Time/CCT Total # of Minutes Spent Total Time Spent with Patient: Total time spent is greater than 50% in coordination of care (as documented) at patient's floor/unit and/or counseling patient: Coding Level of Care Code 12858 Initial Inpt Care Lvl 3 Diagnoses Hypothyroidism E03.9 Hypertension I10 Diabetes mellitus, new onset E11.9 Collapse of left lung J98.11
[2021-03-02] MEDS ORDERED: PIPERACILL/TAZOBAC CONSULT ACTIVE PRN (18:20)
[2021-03-02] MEDS ORDERED: ONDANSETRON INJ 2 MG/ML 2 ML VIAL IV PRN (18:20)
[2021-03-02] MEDS ORDERED: PIPERACILLIN/TAZOBACTAM 3.375 GM in DEXTROSE 5% 100 ML IV SCH (18:20)
[2021-03-02] MEDS: ACETAMINOPHEN 325 MG TAB PO PRN (19:51)
[2021-03-02] MEDS: SODIUM CHLOR 7% 4 ML NEB NEB SCH (19:59)
[2021-03-02] MEDS ORDERED: ENOXAPARIN INJ 40 MG/0.4 ML SYR SQ SCH (20:00)
[2021-03-02] MEDS ORDERED: PIPERACILLIN/TAZOBACTAM 3.375 GM in DEXTROSE 5% 100 ML IV ONE (20:00)
[2021-03-02] MEDS: THIAMINE HCL 100 MG TAB PO SCH (20:30)
[2021-03-02] MEDS: PANTOprazole 40 MG TAB PO SCH (20:31)
[2021-03-02] MEDS: METOPROLOL TARTRATE 50 MG TAB PO SCH (20:31)
[2021-03-02] MEDS: risperiDONE ODT 0.5 MG SOLTAB PO SCH (20:31)
[2021-03-02] MEDS: amLODIPine BESYLATE 5 MG TAB PO SCH (20:31)
[2021-03-02] MEDS ORDERED: CARBOHYDRATES FOR HYPOGLYCEMIA PO PRN (21:30)
[2021-03-02] MEDS ORDERED: GLUCOSE 40% GEL 15 GM TUBE PO PRN (21:30)
[2021-03-02] MEDS ORDERED: GLUCOSE 10 TABS/TUBE PO PRN (21:30)
[2021-03-02] MEDS ORDERED: GLUCAGON FOR INJ 1 MG VIAL SQ PRN (21:30)
[2021-03-02] MEDS ORDERED: DEXTROSE 50% 50 ML SYRINGE IV PRN (21:30)
[2021-03-02] MEDS: INSULIN ASPART 100 UNITS/ML 3 ML PEN SC SCH (23:15)
[2021-03-03] MEDS: PIPERACILLIN/TAZOBACTAM 3.375 GM in DEXTROSE 5% 100 ML IV SCH ×3 (01:54→17:36)
[2021-03-03] MEDS: ACETAMINOPHEN 325 MG TAB PO PRN (01:56)
[2021-03-03] MEDS: SODIUM CHLORIDE 0.9% 1000ML 1,000 ML IV SCH ×3 (03:29→23:34)
[2021-03-03] MEDS: LEVOTHYROXINE SODIUM 75 MCG TABLET PO SCH (05:41)
[2021-03-03 06:18] LABS: Basophils # (auto) 0.01 K/uL (0-0.2); Basophils % (auto) 0.1 %; Eosinophils # (auto) 0.02 K/uL (0-0.5); Eosinophils % (auto) 0.2 %; Hematocrit (blood only) 30.7 % (37-47); Hemoglobin 9.8 g/dL (12.0-16.0); Immature Granulocytes # (auto) 0.03 K/uL (0.00-0.02); Immature Granulocytes % (auto) 0.3 %; Lymphocytes # (auto) 0.57 K/uL (1.2-3.4); Lymphocytes % (auto) 6.3 %; Mean Corpuscular Hemoglobin 30.3 pg (25-34); Mean Corpuscular Hgb Conc 31.9 g/dL (32-36); Mean Platelet Volume 10.5 fL (7.4-10.4); Monocytes # (auto) 0.84 K/uL (0.11-0.59); Monocytes % (auto) 9.3 %; Neutrophils # (auto) 7.52 K/uL (1.4-6.5); Neutrophils % (auto) 83.8 %; Platelet Count 118 K/uL (130-400); RDW Coefficient of Variation 13.2 % (11.5-14.5); RDW Standard Deviation 46.4 fL (36.4-46.3); Red Blood Count 3.23 M/uL (4.2-5.4); White Blood Count 8.99 K/uL (4.8-10.8)
[2021-03-03 06:48] LABS: BUN Creatinine Ratio 31.6 (10-20); Calcium 8.1 mg/dl (8.5-10.1); Est GFR (African American) 54.9 ml/min; Est GFR (Non-African American) 47.4 ml/min; Potassium 4.3 mmol/L (3.5-5.1)
[2021-03-03] MEDS: SODIUM CHLOR 7% 4 ML NEB NEB SCH (07:24)
[2021-03-03 07:31] LABS: Estimated Average Glucose 128 mg/dl; Hemoglobin A1C 6.1 % (4.5-5.6)
--- NOTE | 2021-03-03 07:46 | XRay Report ---
XR chest 1V portable CLINICAL HISTORY: follow up infiltrates COMPARISON STUDY: 03/02/2021 FINDINGS: There is continued evidence for cardiac shift to the left with left lung volume loss. There is minimal improved aeration of the left lung. Small left pleural effusion is suspected. The right l cristela appears generally clear[ IMPRESSION: Slight improvement in the aeration of the left lung with persistent left lung volume loss . Suspected small pleural effusion ACT 112: Negative or not required by law. Electronically signed by: Suhas Claire M.D. 03/03/2021 7:45 AM
[2021-03-03] MEDS: INSULIN ASPART 100 UNITS/ML 3 ML PEN SC SCH ×4 (07:48→20:46)
[2021-03-03] MEDS: METOPROLOL TARTRATE 50 MG TAB PO SCH ×2 (07:51→20:46)
[2021-03-03] MEDS ORDERED: metFORMIN HCL 500 MG TAB PO SCH (09:00)
[2021-03-03] MEDS: methylPREDNISolone 20 MG in SYRINGE 0 ML IV SCH ×2 (09:18→20:46)
[2021-03-03] MEDS ORDERED: fentaNYL citrate 100 MCG/2 ML VIAL ONE (10:29)
[2021-03-03] MEDS ORDERED: MIDAZOLAM HCL 5 MG/ML 1 ML VIAL ONE (10:29)
--- NOTE | 2021-03-03 10:46 | Pre Anesthesia Assessment ---
Date of Service March 03, 2021 Pre Sedation Assessment Vital Signs Temp Pulse Pulse Resp BP BP Pulse Ox 03/03/21 10:40 73 20 99 03/03/21 09:39 95 03/03/21 08:00 66 03/03/21 07:25 70 16 94 03/03/21 07:03 97.5 F L 72 17 144/68 H 95 03/03/21 03:23 98.8 F 68 20 101/58 L 96 03/02/21 23:07 98.1 F 70 24 131/67 95 03/02/21 19:59 74 18 94 03/02/21 19:02 98.1 F 20 137/64 92 03/02/21 18:20 97.7 F 24 133/70 93 03/02/21 18:03 98 03/02/21 18:02 86 18 131/76 94 03/02/21 17:30 74 18 131/54 L 99 03/02/21 17:00 75 26 H 125/55 L 96 03/02/21 16:30 79 23 132/83 93 03/02/21 16:00 73 20 119/52 L 100 03/02/21 15:30 71 22 115/64 92 03/02/21 15:00 74 20 142/57 H 90 03/02/21 14:58 88 L 03/02/21 14:30 78 20 91 03/02/21 14:01 79 20 91 03/02/21 13:30 68 20 122/65 91 03/02/21 13:00 73 20 132/53 L 90 03/02/21 12:30 70 24 124/58 L 90 03/02/21 12:13 91 03/02/21 12:00 75 22 130/53 L 90 03/02/21 11:47 86 L 03/02/21 11:37 71 28 H 160/66 H 92 03/02/21 11:30 70 22 90 03/02/21 11:29 69 20 91 Pre-Sedation Airway Assessment Smoking Status: Never smoker Hx Sleep Apnea: No Short, Thick Neck: No Thyromental Distance: > or= 3.5 Finger Breadths Oral Cavity: + WNL Mallampati Class: III ASA: ASA3 NPO Status Date of Last Intake of Fluids: 03/03/21 Time of Last Intake of Fluids: 07:00 Date of Last Intake of Solid Food: 03/03/21 Time of Last Intake of Solid Foods: 00:00 Last Intake of Solids Comment: nothing after midnight Notes The planned sedation has been discussed with the patient. Informed Consent was obtained. I have identified the patient, determined the appropriateness of sedation and have assessed the patient immediately prior to the procedure. All medicine(s) and interventions are by my order.
--- NOTE | 2021-03-03 10:46 | History & Physical Bridge Note ---
Date of Service March 03, 2021 History & Physical Bridge Note I have examined the patient, reviewed the History & Physical and in the interval since the performance of the History & Physical I have noted the following changes of clinical significance: no changes noted
--- NOTE | 2021-03-03 11:28 | Post Anesthesia Assessment ---
Date of Service March 03, 2021 Post Sedation Assessment Vital Signs Temp Pulse Pulse Resp BP BP Pulse Ox 03/03/21 11:24 71 16 115/54 L 91 03/03/21 11:19 73 16 129/60 92 03/03/21 11:15 84 16 147/65 H 88 L 03/03/21 11:10 82 20 166/75 H 95 03/03/21 11:05 77 20 144/74 H 97 03/03/21 11:00 78 16 139/69 95 03/03/21 10:55 75 16 117/61 97 03/03/21 10:50 75 14 146/72 H 99 03/03/21 10:40 73 20 138/74 99 03/03/21 09:39 95 03/03/21 08:00 66 03/03/21 07:25 70 16 94 03/03/21 07:03 97.5 F L 72 17 144/68 H 95 03/03/21 03:23 98.8 F 68 20 101/58 L 96 03/02/21 23:07 98.1 F 70 24 131/67 95 03/02/21 19:59 74 18 94 03/02/21 19:02 98.1 F 20 137/64 92 03/02/21 18:20 97.7 F 24 133/70 93 03/02/21 18:03 98 03/02/21 18:02 86 18 131/76 94 03/02/21 17:30 74 18 131/54 L 99 03/02/21 17:00 75 26 H 125/55 L 96 03/02/21 16:30 79 23 132/83 93 03/02/21 16:00 73 20 119/52 L 100 03/02/21 15:30 71 22 115/64 92 03/02/21 15:00 74 20 142/57 H 90 03/02/21 14:58 88 L 03/02/21 14:30 78 20 91 03/02/21 14:01 79 20 91 03/02/21 13:30 68 20 122/65 91 03/02/21 13:00 73 20 132/53 L 90 03/02/21 12:30 70 24 124/58 L 90 03/02/21 12:13 91 03/02/21 12:00 75 22 130/53 L 90 03/02/21 11:47 86 L 03/02/21 11:37 71 28 H 160/66 H 92 03/02/21 11:30 70 22 90 03/02/21 11:29 69 20 91 Recovery Score Activity: Moves 4 extremities Respiration: Deep Breath/Cough Circulation: +/-20% PreAnes Value Consciousness: Arouseable (by name) Oxygen Saturation: O2 needed for >90% Post Anesthesia Score: 8 Discharge Sedation Level of Care: Fast Track Phase II Post Sedation Plan On clinical assessment, the patient appears to have tolerated the sedation without complications. Patient is recovering as anticipated. Patient will continue to be monitored by nursing and may be discharged when sedation discharge criteria are met per below protocol. Upon Completions of procedure up to 15 minutes continue every 5 minute vital signs and the P.A.R. score; then discharge to a Phase I or Fast Track to Phase II per the following guidelines: * Discharge Patient to appropriate Phase II area if PAR is 8 or greater or return to pre- procedure baseline. The post - procedure orders will be as directed. * If PAR score is less than 8 or not return to pre-procedure baseline then patient will follow Phase I monitoring till PAR is reached for Phase II. The Phase I may be done in procedure room or may call to secure a Phase I area. * If naloxone or flumazenil are used for reversal, hold in Phase I for continued monitoring from when last reversal dose was given for a minimum of 60 minutes or longer pending the nurse and/or physician discretion of patient condition before discharge to Phase II. Please call the Sedation Physician to re-evaluate and complete post-note for discharge to Phase II area. Do NOT discharge from procedure sedation or Phase 1 until post- sedation eval uation note is complete by procedure /sedation MD Sedation Discharge Instructions to be given to the patient at discharge to home.
--- NOTE | 2021-03-03 11:42 | XRay Report ---
XR chest 1V portable CLINICAL HISTORY: Post bronchoscopy chest x-ray COMPARISON STUDY: 03/03/2021 FINDINGS: There is persistent but improved left lung volume loss with left lung airspace opacities. T here is a small left pleural effusion. There is no pneumothorax. There is no focal pulmonary consolid ation on the right. IMPRESSION: 1. Improving left lung aeration with persistent left mid lung zone airspace opacities and volume loss 2. Small left pleural effusion 3. No evidence of pneumothorax status post bronchoscopy ACT 112: Negative or not required by law. Electronically signed by: Suhas Claire M.D. 03/03/2021 11:41 AM
--- NOTE | 2021-03-03 11:42 | Procedure Note ---
Procedure Note Date of Service March 03, 2021 Note PREOPERATIVE DIAGNOSIS: Left lower lobe collapse PROCEDURE PERFORMED: Flexible fiberoptic bronchoscopy with bronchial washings COMPLICATIONS: Bleeding noted in the left upper lobe INDICATION: Evaluate the left lower lobe collapse PROCEDURE: After obtaining an informed consent, the patient was brought to the Bronchoscopy Suite. The patient had appropriate oxygen, blood pressure, heart rate, and respiratory rate monitoring applied and monitored continuously throughout the procedure. Supplemental oxygen via nasal cannula as per nursing records was applied to the nasopharynx with adequate saturations achieved. Topical anesthesia with nebulized 1% lidocaine was achieved. Subsequent to this, the patient was premedicated with 2 mg of midazolam and 25 mcg of fentanyl. The oropharynx and larynx were well visualized and showed mild erythema. There was normal vocal cord motion without masses or lesions. Additional topical anesthesia with 1% lidocaine was applied to the trachea and ashley. The trachea appeared normal. The bronchoscope was then advanced through the ashley, which was sharp. The scope was then advanced into the right main stem and each segment, subsegement in the right upper lobe, right middle lobe and right lower lobe was visualized. There was a small amounts of thin secretions noted. There were no other findings including evidence of mass, anatomic distortion or hemorrhage. The bronchoscope was subsequently withdrawn from the right mainstem bronchus and advanced into the left mainstem. Thick mucus was noted emanating from the left mainstem bronchus. This was aspirated out. I advanced in the left upper lobe and immediately bleeding was noted likely secondary to possible scope trauma. Cold saline was instilled. There was oozing noted of dark red blood. We performed washings of the area with 60 mL of saline. Approximately 30 mL was aspirated back. The fluid appeared bloody. The scope was withdrawn to the level of the ashley and no significant bleeding was noted. The bronchoscope was withdrawn. A [id number] INR was completed during the procedure which demonstrated that the INR level was 1.0. Bronchoalveolar lavage samples were sent for Gram stain and bacterial culture, AFB culture and smear, fungal culture and smear and cytology. Recommendations: Follow cultures. Hold all anticoagulants. Hold hypertonic saline and vest therapy today given the bleeding noted. We will check a PTT, INR, fibrinogen and CBC. Check chest x-ray. Continue Zosyn for broad-spectrum coverage. Coding CPT Codes Sedation/Anesthesia - Sedation/Anesthesia: 68087 Mod Sedation by the same physician;Init15 Min Child Age 5 & Up ([id number]) Pulmonary/Thoracic - Pulmonary and Thoracic: 29602 Dx bronchoscopy/wash ([id number]) [facility] Procedure Codes (Charges) Pulmonary/Thoracic Procedure 1: Pulmonary and Thoracic: 00619 Dx bronchoscopy/wash Sedation/Anesthesia Procedure 2: Sedation/Anesthesia: 11204 Mod Sedation by the same physician;Init15 Min Child Age 5 & Up Total Sedation Time (minutes): 35
[2021-03-03] MEDS ORDERED: VANCOMYCIN HCL 1,000 MG in SODIUM CHLORIDE 0.9% 250 ML IV SCH (12:00)
[2021-03-03 12:22] LABS: Basophils # (auto) 0.01 K/uL (0-0.2); Basophils % (auto) 0.1 %; Eosinophils # (auto) 0.01 K/uL (0-0.5); Eosinophils % (auto) 0.1 %; Hematocrit (blood only) 31.9 % (37-47); Hemoglobin 10.3 g/dL (12.0-16.0); Immature Granulocytes # (auto) 0.02 K/uL (0.00-0.02); Immature Granulocytes % (auto) 0.2 %; Lymphocytes # (auto) 0.36 K/uL (1.2-3.4); Lymphocytes % (auto) 3.5 %; Mean Corpuscular Hemoglobin 30.7 pg (25-34); Mean Corpuscular Hgb Conc 32.3 g/dL (32-36); Mean Corpuscular Volume 94.9 fL (80-100); Mean Platelet Volume 10.7 fL (7.4-10.4); Monocytes # (auto) 0.56 K/uL (0.11-0.59); Monocytes % (auto) 5.4 %; Neutrophils # (auto) 9.36 K/uL (1.4-6.5); Neutrophils % (auto) 90.7 %; Platelet Count 113 K/uL (130-400); RDW Coefficient of Variation 13.3 % (11.5-14.5); RDW Standard Deviation 46.3 fL (36.4-46.3); Red Blood Count 3.36 M/uL (4.2-5.4); White Blood Count 10.32 K/uL (4.8-10.8)
[2021-03-03 13:09] LABS: Fibrinogen 494 mg/dl (184-400); INR 1.1 (0.9-1.1); Partial Thromboplastin Ratio 0.9; Partial Thromboplastin Time 23.7 Seconds (21.0-31.0); Prothrombin Time 10.9 Seconds (9.0-12.0)
--- NOTE | 2021-03-03 13:18 | Pulmonary Consultation ---
Date of Consultation March 03, 2021 Assessment & Plan (1) Collapse of left lun-year-old female who presented to the hospital from [facility] due to shortness of breath and cough was found to have left lower lobe lung collapse and a small pleural effusion. She is status post bronchoscopy. I did note bleeding on the bronchoscopy which may have been scope trauma. She did cough up a significant mucous plug prior to the bronchoscopy. I did see some mucus plugging in the left lower lobe during the bronchoscopy as well. Given the bleeding seen, will hold hypertonic saline nebulization and chest physiotherapy for today. Also discussed with the hospitalist with regards to holding DVT prophylaxis. Her hypoxia does appear to be improving and post bronchoscopy chest x-ray demonstrates significant improvement in aeration of the left upper lobe. I do not think the pleural effusion at this time warrants a thoracentesis. It is quite small. She does not have a significant white count or fever at this time. Continue with Zosyn. Follow cultures from the bronchoscopy. Thank you for the consultation. We will continue to follow along with you. (2) Parapneumonic effusion: (3) Acute hypoxemic respiratory failure: History of Present Illness Reason for Consultation: Left lower lobe collapse Attending Physician: Gil Bruno History of Present Illness 89-year-old female with a past medical history of CKD stage III, hypertension and hypothyroidism who presented to the hospital from [facility] due to pleuritic chest pain and shortness of breath. He has a cough. She denies hemoptysis. She denies fevers or chills. I spoke with the patient's daughter over the phone, [place]. She was updated regarding her condition. I reviewed the chest x-ray images and CT images. There is a left lower lobe collapse with surrounding small left pleural effusion. Mild leukocytosis was seen on hospital admission. She is currently on Zosyn. MRSA screen was negative. Allergies Allergy/AdvReac Type Severity Reaction Status Date / Time aloe Allergy Mild itching Verified 12/13/20 00:29 bacitracin Allergy Mild itching Verified 12/13/20 00:29 codeine Allergy Mild ITCHING Verified 12/13/20 00:29 cortisone Allergy Mild Rash Verified 12/13/20 00:29 erythromycin base Allergy Mild ITCHING Verified 12/13/20 00:29 latex Allergy Mild ITCHING Verified 12/13/20 00:29 neomycin Allergy Mild itching Verified 12/13/20 00:29 polymyxin B Allergy Mild itching Verified 12/13/20 00:29 tramadol Allergy Mild Rash Verified 12/13/20 00:29 triamcinolone Allergy Mild ITCHING Verified 12/13/20 00:29 Iodinated Contrast Media Allergy Unknown DOES NOT Verified 12/13/20 00:29 REMEMBER propranolol Allergy Unknown DOES NOT Verified 12/13/20 00:29 REMEMBER Home Medications Medication Instructions Recorded Confirmed Type levothyroxine 75 mcg tablet 75 mcg PO DAILY #30 tab 03/30/20 03/02/21 Rx (Synthroid) leflunomide 10 mg tablet 10 mg PO DAILY 06/17/20 03/02/21 History prednisone 10 mg tablet 10 mg PO DAILY 07/27/20 03/02/21 History lisinopril 20 mg tablet 20 mg PO DAILY 12/13/20 03/02/21 History metoprolol tartrate 50 mg tablet 50 mg PO BID 12/13/20 03/02/21 History simvastatin 20 mg tablet 20 mg PO DAILY 12/13/20 03/02/21 History amlodipine 5 mg tablet (Norvasc) 5 mg PO BID 30 Days #60 tab 12/20/20 03/02/21 Rx mirabegron 25 mg tablet,extended 25 mg PO DAILY 30 Days #30 tab 12/20/20 03/02/21 Rx release 24 hr (Myrbetriq) risperidone 0.5 mg disintegrating 0.5 mg PO HS 30 Days #30 tab 12/20/20 03/02/21 Rx tablet thiamine HCl (vitamin B1) 100 mg 200 mg PO BID 30 Days #120 tab 12/20/20 03/02/21 Rx tablet (Vitamin B-1) cyanocobalamin (vitamin B-12) 1,000 mcg PO DAILY #30 tab 02/17/21 03/02/21 Rx 1,000 mcg tablet glipizide 5 mg tablet 5 mg PO DAILY 03/02/21 03/02/21 History metformin 1,000 mg tablet 1,000 mg PO QAM 03/02/21 03/02/21 History metformin 500 mg tablet 500 mg PO QPM 03/02/21 03/02/21 History omeprazole 20 mg tablet,delayed 20 mg PO BID 03/02/21 03/02/21 History release Patient History Medical History (Updated 03/03/21 @ 13:16 by Colt Parker MD) Acute hypoxemic respiratory failure DEXTER (acute kidney injury) Ambulatory dysfunction Anemia Contusion of elbow, right Contusion of hip, right Contusion of knee, left Contusion of knee, right Degenerative disc disease Dehydration Hyperkalemia Hyperlipidemia Hypertension Hypothyroidism Parapneumonic effusion Rheumatoid arthritis Urinary frequency Surgical History Fusion of spine LUMBAR SURGERY X 2 History of adenoidectomy History of cataract surgery RT/LEFT History of cholecystectomy History of colonoscopy History of dilatation and curettage History of discectomy CERVICAL History of open reduction and internal fixation (ORIF) procedure RT FEMUR History of tonsillectomy History of tooth extraction History of total abdominal hysterectomy and bilateral salpingo-oophorectomy Family History Mother Family history of diabetes mellitus Social History Smoking Status: Never smoker Second Hand Exposure: No; Hx Alcohol Use: No Hx Substance Use: No Preferred Language: Botswanan Communication Ability: Effective Supervisor Smoke Control Required: No Beliefs That Will Affect Care: None marital status: / Current Living Situation: Senior Care Current Living Situation Comment: Daughter lives with her How many Children do You have: 1 Feels Safe at Home: Yes Assistive Devices: Walker Review of Systems Review of Systems: All systems reviewed & are unremarkable except as noted in HPI & below Physical Exam Physical Exam: Constitutional: Elderly and frail appearing female no apparent distress. Eyes: Pupils are equal round and reactive to light. Conjunctivae are normal. Anicteric sclera. Ears nose, mouth and throat: Mallampati class 2. Normal posterior oropharynx. Uvula is midline. Neck: Trachea is midline. Visual inspection is normal. Respiratory: Diminished lung sounds in the left lower lobe. Rhonchi noted. No significant tachypnea. Cardiovascular: Regular rate and rhythm. No murmurs. No edema. Gastrointestinal: Normal bowel sounds, soft, nontender and nondistended. No hepatosplenomegaly noted. Musculoskeletal: No cyanosis. Patient is able to move all extremities. Skin: No rashes, warm dry and intact. Neurologic: No obvious focal neurological deficits seen. He does appear weak. Psychiatric: Alert and oriented x3 with a euthymic affect. Results & Data Results & Data ([facility]) Vital Signs (Past 12 Hours) Vital Signs Temp Pulse Pulse Resp BP Pulse Ox 03/03/21 12:15 98.4 F 73 18 139/69 97 03/03/21 11:44 68 16 115/54 L 94 03/03/21 11:39 71 16 126/53 L 92 03/03/21 11:34 71 16 111/52 L 91 03/03/21 11:29 72 16 115/50 L 92 03/03/21 11:24 71 16 115/54 L 91 03/03/21 11:19 73 16 129/60 92 03/03/21 11:15 84 16 147/65 H 88 L 03/03/21 11:10 82 20 166/75 H 95 03/03/21 11:05 77 20 144/74 H 97 03/03/21 11:00 78 16 139/69 95 03/03/21 10:55 75 16 117/61 97 03/03/21 10:50 75 14 146/72 H 99 03/03/21 10:40 73 20 138/74 99 03/03/21 09:39 95 03/03/21 08:00 66 03/03/21 07:25 70 16 94 03/03/21 07:03 97.5 F L 72 17 144/68 H 95 03/03/21 03:23 98.8 F 68 20 101/58 L 96 Vital signs, labs and imaging personally reviewed PG Care Time/CCT Total # of Minutes Spent Total Time Spent with Patient: Total time spent is greater than 50% in coordination of care (as documented) at patient's floor/unit and/or counseling patient: Coding Level of Care Code 47768 Initial Inpt Care Lvl 3 Diagnoses Collapse of left lung J98.11 Parapneumonic effusion J18.9; J91.8 Acute hypoxemic respiratory failure J96.01
[2021-03-03] MEDS: amLODIPine BESYLATE 5 MG TAB PO SCH ×2 (13:57→20:45)
[2021-03-03] MEDS: THIAMINE HCL 100 MG TAB PO SCH ×2 (13:57→20:44)
[2021-03-03] MEDS: LEFLUNOMIDE 10 MG TAB PO SCH (13:57)
[2021-03-03] MEDS: MIRABEGRON ER 25 MG TAB PO SCH (13:57)
[2021-03-03] MEDS: SIMVASTATIN 20 MG TAB PO SCH (13:57)
[2021-03-03] MEDS: lisinopril 20 MG TAB PO SCH (13:58)
[2021-03-03] MEDS: CYANOCOBALAMIN 500 MCG TABLET (VITAMIN B-12) PO SCH (13:58)
[2021-03-03] MEDS: PANTOprazole 40 MG TAB PO SCH ×2 (13:58→20:44)
--- NOTE | 2021-03-03 17:48 | Hospitalist Progress Note ---
Date of Service March 03, 2021 Assessment & Plan (1) Acute hypoxemic respiratory failure: Plan: 2nd to mucous plugging of left-sided mainstem bronchus leading to left-sided lung collapse & probable pneumonia. Patient coughed up the plug this am. Then had bronch with suction of additional mucous in left-sided airway. Cultures pending. Appreciate pulmonary assistance. (2) Mucus plugging of bronchi: Plan: left. unlikely to be aspiration however speech has seen, and as precautionary measure, video swallow to be performed tomorrow. s/p bronch today - diagnostic/therapeutic. (3) Collapse of left lung: Plan: Improved radiographically s/p bronch this morning. remains on IV antibiotics (zosyn/vanco) in the event she has left-sided bacterial pneumonia. Pulmonary toilet. (4) Pneumonia: Plan: Left-sided. Suspected. (5) Hypothyroidism: Plan: TSH wnl earlier this month on levothyroxine 75 mcg daily (6) Hypertension: Plan: Controlled on amlodipine 5 mg twice daily and metoprolol 50mg qd (7) Diabetes mellitus, new onset: Plan: PO agents - glipizide and Metformin - on hold hemoglobin A1c 6.1% (8) Rheumatoid arthritis: Plan: on chronic prednisone no flare (9) Stage 3b chronic kidney disease: Plan: baseline CrCl 30s (10) Thrombocytopenia: Plan: low-normal level (150) at admission now lower today - consumptive in setting of PUNEET bleeding as seen on bronch today? Plan: 1. follow bronch cultures - cont zosyn/vanco in meantime; narrow the abx once the cultures result 2. add stress dose steroids in the form of solumedrol 20mg BID 3. cont NC O2 and pulmonary support 4. hold chemical DVT proph due to bleeding seen in [place]UNE[place] on bronch today 5. serial labs given her thrombocytopenia will need PT/OT Admission and Anticipated Discharge Date Admission Date: March 02, 2021 Subjective tele overnight wnl s/p bronch today - mucous seen in left mainstem bronchus PUNEET bronchus with bleeding I saw her post-bronch and her pleuritic type chest discomfort and upper abdominal discomfort were resolved she feels better overall she feels like she is breathing more comfortably still requiring NC O2 during my visit was asking for coffee - was hungry/thirsty Review of Systems Constitutional: + fatigue; no fever Respiratory: no dyspnea, no hemoptysis and no wheezing Cardiovascular: no chest pain Gastrointestinal: no abdominal pain, no nausea and no vomiting Physical Exam Physical Exam: general - thin, frail appearing, NAD skin - mild pallor mouth - MM dry neck - no JVD heart - RRR, s1 s2 lungs - decreased BS left base with occasional crackle; CTA on right; no increased wob abd - soft NT ND BS+ ext - no edema, pulses 2+ b/l psych - a/o to person, place, but not time Results & Data Results & Data ([facility]) Vital Signs (Past 12 Hours) Vital Signs Temp Pulse Pulse Resp BP Pulse Ox 03/03/21 14:02 36.5 C 80 16 119/56 L 96 03/03/21 13:05 36.9 C 75 16 116/62 99 03/03/21 12:35 36.9 C 70 18 118/70 98 03/03/21 12:15 36.9 C 73 18 139/69 97 03/03/21 11:44 68 16 115/54 L 94 03/03/21 11:39 71 16 126/53 L 92 03/03/21 11:34 71 16 111/52 L 91 03/03/21 11:29 72 16 115/50 L 92 03/03/21 11:24 71 16 115/54 L 91 03/03/21 11:19 73 16 129/60 92 03/03/21 11:15 84 16 147/65 H 88 L 03/03/21 11:10 82 20 166/75 H 95 03/03/21 11:05 77 20 144/74 H 97 03/03/21 11:00 78 16 139/69 95 03/03/21 10:55 75 16 117/61 97 03/03/21 10:50 75 14 146/72 H 99 03/03/21 10:40 73 20 138/74 99 03/03/21 09:39 95 03/03/21 08:00 66 03/03/21 07:25 70 16 94 03/03/21 07:03 36.4 C L 72 17 144/68 H 95 Laboratory Results Laboratory Results - last 24 hr 03/02/21 03/02/21 03/02/21 18:21 20:41 23:02 WBC RBC Hgb Hct MCV MCH MCHC RDW Std Deviation RDW Coeff of Rafael Plt Count MPV Immature Gran % (Auto) Neut % (Auto) Lymph % (Auto) [place] % (Auto) Eos % (Auto) Baso % (Auto) Neut # (Auto) Lymph # (Auto) [place] # (Auto) Eos # (Auto) Baso # (Auto) Immature Gran # (Auto) PT POC INR INR APTT PTT Ratio Fibrinogen Sodium Potassium Chloride Carbon Dioxide Anion Gap BUN Creatinine Est Cr Clr Drug Dosing Est GFR ( Amer) Est GFR (Non-Af Amer) BUN/Creatinine Ratio Glucose POC Glucose 174 H 174 H 128 H Estimat Average Glucose Hemoglobin A1c Calcium Nasal Screen MRSA (PCR) 03/02/21 03/03/21 03/03/21 Unknown 05:59 05:59 WBC 8.99 RBC 3.23 L Hgb 9.8 L Hct 30.7 L MCV 95.0 MCH 30.3 MCHC 31.9 L RDW Std Deviation 46.4 H RDW Coeff of Rafael 13.2 Plt Count 118 L MPV 10.5 H Immature Gran % (Auto) 0.3 Neut % (Auto) 83.8 Lymph % (Auto) 6.3 [place] % (Auto) 9.3 Eos % (Auto) 0.2 Baso % (Auto) 0.1 Neut # (Auto) 7.52 H Lymph # (Auto) 0.57 L [place] # (Auto) 0.84 H Eos # (Auto) 0.02 Baso # (Auto) 0.01 Immature Gran # (Auto) 0.03 H PT POC INR INR APTT PTT Ratio Fibrinogen Sodium 141 Potassium 4.3 Chloride 114 H Carbon Dioxide 24 Anion Gap 3.0 BUN 33 H Creatinine 1.05 Est Cr Clr Drug Dosing 32.0 Est GFR ( Amer) 54.9 Est GFR (Non-Af Amer) 47.4 BUN/Creatinine Ratio 31.6 H Glucose 95 POC Glucose Estimat Average Glucose Hemoglobin A1c Calcium 8.1 L Nasal Screen MRSA (PCR) Negative 03/03/21 03/03/21 03/03/21 05:59 07:11 11:20 WBC RBC Hgb Hct MCV MCH MCHC RDW Std Deviation RDW Coeff of Rafael Plt Count MPV Immature Gran % (Auto) Neut % (Auto) Lymph % (Auto) [place] % (Auto) Eos % (Auto) Baso % (Auto) Neut # (Auto) Lymph # (Auto) [place] # (Auto) Eos # (Auto) Baso # (Auto) Immature Gran # (Auto) PT POC INR 1.0 INR APTT PTT Ratio Fibrinogen Sodium Potassium Chloride Carbon Dioxide Anion Gap BUN Creatinine Est Cr Clr Drug Dosing Est GFR ( Amer) Est GFR (Non-Af Amer) BUN/Creatinine Ratio Glucose POC Glucose 92 Estimat Average Glucose 128 Hemoglobin A1c 6.1 H Calcium Nasal Screen MRSA (PCR) 03/03/21 03/03/21 03/03/21 12:12 12:12 13:12 WBC 10.32 RBC 3.36 L Hgb 10.3 L Hct 31.9 L MCV 94.9 MCH 30.7 MCHC 32.3 RDW Std Deviation 46.3 RDW Coeff of Rafael 13.3 Plt Count 113 L MPV 10.7 H Immature Gran % (Auto) 0.2 Neut % (Auto) 90.7 Lymph % (Auto) 3.5 [place] % (Auto) 5.4 Eos % (Auto) 0.1 Baso % (Auto) 0.1 Neut # (Auto) 9.36 H Lymph # (Auto) 0.36 L [place] # (Auto) 0.56 Eos # (Auto) 0.01 Baso # (Auto) 0.01 Immature Gran # (Auto) 0.02 PT 10.9 POC INR INR 1.1 APTT 23.7 PTT Ratio 0.9 Fibrinogen 494 H Sodium Potassium Chloride Carbon Dioxide Anion Gap BUN Creatinine Est Cr Clr Drug Dosing Est GFR ( Amer) Est GFR (Non-Af Amer) BUN/Creatinine Ratio Glucose POC Glucose 160 H Estimat Average Glucose Hemoglobin A1c Calcium Nasal Screen MRSA (PCR) 03/03/21 16:18 WBC RBC Hgb Hct MCV MCH MCHC RDW Std Deviation RDW Coeff of Rafael Plt Count MPV Immature Gran % (Auto) Neut % (Auto) Lymph % (Auto) [place] % (Auto) Eos % (Auto) Baso % (Auto) Neut # (Auto) Lymph # (Auto) [place] # (Auto) Eos # (Auto) Baso # (Auto) Immature Gran # (Auto) PT POC INR INR APTT PTT Ratio Fibrinogen Sodium Potassium Chloride Carbon Dioxide Anion Gap BUN Creatinine Est Cr Clr Drug Dosing Est GFR ( Amer) Est GFR (Non-Af Amer) BUN/Creatinine Ratio Glucose POC Glucose 218 H Estimat Average Glucose Hemoglobin A1c Calcium Nasal Screen MRSA (PCR) Diagnostic Findings Chest X-Ray 03/03/21 07:00 XR chest 1V portable CLINICAL HISTORY: follow up infiltrates COMPARISON STUDY: 03/02/2021 FINDINGS: There is continued evidence for cardiac shift to the left with left lung volume loss. There is minimal improved aeration of the left lung. Small left pleural effusion is suspected. The right lung appears generally clear[ IMPRESSION: Slight improvement in the aeration of the left lung with persistent left lung volume loss. Suspected small pleural effusion ACT 112: Negative or not required by law. Electronically signed by: Suhas Claire M.D. 03/03/2021 7:45 AM Chest X-Ray 03/03/21 11:25 XR chest 1V portable CLINICAL HISTORY: Post bronchoscopy chest x-ray COMPARISON STUDY: 03/03/2021 FINDINGS: There is persistent but improved left lung volume loss with left lung airspace opacities. There is a small left pleural effusion. There is no pneumothorax. There is no focal pulmonary consolidation on the right. IMPRESSION: 1. Improving left lung aeration with persistent left mid lung zone airspace opacities and volume loss 2. Small left pleural effusion 3. No evidence of pneumothorax status post bronchoscopy ACT 112: Negative or not required by law. Electronically signed by: Suhas Claire M.D. 03/03/2021 11:41 AM PG Care Time/CCT Total # of Minutes Spent Total Time Spent with Patient: Total time spent is greater than 50% in co ordination of care (as documented) at patient's floor/unit and/or counseling patient: Coding Level of Care Code 74868 Subseq Hosp Care Lvl 3 Diagnoses Collapse of left lung J98.11 Hypothyroidism E03.9 Hypertension I10 Diabetes mellitus, new onset E11.9 Acute hypoxemic respiratory failure J96.01 Rheumatoid arthritis M06.9 Rheumatoid arthritis location: unspecified site Rheumatoid factor presence: unspecified presence Mucus plugging of bronchi T17.500A Pneumonia J18.9 Stage 3b chronic kidney disease N18.32 Thrombocytopenia D69.6 (1) Rheumatoid arthritis Rheumatoid arthritis location: unspecified site Rheumatoid factor presence: unspecified presence Qualified Code(s): M06.9 - Rheumatoid arthritis, unspecified
[2021-03-03] MEDS: risperiDONE ODT 0.5 MG SOLTAB PO SCH (20:44)
[2021-03-04] MEDS: PIPERACILLIN/TAZOBACTAM 3.375 GM in DEXTROSE 5% 100 ML IV SCH ×3 (02:40→17:50)
[2021-03-04] MEDS: LEVOTHYROXINE SODIUM 75 MCG TABLET PO SCH (05:55)
[2021-03-04 07:21] LABS: Hematocrit (blood only) 29.7 % (37-47); Hemoglobin 9.7 g/dL (12.0-16.0); Mean Corpuscular Hemoglobin 30.8 pg (25-34); Mean Corpuscular Hgb Conc 32.7 g/dL (32-36); Mean Corpuscular Volume 94.3 fL (80-100); Mean Platelet Volume 10.9 fL (7.4-10.4); Platelet Count 128 K/uL (130-400); RDW Coefficient of Variation 13.3 % (11.5-14.5); RDW Standard Deviation 45.8 fL (36.4-46.3); Red Blood Count 3.15 M/uL (4.2-5.4); White Blood Count 7.85 K/uL (4.8-10.8)
[2021-03-04 07:52] LABS: Calcium 7.9 mg/dl (8.5-10.1); Creatinine Clr Calc Pharmacy 29.2 ml/min; Est GFR (African American) 49.2 ml/min; Est GFR (Non-African American) 42.4 ml/min; Potassium 4.3 mmol/L (3.5-5.1)
[2021-03-04] MEDS: LEFLUNOMIDE 10 MG TAB PO SCH (08:13)
[2021-03-04] MEDS: methylPREDNISolone 20 MG in SYRINGE 0 ML IV SCH ×2 (08:13→20:28)
[2021-03-04] MEDS: MIRABEGRON ER 25 MG TAB PO SCH (08:14)
[2021-03-04] MEDS: CYANOCOBALAMIN 500 MCG TABLET (VITAMIN B-12) PO SCH (08:14)
[2021-03-04] MEDS: THIAMINE HCL 100 MG TAB PO SCH ×2 (08:14→20:29)
[2021-03-04] MEDS: METOPROLOL TARTRATE 50 MG TAB PO SCH ×2 (08:14→20:27)
[2021-03-04] MEDS: PANTOprazole 40 MG TAB PO SCH ×2 (08:14→20:27)
[2021-03-04] MEDS: SIMVASTATIN 20 MG TAB PO SCH (08:15)
[2021-03-04] MEDS: amLODIPine BESYLATE 5 MG TAB PO SCH ×2 (08:15→20:27)
[2021-03-04] MEDS: INSULIN ASPART 100 UNITS/ML 3 ML PEN SC SCH ×4 (08:15→20:28)
[2021-03-04] MEDS: lisinopril 20 MG TAB PO SCH (08:16)
--- NOTE | 2021-03-04 08:34 | XRay Report ---
XR chest 1V portable CLINICAL HISTORY: follow up left lower lobe collapse COMPARISON STUDY: Chest CT March 02, 2021. Chest radiograph March 03, 2021. FINDINGS: Anterior cervical spine fusion is incidentally noted. A small left pleural effusion is note d. There is a trace right pleural effusion. There is no pneumothorax. Extensive left lung volume loss with airspace opacity has slightly increased since exam of March 03, 2021. This remains improved sin e study of March 02, 2021. A hiatal hernia is noted. IMPRESSION: Slight increase in extensive left lung volume loss and airspace opacity which may reflect atelectasis or consolidation. Small left pleural effusion. ACT 112: Negative or not required by law. Electronically signed by: Bora Gale M.D. 03/04/2021 8:33 AM
[2021-03-04] MEDS: SODIUM CHLORIDE 0.9% 1000ML 1,000 ML IV SCH (08:58)
[2021-03-04] MEDS ORDERED: INSULIN GLARGINE SOLOSTAR 100 UNITS/ML 3 ML PEN SC SCH (09:00)
--- NOTE | 2021-03-04 10:38 | Pulmonology Progress Note ---
Date of Service March 04, 2021 Assessment & Plan (1) Collapse of left lung: Plan: 89-year-old female who presented to the hospital from [facility] due to shortness of breath and cough was found to have left lower lobe lung collapse and a small pleural effusion. She is status post bronchoscopy. I did note bleeding on the bronchoscopy which may have been due to scope trauma. She had very friable tissue in the left upper lobe. Restart chest physiotherapy 3 times daily today. Please continue to hold all anticoagulants given the presence of hemoptysis. Will initiate SCDs to prevent DVT. INR, PTT and fibrinogen levels within normal limits. Platelet count is improving. Continue antibiotics. Follow cultures and cytology from bronchoscopy results. Chest x-ray is improving. Thank you for the consultation. We will continue to follow along with you. (2) Left lower lobe pneumonia: (3) Acute hypoxemic respiratory failure: (4) Parapneumonic effusion: Admission and Anticipated Discharge Date Admission Date: March 02, 2021 Subjective Patient seen and examined this morning. She is sitting up in a chair. She feels that her breathing is better. She did have some hemoptysis today post bronchoscopy. She feels weak. She does not feel that she is short of breath. No fevers or chills. Hemoglobin stable. Physical Exam Physical Exam: Constitutional: Elderly and frail appearing female no apparent distress. Eyes: Pupils are equal round and reactive to light. Conjunctivae are normal. Anicteric sclera. Ears nose, mouth and throat: Mallampati class 2. Normal posterior oropharynx. Uvula is midline. Neck: Trachea is midline. Visual inspection is normal. Respiratory: Diminished lung sounds in the left lower lobe. Rhonchi noted. No significant tachypnea. Cardiovascular: Regular rate and rhythm. No murmurs. No edema. Gastrointestinal: Normal bowel sounds, soft, nontender and nondistended. No hepatosplenomegaly noted. Musculoskeletal: No cyanosis. Patient is able to move all extremities. Skin: No rashes, warm dry and intact. Neurologic: No obvious focal neurological deficits seen. He does appear weak. Psychiatric: Alert and oriented x3 with a euthymic affect. Results & Data Results & Data ([facility]) Vital Signs (Past 12 Hours) Vital Signs Temp Pulse Pulse Resp BP Pulse Ox 03/04/21 09:03 84 03/04/21 06:43 97.7 F 79 16 134/72 98 03/04/21 02:53 97.7 F 85 16 116/64 92 03/04/21 00:00 66 03/03/21 23:14 98.1 F 70 19 106/57 L 98 vital signs, labs and imaging stable. PG Care Time/CCT Total # of Minutes Spent Total Time Spent with Patient: Total time spent is greater than 50% in coordination of care (as documented) at patient's floor/unit and/or counseling patient: Coding Level of Care Code 53272 Subseq Hosp Care Lvl 3 Diagnoses Collapse of left lung J98.11 Parapneumonic effusion J18.9; J91.8 Acute hypoxemic respiratory failure J96.01 Left lower lobe pneumonia J18.9
--- NOTE | 2021-03-04 14:28 | Fluoroscopy Report ---
MODIFIED BARIUM SWALLOW CLINICAL HISTORY: r/o silent aspiration COMPARISON STUDY: None. FLUOROSCOPY TIME: 2.2 minutes. TECHNIQUE: A modified barium swallow was performed in conjunction with Speech Pathology. The patient ingested varying consistencies of barium containing material. Video fluoroscopy was performed. FINDINGS: Incidental note is made of a multilevel anterior cervical spine fusion. No tracheal aspirat ion was identified with thin liquids, nectar thick liquids, pudding or crackers with paste. Swallowin g mechanism was intact. Hiatal hernia was noted. This is suboptimally assessed on this exam. IMPRESSION: 1. Intact swallowing mechanism. No tracheal aspiration. 2. Hiatal hernia. 3. Full recommendations by speech pathology to follow. ACT 112: Negative or not required by law. Electronically signed by: Bora Gale M.D. 03/04/2021 2:26 PM
[2021-03-04] MEDS: risperiDONE ODT 0.5 MG SOLTAB PO SCH (20:27)
--- NOTE | 2021-03-04 20:48 | Hospitalist Progress Note ---
Date of Service March 04, 2021 Assessment & Plan (1) Acute hypoxemic respiratory failure: Plan: resolved 2nd to mucous plugging of left-sided mainstem bronchus leading to left-sided lung collapse & probable pneumonia. s/p bronch with suction of mucous in left-sided airway. Cultures pending, possible growth Appreciate pulmonary assistance. (2) Mucus plugging of bronchi: Plan: left. resolved s/p bronch today - diagnostic/therapeutic. s/p video swallow - no aspiration. (3) Collapse of left lung: Plan: Improved clinically and radiographically s/p bronch (4) Pneumonia: Plan: Left-sided. Suspected. stop IV abx; change to PO levaquin in am O2 weaned off (5) Hypothyroidism: Plan: TSH wnl earlier this month on levothyroxine 75 mcg daily (6) Hypertension: Plan: Controlled on amlodipine 5 mg twice daily and metoprolol 50mg qd (7) Diabetes mellitus, new onset: Plan: PO agents - glipizide and Metformin - on hold hemoglobin A1c 6.1% uncontrolled 2nd to steroids increase lantus to BID dosing (8) Rheumatoid arthritis: Plan: on chronic prednisone; getting stress dose steroids change to 10mg tomorrow no flare (9) Stage 3b chronic kidney disease: Plan: baseline CrCl 30s (10) Thrombocytopenia: Plan: consumptive in setting of PUNEET bleeding as seen on bronch cbc in am Plan: 1. follow bronch cultures 2. PT/OT back to [facility] tomorrow? daughter updated by phone this evening Admission and Anticipated Discharge Date Admission Date: March 02, 2021 Subjective tele wnl pt feels good eating well minimal cough no dyspnea no chest pain scant hemoptysis earlier today - 1x only Review of Systems Constitutional: no fever and no chills Respiratory: + cough; no dyspnea, no dyspnea on exertion, no pain on inspiration and no wheezing Cardiovascular: no chest pain Gastrointestinal: no abdominal pain, no nausea and no vomiting Physical Exam Physical Exam: general - thin, frail appearing, NAD; looks good today skin - no rash mouth - MMM neck - no JVD heart - RRR, s1 s2 lungs - minimally decreased BS left base only otherwise CTA b/l abd - soft NT ND BS+ ext - no edema, pulses 2+ b/l psych - a/o to person, place Results & Data Results & Data ([facility]) Vital Signs (Past 12 Hours) Vital Signs Temp Pulse Pulse Resp BP Pulse Ox 03/04/21 19:35 36.7 C 65 20 115/66 95 03/04/21 15:33 36.4 C L 71 18 100/56 L 91 03/04/21 11:54 36.3 C L 63 20 114/61 94 03/04/21 09:03 84 Laboratory Results Laboratory Results - last 24 hr 03/03/21 03/04/21 03/04/21 20:35 06:20 06:20 WBC 7.85 RBC 3.15 L Hgb 9.7 L Hct 29.7 L MCV 94.3 MCH 30.8 MCHC 32.7 RDW Std Deviation 45.8 RDW Coeff of Rafael 13.3 Plt Count 128 L MPV 10.9 H Sodium 140 Potassium 4.3 Chloride 114 H Carbon Dioxide 21 Anion Gap 5.0 BUN 31 H Creatinine 1.15 Est Cr Clr Drug Dosing 29.2 Est GFR ( Amer) 49.2 Est GFR (Non-Af Amer) 42.4 BUN/Creatinine Ratio 27.0 H Glucose 167 H POC Glucose 204 H Calcium 7.9 L 03/04/21 03/04/21 03/04/21 07:09 11:28 16:26 WBC RBC Hgb Hct MCV MCH MCHC RDW Std Deviation RDW Coeff of Rafael Plt Count MPV Sodium Potassium Chloride Carbon Dioxide Anion Gap BUN Creatinine Est Cr Clr Drug Dosing Est GFR ( Amer) Est GFR (Non-Af Amer) BUN/Creatinine Ratio Glucose POC Glucose 182 H 178 H 266 H Calcium 03/04/21 20:21 WBC RBC Hgb Hct MCV MCH MCHC RDW Std Deviation RDW Coeff of Rafael Plt Count MPV Sodium Potassium Chloride Carbon Dioxide Anion Gap BUN Creatinine Est Cr Clr Drug Dosing Est GFR ( Amer) Est GFR (Non-Af Amer) BUN/Creatinine Ratio Glucose POC Glucose 238 H Calcium PG Care Time/CCT Total # of Minutes Spent Total Time Spent with Patient: Total time spent is greater than 50% in coordination of care (as documented) at patient's floor/unit and/or counseling patient: Coding Level of Care Code 24951 Subseq Hosp Care Lvl 2 Diagnoses Acute hypoxemic respiratory failure J96.01 Mucus plugging of bronchi T17.500A Collapse of left lung J98.11 Pneumonia J18.9 Hypothyroidism E03.9 Hypertension I10 Diabetes mellitus, new onset E11.9 Rheumatoid arthritis M06.9 Rheumatoid arthritis location: unspecified site Rheumatoid factor presence: unspecified presence Stage 3b chronic kidney disease N18.32 Thrombocytopenia D69.6 (1) Rheumatoid arthritis Rheumatoid arthritis location: unspecified site Rheumatoid factor presence: unspecified presence Qualified Code(s): M06.9 - Rheumatoid arthritis, unspecified
[2021-03-04] MEDS: INSULIN GLARGINE SOLOSTAR 100 UNITS/ML 3 ML PEN SC SCH (21:09)
[2021-03-05] MEDS: LEVOTHYROXINE SODIUM 75 MCG TABLET PO SCH (05:15)
[2021-03-05] MEDS: SIMVASTATIN 20 MG TAB PO SCH (07:41)
[2021-03-05] MEDS: lisinopril 20 MG TAB PO SCH (07:41)
[2021-03-05] MEDS: LEFLUNOMIDE 10 MG TAB PO SCH (07:41)
[2021-03-05] MEDS: MIRABEGRON ER 25 MG TAB PO SCH (07:41)
[2021-03-05] MEDS: CYANOCOBALAMIN 500 MCG TABLET (VITAMIN B-12) PO SCH (07:42)
[2021-03-05] MEDS: METOPROLOL TARTRATE 50 MG TAB PO SCH ×2 (07:42→20:31)
[2021-03-05] MEDS: PANTOprazole 40 MG TAB PO SCH ×2 (07:42→20:31)
[2021-03-05] MEDS: THIAMINE HCL 100 MG TAB PO SCH ×2 (07:42→20:31)
[2021-03-05] MEDS: predniSONE 20 MG TAB PO SCH (07:42)
[2021-03-05] MEDS: INSULIN ASPART 100 UNITS/ML 3 ML PEN SC SCH ×4 (07:43→20:32)
[2021-03-05] MEDS: amLODIPine BESYLATE 5 MG TAB PO SCH ×2 (07:43→20:31)
[2021-03-05 07:52] LABS: Hematocrit (blood only) 30.5 % (37-47); Mean Corpuscular Hemoglobin 30.7 pg (25-34); Mean Corpuscular Hgb Conc 32.8 g/dL (32-36); Mean Corpuscular Volume 93.6 fL (80-100); Mean Platelet Volume 10.3 fL (7.4-10.4); Platelet Count 156 K/uL (130-400); RDW Coefficient of Variation 13.1 % (11.5-14.5); RDW Standard Deviation 44.7 fL (36.4-46.3); Red Blood Count 3.26 M/uL (4.2-5.4)
[2021-03-05] MEDS: INSULIN GLARGINE SOLOSTAR 100 UNITS/ML 3 ML PEN SC SCH ×2 (08:01→20:31)
[2021-03-05 08:07] LABS: BUN Creatinine Ratio 30.3 (10-20); Calcium 8.4 mg/dl (8.5-10.1); Est GFR (African American) 50.8 ml/min; Est GFR (Non-African American) 43.8 ml/min; Potassium 4.4 mmol/L (3.5-5.1)
[2021-03-05] MEDS ORDERED: DOXYCYCLINE HYCLATE 100 MG CAP PO SCH (09:00)
[2021-03-05] MEDS ORDERED: CEFDINIR 300 MG CAP PO SCH (09:00)
--- NOTE | 2021-03-05 11:21 | XRay Report ---
XR chest 1V portable CLINICAL HISTORY: follow up LLL collapse COMPARISON STUDY: Chest radiograph March 04, 2021. FINDINGS: Incidental note is made of an anterior cervical spine fusion and cholecystectomy clips. The re is no pneumothorax. Left lung aeration has significantly improved since prior chest radiograph. A hiatal hernia is again noted. There are small bilateral pleural effusions with bibasilar opacities. T here may be mild pulmonary edema. IMPRESSION: 1. Significant improvement in left lung aeration since prior exam. 2. Small bilateral pleural effusions with bilateral opacities. 3. Suspected mild pulmonary edema. ACT 112: Negative or not required by law. Electronically signed by: Bora Gale M.D. 03/05/2021 11:19 AM
[2021-03-05] MEDS: levoFLOXacin 750 MG TAB PO SCH (11:25)
--- NOTE | 2021-03-05 12:42 | Pulmonology Progress Note ---
Date of Service March 05, 2021 Assessment & Plan (1) Collapse of left lung: Plan: 89-year-old female who presented to the hospital from [facility] due to shortness of breath and cough was found to have left lower lobe lung collapse and a small pleural effusion. Chest x-ray had symptoms improved substantially post bronchoscopy and airway clearance with vest therapy. No further hemoptysis noted today. Agree with transition to p.o. antibiotics for total treatment of 7 days. Can likely discharge home from pulmonary perspective. May benefit from p.o. Lasix given the small effusions noted bilaterally. Cytology results from bronchoscopy suggest moderate acute inflammation. Cultures pending. Gram stain negative thus far. Pulmonary will sign off. Thank you for the consultation. Please call with questions. Discussed with the hospitalist. (2) Left lower lobe pneumonia: Pneumonia type: due to unspecified organism Qualified Code(s): J18.9 - Pneumonia, unspecified organism (3) Acute hypoxemic respiratory failure: (4) Parapneumonic effusion: Admission and Anticipated Discharge Date Admission Date: March 02, 2021 Subjective Patient feeling much better since admission. Less short of breath. No significant cough at present. No fevers or chills. Saturating 99% on room air. Review of Systems Review of Systems: All systems reviewed & are unremarkable except as noted in HPI & below Physical Exam Physical Exam: Constitutional: Elderly and frail appearing female no apparent distress. Eyes: Pupils are equal round and reactive to light. Conjunctivae are normal. Anicteric sclera. Ears nose, mouth and throat: Mallampati class 2. Normal posterior oropharynx. Uvula is midline. Neck: Trachea is midline. Visual inspection is normal. Respiratory: Mild diminishment in bases. Much more clear than yesterday. Cardiovascular: Regular rate and rhythm. No murmurs. No edema. Gastrointestinal: Normal bowel sounds, soft, nontender and nondistended. No hepatosplenomegaly noted. Musculoskeletal: No cyanosis. Patient is able to move all extremities. Skin: No rashes, warm dry and intact. Neurologic: No obvious focal neurological deficits seen. He does appear weak. Psychiatric: Alert and oriented x3 with a euthymic affect. Results & Data Results & Data ([facility]) Vital Signs (Past 12 Hours) Vital Signs Temp Pulse Resp BP Pulse Ox 03/05/21 11:34 98.1 F 69 18 136/76 99 03/05/21 07:30 98.6 F 76 20 151/67 H 93 03/05/21 03:12 98.1 F 60 20 124/72 92 Chest x-ray reviewed with significant improvement in left lung aeration. Small bilateral effusions noted. PG Care Time/CCT Total # of Minutes Spent Total Time Spent with Patient: Total time spent is greater than 50% in coordination of care (as documented) at patient's floor/unit and/or counseling patient: Coding Level of Care Code 71596 Subseq Hosp Care Lvl 3 Diagnoses Collapse of left lung J98.11 Left lower lobe pneumonia J18.9 Pneumonia type: due to unspecified organism Acute hypoxemic respiratory failure J96.01 Parapneumonic effusion J18.9; J91.8
[2021-03-05] MEDS: risperiDONE ODT 0.5 MG SOLTAB PO SCH (20:31)
--- NOTE | 2021-03-05 22:57 | Hospitalist Progress Note ---
Date of Service March 05, 2021 Assessment & Plan (1) Acute hypoxemic respiratory failure: Plan: resolved 2nd to mucous plugging of left-sided mainstem bronchus leading to left-sided lung collapse & probable pneumonia. s/p bronch with suction of mucous in left-sided airway. Cultures pending but thus far all negative. Appreciate pulmonary assistance. (2) Mucus plugging of bronchi: Plan: left. resolved s/p bronch - diagnostic/therapeutic - mucous removed, bleeding from PUNEET but no endobronchial lesions or foreign bodies. Hemoptysis resolved. s/p video swallow - no aspiration. (3) Collapse of left lung: Plan: Improved clinically and radiographically s/p bronch (4) Pneumonia: Plan: Left-sided. Suspected. day #1 of levaquin. day #4 of 7 of total abx course. O2 weaned off (5) Hypothyroidism: Plan: TSH wnl earlier this month on levothyroxine 75 mcg daily (6) Hypertension: Plan: Controlled on amlodipine 5 mg twice daily and metoprolol 50mg qd (7) Diabetes mellitus, new onset: Plan: PO agents - glipizide and Metformin - on hold hemoglobin A1c 6.1% uncontrolled 2nd to steroids cont lantus/novolog (8) Rheumatoid arthritis: Plan: on chronic prednisone; getting stress dose steroids but weaning down to usual dose of 10mg/day no flare (9) Stage 3b chronic kidney disease: Plan: baseline CrCl 30s (10) Thrombocytopenia: Plan: consumptive in setting of PUNEET bleeding as seen on bronch cbc today shows improving platelet count (now >150) Plan: 1. follow bronch cultures 2. cont PT/OT back to - Sunday?? daughter updated by phone yesterday d/c tele - move to med/surg Admission and Anticipated Discharge Date Admission Date: March 02, 2021 Subjective no issues overnight tele wnl scant cough no dyspnea eating well Review of Systems Constitutional: no fever, no chills, no fatigue and no anorexia Respiratory: no hemoptysis (staff report this has resolved ) Cardiovascular: no chest pain Gastrointestinal: no abdominal pain, no nausea, no vomiting and no constipation (finally had BM today ) Physical Exam Physical Exam: general - thin, frail appearing, but NAD skin - no rash mouth - MMM neck - no JVD heart - RRR, s1 s2 lungs - scantly decreased BS left base only otherwise CTA b/l abd - soft NT ND BS+ ext - no edema, pulses 2+ b/l Results & Data Results & Data ([facility]) Vital Signs (Past 12 Hours) Vital Signs Temp Pulse Resp BP Pulse Ox 03/05/21 19:52 36.4 C L 62 20 145/70 H 94 03/05/21 16:06 36.5 C 70 20 158/69 H 96 03/05/21 11:34 36.7 C 69 18 136/76 99 Laboratory Results Laboratory Results - last 24 hr 03/05/21 03/05/21 03/05/21 07:22 07:42 07:42 WBC 8.20 RBC 3.26 L Hgb 10.0 L Hct 30.5 L MCV 93.6 MCH 30.7 MCHC 32.8 RDW Std Deviation 44.7 RDW Coeff of Rafael 13.1 Plt Count 156 MPV 10.3 Sodium 142 Potassium 4.4 Chloride 116 H Carbon Dioxide 21 Anion Gap 5.0 BUN 34 H Creatinine 1.12 Est Cr Clr Drug Dosing 30.0 Est GFR ( Amer) 50.8 Est GFR (Non-Af Amer) 43.8 BUN/Creatinine Ratio 30.3 H Glucose 148 H POC Glucose 176 H Calcium 8.4 L 03/05/21 03/05/21 03/05/21 11:21 16:25 19:59 WBC RBC Hgb Hct MCV MCH MCHC RDW Std Deviation RDW Coeff of Rafael Plt Count MPV Sodium Potassium Chloride Carbon Dioxide Anion Gap BUN Creatinine Est Cr Clr Drug Dosing Est GFR ( Amer) Est GFR (Non-Af Amer) BUN/Creatinine Ratio Glucose POC Glucose 170 H 180 H 231 H Calcium Diagnostic Findings Microbiology 03/03/21 11:00 Bronch Wash,Left Upper Lobe Gram Stain - Final 03/03/21 11:00 Bronch Wash,Left Upper Lobe Bronchial Culture - Final Scant normal diana. 03/03/21 10:40 Sputum, Expectorated Gram Stain - Final 03/03/21 10:40 Sputum, Expectorated Sputum Culture - Final Light normal diana. 03/02/21 14:16 Blood Aerobic Blood Culture - Preliminary No growth in Aerobic bottle after 48 hours. 03/02/21 14:16 Blood Anaerobic Blood Culture - Preliminary No growth in Anaerobic bottle after 48 hours. 03/02/21 13:50 Blood Aerobic Blood Culture - Preliminary No growth in Aerobic bottle after 48 hours. 03/02/21 13:50 Blood Anaerobic Blood Culture - Preliminary No growth in Anaerobic bottle after 48 hours. 03/03/21 11:00 Bronch Wash,Left Upper Lobe Acid Fast Bacilli Smear - Final 03/03/21 11:00 Bronch Wash,Left Upper Lobe Fungal Smear - Final PG Care Time/CCT Total # of Minutes Spent Total Time Spent with Patient: Total time spent is greater than 50% in coordination of care (as documented) at patient's floor/unit and/or counseling patient: Coding Level of Care Code 70485 Subseq Hosp Care Lvl 2 Diagnoses Acute hypoxemic respiratory failure J96.01 Mucus plugging of bronchi T17.500A Collapse of left lung J98.11 Pneumonia J18.9 Hypothyroidism E03.9 Hypertension I10 Diabetes mellitus, new onset E11.9 Rheumatoid arthritis M06.9 Rheumatoid arthritis location: unspecified site Rheumatoid factor presence: unspecified presence Stage 3b chronic kidney disease N18.32 Thrombocytopenia D69.6 (1) Rheumatoid arthritis Rheumatoid arthritis location: unspecified site Rheumatoid factor presence: unspecified presence Qualified Code(s): M06.9 - Rheumatoid arthritis, unspecified
[2021-03-06] MEDS: LEVOTHYROXINE SODIUM 75 MCG TABLET PO SCH (05:40)
[2021-03-06] MEDS: THIAMINE HCL 100 MG TAB PO SCH ×2 (08:01→20:23)
[2021-03-06] MEDS: predniSONE 20 MG TAB PO SCH (08:01)
[2021-03-06] MEDS: MIRABEGRON ER 25 MG TAB PO SCH (08:01)
[2021-03-06] MEDS: amLODIPine BESYLATE 5 MG TAB PO SCH ×2 (08:02→20:26)
[2021-03-06] MEDS: lisinopril 20 MG TAB PO SCH (08:02)
[2021-03-06] MEDS: LEFLUNOMIDE 10 MG TAB PO SCH (08:02)
[2021-03-06] MEDS: PANTOprazole 40 MG TAB PO SCH ×2 (08:02→20:25)
[2021-03-06] MEDS: SIMVASTATIN 20 MG TAB PO SCH (08:02)
[2021-03-06] MEDS: METOPROLOL TARTRATE 50 MG TAB PO SCH ×2 (08:02→20:25)
[2021-03-06] MEDS: CYANOCOBALAMIN 500 MCG TABLET (VITAMIN B-12) PO SCH (08:02)
[2021-03-06] MEDS: INSULIN ASPART 100 UNITS/ML 3 ML PEN SC SCH ×4 (08:04→20:30)
[2021-03-06] MEDS: INSULIN GLARGINE SOLOSTAR 100 UNITS/ML 3 ML PEN SC SCH ×2 (08:13→20:32)
[2021-03-06] MEDS ORDERED: FUROSEMIDE 20 MG TAB PO ONE (09:57)
[2021-03-06] MEDS: HEPARIN SOD 5,000 UNIT/0.5 ML VIAL SQ SCH ×2 (10:50→20:30)
--- NOTE | 2021-03-07 01:23 | Hospitalist Progress Note ---
Date of Service March 07, 2021 Assessment & Plan (1) Acute hypoxemic respiratory failure: Plan: resolved. 2nd to mucous plugging of left-sided mainstem bronchus leading to left-sided lung collapse & probable pneumonia. s/p bronch with suction of mucous in left-sided airway. cultures from bronch negative. pathology from bronch negative. (2) Mucus plugging of bronchi: Plan: left. resolved. s/p bronch - diagnostic/therapeutic - mucous removed, bleeding from PUNEET but no endobronchial lesions or foreign bodies. Hemoptysis resolved. s/p video swallow - no aspiration. (3) Collapse of left lung: Plan: Improved clinically and radiographically s/p bronch. (4) Pneumonia: Plan: Left-sided. Suspected. day #2 of levaquin. day #5 of 7 of total abx course. O2 weaned off (5) Hypothyroidism: Plan: TSH wnl earlier this month on levothyroxine 75 mcg daily (6) Hypertension: Plan: Controlled on amlodipine 5 mg twice daily and metoprolol 50mg qd (7) Diabetes mellitus, new onset: Plan: PO agents - glipizide and Metformin - on hold hemoglobin A1c 6.1% uncontrolled 2nd to steroids cont lantus/novolog anticipate BSGs improving next 1-2 days as steroids are back to normal dose of 10mg/day (8) Rheumatoid arthritis: Plan: on chronic prednisone 10mg daily (9) Stage 3b chronic kidney disease: Plan: baseline CrCl 30s (10) Thrombocytopenia: Plan: consumptive in setting of PUNEET bleeding as seen on bronch resolved (11) Hallucinations: Plan: acute/chronic had had these during a prior admission as well and does get them outside of the hospital increase risperdal to 1mg HS Plan: dispo - SNF ([facility]) - Social work assisting w/ arrangements Admission and Anticipated Discharge Date Admission Date: March 02, 2021 Subjective patient report "terrible visual hallucinations" last night. the hallucinations are "frightening" - states the windows fall to the floor, the clock falls off the wall, etc she "can barely sleep" due to the hallucinations no auditory hallucinations doesn't get these during the day minimal cough tele wnl overnight feels good eating well Review of Systems Review of Systems: gen - no fever, no weakness CV - no chest pain pulm - no further hemoptysis abd - no pain, no nausea, no emesis Physical Exam Physical Exam: general - thin, frail appearing, but NAD; sitting in chair skin - no rash mouth - MMM neck - no JVD heart - RRR, s1 s2 lungs - scantly decreased BS left base only otherwise CTA b/l abd - soft NT ND BS+ ext - no edema, pulses 2+ b/l Results & Data Results & Data ([facility]) Vital Signs (Past 12 Hours) Vital Signs Temp Pulse Pulse Resp BP Pulse Ox 03/06/21 22:55 36.7 C 67 16 152/67 H 96 03/06/21 19:00 36.7 C 84 16 122/72 95 03/06/21 16:00 60 03/06/21 15:45 36.5 C 67 18 125/71 96 Laboratory Results Laboratory Results - last 24 hr 03/06/21 03/06/21 03/06/21 07:38 11:12 16:18 Glucose POC Glucose 97 155 H 368 H* 03/06/21 03/06/21 03/06/21 16:19 17:14 20:20 Glucose 289 H POC Glucose 349 H* 209 H PG Care Time/CCT Total # of Minutes Spent Total Time Spent with Patient: Total time spent is greater than 50% in coordination of care (as documented) at patient's floor/unit and/or counseling patient: Coding Level of Care Code 44802 Subseq Hosp Care Lvl 2 Diagnoses Acute hypoxemic respiratory failure J96.01 Mucus plugging of bronchi T17.500A Collapse of left lung J98.11 Pneumonia J18.9 Hypothyroidism E03.9 Hypertension I10 Diabetes mellitus, new onset E11.9 Rheumatoid arthritis M06.9 Rheumatoid arthritis location: unspecified site Rheumatoid factor presence: unspecified presence Stage 3b chronic kidney disease N18.32 Thrombocytopenia D69.6 Hallucinations R44.3 (1) Rheumatoid arthritis Rheumatoid arthritis location: unspecified site Rheumatoid factor presence: unspecified presence Qualified Code(s): M06.9 - Rheumatoid arthritis, unspecified
[2021-03-07] MEDS: LEVOTHYROXINE SODIUM 75 MCG TABLET PO SCH (06:02)
[2021-03-07 06:30] LABS: Hematocrit (blood only) 30.9 % (37-47); Hemoglobin 10.3 g/dL (12.0-16.0); Mean Corpuscular Hemoglobin 31.1 pg (25-34); Mean Corpuscular Hgb Conc 33.3 g/dL (32-36); Mean Corpuscular Volume 93.4 fL (80-100); Mean Platelet Volume 9.9 fL (7.4-10.4); Platelet Count 163 K/uL (130-400); RDW Coefficient of Variation 12.9 % (11.5-14.5); RDW Standard Deviation 44.2 fL (36.4-46.3); Red Blood Count 3.31 M/uL (4.2-5.4); White Blood Count 4.52 K/uL (4.8-10.8)
[2021-03-07 06:56] LABS: BUN Creatinine Ratio 32.2 (10-20); Calcium 8.4 mg/dl (8.5-10.1); Creatinine Clr Calc Pharmacy 32.6 ml/min; Est GFR (African American) 56.2 ml/min; Est GFR (Non-African American) 48.5 ml/min; Potassium 4.3 mmol/L (3.5-5.1)
[2021-03-07] MEDS: PANTOprazole 40 MG TAB PO SCH ×2 (08:23→20:02)
[2021-03-07] MEDS: SIMVASTATIN 20 MG TAB PO SCH (08:24)
[2021-03-07] MEDS: CYANOCOBALAMIN 500 MCG TABLET (VITAMIN B-12) PO SCH (08:24)
[2021-03-07] MEDS: MIRABEGRON ER 25 MG TAB PO SCH (08:24)
[2021-03-07] MEDS: LEFLUNOMIDE 10 MG TAB PO SCH (08:24)
[2021-03-07] MEDS: lisinopril 20 MG TAB PO SCH (08:24)
[2021-03-07] MEDS: amLODIPine BESYLATE 5 MG TAB PO SCH ×2 (08:25→21:30)
[2021-03-07] MEDS: METOPROLOL TARTRATE 50 MG TAB PO SCH ×2 (08:26→20:00)
[2021-03-07] MEDS: THIAMINE HCL 100 MG TAB PO SCH ×2 (08:26→20:02)
[2021-03-07] MEDS: INSULIN ASPART 100 UNITS/ML 3 ML PEN SC SCH ×4 (08:28→21:52)
[2021-03-07] MEDS: INSULIN GLARGINE SOLOSTAR 100 UNITS/ML 3 ML PEN SC SCH ×2 (08:28→21:52)
[2021-03-07] MEDS: HEPARIN SOD 5,000 UNIT/0.5 ML VIAL SQ SCH ×2 (08:31→20:00)
[2021-03-07] MEDS: predniSONE 10 MG TABLET PO SCH (09:25)
[2021-03-07] MEDS: levoFLOXacin 750 MG TAB PO SCH (11:12)
--- NOTE | 2021-03-07 14:59 | Hospitalist Progress Note ---
Date of Service March 07, 2021 Assessment & Plan (1) Acute hypoxemic respiratory failure: Plan: resolved. 2nd to mucous plugging of left-sided mainstem bronchus leading to left-sided lung collapse & probable pneumonia. s/p bronch with suction of mucous in left-sided airway. cultures from bronch negative. pathology from bronch negative. finish her antibiotics. (2) Mucus plugging of bronchi: Plan: left. resolved. s/p bronch - diagnostic/therapeutic - mucous removed, bleeding from PUNEET but no endobronchial lesions or foreign bodies. Hemoptysis resolved. s/p video swallow - no aspiration. (3) Collapse of left lung: Plan: Improved clinically and radiographically s/p bronch. (4) Pneumonia: Plan: Left-sided. Suspected. day #3 of levaquin. day #5 of 7 of total abx course. O2 weaned off (5) Hypothyroidism: Plan: TSH wnl cont levothyroxine 75 mcg daily (6) Hypertension: Plan: Controlled on amlodipine 5 mg twice daily and metoprolol 50mg qd (7) Diabetes mellitus, new onset: Plan: PO agents - glipizide and Metformin - on hold hemoglobin A1c 6.1% had been uncontrolled 2nd to steroids now improved with lantus/novolog can likely d/c insulin at d/c resume oral pills at d/c (8) Rheumatoid arthritis: Plan: on chronic prednisone 10mg daily continue such (9) Stage 3b chronic kidney disease: Plan: baseline CrCl 30s Cr again today wnl (10) Thrombocytopenia: Plan: consumptive in setting of PUNEET bleeding as seen on bronch resolved (11) Hallucinations: Plan: acute/chronic had had these during a prior admission as well and does get them outside of the hospital risperdal increase to 1mg HS last night helped; cont on this dose (12) DVT prophylaxis: Plan: heparin 5000 BID Plan: dispo - SNF ([facility]) - Social work assisting w/ arrangements no bed today, but may be able to d/c there on 03/08 updated pt's daughter, Keya, 03/07/21 Admission and Anticipated Discharge Date Admission Date: March 02, 2021 Subjective patient feeling very good last night she slept better w/ larger dose of risperdal had visual hallucinations but they were brief and not as frequent as the previous night scant cough no hemoptysis good energy eating well Review of Systems Review of Systems: gen - no fever, no weakness CV - no chest pain pulm - no dyspnea; no hemoptysis abd - no pain, no nausea, no emesis; moving bowels Physical Exam Physical Exam: general - thin, frail appearing, but NAD; sitting in chair; overall looks good mouth - MMM neck - no JVD heart - RRR, s1 s2, no murmur lungs - CTA b/l; no rales or wheeze; airation wnl abd - soft NT ND BS+ ext - no edema, pulses 2+ b/l Results & Data Results & Data ([facility]) Vital Signs (Past 12 Hours) Vital Signs Temp Pulse Resp BP BP Pulse Ox 03/07/21 11:22 36.3 C L 61 16 107/60 96 03/07/21 08:06 36.4 C L 62 18 151/72 H 97 03/07/21 03:17 36.4 C L 66 16 141/77 H 95 Laboratory Results Laboratory Results - last 24 hr 03/06/21 03/06/21 03/06/21 16:18 16:19 17:14 WBC RBC Hgb Hct MCV MCH MCHC RDW Std Deviation RDW Coeff of Rafael Plt Count MPV Sodium Potassium Chloride Carbon Dioxide Anion Gap BUN Creatinine Est Cr Clr Drug Dosing Est GFR ( Amer) Est GFR (Non-Af Amer) BUN/Creatinine Ratio Glucose 289 H POC Glucose 368 H* 349 H* Calcium 03/06/21 03/07/21 03/07/21 20:20 06:07 06:07 WBC 4.52 L RBC 3.31 L Hgb 10.3 L Hct 30.9 L MCV 93.4 MCH 31.1 MCHC 33.3 RDW Std Deviation 44.2 RDW Coeff of Rafael 12.9 Plt Count 163 MPV 9.9 Sodium 142 Potassium 4.3 Chloride 112 H Carbon Dioxide 23 Anion Gap 7.0 BUN 33 H Creatinine 1.03 Est Cr Clr Drug Dosing 32.6 Est GFR ( Amer) 56.2 Est GFR (Non-Af Amer) 48.5 BUN/Creatinine Ratio 32.2 H Glucose 106 H POC Glucose 209 H Calcium 8.4 L 03/07/21 03/07/21 07:16 11:39 WBC RBC Hgb Hct MCV MCH MCHC RDW Std Deviation RDW Coeff of Rafael Plt Count MPV Sodium Potassium Chloride Carbon Dioxide Anion Gap BUN Creatinine Est Cr Clr Drug Dosing Est GFR ( Amer) Est GFR (Non-Af Amer) BUN/Creatinine Ratio Glucose POC Glucose 108 H 117 H Calcium PG Care Time/CCT Total # of Minutes Spent Total Time Spent with Patient: Total time spent is greater than 50% in coordination of care (as documented) at patient's floor/unit and/or counseling patient: Coding Level of Care Code 69647 Subseq Hosp Care Lvl 2 Diagnoses Acute hypoxemic respiratory failure J96.01 Mucus plugging of bronchi T17.500A Collapse of left lung J98.11 Pneumonia J18.9 Hypothyroidism E03.9 Hypertension I10 Diabetes mellitus, new onset E11.9 Rheumatoid arthritis M06.9 Rheumatoid arthritis location: unspecified site Rheumatoid factor presence: unspecified presence Stage 3b chronic kidney disease N18.32 Thrombocytopenia D69.6 Hallucinations R44.3 DVT prophylaxis Z29.9 (1) Rheumatoid arthritis Rheumatoid arthritis location: unspecified site Rheumatoid factor presence: unspecified presence Qualified Code(s): M06.9 - Rheumatoid arthritis, unspecified
[2021-03-08] MEDS: LEVOTHYROXINE SODIUM 75 MCG TABLET PO SCH (05:53)
[2021-03-08 07:45] LABS: Creatinine Clr Calc Pharmacy 30.8 ml/min; Est GFR (African American) 52.5 ml/min; Est GFR (Non-African American) 45.3 ml/min
[2021-03-08] MEDS: INSULIN ASPART 100 UNITS/ML 3 ML PEN SC SCH ×4 (08:15→21:25)
[2021-03-08] MEDS: INSULIN GLARGINE SOLOSTAR 100 UNITS/ML 3 ML PEN SC SCH ×2 (08:15→21:23)
[2021-03-08] MEDS: THIAMINE HCL 100 MG TAB PO SCH ×2 (08:16→21:25)
[2021-03-08] MEDS: PANTOprazole 40 MG TAB PO SCH ×2 (08:16→21:23)
[2021-03-08] MEDS: LEFLUNOMIDE 10 MG TAB PO SCH (08:16)
[2021-03-08] MEDS: CYANOCOBALAMIN 500 MCG TABLET (VITAMIN B-12) PO SCH (08:17)
[2021-03-08] MEDS: lisinopril 20 MG TAB PO SCH (08:18)
[2021-03-08] MEDS: HEPARIN SOD 5,000 UNIT/0.5 ML VIAL SQ SCH ×2 (08:18→21:23)
[2021-03-08] MEDS: MIRABEGRON ER 25 MG TAB PO SCH (08:18)
[2021-03-08] MEDS: amLODIPine BESYLATE 5 MG TAB PO SCH ×2 (08:18→21:23)
[2021-03-08] MEDS: METOPROLOL TARTRATE 50 MG TAB PO SCH ×2 (08:21→21:23)
[2021-03-08] MEDS: SIMVASTATIN 20 MG TAB PO SCH (08:21)
[2021-03-08] MEDS: predniSONE 10 MG TABLET PO SCH (09:15)
--- NOTE | 2021-03-08 18:41 | Hospitalist Progress Note ---
Date of Service March 08, 2021 Assessment & Plan (1) Acute hypoxemic respiratory failure: Plan: (1) Acute hypoxemic respiratory failure: Plan: resolved. 2nd to mucous plugging of left-sided mainstem bronchus leading to left-sided lung collapse & probable pneumonia. s/p bronch with suction of mucous in left-sided airway. cultures from bronch negative. pathology from bronch negative. Day #6 of 7 of antibiotics. Switched over to levofloxacin. If discharged today we will give 1 more day of oral levofloxacin (2) Mucus plugging of bronchi: Plan: Significant left mucous plugging Status post bronchoscopy by Dr. Taylor This most likely was the etiology for hemoptysis Continue to monitor clinically Video swallow revealed no aspiration (3) Collapse of left lung: Plan: Improved clinically and radiographically s/p bronch. Monitor clinically (4) Pneumonia: Plan: Left-sided. Suspected. day #4 of levofloxacin. Day #6 of 7 of total antibiotic course. O2 weaned off (5) Hypothyroidism: Plan: TSH wnl Cont levothyroxine 75 mcg daily (6) Hypertension: Plan: Hemodynamically stable Controlled on amlodipine 5 mg twice daily and metoprolol 50mg qd (7) Diabetes mellitus, new onset: Plan: PO agents - glipizide and Metformin - on hold hemoglobin A1c 6.1% had been uncontrolled 2nd to steroids now improved with lantus/novolog can likely d/c insulin at d/c resume oral pills at d/c Discussed this with the daughter today at bedside We will need close outpatient monitoring (8) Rheumatoid arthritis: Plan: Chronic prednisone 10mg daily Continue on discharge (9) Stage 3b chronic kidney disease: Plan: Creatinine stable Outpatient management (10) Thrombocytopenia: Plan: consumptive in setting of PUNEET bleeding as seen on bronch Resolved No further hemoptysis (11) Hallucinations: Plan: acute/chronic These have occurred during a prior admission as well at home Risperdal increased to 1mg HS; cont on this dose Discussed with daughter and patient These irrational hallucinations were patient is able to rationalize that what she is saying is not real Outpatient follow-up (12) DVT prophylaxis: Plan: Continue heparin 5000 BID Plan: Disposition: Patient had been referred to [facility]. They have denied admission there. Long discussion with daughter today at bedside Patient safe to go home with daughter as long as physical therapy and home health can be arranged Discussed this with case management and referral made for home health. Awaiting acceptance. Possible discharge home tomorrow Admission and Anticipated Discharge Date Admission Date: March 02, 2021 Subjective Attending: Dr. Velazquez Patient seen and examined at bedside. She has no acute complaints. Referred for SNF from physical therapy but patient wants to go home Strength is improved. Met with daughter this afternoon and patient can go home with her if we can arrange home health and physical therapy at home Patient denies any further hemoptysis. Day 6 of 7 of antibiotic treatment No shortness of breath No further complaints Review of Systems Review of Systems: All systems reviewed & are unremarkable except as noted in Subjective Physical Exam Physical Exam: GENERAL : No acute distress. Sitting in bedside chair EYES: No icterus, gaze conjugate NOSE: No evidence of epistaxis MOUTH: No lesions or candidiasis NECK: Supple LUNGS: Fine crackles at bilateral bases HEART: Regular, rate controlled ABDOMEN: Soft, NT, ND, BS Present EXTREMITIES: No LE edema, pedal pulses intact NEURO: A&OX3. Pleasant Results & Data Results & Data ([facility]) Vital Signs (Past 12 Hours) Vital Signs Temp Pulse Pulse Resp BP Pulse Ox 03/08/21 15:18 36.4 C L 69 17 108/57 L 98 03/08/21 11:40 17 112/56 L 96 03/08/21 10:18 67 03/08/21 10:06 97 03/08/21 07:35 36.5 C 73 22 154/67 H 97 Laboratory Results 03/07/21 06:07 03/08/21 06:36 PG Care Time/CCT Total # of Minutes Spent Total Time Spent with Patient: Total time spent is greater than 50% in coordination of care (as documented) at patient's floor/unit and/or counseling patient: Coding Level of Care Code 23414 Subseq Hosp Care Lvl 2 Diagnoses Acute hypoxemic respiratory failure J96.01 Time Spent (min) 30 Comment Including bedside discussion with daughter and patient
[2021-03-09] MEDS: LEVOTHYROXINE SODIUM 75 MCG TABLET PO SCH (07:05)
[2021-03-09] MEDS: amLODIPine BESYLATE 5 MG TAB PO SCH (08:57)
[2021-03-09] MEDS: lisinopril 20 MG TAB PO SCH (08:57)
[2021-03-09] MEDS: predniSONE 10 MG TABLET PO SCH (08:57)
[2021-03-09] MEDS: MIRABEGRON ER 25 MG TAB PO SCH (08:57)
[2021-03-09] MEDS: THIAMINE HCL 100 MG TAB PO SCH (08:57)
[2021-03-09] MEDS: LEFLUNOMIDE 10 MG TAB PO SCH (08:57)
[2021-03-09] MEDS: METOPROLOL TARTRATE 50 MG TAB PO SCH (08:57)
[2021-03-09] MEDS: HEPARIN SOD 5,000 UNIT/0.5 ML VIAL SQ SCH (08:58)
[2021-03-09] MEDS: INSULIN GLARGINE SOLOSTAR 100 UNITS/ML 3 ML PEN SC SCH (08:58)
[2021-03-09] MEDS: PANTOprazole 40 MG TAB PO SCH (08:58)
[2021-03-09] MEDS: SIMVASTATIN 20 MG TAB PO SCH (08:58)
[2021-03-09] MEDS: INSULIN ASPART 100 UNITS/ML 3 ML PEN SC SCH ×2 (08:59→11:51)
[2021-03-09] MEDS: CYANOCOBALAMIN 500 MCG TABLET (VITAMIN B-12) PO SCH (08:59)
[2021-03-09] MEDS: levoFLOXacin 750 MG TAB PO SCH (11:05)
--- NOTE | 2021-03-09 14:02 | Ultrasound Report ---
LEFT LOWER EXTREMITY VENOUS DOPPLER HISTORY: Left leg swelling. R/O DVT LEFT Leg COMPARISON STUDY: None. FINDINGS: There is normal compressibility, flow, and augmentation within the left lower extremity dinesh p venous system. Subcutaneous edema within the medial calf. IMPRESSION: No DVT within the left lower extremity. ACT 112: Negative or not required by law. Electronically signed by: Eloy Ryder M.D. 03/09/2021 2:01 PM
--- NOTE | 2021-03-09 14:48 | Discharge Summary ---
Date of Service March 09, 2021 Admission HPI Per Admitting Provider This is an 89-year-old female with past medical history chronic kidney insufficiency, hypertension, hypothyroidism, that presents with a chief complaint of pleuritic chest pain. Patient is a very limited historian for me. Per ER documentation, patient was brought in by EMS from a local nursing facility complaining of chest pain and cough. She apparently woke up very little in the morning with these complaints. Patient did tell me that she was feeling fine yesterday. When asked, she does admit to occasional cough with some production. She is complaining of dull chest pressure which worsens with inspiration. She was found to be hypoxic with an O2 sat of 88% was started on nasal cannula which she is tolerating well. Last documented status 100%. Blood pressure and other vitals are stable. She looks to be comfortable in no acute distress. Work-up in the emergency room included chest x-ray and CT scan, shows's left- sided lung collapse, likely secondary to mucous plugging. There is a small pleural effusion. There is deviation of the heart and bronchial tree to the left. Patient is now being admitted for further work-up and treatment of this. Admission Exam Per Admitting Provider Constitutional: cooperative; no acute distress Neck: trachea midline, no thyromegaly Respiratory: normal respiratory effort Auscultation: lungs clear to auscultation bilaterally, + diminished lung sounds and + crackles; no rales, no rhonchi and no wheezes coarse rales L apex, absent L base Cardiovascular: Rate/Rhythm: regular rate and regular rhythm Heart Sounds: normal S1 and normal S2 Gastrointestinal (Abdomen): Inspection/Auscultation: abdomen normal to inspection Percussion/Palpation: abdomen soft; abdomen nontender, no guarding, abdomen not rigid and no hepatosplenomegaly Skin: no rashes, warm and dry Principal Diagnosis Collapse of left lung Discharge Exam GENERAL : No acute distress. Sitting in bedside chair EYES: No icterus, gaze conjugate NOSE: No evidence of epistaxis MOUTH: No lesions or candidiasis NECK: Supple LUNGS: Fine crackles at bilateral bases HEART: Regular, rate controlled ABDOMEN: Soft, NT, ND, BS Present EXTREMITIES: No LE edema, pedal pulses intact NEURO: A&OX3. Discharge Data Allergies Allergy/AdvReac Type Severity Reaction Status Date / Time aloe Allergy Mild itching Verified 12/13/20 00:29 bacitracin Allergy Mild itching Verified 12/13/20 00:29 codeine Allergy Mild ITCHING Verified 12/13/20 00:29 cortisone Allergy Mild Rash Verified 12/13/20 00:29 erythromycin base Allergy Mild ITCHING Verified 12/13/20 00:29 latex Allergy Mild ITCHING Verified 12/13/20 00:29 neomycin Allergy Mild itching Verified 12/13/20 00:29 polymyxin B Allergy Mild itching Verified 12/13/20 00:29 tramadol Allergy Mild Rash Verified 12/13/20 00:29 triamcinolone Allergy Mild ITCHING Verified 12/13/20 00:29 Iodinated Contrast Media Allergy Unknown DOES NOT Verified 12/13/20 00:29 REMEMBER propranolol Allergy Unknown DOES NOT Verified 12/13/20 00:29 REMEMBER Consultations 03/02/21 15:11 ED Decision to Admit Stat 03/02/21 15:26 Consult Pulmonology Stat Procedures Performed Operation Date: 03/03/21 10:30 Actual Procedures p Bronchoscopy - Colt Parker MD Ordered Studies 03/02/21 13:51 CT chest diagnostic wo con Stat CT chest diagnostic wo con CLINICAL HISTORY: large left pleural effusion COMPARISON STUDY: Chest x-ray dated 03/02/2021 CT DOSE: 323.43 mGy.cm TECHNIQUE: CT of the thorax was performed from the thoracic inlet to the lung bases. Images are reviewed in the axial, sagittal, and coronal planes. IV contrast was not administered for this examination. A dose lowering technique was utilized adhering to the principles of ALARA. FINDINGS: Thyroid: Imaged portions of the thyroid gland are normal in appearance. Thoracic aorta: The thoracic aorta is normal in course and caliber, noting standard 3 vessel arch anatomy. Heart: There are coronary artery calcifications. There is no significant pericardial fluid. Lungs and pleural spaces: There is a small left pleural effusion. There is left lung atelectasis/consolidation with volume loss. There is mucoid debris within the ashley. There is obstruction of the central left bronchi with debris. Mediastinum: Mediastinal lymph nodes are the upper limits of normal in size. Deb: There is known to pathologic hilar adenopathy given the limitations of a noncontrast study Axilla: There is no evidence of pathologic axillary lymphadenopathy Upper abdomen: There is a hiatal hernia. There are bilateral renal cysts. The gallbladder appears surgically absent. Postsurgical changes are present within the spine. Skeletal structures: There are no lytic or blastic osseous lesions. IMPRESSION: 1. Small left pleural effusion 2. Marked left lung volume loss with left lung atelectasis/consolidation. The central left bronchi are occluded with debris. 3. Hiatal hernia ACT 112: Negative or not required by law. Electronically signed by: Suhas Claire M.D. 03/02/2021 2:51 PM 03/04/21 13:30 FL video swallow Routine MODIFIED BARIUM SWALLOW CLINICAL HISTORY: r/o silent aspiration COMPARISON STUDY: None. FLUOROSCOPY TIME: 2.2 minutes. TECHNIQUE: A modified barium swallow was performed in conjunction with Speech Pathology. The patient ingested varying consistencies of barium containing material. Video fluoroscopy was performed. FINDINGS: Incidental note is made of a multilevel anterior cervical spine fusion. No tracheal aspiration was identified with thin liquids, nectar thick liquids, pudding or crackers with paste. Swallowing mechanism was intact. Hiatal hernia was noted. This is suboptimally assessed on this exam. IMPRESSION: 1. Intact swallowing mechanism. No tracheal aspiration. 2. Hiatal hernia. 3. Full recommendations by speech pathology to follow. ACT 112: Negative or not required by law. Electronically signed by: Bora Gale M.D. 03/04/2021 2:26 PM 03/09/21 12:39 US venous doppler LE LT Urgent LEFT LOWER EXTREMITY VENOUS DOPPLER HISTORY: Left leg swelling. R/O DVT LEFT Leg COMPARISON STUDY: None. FINDINGS: There is normal compressibility, flow, and augmentation within the left lower extremity deep venous system. Subcutaneous edema within the medial calf. IMPRESSION: No DVT within the left lower extremity. ACT 112: Negative or not required by law. Electronically signed by: Eloy Ryder M.D. 03/09/2021 2:01 PM Hospital Course (1) Acute hypoxemic respiratory failure: (1) Acute hypoxemic respiratory failure: Plan: resolved. 2nd to mucous plugging of left-sided mainstem bronchus leading to left-sided lung collapse & probable pneumonia. s/p bronch with suction of mucous in left-sided airway. cultures from bronch negative. pathology from bronch negative. Day #7 of 7 of antibiotics. Switched over to levofloxacin. No further antibiotics on discharge (2) Mucus plugging of bronchi: Plan: Significant left mucous plugging Status post bronchoscopy by Dr. Taylor This most likely was the etiology for hemoptysis Continue to monitor clinically Advised patient and daughter to take flutter valve as well as incentive spirometer home Video swallow revealed no aspiration Continue to eat in an upright fashion Small bites followed by sips of water (3) Collapse of left lung: Plan: Improved clinically and radiographically s/p bronch. Monitor clinically See above (4) Pneumonia: Plan: Left-sided. Suspected. day #5 of levofloxacin. Day #7 of 7 of total antibiotic course. O2 weaned off (5) Hypothyroidism: Plan: TSH wnl Cont levothyroxine 75 mcg daily (6) Hypertension: Plan: Hemodynamically stable Controlled on amlodipine 5 mg twice daily and metoprolol 50mg qd (7) Diabetes mellitus, new onset: Plan: PO agents - glipizide and Metformin -resume on discharge hemoglobin A1c 6.1% had been uncontrolled 2nd to steroids now improved with lantus/novolog Discharge home on usual home medications Discussed this with the daughter today at bedside We will need close outpatient monitoring (8) Rheumatoid arthritis: Plan: Chronic prednisone 10mg daily Continue on discharge after completion of steroid taper (9) Stage 3b chronic kidney disease: Plan: Creatinine stable Outpatient management (10) Thrombocytopenia: Plan: consumptive in setting of PUNEET bleeding as seen on bronch Resolved No further hemoptysis (11) Hallucinations: Plan: acute/chronic These have occurred during a prior admission as well at home Risperdal increased to 1mg HS; cont on this dose Discussed with daughter and patient Hallucinations where patient is able to rationalize that what she is saying is not real Outpatient follow-up Continue risperidone (12) DVT prophylaxis: Plan: Continue heparin 5000 BID Plan: Disposition: Patient had been referred [facility] They have denied admission there. Discussion with daughter at bedside Patient safe to go home with daughter with home physical therapy and home health Total Time Total Time Spent Total Time Spent (In Minutes): 40 Discharge Plan Discharge Items Patient Disposition: Home - Home Health Services Reason For Visit: PNEUMONIA, MUCOUS PLUGGING Discharge Diagnosis: Pneumonia, mucous plugging, weakness Condition on Discharge: Fair Activity: Resume your previous activity Lifting: Gradually increase as tolerated Exercise/Sports: Gradually increase as tolerated Weightbearing: Full weightbearing Non-emergency contact: Primary Care Provider Call non-emergency contact if: you have any medication questions, your symptoms worsen and you have a fever Follow-up/Referrals: Marty Zayas at [place] [facility] [Non-Staff] - Diet: Carb Consistent or DM2 and Heart Healthy Addtl Attending Provider Instructions: You were admitted with shortness of breath and found to have pneumonia. He also has significant mucous plugging which required bronchoscopy. This has improved with the bronchoscopy. You have completed 7 days of antibiotic therapy and will not need any more antibiotics on discharge. You should continue to use your incentive spirometer to help with deep breathing at home. If you have further shortness of breath at home, please call your primary care provider or report to the emergency department. You reported that you had hallucinations at home and in the hospital. Your risperidone was increased and this seems to be helping. Please continue take all medications as prescribed Pending Studies at Discharge: No Stand-Alone Forms: My [facility] Medications and DC Order Prescriptions: New risperidone 1 mg Tablet,Disintegrating 1 mg PO HS Qty: 30 RF: 0 Continued levothyroxine [Synthroid] 75 mcg tablet 75 mcg PO DAILY Qty: 30 RF: 0 leflunomide 10 mg tablet 10 mg PO DAILY RF: 0 prednisone 10 mg tablet 10 mg PO DAILY RF: 0 lisinopril 20 mg Tablet 20 mg PO DAILY RF: 0 simvastatin 20 mg Tablet 20 mg PO DAILY RF: 0 metoprolol tartrate 50 mg Tablet 50 mg PO BID RF: 0 amlodipine [Norvasc] 5 mg Tablet 5 mg PO BID 30 Days Qty: 60 RF: 2 thiamine HCl (vitamin B1) [Vitamin B-1] 100 mg Tablet 200 mg PO BID 30 Days Qty: 120 RF: 2 Myrbetriq 25 mg Tablet Extended Release 24 Hr 25 mg PO DAILY 30 Days Qty: 30 RF: 3 cyanocobalamin (vitamin B-12) 1,000 mcg tablet 1,000 mcg PO DAILY Qty: 30 RF: 3 metformin 500 mg Tablet 500 mg PO QPM RF: 0 metformin 1,000 mg Tablet 1,000 mg PO QAM RF: 0 glipizide 5 mg Tablet 5 mg PO DAILY RF: 0 omeprazole 20 mg Tablet,Delayed Release (Dr/Ec) 20 mg PO BID RF: 0 Discontinued risperidone 0.5 mg Tablet,Disintegrating 0.5 mg PO HS 30 Days Qty: 30 RF: 3 Discharge Orders: Discharge Order (Routine); Ordered 03/09/21 Ordered By: Jose Luis Mahmood/Other Patient Handouts: A1C, Managing Type 2 Diabetes Admission Data Admit Date/Time: 03/02/21 16:39 Attending Provider: Juancarlos Velazquez Admit Provider: Javier Mendoza Primary Care Provider: Miky Latham Other Providers: Marty Zayas [place] ; Javier Mendoza ; Colt Parker Other Interventions: Discharge Summary Assessment (RN) Last Done: 03/09/21 15:04 Supervising Physician Co-Signing Physician Notes Patient seen and examined at bedside by myself. My history and physical exam did not differ from above. Discussed discharge planning with NANCY Strong and patient. Will complete antibiotic treatment for Pneumonia with levofloxacin. I reviewed above note and agree with it. Coding Level of Care Code D/C DAY MANAGEMENT >30 MINS Diagnoses Acute hypoxemic respiratory failure J96.01 Home Health Attestation I certify that this patient is under my care and that I, or a physicians assistant principal working with me, had a face to-face encounter that meets the home health [id number] encounter requirements with this patient. The encounter with the patient was in whole, or in part, for the following medical condition, which is the primary reason for home health care (list medical condition): PNX I certify that, based on my findings, the following services are medically necessary home health services: My clinical findings support the need for the above services because: OT Assess ADL Status and Restore Function w ADLs PT Assessment for Endurance / Balance / Strength PT Eval for Safety and Mobility PT Eval for Safety, Gait Training, Assistive Devices PT Gait and Balance Training, Strengthening and Safety Skilled Nsg Assessment Further, I certify that my clinical findings support that this patient is homebound (i.e. absences from home require considerable and taxing effort and are for medical reasons or oriental orthodox services or infrequently or of short duration when for other reasons) because: Supportive Aid - Walker Certification for Home Health Services: Based on the above findings, I certify that this patient is confined to the home and needs intermittent [facility] care, physical therapy and/or speech therapy or continues to need occupational therapy. The patient is under my care, and I have initiated the establishment of the plan of care. This patient will be followed by a physician who will periodically review the plan of care.
== END 2021-03-09 15:50 | disposition home health service (06) | DRG 205 ==
LOC: ED 11:22 → 2S 16:39 → SUATTDRO 16:39 → 2S 18:02

== ENCOUNTER 2021-04-22 14:57 | Inpatient (IN) ==
--- NOTE | 2021-04-22 16:29 | Emergency Department Note ---
Impression & Plan Falls frequently, Weakness, Urinary frequency ED Provider Note NAME: ROBBIE JENKINS AGE: 89 SEX: F : 1930 ARRIVES VIA: Walk-In INFORMANT: Patient, the patient's daughter ED PROVIDER(S): Cali Cano DO CHIEF COMPLAINT: Weakness HPI: The patient is an 89-year-old female who presented to the emergency department for an evaluation of generalized weakness. The patient has been seen in our facility multiple times in the past for frequent falls as well as generalized weakness. Recently she started experiencing urinary frequency. The patient called her primary care physician and was referred to the emergency department. Her primary care physician is very involved with her care and notices that her condition is starting to deteriorate over the course the last few months. She has been having frequent falls. He is concerned she may require another admission for inpatient rehab. The patient is fallen frequently in the last time she was seen in our emergency department for a fall was in the end of March. At that time she did have a complete work-up. At this time she denies having any headache. She does complain of generalized weakness especially in her legs. She states that she has difficulty ambulating long distances. She states she is had decreased p.o. intake but denies having any fever. She denies having any back pain. She has no abdominal pain or vomiting. The patient has not noticed any fever but has noticed some shortness of breath with exertion. ROS: See above HPI for pertinent positives & negatives. A total of 10 systems reviewed and were otherwise negative. PAST MEDICAL HISTORY: See Below PAST SURGICAL HISTORY: See Below FAMILY HISTORY: See Below SOCIAL HISTORY: See Below HOME MEDICATIONS: See Below ALLERGIES: See Below VITALS: See Below PHYSICAL EXAMINATION: GENERAL: The patient is awake and alert. She appears somewhat listless but responsive to verbal commands. EYES: The conjunctivae are clear. The pupils are round and reactive. EARS, NOSE, MOUTH AND THROAT: The nose is without any evidence of any deformity. Mucous membranes are moist. NECK: The neck is nontender and supple. RESPIRATORY: Diminished breath sounds are noted throughout. There is no specific tachypnea or conversational dyspnea. CARDIOVASCULAR: Regular rate and rhythm noted there no murmurs rubs or gallops normal S1 normal S2. GASTROINTESTINAL: The abdomen is soft. Abdomen is nontender. MUSCULOSKELETAL/EXTREMITIES: There is no evidence of gross deformity full range of motion is noted in the hips and shoulders. SKIN: Skin is warm and dry. There is no significant pedal edema. Skin is warm and dry. NEUROLOGIC: Patient is awake alert and oriented x3. The patient is able to hold each leg off of the bed for greater than 5 seconds. MEDICAL DECISION MAKING: The patient is an 89-year-old female who presented to the emergency department with her family member for an evaluation of generalized weakness. The patient has had similar episodes in the past. She responded well to inpatient rehab. The patient also has been having urinary frequency and frequent falls. The patient was sent to the emergency department by her family doctor for further evaluation as well as possible inpatient management. I discussed the patient's laboratory and radiographic studies with her and her family member. I did recommend that she continue all medications as prescribed. The patient's daughter was not comfortable taking her home and she felt that she was not safe given her frequent falls. For this reason I [facility] the patient in the [facility] department for further management and disposition. Triage Nursing notes reviewed. Prior medical records reviewed Vital Signs: reviewed and remarkable for elevated blood pressure. Differential diagnosis: Infection, dehydration, metabolic abnormality, hypo/hyperglycemia, electrolyte disturbance, anemia, hypoxia, cardiac sources, intracerebral event, toxicologic, neurologic, as well as other pathologies. ER treatment provided: See below Diagnostics interpreted by me: ECG: EKG was obtained in the emergency department. My interpretation is sinus bradycardia 55 bpm. There was no ectopy. Poor R wave progression was noted. Lateral ST depressions were noted. This was compared to a tracing from March 022020. No significant changes were noted. Cardiac Monitoring: An order was placed for continuous cardiac monitoring. The m onitor shows a rate of 60 bpm with sinus rhythm. Laboratory studies: As stated above and show below. Imaging studies: See below Consultation(s): [facility]. She will evaluate the patient in the emergency department. Past Med/Surg History Medical History DEXTER (acute kidney injury) Ambulatory dysfunction Anemia Contusion of elbow, right Contusion of hip, right Contusion of knee, left Contusion of knee, right Degenerative disc disease Dehydration Hyperkalemia Hyperlipidemia Hypertension Hypothyroidism Left lower lobe pneumonia Parapneumonic effusion Pleural effusion Rheumatoid arthritis Urinary frequency Surgical History Fusion of spine LUMBAR SURGERY X 2 History of adenoidectomy History of cataract surgery RT/LEFT History of cholecystectomy History of colonoscopy History of dilatation and curettage History of discectomy CERVICAL History of open reduction and internal fixation (ORIF) procedure RT FEMUR History of tonsillectomy History of tooth extraction History of total abdominal hysterectomy and bilateral salpingo-oophorectomy Family History Mother Family history of diabetes mellitus Social History Smoking Status: Never smoker Second Hand Exposure: No; Hx Alcohol Use: No Hx Substance Use: No Preferred Language: Haitian Communication Ability: Effective Conversion Developer Required: No Beliefs That Will Affect Care: None marital status: / Current Living Situation: Group Home Current Living Situation Comment: Daughter lives with her How many Children do You have: 1 Feels Safe at Home: Yes Assistive Devices: Walker and Wheelchair Allergies Allergies Allergy/AdvReac Type Severity Reaction Status Date / Time aloe Allergy Mild itching Verified 04/22/21 20:39 bacitracin Allergy Mild itching Verified 04/22/21 20:39 codeine Allergy Mild ITCHING Verified 04/22/21 20:39 cortisone Allergy Mild Rash Verified 04/22/21 20:39 erythromycin base Allergy Mild ITCHING Verified 04/22/21 20:39 latex Allergy Mild ITCHING Verified 04/22/21 20:39 neomycin Allergy Mild itching Verified 04/22/21 20:39 polymyxin B Allergy Mild itching Verified 04/22/21 20:39 tramadol Allergy Mild Rash Verified 04/22/21 20:39 triamcinolone Allergy Mild ITCHING Verified 04/22/21 20:39 Iodinated Contrast Media Allergy Unknown DOES NOT Verified 04/22/21 20:39 REMEMBER propranolol Allergy Unknown DOES NOT Verified 04/22/21 20:39 REMEMBER Home Meds Home Medications Medication Instructions Recorded Confirmed leflunomide 10 mg tablet 10 mg PO DAILY 06/17/20 04/22/21 lisinopril 20 mg tablet 20 mg PO DAILY 12/13/20 04/22/21 simvastatin 20 mg tablet 20 mg PO DAILY 12/13/20 04/22/21 metformin 500 mg tablet 500 mg PO QPM 03/02/21 04/22/21 metoprolol tartrate 100 mg tablet 100 mg PO BID 03/22/21 04/22/21 metformin 500 mg tablet 1,000 mg PO QAM 04/22/21 04/22/21 prednisone 10 mg tablet 10 mg PO DAILY 04/22/21 04/22/21 Previous Rx's Medication Instructions Recorded levothyroxine 75 mcg tablet 75 mcg PO DAILY #30 tab 03/30/20 (Synthroid) mirabegron 25 mg tablet,extended 25 mg PO DAILY 30 Days #30 tab 12/20/20 release 24 hr (Myrbetriq) cyanocobalamin (vitamin B-12) 1,000 mcg PO DAILY #30 tab 02/17/21 1,000 mcg tablet Results & Data (ED) Vital Signs Vital Signs - 24 hr 04/22/21 15:28 04/22/21 16:16 04/22/21 16:57 Temperature 37.1 C Temperature Source Oral Pulse Rate 66 Pulse Rate [Apical] 54 L Pulse Rhythm [Apical] Pulse Strength [Apical] Respiratory Rate 18 18 Respiratory Effort / Characteristics Non-Labored Respiratory Depth Normal Respiratory Pattern Regular Blood Pressure 205/83 H Blood Pressure [Left Arm] Blood Pressure Mean 123 Blood Pressure Mean [Left Arm] Blood Pressure Position [Left Arm] Pulse Oximetry 98 98 Oxygen Delivery Method Room Air Room Air Room Air Sepsis Recent Fever Within 48 Hours No Sepsis New/Unexplained Change in Mental Status N/A Sepsis Action Taken by Nursing No Action Required 04/22/21 18:00 04/22/21 19:10 04/22/21 20:32 Temperature Temperature Source Pulse Rate Pulse Rate [Apical] 52 L 54 L 59 L Pulse Rhythm [Apical] Regular Regular Pulse Strength [Apical] Normal Normal Respiratory Rate 20 16 16 Respiratory Effort / Characteristics Non-Labored Non-Labored Spontaneous Non-Labored Spontaneous Respiratory Depth Normal Normal Normal Respiratory Pattern Regular Blood Pressure Blood Pressure [Left Arm] 208/88 H 210/82 H 185/94 H Blood Pressure Mean Blood Pressure Mean [Left Arm] 128 124 124 Blood Pressure Position [Left Arm] Sitting Pulse Oximetry 99 97 98 Oxygen Delivery Method Room Air Room Air Room Air Sepsis Recent Fever Within 48 Hours Sepsis New/Unexplained Change in Mental Status Sepsis Action Taken by Group Home Medications Current Medication List: was personally reviewed by me Laboratory Data Attestation: I reviewed the patient's lab results. Result diagrams: 04/22/21 16:28 04/22/21 16:28 Lab Results 04/22/21 04/22/21 04/22/21 Range/Units 16:28 16:28 16:28 WBC 6.95 (4.8-10.8) K/uL RBC 4.34 (4.2-5.4) M/uL Hgb 13.2 (12.0-16.0) g/dL Hct 40.2 (37-47) % MCV 92.6 (80-100) fL MCH 30.4 (25-34) pg MCHC 32.8 (32-36) g/dL RDW Std Deviation 46.5 H (36.4-46.3) fL RDW Coeff of Rafael 13.6 (11.5-14.5) % Plt Count 155 (130-400) K/uL MPV 11.2 H (7.4-10.4) fL Immature Gran % (Auto) 0.3 % Neut % (Auto) 85.2 % Lymph % (Auto) 9.1 % [place] % (Auto) 5.3 % Eos % (Auto) 0.0 % Baso % (Auto) 0.1 % Neut # (Auto) 5.92 (1.4-6.5) K/uL Lymph # (Auto) 0.63 L (1.2-3.4) K/uL [place] # (Auto) 0.37 (0.11-0.59) K/uL Eos # (Auto) 0.00 (0-0.5) K/uL Baso # (Auto) 0.01 (0-0.2) K/uL Immature Gran # (Auto) 0.02 (0.00-0.02) K/uL PT 10.2 (9.0-12.0) Seconds INR 1.0 (0.9-1.1) APTT 20.5 L (21.0-31.0) Seconds PTT Ratio 0.8 Sodium 141 (136-145) mmol/L Potassium 4.5 (3.5-5.1) mmol/L Chloride 110 H (98-107) mmol/L Carbon Dioxide 28 (21-32) mmol/L Anion Gap 4.0 (3-11) BUN 21 H (7-18) mg/dl Creatinine 0.95 (0.6-1.2) mg/dl Est Cr Clr Drug Dosing Not Reportable Est GFR ( Amer) 62.0 ml/min Est GFR (Non-Af Amer) 53.5 ml/min BUN/Creatinine Ratio 22.0 H (10-20) Glucose 196 H (70-99) mg/dl Calcium 9.3 (8.5-10.1) mg/dl Magnesium 1.9 (1.8-2.4) mg/dl Total Bilirubin 1.0 (0.2-1) mg/dl AST 26 (15-37) U/L ALT 40 (12-78) U/L Alkaline Phosphatase 63 (45-117) U/L Total Creatine Kinase 25 L (26-192) U/L Troponin I < 0.015 (0-0.045) ng/ml Total Protein 7.3 (6.4-8.2) gm/dl Albumin 3.5 (3.4-5.0) gm/dl Globulin 3.8 (2.5-4.0) gm/dl Albumin/Globulin Ratio 0.9 (0.9-2) TSH 0.633 (0.300-4.500) uIu/ml Urine Color Urine Appearance (Clear) Urine pH (4.5-7.5) Ur Specific [place] (1.000-1.030) Urine Protein (Negative) Urine Glucose (UA) (Negative) Urine Ketones (Negative) Urine Blood (Negative) Urine Nitrite (Negative) Urine Bilirubin (Negative) Urine Urobilinogen (Negative) Ur Leukocyte Esterase (Negative) Urine WBC (Auto) (0-5) /hpf Urine RBC (Auto) (0-4) /hpf U Hyaline Cast (Auto) (0-5) /lpf U Epithel Cells (Auto) (0-5) /lpf Urine Bacteria (Auto) (Negative) COVID-19 Eval Order SARS-CoV-2 (PCR) (Negative) 04/22/21 04/22/21 04/22/21 Range/Units 17:20 17:20 18:35 WBC (4.8-10.8) K/uL RBC (4.2-5.4) M/uL Hgb (12.0-16.0) g/dL Hct (37-47) % MCV (80-100) fL MCH (25-34) pg MCHC (32-36) g/dL RDW Std Deviation (36.4-46.3) fL RDW Coeff of Rafael (11.5-14.5) % Plt Count (130-400) K/uL MPV (7.4-10.4) fL Immature Gran % (Auto) % Neut % (Auto) % Lymph % (Auto) % [place] % (Auto) % Eos % (Auto) % Baso % (Auto) % Neut # (Auto) (1.4-6.5) K/uL Lymph # (Auto) (1.2-3.4) K/uL [place] # (Auto) (0.11-0.59) K/uL Eos # (Auto) (0-0.5) K/uL Baso # (Auto) (0-0.2) K/uL Immature Gran # (Auto) (0.00-0.02) K/uL PT (9.0-12.0) Seconds INR (0.9-1.1) APTT (21.0-31.0) Seconds PTT Ratio Sodium (136-145) mmol/L Potassium (3.5-5.1) mmol/L Chloride (98-107) mmol/L Carbon Dioxide (21-32) mmol/L Anion Gap (3-11) BUN (7-18) mg/dl Creatinine (0.6-1.2) mg/dl Est Cr Clr Drug Dosing Est GFR ( Amer) ml/min Est GFR (Non-Af Amer) ml/min BUN/Creatinine Ratio (10-20) Glucose (70-99) mg/dl Calcium (8.5-10.1) mg/dl Magnesium (1.8-2.4) mg/dl Total Bilirubin (0.2-1) mg/dl AST (15-37) U/L ALT (12-78) U/L Alkaline Phosphatase (45-117) U/L Total Creatine Kinase (26-192) U/L Troponin I (0-0.045) ng/ml Total Protein (6.4-8.2) gm/dl Albumin (3.4-5.0) gm/dl Globulin (2.5-4.0) gm/dl Albumin/Globulin Ratio (0.9-2) TSH (0.300-4.500) uIu/ml Urine Color Yellow Urine Appearance Clear (Clear) Urine pH 6.0 (4.5-7.5) Ur Specific [place] 1.018 (1.000-1.030) Urine Protein 2+ H (Negative) Urine Glucose (UA) Negative (Negative) Urine Ketones Negative (Negative) Urine Blood Negative (Negative) Urine Nitrite Negative (Negative) Urine Bilirubin Negative (Negative) Urine Urobilinogen Negative (Negative) Ur Leukocyte Esterase Trace H (Negative) Urine WBC (Auto) 5-10 H (0-5) /hpf Urine RBC (Auto) 0-4 (0-4) /hpf U Hyaline Cast (Auto) 1-5 (0-5) /lpf U Epithel Cells (Auto) >30 H (0-5) /lpf Urine Bacteria (Auto) Negative (Negative) COVID-19 Eval Order Covid19 at [facility] SARS-CoV-2 (PCR) NEGATIVE (Negative) Imaging Data Radiologist's Impression: Chest X-Ray 04/22/21 16:16 XR chest 1V portable HISTORY: weakness COMPARISON: Chest 03/05/2021. FINDINGS: Rotated study. No pneumothorax. Small left pleural effusion and left basilar densities have improved. The heart is normal in size. No evidence for pulmonary edema. There is a small hiatus hernia, unchanged. The bones are osteopenic. Cervical spinal fusion hardware is again noted. Emphysema. IMPRESSION: 1. Interval improvement with near complete resolution of the small left pleural effusion and left basilar densities. 2. Emphysema. ACT 112: Negative or not required by law. Electronically signed by: Eloy Ryder M.D. 04/22/2021 5:[address] 04/22/21 16:[address] DOSE: 638.56 mGycm HISTORY: weakness TECHNIQUE: Multiaxial CT images of the head were performed without the use of intravenous contrast. Automated exposure control was utilized for this study. A dose lowering technique was utilized adhering to the principles of ALARA. Comparison: Head CT 03/22/2021. Findings: Mild mucosal thickening within the left maxillary sinus. The mastoid air cells are clear. The calvarium and skull base are intact. There is no mass, hematoma, midline shift, acute infarct. White matter hypodensity is nonspecific but suggestive of microvascular ischemic change. The ventricles and sulci demonstrate mild age-related involutional changes. Impression: No acute intracranial abnormality. Atrophy and microvascular ischemic changes. ACT 112: Negative or not required by law. Electronically signed by: Eloy Ryder M.D. 04/22/2021 5:[address] 04/22/21 16:[address] DOSE: 414.65 mGycm HISTORY: Frequent falls. Neck pain. TECHNIQUE: Multiaxial CT images of the cervical spine were performed and reformatted in the sagittal and coronal plane without the use of contrast. A dose lowering technique was utilized adhering to the principles of ALARA. COMPARISON: Cervical spine CT 03/22/2021. FINDINGS: No fracture or subluxation. There is anterior cervical discectomy and fusion from C3 through C6. The hardware appears intact. Prevertebral soft tissues and the C1-C2 interval are maintained. No pneumothorax. Mild degenerative disc disease at C6-C7 and C7-T1. IMPRESSION: No fractures within the cervical spine. Postoperative changes as described above. ACT 112: Negative or not required by law. Electronically signed by: Eloy Ryder M.D. 04/22/2021 5:13 PM Discharge Plan Visit Data Chief Complaint: Infection Stated Complaint: INFECTTION ED Provider: Cali Cano Discharge Problem: Falls frequently, Weakness, Urinary frequency Patient Disposition: Admitted As Inpatient Condition: Good Discharge Instructions Interventions: ED Discharge Assessment Last Done: 04/22/21 21:44
[2021-04-22 16:38] LABS: Basophils # (auto) 0.01 K/uL (0-0.2); Basophils % (auto) 0.1 %; Hematocrit (blood only) 40.2 % (37-47); Hemoglobin 13.2 g/dL (12.0-16.0); Immature Granulocytes # (auto) 0.02 K/uL (0.00-0.02); Immature Granulocytes % (auto) 0.3 %; Lymphocytes # (auto) 0.63 K/uL (1.2-3.4); Lymphocytes % (auto) 9.1 %; Mean Corpuscular Hemoglobin 30.4 pg (25-34); Mean Corpuscular Hgb Conc 32.8 g/dL (32-36); Mean Corpuscular Volume 92.6 fL (80-100); Mean Platelet Volume 11.2 fL (7.4-10.4); Monocytes # (auto) 0.37 K/uL (0.11-0.59); Monocytes % (auto) 5.3 %; Neutrophils # (auto) 5.92 K/uL (1.4-6.5); Neutrophils % (auto) 85.2 %; Platelet Count 155 K/uL (130-400); RDW Coefficient of Variation 13.6 % (11.5-14.5); RDW Standard Deviation 46.5 fL (36.4-46.3); Red Blood Count 4.34 M/uL (4.2-5.4); White Blood Count 6.95 K/uL (4.8-10.8)
[2021-04-22 16:58] LABS: Alanine Aminotransferase 40 U/L (12-78); Albumin Level 3.5 gm/dl (3.4-5.0); Aspartate Aminotransferase 26 U/L (15-37); Blood Urea Nitrogen 21 mg/dl (7-18); Calcium 9.3 mg/dl (8.5-10.1); Carbon Dioxide 28 mmol/L (21-32); Chloride 110 mmol/L (98-107); Est GFR (Non-African American) 53.5 ml/min; Glucose 196 mg/dl (70-99); Magnesium 1.9 mg/dl (1.8-2.4); Potassium 4.5 mmol/L (3.5-5.1); Sodium 141 mmol/L (136-145)
[2021-04-22 17:00] LABS: Partial Thromboplastin Ratio 0.8; Partial Thromboplastin Time 20.5 Seconds (21.0-31.0); Prothrombin Time 10.2 Seconds (9.0-12.0)
[2021-04-22 17:08] LABS: Albumin Globulin Ratio 0.9 (0.9-2); Alkaline Phosphatase 63 U/L (45-117); Creatine Kinase 25 U/L (26-192); Globulin 3.8 gm/dl (2.5-4.0); Thyroid Stimulating Hormone 0.633 uIu/ml (0.300-4.500); Total Protein 7.3 gm/dl (6.4-8.2); Troponin I < 0.015 ng/ml (0-0.045)
--- NOTE | 2021-04-22 17:10 | CT Scan Report ---
HEAD CT NONCONTRAST CT DOSE: 638.56 mGycm HISTORY: weakness TECHNIQUE: Multiaxial CT images of the head were performed without the use of intravenous contrast. A utomated exposure control was utilized for this study. A dose lowering technique was utilized adheri ng to the principles of ALARA. Comparison: Head CT 03/22/2021. Findings: Mild mucosal thickening within the left maxillary sinus. The mastoid air cells are clear. T he calvarium and skull base are intact. There is no mass, hematoma, midline shift, acute infarct. Whi te matter hypodensity is nonspecific but suggestive of microvascular ischemic change. The ventricles and sulci demonstrate mild age-related involutional changes. Impression: No acute intracranial abnormality. Atrophy and microvascular ischemic changes. ACT 112: Negative or not required by law. Electronically signed by: Eloy Ryder M.D. 04/22/2021 5:09 PM
--- NOTE | 2021-04-22 17:14 | CT Scan Report ---
CERVICAL SPINE CT CT DOSE: 414.65 mGycm HISTORY: Frequent falls. Neck pain. TECHNIQUE: Multiaxial CT images of the cervical spine were performed and reformatted in the sagittal and coronal plane without the use of contrast. A dose lowering technique was utilized adhering to th e principles of ALARA. COMPARISON: Cervical spine CT 03/22/2021. FINDINGS: No fracture or subluxation. There is anterior cervical discectomy and fusion from C3 throug h C6. The hardware appears intact. Prevertebral soft tissues and the C1-C2 interval are maintained. N o pneumothorax. Mild degenerative disc disease at C6-C7 and C7-T1. IMPRESSION: No fractures within the cervical spine. Postoperative changes as described above. ACT 112: Negative or not required by law. Electronically signed by: Eloy Ryder M.D. 04/22/2021 5:13 PM
--- NOTE | 2021-04-22 17:21 | XRay Report ---
XR chest 1V portable HISTORY: weakness COMPARISON: Chest 03/05/2021. FINDINGS: Rotated study. No pneumothorax. Small left pleural effusion and left basilar densities have improved. The heart is normal in size. No evidence for pulmonary edema. There is a small hiatus clement ia, unchanged. The bones are osteopenic. Cervical spinal fusion hardware is again noted. Emphysema. IMPRESSION: 1. Interval improvement with near complete resolution of the small left pleural effusion and left bas ilar densities. 2. Emphysema. ACT 112: Negative or not required by law. Electronically signed by: Eloy Ryder M.D. 04/22/2021 5:20 PM
[2021-04-22 19:09] LABS: Appearance Urine Clear (Clear); Bacteria Urine Automated Negative (Negative); Bilirubin Urine Negative (Negative); Blood Urine Negative (Negative); Color Urine Yellow; Epithelial Cell Urine Auto >30 /lpf (0-5); Glucose Urine UA Negative (Negative); Ketones Urine Negative (Negative); Leukocyte Esterase Urine Trace (Negative); Nitrite Urine Negative (Negative); Protein Urine 2+ (Negative); RBC Urine Automated 0-4 /hpf (0-4); Specific Gravity Urine 1.018 (1.000-1.030); Urobilinogen Urine Negative (Negative)
--- NOTE | 2021-04-22 21:12 | History & Physical Report ---
Date of Service April 22, 2021 Assessment & Plan (1) Ambulatory dysfunction: Plan: Patient with difficulty ambulating at home. Sent by her PCP for rehab evaluation. No recent falls per patient. No focal weakness. -Admit to medial -Fall precautions -PT/OT evaluation -CM assistance appreciated with placement (2) Diabetes: Plan: Chronic. Elevated blood sugar today at 190. Patient is on Metformin at home. Last HgbA1C = 6.2 on 03/24/21 -Hold Metformin -Lantus 3u BID, ISS, goal blood sugar 100 - 140 -CC diet as tolerated (3) Hypertension: Plan: Blood pressure elevated -Continue Metoprolol 100mg po BID -Continue to monitor (4) Rheumatoid arthritis: Plan: Chronic. Stable -Continue Prednisone 10mg po daily -Continue Leflunomide (5) Hypothyroidism: Plan: Chronic. TSH = 0.633 -Continue Synthroid 75mcg daily (6) Stage 3b chronic kidney disease: Plan: Chronic. Near baseline -Continue to monitor -Avoid nephrotoxic agents Plan: F/E/N - Heplock. Electrolytes WNL. CC diet as tolerated with aspiration precautions, bowel regimen PRN Ppx - Lovenox 30 Code - Full per discussion with patient Dispo - Admit to medical History of Present Illness Chief Complaint: ambulatory dysfunction Primary Care Provider: Miky Latham MD Glenny Krishna is an 89yo female sent by her PCP for ongoing ambulatory dysfunction, PT/OT evaluation and rehabilitation placement. Patient states she has not fallen recently but she is unstable on her feet. She has had rehab in the past which has helped. No additional complaints at this time. Specifically patient denies chest pain/SOB/fever/chills/abdominal pain/nausea/vomiting/diarrhea or constipation. She states she is eating well. ER Course: No therapies administered Allergies Allergy/AdvReac Type Severity Reaction Status Date / Time aloe Allergy Mild itching Verified 04/22/21 20:39 bacitracin Allergy Mild itching Verified 04/22/21 20:39 codeine Allergy Mild ITCHING Verified 04/22/21 20:39 cortisone Allergy Mild Rash Verified 04/22/21 20:39 erythromycin base Allergy Mild ITCHING Verified 04/22/21 20:39 latex Allergy Mild ITCHING Verified 04/22/21 20:39 neomycin Allergy Mild itching Verified 04/22/21 20:39 polymyxin B Allergy Mild itching Verified 04/22/21 20:39 tramadol Allergy Mild Rash Verified 04/22/21 20:39 triamcinolone Allergy Mild ITCHING Verified 04/22/21 20:39 Iodinated Contrast Media Allergy Unknown DOES NOT Verified 04/22/21 20:39 REMEMBER propranolol Allergy Unknown DOES NOT Verified 04/22/21 20:39 REMEMBER Home Medications Medication Instructions Recorded Confirmed Type levothyroxine 75 mcg tablet 75 mcg PO DAILY #30 tab 03/30/20 04/22/21 Rx (Synthroid) leflunomide 10 mg tablet 10 mg PO DAILY 06/17/20 04/22/21 History lisinopril 20 mg tablet 20 mg PO DAILY 12/13/20 04/22/21 History simvastatin 20 mg tablet 20 mg PO DAILY 12/13/20 04/22/21 History mirabegron 25 mg tablet,extended 25 mg PO DAILY 30 Days #30 tab 12/20/2004/22 Rx release 24 hr (Myrbetriq) cyanocobalamin (vitamin B-12) 1,000 mcg PO DAILY #30 tab 02/17/21 04/22/21 Rx 1,000 mcg tablet metformin 500 mg tablet 500 mg PO QPM 03/02/21 04/22/21 History metoprolol tartrate 100 mg tablet 100 mg PO BID 03/22/21 04/22/21 History metformin 500 mg tablet 1,000 mg PO QAM 04/22/21 04/22/21 History prednisone 10 mg tablet 10 mg PO DAILY 04/22/21 04/22/21 History Past Med/Surg History Medical History DEXTER (acute kidney injury) Ambulatory dysfunction Anemia Contusion of elbow, right Contusion of hip, right Contusion of knee, left Contusion of knee, right Degenerative disc disease Dehydration Hyperkalemia Hyperlipidemia Hypertension Hypothyroidism Left lower lobe pneumonia Parapneumonic effusion Pleural effusion Rheumatoid arthritis Urinary frequency Surgical History Fusion of spine LUMBAR SURGERY X 2 History of adenoidectomy History of cataract surgery RT/LEFT History of cholecystectomy History of colonoscopy History of dilatation and curettage History of discectomy CERVICAL History of open reduction and internal fixation (ORIF) procedure RT FEMUR History of tonsillectomy History of tooth extraction History of total abdominal hysterectomy and bilateral salpingo-oophorectomy Family History Mother Family history of diabetes mellitus Social History Smoking Status: Never smoker Second Hand Exposure: No; Hx Alcohol Use: No Hx Substance Use: No Preferred Language: Beninese Communication Ability: Effective Fruit Grader Required: No Beliefs That Will Affect Care: None marital status: / Current Living Situation: [facility] Current Living Situation Comment: Daughter lives with her How many Children do You have: 1 Feels Safe at Home: Yes Assistive Devices: Walker and Wheelchair Review of Systems Review of Systems: All systems reviewed & are unremarkable except as noted in HPI & below Physical Exam Physical Exam: General: patient resting comfortably, NAD, non-toxic in appearance, AA&O to self and location with some confusion re: time Skin: warm, dry, intact, no rashes or lesions HEENT: NC/AT, PERRL, EOMI, anicteric sclera, conjunctiva without injection, external ear normal to inspection and nontender, nares patent, moist mucus membranes, dentition intact, no oropharyngeal lesions, neck supple, trachea midline, no LAD, no thyromegaly, no JVD Heart: +S1/S2, regular, bradycardic, no m/r/g Lungs: equal air entry bilaterally, no rales/rhonchi/wheezes Abd: +BS, soft, NT/ND, no masses/organomegaly/ascites Ext: warm, 2+ pulses in UE/LE bilaterally, no clubbing/cyanosis or edema Neuro: nonfocal, patient AA&O x 2, speech intact, no facial droop, moving all extremities on command with equal strength 5/5 Results & Data Results & Data ([facility]) Vital Signs (Past 12 Hours) Vital Signs Temp Pulse Pulse Resp BP BP Pulse Ox 04/22/21 20:32 59 L 16 185/94 H 98 04/22/21 19:10 54 L 16 210/82 H 97 04/22/21 18:00 52 L 20 208/88 H 99 04/22/21 16:57 54 L 18 98 04/22/21 15:28 37.1 C 66 18 205/83 H 98 Laboratory Results Laboratory Results WBC 6.95 K/uL (4.8-10.8) 04/22/21 16: RBC 4.34 M/uL (4.2-5.4) 04/22/21 16:28 Hgb 13.2 g/dL (12.0-16.0) 04/22/21 16: Hct 40.2 % (37-47) 04/22/21 16: MCV 92.6 fL (80-100) 04/22/21 16: MCH 30.4 pg (25-34) 04/22/21 16: MCHC 32.8 g/dL (32-36) 04/22/21 16: RDW Std Deviation 46.5 fL (36.4-46.3) H 04/22/21 16: RDW Coeff of Rafael 13.6 % (11.5-14.5) 04/22/21: Plt Count 155 K/uL (130-400) 04/22/21 16: MPV 11.2 fL (7.4-10.4) H 04/22/21 16: Immature Gran % (Auto) 0.3 % 04/22/21 16: Neut % (Auto) 85.2 % 04/22/21: Lymph % (Auto) 9.1 % 04/22/21: [place] % (Auto) 5.3 % 04/22/21 16: Eos % (Auto) 0.0 % 04/22/21: Baso % (Auto) 0.1 % 04/22/21: Neut # (Auto) 5.92 K/uL (1.4-6.5) 04/22/21 16: Lymph # (Auto) 0.63 K/uL (1.2-3.4) L 04/22/21: [place] # (Auto) 0.37 K/uL (0.11-0.59) 04/22/21 16: Eos # (Auto) 0.00 K/uL (0-0.5) 04/22/21: Baso # (Auto) 0.01 K/uL (0-0.2) 04/22/21 16:28 Immature Gran # (Auto) 0.02 K/uL (0.00-0.02) 04/22/21 16: PT 10.2 Seconds (9.0-12.0) 04/22/21 16: INR 1.0 (0.9-1.1) 04/22/21 16: APTT 20.5 Seconds (21.0-31.0) L 04/22/21: PTT Ratio 0.8 04/22/21 16: Sodium 141 mmol/L (136-145) 04/22/21 16: Potassium 4.5 mmol/L (3.5-5.1) 04/22/21: Chloride 110 mmol/L (98-107) H 04/22/21: Carbon Dioxide 28 mmol/L (21-32) 04/22/21: Anion Gap 4.0 (3-11) 04/22/21 16: BUN 21 mg/dl (7-18) H 04/22/21 16: Creatinine 0.95 mg/dl (0.6-1.2) 04/22/21 16: Est Cr Clr Drug Dosing Not Reportable 04/22/21 16: Est GFR ( Amer) 62.0 ml/min 04/22/21: Est GFR (Non-Af Amer) 53.5 ml/min 04/22/21 16: BUN/Creatinine Ratio 22.0 (10-20) H 04/22/21 16: Glucose 196 mg/dl (70-99) H 04/22/21 16: Calcium 9.3 mg/dl (8.5-10.1) 04/22/21 16: Magnesium 1.9 mg/dl (1.8-2.4) 04/22/21 16: Total Bilirubin 1.0 mg/dl (0.2-1) 04/22/21 16: AST 26 U/L (15-37) 04/22/21 16:28 ALT 40 U/L (12-78) 04/22/21 16:28 Alkaline Phosphatase 63 U/L (45-117) 04/22/21 16:28 Total Creatine Kinase 25 U/L (26-192) L 04/22/21 16:28 Troponin I < 0.015 ng/ml (0-0.045) 04/22/21 16:28 Total Protein 7.3 gm/dl (6.4-8.2) 04/22/21 16:28 Albumin 3.5 gm/dl (3.4-5.0) 04/22/21 16:28 Globulin 3.8 gm/dl (2.5-4.0) 04/22/21 16:28 Albumin/Globulin Ratio 0.9 (0.9-2) 04/22/21 16:28 TSH 0.633 uIu/ml (0.300-4.500) 04/22/21 16:28 Urine Color Yellow 04/22/21 18:35 Urine Appearance Clear (Clear) 04/22/21 18:35 Urine pH 6.0 (4.5-7.5) 04/22/21 18:35 Ur Specific [place] 1.018 (1.000-1.030) 04/22/21 18:35 Urine Protein 2+ (Negative) H 04/22/21 18:35 Urine Glucose (UA) Negative (Negative) 04/22/21 18:35 Urine Ketones Negative (Negative) 04/22/21 18:35 Urine Blood Negative (Negative) 04/22/21 18:35 Urine Nitrite Negative (Negative) 04/22/21 18:35 Urine Bilirubin Negative (Negative) 04/22/21 18:35 Urine Urobilinogen Negative (Negative) 04/22/21 18:35 Ur Leukocyte Esterase Trace (Negative) H 04/22/21 18:35 Urine WBC (Auto) 5-10 /hpf (0-5) H 04/22/21 18:35 Urine RBC (Auto) 0-4 /hpf (0-4) 04/22/21 18:35 U Hyaline Cast (Auto) 1-5 /lpf (0-5) 04/22/21 18:35 U Epithel Cells (Auto) >30 /lpf (0-5) H 04/22/21 18:35 Urine Bacteria (Auto) Negative (Negative) 04/22/21 18:35 COVID-19 Eval Order Covid19 at [facility] 04/22/21 17:20 SARS-CoV-2 (PCR) NEGATIVE (Negative) 04/22/21 17:20 Impressions Chest X-Ray 04/22/21 16:16 XR chest 1V portable HISTORY: weakness COMPARISON: Chest 03/05/2021. FINDINGS: Rotated study. No pneumothorax. Small left pleural effusion and left basilar densities have improved. The heart is normal in size. No evidence for pulmonary edema. There is a small hiatus hernia, unchanged. The bones are osteopenic. Cervical spinal fusion hardware is again noted. Emphysema. IMPRESSION: 1. Interval improvement with near complete resolution of the small left pleural effusion and left basilar densities. 2. Emphysema. ACT 112: Negative or not required by law. Electronically signed by: Eloy Ryder M.D. 04/22/2021 5:[address] 04/22/21 16:[address] DOSE: 638.56 mGycm HISTORY: weakness TECHNIQUE: Multiaxial CT images of the head were performed without the use of in travenous contrast. Automated exposure control was utilized for this study. A dose lowering technique was utilized adhering to the principles of ALARA. Comparison: Head CT 03/22/2021. Findings: Mild mucosal thickening within the left maxillary sinus. The mastoid air cells are clear. The calvarium and skull base are intact. There is no mass, hematoma, midline shift, acute infarct. White matter hypodensity is nonspecific but suggestive of microvascular ischemic change. The ventricles and sulci demonstrate mild age-related involutional changes. Impression: No acute intracranial abnormality. Atrophy and microvascular ischemic changes. ACT 112: Negative or not required by law. Electronically signed by: Eloy Ryder M.D. 04/22/2021 5:[address] 04/22/21 16:[address] DOSE: 414.65 mGycm HISTORY: Frequent falls. Neck pain. TECHNIQUE: Multiaxial CT images of the cervical spine were performed and reformatted in the sagittal and coronal plane without the use of contrast. A dose lowering technique was utilized adhering to the principles of ALARA. COMPARISON: Cervical spine CT 03/22/2021. FINDINGS: No fracture or subluxation. There is anterior cervical discectomy and fusion from C3 through C6. The hardware appears intact. Prevertebral soft tissues and the C1-C2 interval are maintained. No pneumothorax. Mild degenerative disc disease at C6-C7 and C7-T1. IMPRESSION: No fractures within the cervical spine. Postoperative changes as described above. ACT 112: Negative or not required by law. Electronically signed by: Eoly Ryder M.D. 04/22/2021 5:13 PM Code Status & VTE Plan VTE Prophylaxis Plan VTE Prophylaxis will be ordered: Yes PG Care Time/CCT Total # of Minutes Spent Total Time Spent with Patient: Total time spent is greater than 50% in coordination of care (as documented) at patient's floor/unit and/or counseling patient: Coding Level of Care Code 88575 Initial Inpt Care Lvl 3 Diagnoses Stage 3b chronic kidney disease N18.32 Hypothyroidism E03.9 Hypertension I10 Rheumatoid arthritis M06.9 Rheumatoid arthritis location: unspecified site Rheumatoid factor presence: unspecified presence Ambulatory dysfunction R26.2 Diabetes E11.9 (1) Rheumatoid arthritis Rheumatoid arthritis location: unspecified site Rheumatoid factor presence: unspecified presence Qualified Code(s): M06.9 - Rheumatoid arthritis, unspecified
[2021-04-22] MEDS ORDERED: ACETAMINOPHEN 325 MG TAB PO PRN (22:06)
[2021-04-22] MEDS ORDERED: CARBOHYDRATES FOR HYPOGLYCEMIA PO PRN (22:06)
[2021-04-22] MEDS ORDERED: GLUCOSE 40% GEL 15 GM TUBE PO PRN (22:06)
[2021-04-22] MEDS ORDERED: GLUCAGON FOR INJ 1 MG VIAL SQ PRN (22:06)
[2021-04-22] MEDS ORDERED: DEXTROSE 50% 50 ML SYRINGE IV PRN (22:06)
[2021-04-22] MEDS ORDERED: ONDANSETRON INJ 2 MG/ML 2 ML VIAL IV PRN (22:06)
[2021-04-22] MEDS ORDERED: GLUCOSE 10 TABS/TUBE PO PRN (22:06)
[2021-04-22] MEDS ORDERED: DOCUSATE SODIUM 100 MG CAP PO PRN (22:06)
[2021-04-22] MEDS: ENOXAPARIN INJ 30 MG/0.3 ML SYR SQ SCH (23:15)
[2021-04-22] MEDS: INSULIN GLARGINE SOLOSTAR 100 UNITS/ML 3 ML PEN SC SCH (23:18)
[2021-04-22] MEDS: INSULIN ASPART 100 UNITS/ML 3 ML PEN SC SCH (23:19)
[2021-04-22 23:24] LABS: Phosphorus 4.1 mg/dl (2.5-4.9)
[2021-04-22] MEDS: METOPROLOL TARTRATE 100 MG TAB PO SCH (23:27)
[2021-04-23] MEDS: LEVOTHYROXINE SODIUM 75 MCG TABLET PO SCH (05:13)
[2021-04-23 07:11] LABS: Basophils # (auto) 0.01 K/uL (0-0.2); Basophils % (auto) 0.2 %; Eosinophils # (auto) 0.02 K/uL (0-0.5); Eosinophils % (auto) 0.4 %; Hematocrit (blood only) 38.1 % (37-47); Hemoglobin 12.3 g/dL (12.0-16.0); Immature Granulocytes # (auto) 0.01 K/uL (0.00-0.02); Immature Granulocytes % (auto) 0.2 %; Lymphocytes # (auto) 1.42 K/uL (1.2-3.4); Lymphocytes % (auto) 26.7 %; Mean Corpuscular Hemoglobin 29.6 pg (25-34); Mean Corpuscular Hgb Conc 32.3 g/dL (32-36); Mean Corpuscular Volume 91.6 fL (80-100); Mean Platelet Volume 10.3 fL (7.4-10.4); Monocytes # (auto) 0.61 K/uL (0.11-0.59); Monocytes % (auto) 11.5 %; Neutrophils # (auto) 3.24 K/uL (1.4-6.5); Platelet Count 132 K/uL (130-400); RDW Coefficient of Variation 13.7 % (11.5-14.5); Red Blood Count 4.16 M/uL (4.2-5.4); White Blood Count 5.31 K/uL (4.8-10.8)
[2021-04-23] MEDS: lisinopril 20 MG TAB PO SCH (07:35)
[2021-04-23] MEDS: METOPROLOL TARTRATE 100 MG TAB PO SCH ×2 (07:35→21:02)
[2021-04-23] MEDS: MIRABEGRON ER 25 MG TAB PO SCH (07:36)
[2021-04-23 07:40] LABS: BUN Creatinine Ratio 21.6 (10-20); Calcium 9.3 mg/dl (8.5-10.1); Creatinine Clr Calc Pharmacy 39.9 ml/min; Est GFR (African American) 79.9 ml/min; Est GFR (Non-African American) 68.9 ml/min; Potassium 3.5 mmol/L (3.5-5.1)
[2021-04-23] MEDS: predniSONE 10 MG TABLET PO SCH (09:14)
[2021-04-23] MEDS: LEFLUNOMIDE 10 MG TAB PO SCH (09:14)
[2021-04-23] MEDS: SIMVASTATIN 20 MG TAB PO SCH (09:15)
[2021-04-23] MEDS: INSULIN GLARGINE SOLOSTAR 100 UNITS/ML 3 ML PEN SC SCH ×2 (09:18→21:02)
[2021-04-23] MEDS: INSULIN ASPART 100 UNITS/ML 3 ML PEN SC SCH ×4 (09:18→21:04)
[2021-04-23] MEDS ORDERED: hydrALAZINE HCL 20 MG/ML VIAL IV ONE (10:45)
--- NOTE | 2021-04-23 12:11 | Electrocardiogram Report ---
Test Reason : Blood Pressure : / mmHG Vent. Rate : 055 BPM Atrial Rate : 055 BPM P-R Int : 172 ms QRS Dur : 092 ms QT Int : 426 ms P-R-T Axes : 061 -19 -01 degrees QTc Int : 407 ms Sinus bradycardia Septal infarct (cited on or before 27-MAR-2020) Nonspecific ST and T wave abnormality Abnormal ECG When compared with ECG of 02-MAR-2021 11:31, QRS duration has decreased T wave inversion now evident in Lateral leads Confirmed by Leeroy Matthew ([id number]) on 04/23/2021 12:10:44 PM Referred By: Miky Latham Confirmed By:Leeroy Matthew
--- NOTE | 2021-04-23 22:19 | Hospitalist Progress Note ---
Date of Service April 23, 2021 Assessment & Plan (1) Ambulatory dysfunction: Plan: Patient with difficulty ambulating at home and multiple recent falls. Sent by her PCP for rehab evaluation. No focal weakness. Patient reports that she has just felt extremely fatigued and generally weak for the last few weeks Review of her medication history shows that her metoprolol dose was recently increased to 100 mg p.o. twice daily on 04/02 Perhaps her generalized weakness and fatigue is secondary to increased dose of beta-elmer -Needs PT/OT evaluations and placement in halfway facility for rehab -Fall precautions -CM assistance appreciated with placement -We will decrease dose of metoprolol down to 50 mg p.o. twice daily which was her previous dose-see hypertension below Otherwise work-up is unremarkable (2) Weakness: Plan: Possibly secondary to increased dose of beta-elmer as above No evidence of adrenal insufficiency She has hypertensive, thyroid function is normal, no evidence of infection and electrolytes and renal function are normal Troponin is negative, ECG with nonspecific T wave inversions in lateral leads, CK is normal CT of cervical spine with postoperative changes but no acute issues and no evidence of myelopathy on examination CT of the head is negative -Decreasing dose of beta-elmer as above we will see if has improvement (3) Hypertension: Plan: Blood pressure significantly elevated -Continue Metoprolol but decrease dose back to usual dose of 50 mg p.o. twice daily as above for possible adverse side effect with higher dose -Restart amlodipine 5 mg p.o. once daily with first dose this evening-she was on this during last hospitalization and had good control of her blood pressures-it appears it was not prescribed on discharge last admission -Give 1 dose of IV hydralazine 5 mg x 1 now -Continue lisinopril 20 mg daily -Continue to monitor (4) Falls frequently: Plan: As above (5) Diabetes: Plan: Chronic. With some hyperglycemia here. Patient is on Metformin at home. Last HgbA1C = 6.2 on 03/24/21 -Hold Metformin -Continue Lantus 3u BID, ISS, goal blood sugar 100 - 140 -CC diet as tolerated (6) Rheumatoid arthritis: Plan: Chronic. Stable -Continue Prednisone 10mg po daily -Continue Leflunomide (7) Hypothyroidism: Plan: Chronic. TSH = 0.633 -Continue Synthroid 75mcg daily (8) Stage 3b chronic kidney disease: Plan: Chronic. Near baseline -Continue to monitor -Avoid nephrotoxic agents Plan: F/E/N - Heplock. Electrolytes WNL. CC diet as tolerated with aspiration precautions, bowel regimen PRN Ppx - Lovenox 30 Code - Full per discussion with patient Dispo -continued stay, awaiting rehab placement, needs least 3 midnight stay. Referrals are out to [facility] as per my discussion with case specialist Admission and Anticipated Discharge Date Admission Date: April 22, 2021 Subjective Patient reports that she feels okay. She just feels generally weak all over and very tired for at least the last few days to week. She denies any headache or lightheadedness, no fevers or chills, no chest pain or shortness of breath, no abdominal pains, no diarrhea or nausea. No injuries from her fall or pain in any of her joints. She does report ongoing weakness in her legs. She reports at home she eats 1 good meal per week and otherwise eats small amounts of food throughout the day and is not a big eater. Review of Systems Review of Systems: All systems reviewed & are unremarkable except as noted in HPI & below Physical Exam Constitutional: + thin; no acute distress Eyes: + anicteric sclerae Neck: trachea midline, no thyromegaly Respiratory: normal respiratory effort, lungs clear to auscultation Cardiovascular: RRR, no murmur, no edema Chest (Breasts): Chest: normal inspection of chest Gastrointestinal (Abdomen): normal bowel sounds, soft, nontender, no hepatosplenomegaly Musculoskeletal: Extremities: extremities normal to inspection; no cyanosis and no clubbing Skin: no rashes, warm and dry Neurologic: moves all extremities and awake; no focal motor deficits Psychiatric: A+Ox3, euthymic affect Lymphatic: no lymphedema Results & Data Results & Data ([facility]) Vital Signs (Past 12 Hours) Vital Signs Temp Pulse Resp BP Pulse Ox 04/23/21 21:00 61 14 173/71 H 98 04/23/21 15:55 36.5 C 65 16 123/63 97 04/23/21 11:47 181/71 H Laboratory Results 04/23/21 04/23/21 04/23/21 Range/Units 20:40 17:05 12:03 WBC (4.8-10.8) K/uL RBC (4.2-5.4) M/uL Hgb (12.0-16.0) g/dL Hct (37-47) % MCV (80-100) fL MCH (25-34) pg MCHC (32-36) g/dL RDW Std Deviation (36.4-46.3) fL RDW Coeff of Rafael (11.5-14.5) % Plt Count (130-400) K/uL MPV (7.4-10.4) fL Immature Gran % (Auto) % Neut % (Auto) % Lymph % (Auto) % [place] % (Auto) % Eos % (Auto) % Baso % (Auto) % Neut # (Auto) (1.4-6.5) K/uL Lymph # (Auto) (1.2-3.4) K/uL [place] # (Auto) (0.11-0.59) K/uL Eos # (Auto) (0-0.5) K/uL Baso # (Auto) (0-0.2) K/uL Immature Gran # (Auto) (0.00-0.02) K/uL Sodium (136-145) mmol/L Potassium (3.5-5.1) mmol/L Chloride (98-107) mmol/L Carbon Dioxide (21-32) mmol/L Anion Gap (3-11) BUN (7-18) mg/dl Creatinine (0.6-1.2) mg/dl Est Cr Clr Drug Dosing ml/min Est GFR ( Amer) ml/min Est GFR (Non-Af Amer) ml/min BUN/Creatinine Ratio (10-20) Glucose (70-99) mg/dl POC Glucose 155 H 218 H 157 H (70-99) mg/dl Calcium (8.5-10.1) mg/dl Phosphorus (2.5-4.9) mg/dl 04/23/21 04/23/21 04/23/21 Range/Units 08:04 06:50 06:50 WBC 5.31 (4.8-10.8) K/uL RBC 4.16 L (4.2-5.4) M/uL Hgb 12.3 (12.0-16.0) g/dL Hct 38.1 (37-47) % MCV 91.6 (80-100) fL MCH 29.6 (25-34) pg MCHC 32.3 (32-36) g/dL RDW Std Deviation 46.0 (36.4-46.3) fL RDW Coeff of Rafael 13.7 (11.5-14.5) % Plt Count 132 (130-400) K/uL MPV 10.3 (7.4-10.4) fL Immature Gran % (Auto) 0.2 % Neut % (Auto) 61.0 % Lymph % (Auto) 26.7 % [place] % (Auto) 11.5 % Eos % (Auto) 0.4 % Baso % (Auto) 0.2 % Neut # (Auto) 3.24 (1.4-6.5) K/uL Lymph # (Auto) 1.42 (1.2-3.4) K/uL [place] # (Auto) 0.61 H (0.11-0.59) K/uL Eos # (Auto) 0.02 (0-0.5) K/uL Baso # (Auto) 0.01 (0-0.2) K/uL Immature Gran # (Auto) 0.01 (0.00-0.02) K/uL Sodium 143 (136-145) mmol/L Potassium 3.5 D (3.5-5.1) mmol/L Chloride 110 H (98-107) mmol/L Carbon Dioxide 30 (21-32) mmol/L Anion Gap 3.0 (3-11) BUN 17 (7-18) mg/dl Creatinine 0.77 (0.6-1.2) mg/dl Est Cr Clr Drug Dosing 39.9 ml/min Est GFR ( Amer) 79.9 ml/min Est GFR (Non-Af Amer) 68.9 ml/min BUN/Creatinine Ratio 21.6 H (10-20) Glucose 113 H (70-99) mg/dl POC Glucose 123 H (70-99) mg/dl Calcium 9.3 (8.5-10.1) mg/dl Phosphorus (2.5-4.9) mg/dl 04/22/21 04/22/21 Range/Units 23:12 16:28 WBC (4.8-10.8) K/uL RBC (4.2-5.4) M/uL Hgb (12.0-16.0) g/dL Hct (37-47) % MCV (80-100) fL MCH (25-34) pg MCHC (32-36) g/dL RDW Std Deviation (36.4-46.3) fL RDW Coeff of Rafael (11.5-14.5) % Plt Count (130-400) K/uL MPV (7.4-10.4) fL Immature Gran % (Auto) % Neut % (Auto) % Lymph % (Auto) % [place] % (Auto) % Eos % (Auto) % Baso % (Auto) % Neut # (Auto) (1.4-6.5) K/uL Lymph # (Auto) (1.2-3.4) K/uL [place] # (Auto) (0.11-0.59) K/uL Eos # (Auto) (0-0.5) K/uL Baso # (Auto) (0-0.2) K/uL Immature Gran # (Auto) (0.00-0.02) K/uL Sodium (136-145) mmol/L Potassium (3.5-5.1) mmol/L Chloride (98-107) mmol/L Carbon Dioxide (21-32) mmol/L Anion Gap (3-11) BUN (7-18) mg/dl Creatinine (0.6-1.2) mg/dl Est Cr Clr Drug Dosing ml/min Est GFR ( Amer) ml/min Est GFR (Non-Af Amer) ml/min BUN/Creatinine Ratio (10-20) Glucose (70-99) mg/dl POC Glucose 176 H (70-99) mg/dl Calcium (8.5-10.1) mg/dl Phosphorus 4.1 (2.5-4.9) mg/dl PG Care Time/CCT Total # of Minutes Spent Total Time Spent with Patient: Total time spent is greater than 50% in coordination of care (as documented) at patient's floor/unit and/or counseling patient: Coding Level of Care Code 64235 Subseq Hosp Care Lvl 2 Diagnoses Ambulatory dysfunction R26.2 Diabetes E11.9 Hypertension I10 Rheumatoid arthritis M06.9 Rheumatoid arthritis location: unspecified site Rheumatoid factor presence: unspecified presence Hypothyroidism E03.9 Stage 3b chronic kidney disease N18.32 Falls frequently R29.6 Weakness R53.1 (1) Rheumatoid arthritis Rheumatoid arthritis location: unspecified site Rheumatoid factor presence: unspecified presence Qualified Code(s): M06.9 - Rheumatoid arthritis, unspecified
[2021-04-23] MEDS: amLODIPine BESYLATE 5 MG TAB PO SCH (22:46)
[2021-04-23] MEDS: ENOXAPARIN INJ 30 MG/0.3 ML SYR SQ SCH (22:46)
[2021-04-24] MEDS: LEVOTHYROXINE SODIUM 75 MCG TABLET PO SCH (06:08)
[2021-04-24 07:20] LABS: Folate (Folic Acid) 7.1 ng/ml (>5.38)
[2021-04-24] MEDS: MIRABEGRON ER 25 MG TAB PO SCH (08:39)
[2021-04-24] MEDS: predniSONE 10 MG TABLET PO SCH (08:39)
[2021-04-24] MEDS: LEFLUNOMIDE 10 MG TAB PO SCH (08:39)
[2021-04-24] MEDS: lisinopril 20 MG TAB PO SCH (08:40)
[2021-04-24] MEDS: SIMVASTATIN 20 MG TAB PO SCH (08:40)
[2021-04-24] MEDS: amLODIPine BESYLATE 5 MG TAB PO SCH (08:40)
[2021-04-24] MEDS: METOPROLOL TARTRATE 50 MG TAB PO SCH ×2 (08:40→21:55)
[2021-04-24] MEDS: INSULIN GLARGINE SOLOSTAR 100 UNITS/ML 3 ML PEN SC SCH ×2 (08:41→21:56)
[2021-04-24] MEDS: INSULIN ASPART 100 UNITS/ML 3 ML PEN SC SCH ×4 (08:42→21:56)
--- NOTE | 2021-04-24 15:09 | Hospitalist Progress Note ---
Date of Service April 24, 2021 Assessment & Plan (1) Ambulatory dysfunction: Plan: Patient with difficulty ambulating at home and multiple recent falls. Sent by her PCP for rehab evaluation. No focal weakness. Patient reports that she has just felt extremely fatigued and generally weak for the last few weeks Review of her medication history shows that her metoprolol dose was recently increased to 100 mg p.o. twice daily on 04/02 Perhaps her generalized weakness and fatigue is secondary to increased dose of beta-elmer as no other cause has been identified metabolically or physically - PT/OT evaluations recommend rehab -Fall precautions -CM assistance appreciated with placement -I decreased dose of metoprolol down to 50 mg p.o. twice daily which was her previous dose-see hypertension below Otherwise work-up is unremarkable-no anemia, renal function normal, lytes normal, TSH normal, ESR and CRP normal, C-spine no acute changes, nonfocal neuro exam, no evidence of infection (2) Weakness: Plan: Possibly secondary to increased dose of beta-elmer as above No evidence of adrenal insufficiency She is hypertensive, thyroid function is normal, no evidence of infection and electrolytes and renal function are normal Troponin is negative, ECG with nonspecific T wave inversions in lateral leads, CK is normal CT of cervical spine with postoperative changes but no acute issues and no evidence of myelopathy on examination CT of the head is negative -Decreasing dose of beta-elmer as above we will see if has improvement over the next few days (3) Hypertension: Plan: Blood pressure significantly elevated and now improved somewhat with starting amlodipine -Continue Metoprolol at decreased dose of 50 mg p.o. twice daily as above for possible adverse side effect with higher dose -started amlodipine 5 mg p.o. once daily and may need to up-titrate -Continue lisinopril 20 mg daily -Continue to monitor (4) Falls frequently: Plan: As above (5) Diabetes: Plan: Chronic. With some occasional hyperglycemia here. Patient is on Metformin at home. Last HgbA1C = 6.2 on 03/24/21 -restart home Metformin -change Lantus to 6u hs and tighten down Novolog CF to 35 -CC diet as tolerated -will not need insulin on discharge (6) Rheumatoid arthritis: Plan: Chronic. Stable -Continue Prednisone 10mg po daily -Continue Leflunomide (7) Hypothyroidism: Plan: Chronic. TSH = 0.633 -Continue Synthroid 75mcg daily (8) Stage 3b chronic kidney disease: Plan: Chronic. Near baseline -Continue to monitor -Avoid nephrotoxic agents Plan: F/E/N - [place]. Electrolytes WNL. CC diet as tolerated with aspiration precautions, bowel regimen PRN Ppx - Lovenox 30 Code - Full per discussion with patient Dispo -continued stay, awaiting rehab placement, needs least 3 midnight stay. Referrals are out to [facility] and [facility] as per my discussion with therapeutic case manager-[facility] can accept on Sunday Discussed care with daughter on phone-she wants to transport Admission and Anticipated Discharge Date Admission Date: April 22, 2021 Subjective Pt was OOB to chair all day today and reports she ate two big meals. No BM yet. Is taking a nap when I saw her and reports feeling tired again. Review of Systems Review of Systems: All systems reviewed & are unremarkable except as noted in HPI & below Physical Exam Constitutional: + thin; no acute distress Eyes: + anicteric sclerae Neck: trachea midline, no thyromegaly Respiratory: normal respiratory effort, lungs clear to auscultation Cardiovascular: RRR, no murmur, no edema Chest (Breasts): Chest: normal inspection of chest Gastrointestinal (Abdomen): normal bowel sounds, soft, nontender, no hepatosplenomegaly Musculoskeletal: Extremities: extremities normal to inspection; no cyanosis and no clubbing Skin: no rashes, warm and dry Neurologic: moves all extremities and awake; no focal motor deficits Psychiatric: A+Ox3, euthymic affect Lymphatic: no lymphedema Results & Data Results & Data ([facility]) Vital Signs (Past 12 Hours) Vital Signs Temp Pulse Resp BP Pulse Ox 04/24/21 07:25 36.5 C 60 18 187/55 H 97 Laboratory Results 04/24/21 04/24/21 04/24/21 Range/Units 12:01 08:21 06:16 ESR (0-30) mm/hr POC Glucose 185 H 108 H (70-99) mg/dl C-Reactive Protein (0-0.29) mg/dl Vitamin B12 702 (193-986) pg/ml Folate 7.10 (>5.38) ng/ml 04/24/21 04/24/21 04/23/21 Range/Units 06:16 06:16 20:40 ESR 13 (0-30) mm/hr POC Glucose 155 H (70-99) mg/dl C-Reactive Protein < 0.29 (0-0.29) mg/dl Vitamin B12 (193-986) pg/ml Folate (>5.38) ng/ml 04/23/21 Range/Units 17:05 ESR (0-30) mm/hr POC Glucose 218 H (70-99) mg/dl C-Reactive Protein (0-0.29) mg/dl Vitamin B12 (193-986) pg/ml Folate (>5.38) ng/ml PG Care Time/CCT Total # of Minutes Spent Total Time Spent with Patient: Total time spent is greater than 50% in coordination of care (as documented) at patient's floor/unit and/or counseling patient: Coding Level of Care Code 53481 Subseq Hosp Care Lvl 2 Diagnoses Ambulatory dysfunction R26.2 Weakness R53.1 Hypertension I10 Falls frequently R29.6 Diabetes E11.9 Rheumatoid arthritis M06.9 Rheumatoid arthritis location: unspecified site Rheumatoid factor presence: unspecified presence Hypothyroidism E03.9 Stage 3b chronic kidney disease N18.32 (1) Rheumatoid arthritis Rheumatoid arthritis location: unspecified site Rheumatoid factor presence: unspecified presence Qualified Code(s): M06.9 - Rheumatoid arthritis, unspecified
[2021-04-24] MEDS: metFORMIN HCL 500 MG TAB PO SCH (21:55)
[2021-04-24] MEDS: ENOXAPARIN INJ 30 MG/0.3 ML SYR SQ SCH (22:00)
[2021-04-25] MEDS: LEVOTHYROXINE SODIUM 75 MCG TABLET PO SCH (05:35)
[2021-04-25] MEDS: INSULIN ASPART 100 UNITS/ML 3 ML PEN SC SCH ×4 (09:20→21:02)
[2021-04-25] MEDS: predniSONE 10 MG TABLET PO SCH (09:26)
[2021-04-25] MEDS: SIMVASTATIN 20 MG TAB PO SCH (09:26)
[2021-04-25] MEDS: MIRABEGRON ER 25 MG TAB PO SCH (09:26)
[2021-04-25] MEDS: metFORMIN HCL 500 MG TAB PO SCH ×2 (09:27→21:02)
[2021-04-25] MEDS: LEFLUNOMIDE 10 MG TAB PO SCH (09:27)
[2021-04-25] MEDS: amLODIPine BESYLATE 5 MG TAB PO SCH (09:27)
[2021-04-25] MEDS: METOPROLOL TARTRATE 50 MG TAB PO SCH ×2 (09:28→21:02)
[2021-04-25] MEDS: lisinopril 20 MG TAB PO SCH (09:28)
--- NOTE | 2021-04-25 10:39 | Hospitalist Progress Note ---
Date of Service April 25, 2021 Assessment & Plan (1) Ambulatory dysfunction: Plan: Patient with difficulty ambulating at home and multiple recent falls. Sent by her PCP for rehab evaluation. No focal weakness. Patient reports that she has just felt extremely fatigued and generally weak for the last few weeks Review of her medication history shows that her metoprolol dose was recently increased to 100 mg p.o. twice daily on 04/02 Perhaps her generalized weakness and fatigue is secondary to increased dose of beta-elmer as no other cause has been identified metabolically or physically - PT/OT evaluations recommend rehab - Fall precautions - CM assistance appreciated with placement - Metoprolol decreased down to 50 mg p.o. twice daily which was her previous dose-see hypertension below - Otherwise work-up is unremarkable-no anemia, renal function normal, lytes normal, TSH normal, ESR and CRP normal, C-spine no acute changes, nonfocal neuro exam, no evidence of infection (2) Weakness: Plan: - Possibly secondary to increased dose of beta-elmer as above - No evidence of adrenal insufficiency - She is hypertensive, thyroid function is normal, no evidence of infection and electrolytes and renal function are normal - Troponin is negative, ECG with nonspecific T wave inversions in lateral leads, CK is normal - CT of cervical spine with postoperative changes but no acute issues and no evidence of myelopathy on examination - CT of the head is negative - Decreasing dose of beta-elmer as above - seems some improvement with weakness (3) Hypertension: Plan: - Blood pressure significantly elevated and now improved somewhat with starting amlodipine - Continue Metoprolol at decreased dose of 50 mg p.o. twice daily as above for possible adverse side effect with higher dose - Started amlodipine 5 mg p.o. once daily and may need to up-titrate - Continue lisinopril 20 mg daily - Continue to monitor (4) Falls frequently: Plan: - As above (5) Diabetes: Plan: - Chronic. With some occasional hyperglycemia here. Patient is on Metformin at home. Last HgbA1C = 6.2 on 03/24/21 - restart home Metformin - Lantus to 5 units HS and SSI - CC diet as tolerated - Will not need insulin on discharge (6) Rheumatoid arthritis: Plan: - Chronic. Stable - Continue Prednisone 10mg po daily - Continue Leflunomide (7) Hypothyroidism: Plan: - Chronic. TSH = 0.633 - Continue Synthroid 75mcg daily (8) Stage 3b chronic kidney disease: Plan: - Chronic. Near baseline - Continue to monitor - Avoid nephrotoxic agents Plan: DVT prophylaxis - Lovenox Disposition: Awaiting rehab - likely tomorrow to [facility]; Daughter can transport Admission and Anticipated Discharge Date Admission Date: April 22, 2021 Subjective Reports overall feeling fine. Feels her legs are a bit stronger with walking to the bedside toilet but not at baseline. She has been tolerating a diet. States she doesn't drink as much fluids as she should. She is awaiting rehab. Review of Systems Review of Systems: REVIEW OF SYSTEMS General/Constitutional:+weakness (some improvement); Denies fever/chills ENT: Denies nasal drainage, sore throat Cardiovascular: Denies chest pain, palpitations, edema Respiratory: Denies cough, SOB GI: Denies nausea, vomiting, abdominal pain : Denies dysuria Musculoskeletal: Denies joint/muscle aches Neurologic: Denies dizziness/lightheadedness Physical Exam Physical Exam: PHYSICAL EXAM General Appearance: WDWN in NAD who is A&O x 3 HEENT: Head is normocephalic/atraumatic; Hearing grossly intact; Mucous membranes moist Neck: Supple; Trachea midline; Neg JVD Heart: RRR with no M/G/R Lungs: CTA in all lung turner bilaterally; Respirations unlabored; Neg accessory muscle use Abdomen: Soft, non-tender, non-distended; Positive BS x 4 quadrants Extremities: Capillary refill < 2 seconds; Neg cyanosis or edema Neurological: Speech clear; Gross motor/sensory function intact; Neg focal neurologic deficits Psychiatric: Appropriate mood/affect Skin: Normal Color; Warm/Dry Results & Data Results & Data ([facility]) Vital Signs (Past 12 Hours) Vital Signs Temp Pulse Resp BP Pulse Ox 04/25/21 07:41 36.6 C 67 16 183/67 H 96 PG Care Time/CCT Total # of Minutes Spent Total Time Spent with Patient: Total time spent is greater than 50% in coordination of care (as documented) at patient's floor/unit and/or counseling patient: Coding Level of Care Code 29421 Subseq Hosp Care Lvl 2 Diagnoses Ambulatory dysfunction R26.2 Weakness R53.1 Hypertension I10 Falls frequently R29.6 Diabetes E11.9 Rheumatoid arthritis M06.9 Rheumatoid arthritis location: unspecified site Rheumatoid factor presence: unspecified presence Hypothyroidism E03.9 Stage 3b chronic kidney disease N18.32 (1) Rheumatoid arthritis Rheumatoid arthritis location: unspecified site Rheumatoid factor presence: unspecified presence Qualified Code(s): M06.9 - Rheumatoid arthritis, unspecified
[2021-04-25] MEDS: INSULIN GLARGINE SOLOSTAR 100 UNITS/ML 3 ML PEN SC SCH (21:02)
[2021-04-25] MEDS: ENOXAPARIN INJ 30 MG/0.3 ML SYR SQ SCH (22:39)
[2021-04-26] MEDS: LEVOTHYROXINE SODIUM 75 MCG TABLET PO SCH (05:16)
[2021-04-26] MEDS: LEFLUNOMIDE 10 MG TAB PO SCH (08:16)
[2021-04-26] MEDS: MIRABEGRON ER 25 MG TAB PO SCH (08:16)
[2021-04-26] MEDS: metFORMIN HCL 500 MG TAB PO SCH (08:17)
[2021-04-26] MEDS: amLODIPine BESYLATE 5 MG TAB PO SCH (08:17)
[2021-04-26] MEDS: predniSONE 10 MG TABLET PO SCH (08:17)
[2021-04-26] MEDS: lisinopril 20 MG TAB PO SCH (08:18)
[2021-04-26] MEDS: METOPROLOL TARTRATE 50 MG TAB PO SCH (08:18)
[2021-04-26] MEDS: SIMVASTATIN 20 MG TAB PO SCH (08:18)
[2021-04-26] MEDS: INSULIN ASPART 100 UNITS/ML 3 ML PEN SC SCH ×2 (09:20→12:53)
--- NOTE | 2021-04-26 15:04 | Discharge Summary ---
Date of Service April 26, 2021 Admission HPI Per Admitting Provider Glenny Krishna is an 89yo female sent by her PCP for ongoing ambulatory dysfunction, PT/OT evaluation and rehabilitation placement. Patient states she has not fallen recently but she is unstable on her feet. She has had rehab in the past which has helped. No additional complaints at this time. Specifically patient denies chest pain/SOB/fever/chills/abdominal pain/nausea/vomiting/diarrhea or constipation. She states she is eating well. ER Course: No therapies administered Principal Diagnosis 1. Generalized weaknesslikely related to overall decline 2. Mild bradycardiano dizziness but may have been contributing to #1 and resolved with down titration and BB Discharge Exam General Appearance: WDWN in NAD who is A&O x 3 HEENT: Head is normocephalic/atraumatic; Hearing grossly intact; Mucous membranes moist Neck: Supple; Trachea midline; Neg JVD Heart: RRR with no M/G/R Lungs: CTA in all lung turner bilaterally; Respirations unlabored; Neg accessory muscle use Abdomen: Soft, non-tender, non-distended; Positive BS x 4 quadrants Extremities: Capillary refill < 2 seconds; Neg cyanosis or edema Neurological: Speech clear; Gross motor/sensory function intact; Neg focal neurologic deficits Psychiatric: Appropriate mood/affect Skin: Normal Color; Warm/Dry Discharge Data Allergies Allergy/AdvReac Type Severity Reaction Status Date / Time aloe Allergy Mild itching Verified 04/22/21 20:39 bacitracin Allergy Mild itching Verified 04/22/21 20:39 codeine Allergy Mild ITCHING Verified 04/22/21 20:39 cortisone Allergy Mild Rash Verified 04/22/21 20:39 erythromycin base Allergy Mild ITCHING Verified 04/22/21 20:39 latex Allergy Mild ITCHING Verified 04/22/21 20:39 neomycin Allergy Mild itching Verified 04/22/21 20:39 polymyxin B Allergy Mild itching Verified 04/22/21 20:39 tramadol Allergy Mild Rash Verified 04/22/21 20:39 triamcinolone Allergy Mild ITCHING Verified 04/22/21 20:39 Iodinated Contrast Media Allergy Unknown DOES NOT Verified 04/22/21 20:39 REMEMBER propranolol Allergy Unknown DOES NOT Verified 04/22/21 20:39 REMEMBER Consultations 04/22/21 20:39 ED Decision to Admit Stat Ordered Studies 04/22/21 16:16 CT head/brain wo con Stat Impression: No acute intracranial abnormality. Atrophy and microvascular ischemic changes. 04/22/21 16:25 CT cervical spine wo con Stat FINDINGS: No fracture or subluxation. There is anterior cervical discectomy and fusion from C3 through C6. The hardware appears intact. Prevertebral soft tissues and the C1-C2 interval are maintained. No pneumothorax. Mild degenerative disc disease at C6-C7 and C7-T1. IMPRESSION: No fractures within the cervical spine. Postoperative changes as described above. Hospital Course (1) Ambulatory dysfunction: -Patient with difficulty ambulating at home and multiple recent falls. Sent by her PCP for rehab evaluation. No focal weakness. -Patient reports that she has just felt extremely fatigued and generally weak for the last few weeks -Note that she was hospitalized in December and twice in January. Has had general decline since -Review of her medication history shows that her metoprolol dose was recently increased to 100 mg p.o. twice daily on 04/02 -Perhaps her generalized weakness and fatigue is secondary to increased dose of beta-elmer as no other cause has been identified metabolically or physically (HR in the high 50's initially) --Metoprolol changed back to 50mg twice a day (HR in the 70's) --for added BP control, she was placed on norvasc (5mg). Despite this being a CCB, it has little effect on HR and she tolerated this. BP high but acceptable for age (152/54 after morning meds today); however, may need up-titration of this medication - Otherwise work-up is unremarkable-no anemia, renal function normal, lytes normal, TSH normal, ESR and CRP normal, C-spine no acute changes, nonfocal neuro exam, no evidence of infection - PT/OT evaluations recommending rehab. CM on board and plan is for patient to go to [facility] today (2) Weakness: - Possibly secondary to increased dose of beta-elmer as above - No evidence of adrenal insufficiency - She is hypertensive, thyroid function is normal, no evidence of infection and electrolytes and renal function are normal - Troponin is negative, ECG with nonspecific T wave inversions in lateral leads, CK is normal - CT of cervical spine with postoperative changes but no acute issues and no evidence of myelopathy on examination - CT of the head is negative - Decreasing dose of beta-elmer as above - seems some improvement with weakness (3) Hypertension: - Blood pressure significantly elevated and now improved somewhat with starting amlodipine (152/52 today which i acceptable for her advanced age) - Continue Metoprolol at decreased dose of 50 mg p.o. twice daily as above for possible adverse side effect with higher dose - Started amlodipine 5 mg p.o. once daily and may need to up-titrate as OP - Continue lisinopril 20 mg daily - Continue to monitor (4) Falls frequently: - As above (5) Diabetes: - Chronic. With some occasional hyperglycemia here. Patient is on Metformin at home. Last HgbA1C = 6.2 on 03/24/21 - BS monitored and corrected via sliding scale while in house - continue home dose of metformin (6) Rheumatoid arthritis: - Chronic. Stable - Continue Prednisone 10mg po daily - Continue Leflunomide (7) Hypothyroidism: - Chronic. TSH = 0.633 - Continue Synthroid 75mcg daily (8) Stage 3b chronic kidney disease: - Chronic. Near baseline - Avoid nephrotoxic agents DVT prophylaxis - Lovenox while in house Disposition: D/C to [facility] Total Time Total Time Spent Total Time Spent (In Minutes): 45 Discharge Plan Discharge Items Patient Disposition: Transfer [facility] Fac Reason For Visit: AMBULATORY DYSFUNCTION, PLACEMENT NEEDS Discharge Diagnosis: 1. General Decline (debility) Condition on Discharge: Good Activity: Resume your previous activity Activity Comment: PT/OT Non-emergency contact: Primary Care Provider Call non-emergency contact if: you have any medication questions Follow-up/Referrals: Miky Latham MD [Primary Care Provider] - Diet: Heart Healthy Addtl Attending Provider Instructions: - you were hospitalized due to weakness - no obvious source identified. Perhaps related to some mild bradycardia (low heart rate) from the increased dose of your metoprolol. This has since been decreased back to 50mg twice a day - you were put back on Norvasc (low dose). This does not seem to be affecting your heart rate (72 today). - blood pressure acceptable (152/54 when seen by myself today); however, should be monitorred and blood pressure medication may need changed/titrated. This is at the discretion of the house Physician - Return to the ED for new or worsening symptoms Pending Studies at Discharge: No Stand-Alone Forms: My [facility] Skilled Items Patient informed of condition?: Yes DNR: No Discharge Level of Care: Skilled Communicable Disease: No Discharge Prognosis: Stable Lines: None Urinary Catheter: No Medications and DC Order Prescriptions: New metoprolol tartrate 50 mg Tablet 50 mg PO BID Qty: 60 RF: 0 amlodipine [Norvasc] 5 mg Tablet 5 mg PO QAM Qty: 30 RF: 0 Continued levothyroxine [Synthroid] 75 mcg tablet 75 mcg PO DAILY Qty: 30 RF: 0 leflunomide 10 mg tablet 10 mg PO DAILY RF: 0 lisinopril 20 mg Tablet 20 mg PO DAILY RF: 0 simvastatin 20 mg Tablet 20 mg PO DAILY RF: 0 Myrbetriq 25 mg Tablet Extended Release 24 Hr 25 mg PO DAILY 30 Days Qty: 30 RF: 3 cyanocobalamin (vitamin B-12) 1,000 mcg tablet 1,000 mcg PO DAILY Qty: 30 RF: 3 metformin 500 mg Tablet 500 mg PO QPM RF: 0 metformin 500 mg tablet 1,000 mg PO QAM RF: 0 prednisone 10 mg tablet 10 mg PO DAILY RF: 0 Discontinued metoprolol tartrate 100 mg tablet 100 mg PO BID RF: 0 Discharge Orders: Discharge Order (Routine); Ordered 04/26/21 Ordered By: Amy Cristobal Admission Data Admit Date/Time: 04/22/21 21:00 Attending Provider: Marlo Maradiaga Admit Provider: Malia Farrell Primary Care Provider: Miky Latham Other Providers: Malia Farrell ; [facility] ; [facility] Other Interventions: Discharge Summary Assessment (RN) Last Done: 04/26/21 13:03 Supervising Physician Co-Signing Physician Notes Patient seen and examined on the day of discharge. I agree with the discharge summary by Amy PEREYRA. I have reviewed the chart including labs, imaging and plans for discharge. patient is resting comfortably, she says she is ready for rehab, eating okay BP is better with the addition of Norvasc, can be titrated up as needed as outpatient - Ambulatory dysfunction, HTN, mild bradycardia titrated down on metoprolol, HR in 70's added Norvasc for better blood pressure control discharge to rehab Coding Level of Care Code Established Pt D/C DAY MANAGEMENT >30 MINS Patient Type Established Diagnoses Ambulatory dysfunction R26.2 Weakness R53.1 Hypertension I10 Falls frequently R29.6 Diabetes E11.9 Rheumatoid arthritis M06.9 Rheumatoid arthritis location: unspecified site Rheumatoid factor presence: unspecified presence Hypothyroidism E03.9 Stage 3b chronic kidney disease N18.32 Time Spent (min) 45
== END 2021-04-26 14:48 | DRG 556 ==
LOC: ED 14:57 → SUATTDRO 21:00 → 3W 21:00
DX: Z91.040 Latex allergy status; T44.7X5A Adverse effect of beta-adrenoreceptor antagonists, initial encounter; E11.65 Type 2 diabetes mellitus with hyperglycemia; M06.9 Rheumatoid arthritis, unspecified; R35.0 Frequency of micturition; Z79.84 Long term (current) use of oral hypoglycemic drugs; I12.9 Hypertensive chronic kidney disease with stage 1 through stage 4 chronic kidney disease, or unspecified chronic kidney disease; Z98.1 Arthrodesis status; N18.32 Chronic kidney disease, stage 3b; R53.1 Weakness; Y92.009 Unspecified place in unspecified non-institutional (private) residence as the place of occurrence of the external cause; R26.2 Difficulty in walking, not elsewhere classified; Z88.5 Allergy status to narcotic agent; E03.9 Hypothyroidism, unspecified; R00.1 Bradycardia, unspecified; Z79.52 Long term (current) use of systemic steroids; E78.5 Hyperlipidemia, unspecified; Z83.3 Family history of diabetes mellitus; E11.22 Type 2 diabetes mellitus with diabetic chronic kidney disease

== ENCOUNTER 2022-04-11 17:53 | Inpatient (IN) ==
[2022-04-11] MEDS ORDERED: SODIUM CHLORIDE 0.9% 1000ML 250 ML IV ONE (18:41)
[2022-04-11] MEDS ORDERED: cefTRIAXone SODIUM 1,000 MG/50 ML BAG IV STA (18:41)
[2022-04-11] MEDS: SODIUM CHLORIDE 0.9% 1000ML 1,000 ML IV SCH (19:11)
[2022-04-11 19:13] LABS: Albumin Globulin Ratio 1.1 (0.9-2); Albumin Level 3.4 gm/dl (3.4-5.0); BUN Creatinine Ratio 23.9 (10-20); Bilirubin,Total 1.7 mg/dl (0.2-1.0); Calcium 8.9 mg/dl (8.5-10.1); Creatinine Clr Calc Pharmacy 28.1 ml/min; Est GFR (African American) 47.8 ml/min; Est GFR (Non-African American) 41.3 ml/min; Globulin 3.1 gm/dl (2.5-4.0); Potassium 4.3 mmol/L (3.5-5.1); Total Protein 6.5 gm/dl (6.0-8.3)
[2022-04-11 19:24] LABS: Hematocrit (blood only) 36.7 % (34.1-44.9); Hemoglobin 11.9 g/dl (12.0-16.0); Mean Corpuscular Hemoglobin 29.3 pg (25.0-34.0); Mean Corpuscular Hgb Conc 32.4 g/dL (32.0-36.0); Mean Corpuscular Volume 90.4 fL (80.0-100.0); Mean Platelet Volume 11.6 fL (9.4-12.3); Platelet Count 134 K/uL (130-400); RDW Standard Deviation 46.5 fL (36.4-46.3); Red Blood Count 4.06 M/uL (3.93-5.22); White Blood Count 10.54 K/ul (4.8-10.8)
[2022-04-11 19:25] LABS: Basophils # (auto) 0.05 K/uL (0-0.2); Basophils % (auto) 0.5 %; Eosinophils # (auto) 0.09 K/uL (0-0.50); Eosinophils % (auto) 0.9 %; Immature Granulocytes # (auto) 0.03 K/uL (0.00-0.02); Immature Granulocytes % (auto) 0.3 %; Lymphocytes # (auto) 0.57 K/uL (1.2-3.4); Lymphocytes % (auto) 5.4 %; Monocytes # (auto) 0.62 K/uL (0.24-0.82); Monocytes % (auto) 5.9 %; Neutrophils # (auto) 9.18 K/uL (1.4-6.5); Polychromasia 1+
--- NOTE | 2022-04-11 19:49 | XRay Report ---
KUB CLINICAL HISTORY: Abdominal distention. Vomiting. FINDINGS: 2 AP, portable, supine abdominal radiographs are correlated with abdominal CT dated 09/22/19. There is a nonobstructed abdominal bowel gas pattern. Fecal retention is noted in the rectosigmoi d. No evidence of intraperitoneal free air is seen on these supine images. There are no abnormal abdo roman calcifications. Cholecystectomy clips are present in the right upper quadrant. The skeletal str uctures are osteopenic and appear intact. There is advanced lumbosacral spondylosis with evidence of previous lumbar spinal fusion. Airspace opacities are seen at the right lung base. IMPRESSION: Nonobstructed abdominal bowel gas pattern. Electronically signed by: Jose Luis Jauregui M.D. 04/11/2022 7:47 PM
--- NOTE | 2022-04-11 19:51 | XRay Report ---
SINGLE VIEW CHEST CLINICAL HISTORY: Cough. FINDINGS: An AP, portable, upright chest radiograph is compared to study dated 04/22/2021 and correlat ed with chest CT dated 03/02/2021. The cardiomediastinal silhouette is obscured. There is atherosclero tic calcification of the thoracic aorta. The pulmonary vasculature is noncongested. There is dense ai rspace consolidation throughout the left lower lung with a left pleural effusion. A portion of the le ft apex remains aerated. Milder airspace consolidation is seen in the right lung base. No pneumothora x is seen. The skeletal structures are osteopenic. The bony thorax is grossly intact. Fusion hardware is noted in the lower cervical spine. IMPRESSION: 1. There is airspace consolidation throughout the left mid to lower lung with associated pleural effu lizandro. 2. Milder airspace consolidation is seen at the right lung base. Correlate clinical evidence of pneum onia/aspiration pneumonitis. Radiographic follow-up to resolution is recommended. ACT 112: Negative or not required by law. Electronically signed by: Jose Luis Jauregui M.D. 04/11/2022 7:49 PM
[2022-04-11] MEDS ORDERED: PIPERACILLIN/TAZOBACTAM 4.5 GM in DEXTROSE 5% 100 ML IV ONE (21:00)
[2022-04-11] MEDS ORDERED: VANCOMYCIN HCL 1,250 MG in SODIUM CHLORIDE 0.9% 500 ML IV ONE (21:00)
[2022-04-11] MEDS ORDERED: VANCOMYCIN CONSULT ACTIVE PRN (21:00)
--- NOTE | 2022-04-11 21:28 | CT Scan Report ---
CT SCAN OF THE CHEST WITHOUT IV CONTRAST CLINICAL HISTORY: Pneumonia. COMPARISON STUDY: Chest x-ray dated 04/11/2022. Chest CT dated 03/02/2021. TECHNIQUE: CT scan of the thorax was performed from the thoracic inlet to the upper abdomen. Images are reviewed in the axial, sagittal, and coronal planes. IV contrast was not administered for this ex amination as per the referring clinician. A dose lowering technique was utilized adhering to the liang Briscoe. The examination is compromised by motion artifact, as well as streak artifact from the arms which could not be elevated above the chest. CT DOSE: 309.13 mGy.cm FINDINGS: Thyroid: Imaged portions of the thyroid gland are normal in size and attenuation. Thoracic aorta: There is atherosclerotic calcification of the thoracic aorta comment which is normal in caliber and demonstrates bovine variant arch anatomy. Heart: The heart is top normal in size and without pericardial effusion. The coronary arteries and mi tral annulus are densely calcified. Lungs and pleural spaces: There is a small pleural effusion. There is dense/complete atelectasis of t he left lower lung with significant volume loss and leftward shift of the mediastinum. There is airsp fadi consolidation throughout the partially aerated left apex. Patchy airspace consolidation is seen i n the right mid to lower lung. There is also minimal patchy consolidation at the right apex. There is trace right pleural effusion. Secretions are noted in the distal trachea. There is complete opacific ation of the left mainstem bronchus and the left lower lobe airways minimal debris is seen within the right lower lobe bronchus. Mediastinum: Enlarged mediastinal lymph nodes measure up to 15 mm in short axis. Deb: Not well assessed without IV contrast. Axillae: There is no axillary lymphadenopathy. Upper abdomen: There is a moderate to large hiatal hernia. Cholecystectomy clips are noted. Simple cy sts are partially visualized in the upper poles of both kidneys. Skeletal structures: The skeletal structures are osteopenic. Degenerative change and kyphoscoliosis i s noted in the thoracic spine. No lytic or blastic bony lesions are seen. Fusion hardware is seen in the lower cervical spine. There is arthritic change in the shoulders. IMPRESSION: 1. There is complete atelectasis of the left lower lung with volume loss and leftward shift of the me diastinum. There is dense airspace consolidation throughout the aerated left upper lung. 2. There is minimal debris within the distal trachea, and debris fills the left mainstem bronchus and the left lower lobe airways. 3. Milder patchy airspace consolidation is seen in the right mid to lower lung and right apex. The ap pearance is typical for pneumonia/aspiration pneumonitis. Clinical correlation will be required and r adiographic follow-up to resolution is recommended. 4. Small left and trace right pleural effusions. 5. Large hiatal hernia. 6. Mildly enlarged mediastinal lymph nodes are likely reactive. 7. Additional findings as above. ACT 112: Negative or not required by law. Electronically signed by: Jose Luis Jauregui M.D. 04/11/2022 9:26 PM
--- NOTE | 2022-04-11 21:47 | History & Physical Report ---
Date of Service April 11, 2022 Assessment & Plan (1) Acute respiratory failure with hypoxia: Plan: Acute respiratory failure with hypoxia/aspiration pneumonia/HCAP/parapneumonic effusion- Continue vancomycin IV and Zosyn IV begun in ED Nasal cannula oxygen, titrate to pulse ox around 95% Duonebs every 4 hours while awake and every 2 hours when necessary. (2) Aspiration pneumonia: Plan: Patient has been having issues with coughing while eating for an unknown interval time She did have an episode of nausea and vomiting today as well NPO Consult speech therapy for assessment (3) Gait disorder: Plan: Will need PT/OT prior to discharge (4) Falls frequently: Plan: As above (5) Diabetes: Plan: Glucose 247 on admission Placed on Accu-Cheks with sliding scale coverage (6) Stage 3b chronic kidney disease: Plan: Creatinine 1.17 upon admission, with range 0.77-1.15 Follow serially (7) Parapneumonic effusion: (8) Hypothyroidism: Plan: Hold levothyroxine until patient is determined to be acceptable and no longer n.p.o. (9) Hypertension: Plan: Holding oral medications for now as noted, current blood pressure emergency department 125/71 (10) Rheumatoid arthritis: History of Present Illness Chief Complaint: The patient is brought to the emergency department by family due to concerns regarding acute development of shortness of breath while at [facility] The patient history is supplemented by her daughter, who is in the room at this time, as the patient is mildly lethargic. Primary Care Provider: [facility] The patient is a an 89-year-old female with a past medical history including gait disorder, mild dementia, frequent falls, diabetes mellitus, hallucinations, pneumonia, stage IIIb CKD, parapneumonic effusion, rheumatoid arthritis, ambulatory dysfunction, acute renal failure and lower leg cellulitis. She presents to the emergency department due to shortness of breath and dyspnea on exertion, with mild worsening of underlying dementia. Radiology work-up in the emergency department: Chest x-ray with left mid and lo wer lung infiltrate and pleural effusion, and right lower lobe infiltrate. Abnormal laboratories: WBC 10.54, hemoglobin 11.9, hematocrit 36.7, platelets 134, and glucose 247 From the emergency department patient received the following: Vancomycin IV, Zosyn IV and NSS at 80 mils per hour Pulse ox was 90% on room air, and improved to 96% on 2 L nasal cannula Allergies Allergy/AdvReac Type Severity Reaction Status Date / Time aloe Allergy Mild itching Verified 04/11/22 20:59 bacitracin Allergy Mild itching Verified 04/11/22 20:59 codeine Allergy Mild ITCHING Verified 04/11/22 20:59 cortisone Allergy Mild Rash Verified 04/11/22 20:59 erythromycin base Allergy Mild ITCHING Verified 04/11/22 20:59 latex Allergy Mild ITCHING Verified 04/11/22 20:59 neomycin Allergy Mild itching Verified 04/11/22 20:59 polymyxin B Allergy Mild itching Verified 04/11/22 20:59 tramadol Allergy Mild Rash Verified 04/11/22 20:59 triamcinolone Allergy Mild ITCHING Verified 04/11/22 20:59 Iodinated Contrast Media Allergy Unknown DOES NOT Verified 04/11/22 20:59 REMEMBER propranolol Allergy Unknown DOES NOT Verified 04/11/22 20:59 REMEMBER Home Medications Medication Instructions Recorded Confirmed Type levothyroxine 75 mcg tablet 75 mcg PO DAILY #30 tabs 03/30/20 04/11/22 Rx (Synthroid) leflunomide 10 mg tablet 10 mg PO DAILY 06/17/20 04/11/22 History lisinopril 20 mg tablet 40 mg PO DAILY 12/13/20 04/11/22 History simvastatin 20 mg tablet 20 mg PO DAILY 12/13/20 04/11/22 History mirabegron 25 mg tablet,extended 25 mg PO DAILY 30 days #30 tabs 12/20/20 04/11/22 Rx release 24 hr (Myrbetriq) cyanocobalamin (vitamin B-12) 1,000 mcg PO DAILY #30 tabs 02/17/21 04/11/22 Rx 1,000 mcg tablet prednisone 10 mg tablet 10 mg PO DAILY 04/22/21 04/11/22 History amlodipine 5 mg tablet (Norvasc) 5 mg PO QAM #30 tabs 04/26/21 04/11/22 Rx metoprolol tartrate 50 mg tablet 50 mg PO BID #60 tabs 04/26/21 04/11/22 Rx acetaminophen 325 mg capsule 650 mg PO Q6 PRN pain 1-10 09/29/21 04/11/22 History acetaminophen 325 mg tablet 650 mg PO Q6 PRN .temp>100 04/11/22 04/11/22 History (Tylenol) acetaminophen 650 mg rectal 650 mg AL Q6H PRN fever or mild 04/11/22 04/11/22 History suppository pain ceftriaxone 1 gram solution for 1 g IM DAILY 04/11/22 04/11/22 History injection insulin aspart U-100 100 unit/mL 1 sliding scale dose subcut ACHS 04/11/22 04/11/22 History subcutaneous solution (Novolog U-100 Insulin aspart) ipratropium 0.5 mg-albuterol 3 mg 3 ml inhalation .EVERY 2 HOURS PRN 04/11/22 04/11/22 History (2.5 mg base)/3 mL nebulization Shortness Of Breath Or Wheezing soln ipratropium 0.5 mg-albuterol 3 mg 3 ml inhalation QID 04/11/22 04/11/22 History (2.5 mg base)/3 mL nebulization soln lidocaine HCl 10 mg/mL (1 %) 2.1 ml IM DAILY 04/11/22 04/11/22 History injection solution ondansetron HCl 4 mg tablet 4 mg PO Q6H PRN Nausea And Vomiting 04/11/22 04/11/22 History promethazine 25 mg/mL injection 25 mg IM Q6H PRN Nausea / Vomiting 04/11/22 04/11/22 History solution (Phenergan) Past Med/Surg History Medical History DEXTER (acute kidney injury) Ambulatory dysfunction Anemia Contusion of elbow, right Contusion of hip, right Contusion of knee, left Contusion of knee, right Degenerative disc disease Dehydration Hyperkalemia Hyperlipidemia Hypertension Hypothyroidism Left lower lobe pneumonia Parapneumonic effusion Pleural effusion Rheumatoid arthritis Urinary frequency Surgical History Fusion of spine History of adenoidectomy History of cataract surgery History of cholecystectomy History of colonoscopy History of dilatation and curettage History of discectomy History of open reduction and internal fixation (ORIF) procedure History of tonsillectomy History of tooth extraction History of total abdominal hysterectomy and bilateral salpingo-oophorectomy Family History Mother Family history of diabetes mellitus Social History Smoking Status: Never smoker Second Hand Exposure: No; Hx Alcohol Use: No Hx Substance Use: No Preferred Language: Bengali Communication Ability: Effective Steward/Steward[employer] Required: No Beliefs That Will Affect Care: None marital status: / Current Living Situation: Family Current Living Situation Comment: Lives with daughter How many Children do You have: 1 Feels Safe at Home: Yes Assistive Devices: Glasses Review of Systems Review of Systems: The patient denies chest pain, palpitations, lower extremity swelling, sore throat, fevers, chills, sweats, nausea, vomiting, diarrhea , constipation, abdominal pain, pelvic pain, blood in urine or stool, dysuria, urinary frequency or urgency, loss of consciousness, rash, abnormal bruising or bleeding, Focal weakness, numbness or tingling in arms or legs, generalized arthralgias or myalgias, back or neck pain, or night sweats. The review of systems is otherwise negative other than for that already noted above, and at least 10 systems have been reviewed. Physical Exam Physical Exam: The patient is awake, alert and oriented 3, well developed and well nourished, normocephalic and atraumatic, lying in bed and in no acute distress. HEENT--PERRL, EOMI, mucous membranes and oropharynx dry. Neck--supple. No JVD. No bruits. Thyroid normal, trachea midline, no adenopathy. Heart--normal S1 and S2. No murmurs, rubs or gallops. Lungs--clear bilaterally, no respiratory distress, no accessory muscle use. Abdomen--normal bowel sounds and soft. Nontender. Nondistended, no hernias or masses, no organomegaly. Extremities--no cyanosis or clubbing. No edema. There are good distal pulses b/l. Dermatologic--normal skin turgor, normal color, no abnormal lymph nodes, no rash. Neurologic--cranial nerves II through XII grossly intact. Rheumatologic--normal range of motion. Psychiatric--normal affect. Results & Data Results & Data ([facility]) Vital Signs (Past 12 Hours) Vital Signs Temp Pulse Pulse Resp BP BP Pulse Ox 04/11/22 21:36 95 H 28 H 132/58 L 96 04/11/22 20:00 97 H 25 H 149/110 H 94 04/11/22 18:02 90 04/11/22 18:06 37.3 C 93 H 18 139/82 95 04/11/22 17:59 37.3 C 99 H 18 133/70 91 O2 Del Method O2 Flow Rate 04/11/22 21:36 Nasal Cannula 2 04/11/22 20:00 Nasal Cannula 2 04/11/22 18:02 Room Air, Nasal Cannula 0 04/11/22 18:06 Nasal Cannula 2 04/11/22 17:59 Room Air Laboratory Results Laboratory Results WBC 10.54 K/ul (4.8-10.8) 04/11/22 18:32 RBC 4.06 M/uL (3.93-5.22) 04/11/22 18:32 Hgb 11.9 g/dl (12.0-16.0) L 04/11/22 18:32 Hct 36.7 % (34.1-44.9) 04/11/22 18:32 MCV 90.4 fL (80.0-100.0) 04/11/22 18:32 MCH 29.3 pg (25.0-34.0) 04/11/22 18:32 MCHC 32.4 g/dL (32.0-36.0) 04/11/22 18:32 RDW Std Deviation 46.5 fL (36.4-46.3) H 04/11/22 18:32 RDW Coeff of Rafael 14.0 % (11.5-14.5) 04/11/22 18:32 Plt Count 134 K/uL (130-400) 04/11/22 18:32 MPV 11.6 fL (9.4-12.3) 04/11/22 18:32 Immature Gran % (Auto) 0.3 % 04/11/22 18:32 Neut % (Auto) 87.0 % 04/11/22 18:32 Lymph % (Auto) 5.4 % 04/11/22 18:32 Cavalier % (Auto) 5.9 % 04/11/22 18:32 Eos % (Auto) 0.9 % 04/11/22 18:32 Baso % (Auto) 0.5 % 04/11/22 18:32 Neut # (Auto) 9.18 K/uL (1.4-6.5) H 04/11/22 18:32 Lymph # (Auto) 0.57 K/uL (1.2-3.4) L 04/11/22 18:32 Cavalier # (Auto) 0.62 K/uL (0.24-0.82) 04/11/22 18:32 Eos # (Auto) 0.09 K/uL (0-0.50) 04/11/22 18:32 Baso # (Auto) 0.05 K/uL (0-0.2) 04/11/22 18:32 Immature Gran # (Auto) 0.03 K/uL (0.00-0.02) H 04/11/22 18:32 Polychromasia 1+ 04/11/22 18:32 Sodium 140 mmol/L (136-145) 04/11/22 18:32 Potassium 4.3 mmol/L (3.5-5.1) 04/11/22 18:32 Chloride 106 mmol/L (98-107) 04/11/22 18:32 Carbon Dioxide 22 mmol/L (21-32) 04/11/22 18:32 Anion Gap 12 (3-11) H 04/11/22 18:32 BUN 28 mg/dl (6-23) H 04/11/22 18:32 Creatinine 1.17 mg/dl (0.6-1.2) 04/11/22 18:32 Est Cr Clr Drug Dosing 28.1 ml/min 04/11/22 18:32 Est GFR ( Amer) 47.8 ml/min 04/11/22 18:32 Est GFR (Non-Af Amer) 41.3 ml/min 04/11/22 18:32 BUN/Creatinine Ratio 23.9 (10-20) H 04/11/22 18:32 Glucose 247 mg/dl (70-99(Fasting)) H 04/11/22 18:32 Calcium 8.9 mg/dl (8.5-10.1) 04/11/22 18:32 Total Bilirubin 1.7 mg/dl (0.2-1.0) H 04/11/22 18:32 AST 19 U/L (13-39) 04/11/22 18:32 ALT 15 U/L (7-52) 04/11/22 18:32 Alkaline Phosphatase 49 U/L (34-104) 04/11/22 18:32 Total Protein 6.5 gm/dl (6.0-8.3) 04/11/22 18:32 Albumin 3.4 gm/dl (3.4-5.0) 04/11/22 18:32 Globulin 3.1 gm/dl (2.5-4.0) 04/11/22 18:32 Albumin/Globulin Ratio 1.1 (0.9-2) 04/11/22 18:32 SARS-CoV-2, RNA, NAAT NEGATIVE (NEGATIVE) 04/11/22 18:54 Impressions Chest X-Ray 04/11/22 18:14 SINGLE VIEW CHEST CLINICAL HISTORY: Cough. FINDINGS: An AP, portable, upright chest radiograph is compared to study dated 04/22/2021 and correlated with chest CT dated 03/02/2021. The cardiomediastinal silhouette is obscured. There is atherosclerotic calcification of the thoracic aorta. The pulmonary vasculature is noncongested. There is dense airspace consolidation throughout the left lower lung with a left pleural effusion. A portion of the left apex remains aerated. Milder airspace consolidation is seen in the right lung base. No pneumothorax is seen. The skeletal structures are osteopenic. The bony thorax is grossly intact. Fusion hardware is noted in the lower cervical spine. IMPRESSION: 1. There is airspace consolidation throughout the left mid to lower lung with associated pleural effusion. 2. Milder airspace consolidation is seen at the right lung base. Correlate clinical evidence of pneumonia/aspiration pneumonitis. Radiographic follow-up to resolution is recommended. ACT 112: Negative or not required by law. Electronically signed by: Jose Luis Jauregui M.D. 04/11/2022 7:49 PM KUB X-Ray 04/11/22 18:41 KUB CLINICAL HISTORY: Abdominal distention. Vomiting. FINDINGS: 2 AP, portable, supine abdominal radiographs are correlated with abdominal CT dated 09/22/2020. There is a nonobstructed abdominal bowel gas pattern. Fecal retention is noted in the rectosigmoid. No evidence of intraperitoneal free air is seen on these supine images. There are no abnormal abdominal calcifications. Cholecystectomy clips are present in the right upper quadrant. The skeletal structures are osteopenic and appear intact. There is advanced lumbosacral spondylosis with evidence of previous lumbar spinal fusion. Airspace opacities are seen at the right lung base. IMPRESSION: Nonobstructed abdominal bowel gas pattern. Electronically signed by: Jose Luis Jauregui M.D. 04/11/2022 7:[address] 04/11/22 19:49 CT SCAN OF THE CHEST WITHOUT IV CONTRAST CLINICAL HISTORY: Pneumonia. COMPARISON STUDY: Chest x-ray dated 04/11/2022. Chest CT dated 03/02/2021. TECHNIQUE: CT scan of the thorax was performed from the thoracic inlet to the upper abdomen. Images are reviewed in the axial, sagittal, and coronal planes. IV contrast was not administered for this examination as per the referring clinician. A dose lowering technique was utilized adhering to the principles of ALARA. The examination is compromised by motion artifact, as well as streak artifact from the arms which could not be elevated above the chest. CT DOSE: 309.13 mGy.cm FINDINGS: Thyroid: Imaged portions of the thyroid gland are normal in size and attenuation. Thoracic aorta: There is atherosclerotic calcification of the thoracic aorta comment which is normal in caliber and demonstrates bovine variant arch anatomy. Heart: The heart is top normal in size and without pericardial effusion. The coronary arteries and mitral annulus are densely calcified. Lungs and pleural spaces: There is a small pleural effusion. There is dense/complete atelectasis of the left lower lung with significant volume loss and leftward shift of the mediastinum. There is airspace consolidation throughout the partially aerated left apex. Patchy airspace consolidation is seen in the right mid to lower lung. There is also minimal patchy consolidation at the right apex. There is trace right pleural effusion. Secretions are noted in the distal trachea. There is complete opacification of the left mainstem bronchus and the left lower lobe airways minimal debris is seen within the right lower lobe bronchus. Mediastinum: Enlarged mediastinal lymph nodes measure up to 15 mm in short axis. Deb: Not well assessed without IV contrast. Axillae: There is no axillary lymphadenopathy. Upper abdomen: There is a moderate to large hiatal hernia. Cholecystectomy clips are noted. Simple cysts are partially visualized in the upper poles of both kidneys. Skeletal structures: The skeletal structures are osteopenic. Degenerative change and kyphoscoliosis is noted in the thoracic spine. No lytic or blastic bony lesions are seen. Fusion hardware is seen in the lower cervical spine. There is arthritic change in the shoulders. IMPRESSION: 1. There is complete atelectasis of the left lower lung with volume loss and leftward shift of the mediastinum. There is dense airspace consolidation throughout the aerated left upper lung. 2. There is minimal debris within the distal trachea, and debris fills the left mainstem bronchus and the left lower lobe airways. 3. Milder patchy airspace consolidation is seen in the right mid to lower lung and right apex. The appearance is typical for pneumonia/aspiration pneumonitis. Clinical correlation will be required and radiographic follow-up to resolution is recommended. 4. Small left and trace right pleural effusions. 5. Large hiatal hernia. 6. Mildly enlarged mediastinal lymph nodes are likely reactive. 7. Additional findings as above. ACT 112: Negative or not required by law. Electronically signed by: Jose Luis Jauregui M.D. 04/11/2022 9:26 PM Code Status & VTE Plan Code Status Full code PG Care Time/CCT Total # of Minutes Spent Total Time Spent with Patient: Total time spent is greater than 50% in coordination of care (as documented) at patient's floor/unit and/or counseling patient: Coding Level of Care Code 30571 Initial Inpt Care Lvl 3 Diagnoses Acute respiratory failure with hypoxia J96.01 Aspiration pneumonia J69.0 Gait disorder R26.9 Falls frequently R29.6 Diabetes E11.9 Stage 3b chronic kidney disease N18.32 Parapneumonic effusion J18.9; J91.8 Hypothyroidism E03.9 Hypertension I10 Rheumatoid arthritis M06.9 Rheumatoid arthritis location: unspecified site Rheumatoid factor presence: unspecified presence (1) Rheumatoid arthritis Rheumatoid arthritis location: unspecified site Rheumatoid factor presence: unspecified presence Qualified Code(s): M06.9 - Rheumatoid arthritis, unspecified
[2022-04-12] MEDS ORDERED: GLUCOSE 10 TAB/TUBE PO PRN (00:35)
[2022-04-12] MEDS ORDERED: GLUCOSE 40% GEL 15 GM TUBE PO PRN (00:35)
[2022-04-12] MEDS ORDERED: VANCOMYCIN CONSULT ACTIVE PRN (00:35)
[2022-04-12] MEDS ORDERED: CARBOHYDRATES FOR HYPOGLYCEMIA PO PRN (00:35)
[2022-04-12] MEDS ORDERED: DEXTROSE 50% 50 ML SYRINGE IV PRN (00:35)
[2022-04-12] MEDS ORDERED: GLUCAGON FOR INJ 1 MG VIAL SQ PRN (00:35)
[2022-04-12] MEDS ORDERED: ONDANSETRON INJ 2 MG/ML 2 ML VIAL IV PRN (00:35)
[2022-04-12] MEDS: INSULIN ASPART PER UNIT SC SCH ×5 (01:25→21:18)
[2022-04-12 05:35] LABS: Basophils # (auto) 0.03 K/uL (0-0.2); Basophils % (auto) 0.3 %; Eosinophils # (auto) 0.01 K/uL (0-0.50); Eosinophils % (auto) 0.1 %; Immature Granulocytes # (auto) 0.05 K/uL (0.00-0.02); Immature Granulocytes % (auto) 0.5 %; Lymphocytes # (auto) 0.71 K/uL (1.2-3.4); Lymphocytes % (auto) 7.5 %; Mean Corpuscular Hemoglobin 29.4 pg (25.0-34.0); Mean Corpuscular Hgb Conc 32.3 g/dL (32.0-36.0); Mean Corpuscular Volume 91.2 fL (80.0-100.0); Mean Platelet Volume 11.7 fL (9.4-12.3); Monocytes # (auto) 0.54 K/uL (0.24-0.82); Monocytes % (auto) 5.7 %; Neutrophils # (auto) 8.16 K/uL (1.4-6.5); Neutrophils % (auto) 85.9 %; Platelet Count 111 K/uL (130-400); RBC Morphology Unremarkable; RDW Coefficient of Variation 14.2 % (11.5-14.5); RDW Standard Deviation 47.4 fL (36.4-46.3)
[2022-04-12 05:48] LABS: Albumin Level 2.9 gm/dl (3.4-5.0); Bilirubin,Total 1.2 mg/dl (0.2-1.0); Calcium 8.2 mg/dl (8.5-10.1); Creatinine Clr Calc Pharmacy 29.9 ml/min; Est GFR (African American) 49.9 ml/min; Est GFR (Non-African American) 43.1 ml/min; Globulin 2.8 gm/dl (2.5-4.0); Magnesium 1.7 mg/dl (1.7-2.4); Potassium 4.1 mmol/L (3.5-5.1); Total Protein 5.7 gm/dl (6.0-8.3)
[2022-04-12] MEDS: PIPERACILLIN/TAZOBACTAM 4.5 GM in DEXTROSE 5% 100 ML IV SCH ×3 (06:00→21:39)
[2022-04-12] MEDS: ALBUT/IPRATROP 3MG/0.5MG NEB 3 ML VIAL NEB SCH ×4 (06:57→20:10)
[2022-04-12 07:14] LABS: Estimated Average Glucose 189 mg/dl; Hemoglobin A1C 8.2 % (4.5-5.6)
[2022-04-12] MEDS: VANCOMYCIN HCL 750 MG in SODIUM CHLORIDE 0.9% 250 ML IV SCH (08:02)
[2022-04-12] MEDS: SODIUM CHLORIDE 0.9% 1000ML 1,000 ML IV SCH ×2 (08:02→21:11)
[2022-04-12] MEDS: KETOROLAC TROMETHAMINE 15 MG/ML VIAL IV PRN ×2 (08:57→15:59)
--- NOTE | 2022-04-12 13:12 | Hospitalist Progress Note ---
Date of Service April 12, 2022 Assessment & Plan (1) Acute respiratory failure with hypoxia: Plan: Oxygen per nasal cannula to maintain saturation greater than 90%. Treat underlying pneumonia. (2) Aspiration pneumonia: Plan: Currently on vancomycin and Zosyn. MRSA nasal swab is positive. Will obtain sputum culture if sputum is produced. Speech therapy consulted to evaluate swallowing capability. N.p.o. for now (3) Gait disorder: Plan: Will need PT/OT prior to discharge (4) Falls frequently: Plan: As above (5) Diabetes: Plan: Sliding scale coverage. Eventual ADA diet. Hemoglobin A1c is 8.2% (6) Stage 3b chronic kidney disease: Plan: Monitor intake and output. Serial lab studies (7) Parapneumonic effusion: Plan: Left side. Will follow (8) Hypothyroidism: Plan: Continue oral replacement. (9) Hypertension: Plan: Resume usual medication when taking p.o. (10) Rheumatoid arthritis: Plan: Stable. Medical management Plan To be determined Admission and Anticipated Discharge Date Admission Date: April 11, 2022 Subjective Somnolent at the time of my rounds. Hemodynamically stable. MRSA nasal swab is positive so we will continue vancomycin. She is also on Zosyn. Antibiotic day 2. She remains n.p.o. until speech therapy continues their evaluation. Continue IV fluids. Oxygen saturation 94% on 3 L. Review of Systems Review of Systems: The patient is somnolent and cannot answer questions regarding review of systems Physical Exam Physical Exam: General-somnolent at the time of my examination. HEENT-head atraumatic and normocephalic Neck-no lymphadenopathy or thyromegaly, trachea midline Chest-scattered bilateral rhonchi anteriorly Cardiac-regular rate and rhythm, normal S1 and S2 Abdomen-normal bowel sounds, no hepatosplenomegaly Extremities-no cyanosis, clubbing, or edema Neuro-the patient is somnolent and neurological status cannot be assessed Psych-somnolent. Cannot be assessed Results & Data Results & Data ([facility]) Vital Signs (Past 12 Hours) Vital Signs Temp Pulse Pulse Resp BP Pulse Ox O2 Del Method 04/12/22 10:01 94 H 23 97 04/12/22 10:01 129/57 L 04/12/22 10:00 98 H 37 H 92 04/12/22 09:01 154/92 H 04/12/22 09:01 100 H 46 H 95 04/12/22 07:01 92 H 27 H 152/64 H 99 Nasal Cannula 04/12/22 08:00 97 H 04/12/22 07:00 36.4 C L 04/12/22 07:01 94 H 18 94 Nasal Cannula 04/12/22 06:01 148/64 H 04/12/22 06:01 95 H 14 95 04/12/22 06:00 103 H 14 94 04/12/22 05:50 91 H 14 96 04/12/22 05:40 82 14 95 04/12/22 05:30 96 H 14 96 04/12/22 05:20 98 H 14 94 04/12/22 05:10 92 H 14 95 04/12/22 05:01 153/82 H 04/12/22 05:01 101 H 14 95 04/12/22 05:00 98 H 19 87 L 04/12/22 04:50 87 24 96 04/12/22 04:40 86 22 95 04/12/22 04:30 89 14 95 04/12/22 04:20 95 H 14 94 04/12/22 04:10 94 H 14 96 04/12/22 04:00 97 H 14 93 04/12/22 04:00 141/66 H 04/12/22 03:50 104 H 14 96 04/12/22 03:40 90 14 96 04/12/22 03:30 98 H 14 95 04/12/22 03:20 91 H 14 96 04/12/22 03:10 94 H 14 95 04/12/22 03:01 140/63 04/12/22 03:01 95 H 33 H 95 04/12/22 03:00 91 H 14 85 L 04/12/22 02:50 88 22 92 04/12/22 02:40 96 H 19 95 04/12/22 02:30 93 H 23 95 04/12/22 02:20 90 29 H 96 04/12/22 02:12 87 36 H 96 04/12/22 02:01 92 H 26 H 95 04/12/22 02:01 136/62 04/12/22 02:00 96 H 22 84 L 04/12/22 01:50 89 29 H 96 04/12/22 01:40 93 H 26 H 96 04/12/22 01:30 103 H 26 H 95 04/12/22 01:20 103 H 27 H 95 04/12/22 01:10 87 37 H 94 04/12/22 01:53 99 H O2 Flow Rate 04/12/22 10:01 04/12/22 10:01 04/12/22 10:00 04/12/22 09:01 04/12/22 09:01 04/12/22 07:01 2 04/12/22 08:00 04/12/22 07:00 04/12/22 07:01 3 04/12/22 06:01 04/12/22 06:01 04/12/22 06:00 04/12/22 05:50 04/12/22 05:40 04/12/22 05:30 04/12/22 05:20 04/12/22 05:10 04/12/22 05:01 04/12/22 05:01 04/12/22 05:00 04/12/22 04:50 04/12/22 04:40 04/12/22 04:30 04/12/22 04:20 04/12/22 04:10 04/12/22 04:00 04/12/22 04:00 04/12/22 03:50 04/12/22 03:40 04/12/22 03:30 04/12/22 03:20 04/12/22 03:10 04/12/22 03:01 04/12/22 03:01 04/12/22 03:00 04/12/22 02:50 04/12/22 02:40 04/12/22 02:30 04/12/22 02:20 04/12/22 02:12 04/12/22 02:01 04/12/22 02:01 04/12/22 02:00 04/12/22 01:50 04/12/22 01:40 04/12/22 01:30 04/12/22 01:20 04/12/22 01:10 04/12/22 01:53 Laboratory Results 04/12/22 04:14 04/12/22 04:14 PG Care Time/CCT Total # of Minutes Spent Total Time Spent with Patient: Total time spent is greater than 50% in coordination of care (as documented) at patient's floor/unit and/or counseling patient: Coding Level of Care Code 49165 Subseq Hosp Care Lvl 3 Diagnoses Acute respiratory failure with hypoxia J96.01 Aspiration pneumonia J69.0 Gait disorder R26.9 Falls frequently R29.6 Diabetes E11.9 Stage 3b chronic kidney disease N18.32 Parapneumonic effusion J18.9; J91.8 Hypothyroidism E03.9 Hypertension I10 Rheumatoid arthritis M06.9 Rheumatoid arthritis location: unspecified site Rheumatoid factor presence: unspecified presence (1) Rheumatoid arthritis Rheumatoid arthritis location: unspecified site Rheumatoid factor presence: unspecified presence Qualified Code(s): M06.9 - Rheumatoid arthritis, unspecified
--- NOTE | 2022-04-12 15:00 | Fluoroscopy Report ---
FL video swallow CLINICAL HISTORY: assess for aspiration TECHNIQUE: Video fluoroscopy of the pharyngeal region was performed as barium mixtures of varying con sistencies were administered to the patient by the speech pathologist. A formal esophagram was not pe rformed. COMPARISON: None. FINDINGS: Total fluoroscopy time: 2.3 minutes. The patient swallowed the different barium consistencies without difficulty. Trace aspiration below t he vocal cords was seen with thin liquids, with redirection Pooling of barium was noted in the bilate ral piriform sinuses and valleculae. Incidentally noted was anterior cervical fixation hardware. IMPRESSION: Trace aspiration with clearance was noted with thin liquids. Please see the speech pathology report for further details. ACT 112: Negative or not required by law. Electronically signed by: Marlo George M.D. 04/12/2022 2:59 PM
--- NOTE | 2022-04-12 15:10 | Pharmacy Report ---
Pharmacy PK ABX Note - Date of Service April 12, 2022 - Assessment and Plan Assessment 89 year old F receiving empiric vancomycin and pip-tazo for pneumonia, suspected aspiration. Pertinent microbiologic data includes: Positive MRSA Nasal Swab 04/11/22- CHEST CT - IMPRESSION: 1. There is complete atelectasis of the left lower lung with volume loss and leftward shift of the mediastinum. There is dense airspace consolidation throughout the aerated left upper lung. 2. There is minimal debris within the distal trachea, and debris fills the left mainstem bronchus and the left lower lobe airways. 3. Milder patchy airspace consolidation is seen in the right mid to lower lung and right apex. The appearance is typical for pneumonia/aspiration pneumonitis. Clinical correlation will be required and radiographic follow-up to resolution is recommended. Plan Vancomycin * Loading dose: 1250 mg IV x 1 * Maintenance dose: 750 mg IV every 24 hours * Regimen is predicted to achieve target AUC/NISH of 400-600 mg/L.hr * Random level ordered for: 04/14/22 Pip-tazo * 4.5 g IV q8h (ext. infusion) Pharmacy will continue to follow and will adjust dose/frequency as necessary. Thank you. Pharmacy has transitioned to AUC monitoring for vancomycin. AUC/NISH is the preferred PK/PD target and is associated with decreased risk of nephrotoxicity compared to traditional trough targets.
[2022-04-12] MEDS ORDERED: Nursing to Pharmacy Communication SCH (16:00)
[2022-04-12] MEDS ORDERED: dilTIAZem HCl 5 MG/ML 5 ML VIAL IV STA (16:33)
[2022-04-12] MEDS ORDERED: STAT IV Infusion **Titration per Protocol STA (16:33)
[2022-04-12] MEDS: dilTIAZem HCL 125 MG in DEXTROSE 5% 100 ML IV SCH (16:58)
[2022-04-12] MEDS ORDERED: ACETAMINOPHEN 65 ML IV PRN (19:02)
[2022-04-12] MEDS ORDERED: ACETAMINOPHEN 325 MG TAB PO PRN (19:09)
--- NOTE | 2022-04-12 19:51 | XRay Report ---
XR chest 1V portable CLINICAL HISTORY: increased SOB COMPARISON STUDY: Chest radiograph and chest CT April 11, 2022. FINDINGS: Postoperative findings within the spine are incidentally noted. Complete opacification of t he left hemithorax with volume loss has progressed. Left lung aeration has diminished. Right basilar airspace opacity is again noted and suggests pneumonia. Small left pleural effusion is present. There is no pneumothorax. IMPRESSION: 1. Complete opacification of the left hemithorax with volume loss. This has progressed since prior ex am. This is likely due to mucous plugging. 2. Right basilar opacity which favors pneumonia or aspiration pneumonitis. ACT 112: Negative or not required by law. Electronically signed by: Bora Gale M.D. 04/12/2022 7:49 PM
--- NOTE | 2022-04-13 00:10 | Emergency Department Note ---
Impression & Plan Aspiration pneumonia, Acute respiratory failure with hypoxia, Pleural effusion ED Provider Note CHIEF COMPLAINT: wet cough, SOB HISTORY OF PRESENT ILLNESS: This 89 yo female patient presents to the emergency department from [facility] with complaint of a moist cough. Patient was started on treatment for pneumonia yesterday, treated with IM ceftriaxone and seemed to have some improvement. She began taking p.o. Augmentin, but vomited today. There is great concern that the patient may have aspirated. Per the [facility] physician, Dr. Becerril the patient was improving but the patient's daughter wanted her evaluated due to the moist cough and is requiring nasal cannula oxygen. Patient does have chronic lung disease/atelectasis of the left side. She is currently awake and answering questions. Daughter is at the bedside. REVIEW OF SYSTEMS: A review of systems was performed with positives and pertinent negatives listed in the history of present illness. 10 systems were reviewed and are otherwise negative. ALLERGIES: see below MEDICATIONS: see below PMH: see below SOCIAL HISTORY: see below DDx: Reactive airway disease, pneumonia, pneumothorax, COPD, CHF, infections, cardiac ischemia, pulmonary embolism, musculoskeletal, gastrointestinal, as well as other pathologies. PHYSICAL EXAM: Vital signs reviewed. General: Chronically ill-appearing 89-year-old female , in no significant distress. HEENT: No scleral icterus, PERRLA, neck supple, on nasal cannula oxygen. Cardiovascular: Regular rate and rhythm, no extra sounds. Pulmonary: Slightly increased work of breathing on nasal cannula oxygen. Diminished breath sounds left greater than right with crackles appreciated to the mid to upper lung turner. Abdomen: Soft, nontender, nondistended, positive bowel sounds. Musculoskeletal: Atraumatic, minimal peripheral edema. Neurologic: Patient awake alert and answers most questions appropriately. Skin: Warm, dry, no rash EMERGENCY DEPARTMENT COURSE/MDM: This patient was evaluated and appeared to be in no significant distress. Patient was resting comfortably initially on nasal cannula oxygen. Patient had received IV ceftriaxone and was due for her second dose. This was administered as she had vomited up her Augmentin. Chest x-ray was performed and reveals a large effusion/Consolidation of the left hemithorax. CT imaging was performed and is read as below. Patient's laboratory work reveals a normal WBC. Patient is able to maintain her oxygen saturations with 2 L of nasal cannula oxygen. Initially the patient was in a normal sinus rhythm on telemetry but after a short time in the emergency department she converted to a rapid atrial fibrillation and required IV metoprolol for rate control. She was hydrated with normal saline solution. Patient was medicated with IV vancomycin and Zosyn as she is a resident in a long-term care facility. COVID swab was obtained and is negative. Patient's case was discussed with the hospitalist for admission and further management. Patient's daughter has expressed understanding of the plan and agrees. MONITORING: An order for cardiac monitoring was placed and the patient is noted to be in a atrial fibrillation at 104 beats per minute. RADIOLOGY: See below EKG: Atrial fibrillation with rapid ventricular rate at [address] and T wave abnormalities. Abnormal EKG. When compared to previous dated April 22, 2021, sinus rhythm has been replaced by atrial fibrillation. DISPOSITION: Admission I have personally spent 35 minutes of critical care time in the direct management of this patient. This was a life/limb threatening event. This 35 minutes is in excess of all separately billable procedures. Past Med/Surg History Medical History DEXTER (acute kidney injury) Ambulatory dysfunction Anemia Atrial fibrillation with rapid ventricular response Contusion of elbow, right Contusion of hip, right Contusion of knee, left Contusion of knee, right Degenerative disc disease Dehydration Hyperkalemia Hyperlipidemia Hypertension Hypothyroidism Left lower lobe pneumonia Mucus plugging of bronchi Parapneumonic effusion Pleural effusion Rheumatoid arthritis Urinary frequency Surgical History Fusion of spine LUMBAR SURGERY X 2 History of adenoidectomy History of cataract surgery RT/LEFT History of cholecystectomy History of colonoscopy History of dilatation and curettage History of discectomy CERVICAL History of open reduction and internal fixation (ORIF) procedure RT FEMUR History of tonsillectomy History of tooth extraction History of total abdominal hysterectomy and bilateral salpingo-oophorectomy Family History Mother Family history of diabetes mellitus Social History Smoking Status: Never smoker Second Hand Exposure: No; Hx Alcohol Use: No Hx Substance Use: No Preferred Language: Congolese Communication Ability: Unable 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 Beliefs That Will Affect Care: None marital status: / Current Living Situation: Detention Current Living Situation Comment: Lives with daughter How many Children do You have: 1 Feels Safe at Home: Yes Assistive Devices: Hospital Bed and Wheelchair Allergies Allergies Allergy/AdvReac Type Severity Reaction Status Date / Time aloe Allergy Mild itching Verified 04/11/22 20:59 bacitracin Allergy Mild itching Verified 04/11/22 20:59 codeine Allergy Mild ITCHING Verified 04/11/22 20:59 cortisone Allergy Mild Rash Verified 04/11/22 20:59 erythromycin base Allergy Mild ITCHING Verified 04/11/22 20:59 latex Allergy Mild ITCHING Verified 04/11/22 20:59 neomycin Allergy Mild itching Verified 04/11/22 20:59 polymyxin B Allergy Mild itching Verified 04/11/22 20:59 tramadol Allergy Mild Rash Verified 04/11/22 20:59 triamcinolone Allergy Mild ITCHING Verified 04/11/22 20:59 Iodinated Contrast Media Allergy Unknown DOES NOT Verified 04/11/22 20:59 REMEMBER propranolol Allergy Unknown DOES NOT Verified 04/11/22 20:59 REMEMBER Home Meds Home Medications Medication Instructions Recorded Confirmed leflunomide 10 mg tablet 10 mg PO DAILY 06/17/20 04/11/22 lisinopril 20 mg tablet 40 mg PO DAILY 12/13/20 04/11/22 simvastatin 20 mg tablet 20 mg PO DAILY 12/13/20 04/11/22 prednisone 10 mg tablet 10 mg PO DAILY 04/22/21 04/11/22 acetaminophen 325 mg capsule 650 mg PO Q6 PRN pain 1-10 09/29/21 04/11/22 acetaminophen 325 mg tablet 650 mg PO Q6 PRN .temp>100 04/11/22 04/11/22 (Tylenol) acetaminophen 650 mg rectal 650 mg OH Q6H PRN fever or mild 04/11/22 04/11/22 suppository pain ceftriaxone 1 gram solution for 1 g IM DAILY 04/11/22 04/11/22 injection insulin aspart U-100 100 unit/mL 1 sliding scale dose subcut ACHS 04/11/22 04/11/22 subcutaneous solution (Novolog U-100 Insulin aspart) ipratropium 0.5 mg-albuterol 3 mg 3 ml inhalation .EVERY 2 HOURS PRN 04/11/22 04/11/22 (2.5 mg base)/3 mL nebulization Shortness Of Breath Or Wheezing soln ipratropium 0.5 mg-albuterol 3 mg 3 ml inhalation QID 04/11/22 04/11/22 (2.5 mg base)/3 mL nebulization soln lidocaine HCl 10 mg/mL (1 %) 2.1 ml IM DAILY 04/11/22 04/11/22 injection solution ondansetron HCl 4 mg tablet 4 mg PO Q6H PRN Nausea And Vomiting 04/11/22 04/11/22 promethazine 25 mg/mL injection 25 mg IM Q6H PRN Nausea / Vomiting 04/11/22 04/11/22 solution (Phenergan) Previous Rx's Medication Instructions Recorded levothyroxine 75 mcg tablet 75 mcg PO DAILY #30 tabs 03/30/20 (Synthroid) mirabegron 25 mg tablet,extended 25 mg PO DAILY 30 days #30 tabs 12/20/20 release 24 hr (Myrbetriq) cyanocobalamin (vitamin B-12) 1,000 mcg PO DAILY #30 tabs 02/17/21 1,000 mcg tablet amlodipine 5 mg tablet (Norvasc) 5 mg PO QAM #30 tabs 04/26/21 metoprolol tartrate 50 mg tablet 50 mg PO BID #60 tabs 04/26/21 Results & Data (ED) Home Medications Current Medication List: was personally reviewed by me Laboratory Data Attestation: I reviewed the patient's lab results. Result diagrams: 04/14/22 04:02 04/14/22 04:02 Lab Results 04/11/22 04/11/22 04/11/22 Range/Units 18:32 18:32 18:54 WBC 10.54 (4.8-10.8) K/ul RBC 4.06 (3.93-5.22) M/uL Hgb 11.9 L (12.0-16.0) g/dl Hct 36.7 (34.1-44.9) % MCV 90.4 (80.0-100.0) fL MCH 29.3 (25.0-34.0) pg MCHC 32.4 (32.0-36.0) g/dL RDW Std Deviation 46.5 H (36.4-46.3) fL RDW Coeff of Rafael 14.0 (11.5-14.5) % Plt Count 134 (130-400) K/uL MPV 11.6 (9.4-12.3) fL Immature Gran % (Auto) 0.3 % Neut % (Auto) 87.0 % Lymph % (Auto) 5.4 % Parke % (Auto) 5.9 % Eos % (Auto) 0.9 % Baso % (Auto) 0.5 % Neut # (Auto) 9.18 H (1.4-6.5) K/uL Lymph # (Auto) 0.57 L (1.2-3.4) K/uL Parke # (Auto) 0.62 (0.24-0.82) K/uL Eos # (Auto) 0.09 (0-0.50) K/uL Baso # (Auto) 0.05 (0-0.2) K/uL Immature Gran # (Auto) 0.03 H (0.00-0.02) K/uL Polychromasia 1+ Sodium 140 (136-145) mmol/L Potassium 4.3 (3.5-5.1) mmol/L Chloride 106 (98-107) mmol/L Carbon Dioxide 22 (21-32) mmol/L Anion Gap 12 H (3-11) BUN 28 H (6-23) mg/dl Creatinine 1.17 (0.6-1.2) mg/dl Est Cr Clr Drug Dosing 28.1 ml/min Est GFR ( Amer) 47.8 ml/min Est GFR (Non-Af Amer) 41.3 ml/min BUN/Creatinine Ratio 23.9 H (10-20) Glucose 247 H (70-99(Fasting)) mg/dl Calcium 8.9 (8.5-10.1) mg/dl Total Bilirubin 1.7 H (0.2-1.0) mg/dl AST 19 (13-39) U/L ALT 15 (7-52) U/L Alkaline Phosphatase 49 (34-104) U/L Total Protein 6.5 (6.0-8.3) gm/dl Albumin 3.4 (3.4-5.0) gm/dl Globulin 3.1 (2.5-4.0) gm/dl Albumin/Globulin Ratio 1.1 (0.9-2) SARS-CoV-2, RNA, NAAT NEGATIVE (NEGATIVE) Administered Medications Discontinued Medications Acetylcysteine (Acetylcysteine 10% Inhal Soln 4 Ml Dispensed By Resp.) 8 ml INH NOW STA Stop: 04/14/22 03:42 Last Admin: 04/14/22 04:35 Dose: 8 ml Documented By: LOREN Albuterol (Albut/Ipratrop 3mg/0.5mg Neb 3 Ml Vial) 3 ml NEB QIDR UMER; Protocol Stop: 05/12/22 06:59 Last Admin: 04/14/22 15:14 Dose: 3 ml Documented By: [id number] Admin: 04/14/22 11:27 Dose: 3 ml Documented By: [id number] Admin: 04/14/22 07:41 Dose: 3 ml Documented By: Admin: 04/13/22 19:59 Dose: 3 ml Documented By: Admin: 04/13/22 15:56 Dose: 3 ml Documented By: Admin: 04/13/22 11:18 Dose: 3 ml Documented By: Admin: 04/13/22 07:08 Dose: 3 ml Documented By: Admin: 04/12/22 20:10 Dose: 3 ml Documented By: Admin: 04/12/22 15:16 Dose: 3 ml Documented By: Admin: 04/12/22 10:55 Dose: Not Given Documented By: Admin: 04/12/22 06:57 Dose: 3 ml Documented By: CHAYITO Albuterol (Albut/Ipratrop 3mg/0.5mg Neb 3 Ml Vial) 3 ml NEB NOW STA; Protocol Stop: 04/14/22 03:41 Last Admin: 04/14/22 04:35 Dose: 3 ml Documented By: LOREN Diltiazem HCl (Diltiazem Hcl 5 Mg/Ml 5 Ml Vial) 10 mg IV NOW STA Stop: 04/12/22 16:34 Last Admin: 04/12/22 16:44 Dose: 10 mg Documented By: SAHRA Co-signed By: YFN Fentanyl Citrate (Fentanyl Citrate 100 Mcg/2 Ml Vial) Confirm Administered Dose 100 mcg .ROUTE .STK-MED ONE Stop: 04/14/22 08:49 Last Increment: 04/14/22 09:19 Dose: 12.5 mcg Documented By: AVINASH Fentanyl Citrate (Fentanyl Citrate 100 Mcg/2 Ml Vial) 12.5 mcg IV NOW ONE Stop: 04/14/22 09:47 Last Admin: 04/14/22 10:03 Dose: Not Given Documented By: AVINASH Guaifenesin (Guaifenesin 600 Mg Tabcr) 1,200 mg PO Q12 UMER Stop: 05/13/22 08:59 Last Admin: 04/14/22 11:02 Dose: Not Given Documented By: Admin: 04/13/22 21:40 Dose: 1,200 mg Documented By: Admin: 04/13/22 08:38 Dose: 1,200 mg Documented By: YFN Sodium Chloride (Nss 1000ml) 1,000 mls @ 80 mls/hr IV .[id number] UMER Stop: 05/11/22 18:44 Last Infusion: 04/14/22 16:28 Dose: 0 mls/hr Documented By: Infusion: 04/14/22 16:27 Dose: 0 mls/hr Documented By: Admin: 04/14/22 09:48 Dose: 80 mls/hr Documented By: Infusion: 04/14/22 09:48 Dose: 80 mls/hr Documented By: Admin: 04/13/22 21:37 Dose: 80 mls/hr Documented By: Infusion: 04/13/22 21:13 Dose: 80 mls/hr Documented By: Admin: 04/13/22 08:43 Dose: 80 mls/hr Documented By: Infusion: 04/13/22 08:43 Dose: 80 mls/hr Documented By: Admin: 04/12/22 21:11 Dose: 80 mls/hr Documented By: Infusion: 04/12/22 20:32 Dose: 80 mls/hr Documented By: Admin: 04/12/22 08:02 Dose: 80 mls/hr Documented By: Infusion: 04/12/22 07:41 Dose: 80 mls/hr Documented By: Admin: 04/11/22 19:11 Dose: 80 mls/hr Documented By: ML Sodium Chloride (Nss 1000ml) 250 mls @ 999 mls/hr IV .Q16M ONE Stop: 04/11/22 18:56 Last Infusion: 04/11/22 19:15 Dose: 0 mls/hr Documented By: Admin: 04/11/22 18:59 Dose: 999 mls/hr Documented By: ML Ceftriaxone Sodium (Rocephin) 1,000 mg in 50 mls @ 100 mls/hr IV NOW STA Stop: 04/11/22 19:10 Last Infusion: 04/11/22 19:41 Dose: 0 mls/hr Documented By: Admin: 04/11/22 19:11 Dose: 100 mls/hr Documented By: ML Piperacillin Sod/Tazobactam (Sod 4.5 gm/ Dextrose) 120 mls @ 200 mls/hr IV NOW ONE; Protocol Stop: 04/11/22 21:35 Last Infusion: 04/11/22 22:02 Dose: 0 mls/hr Documented By: Admin: 04/11/22 21:26 Dose: 200 mls/hr Documented By: JURGEN Vancomycin HCl 1,250 mg/ (Sodium Chloride) 525 mls @ 200 mls/hr IV NOW ONE Stop: 04/11/22 23:37 Last Infusion: 04/12/22 00:57 Dose: 0 mls/hr Documented By: Admin: 04/11/22 21:53 Dose: 200 mls/hr Documented By: ML Vancomycin HCl 750 mg/ Sodium (Chloride) 265 mls @ 200 mls/hr IV Q24H UMER Stop: 04/19/22 07:59 Last Admin: 04/14/22 11:35 Dose: Not Given Documented By: Infusion: 04/13/22 10:03 Dose: 0 mls/hr Documented By: Admin: 04/13/22 08:43 Dose: 200 mls/hr Documented By: Infusion: 04/12/22 09:22 Dose: 0 mls/hr Documented By: Admin: 04/12/22 08:02 Dose: 200 mls/hr Documented By: ALVIN Piperacillin Sod/Tazobactam (Sod 4.5 gm/ Dextrose) 120 mls @ 30 mls/hr IV Q8H [facility]; Protocol Stop: 04/19/22 05:59 Last Infusion: 04/14/22 16:28 Dose: 0 mls/hr Documented By: Infusion: 04/14/22 16:27 Dose: 0 mls/hr Documented By: Admin: 04/14/22 15:22 Dose: 30 mls/hr Documented By: Infusion: 04/14/22 10:03 Dose: 0 mls/hr Documented By: Admin: 04/14/22 05:46 Dose: 30 mls/hr Documented By: Infusion: 04/14/22 01:37 Dose: 0 mls/hr Documented By: Admin: 04/13/22 21:37 Dose: 30 mls/hr Documented By: Infusion: 04/13/22 18:50 Dose: 0 mls/hr Documented By: Admin: 04/13/22 14:27 Dose: 30 mls/hr Documented By: Infusion: 04/13/22 09:50 Dose: 0 mls/hr Documented By: Admin: 04/13/22 05:49 Dose: 30 mls/hr Documented By: Infusion: 04/13/22 01:39 Dose: 0 mls/hr Documented By: Admin: 04/12/22 21:39 Dose: 30 mls/hr Documented By: Infusion: 04/12/22 18:15 Dose: 0 mls/hr Documented By: Admin: 04/12/22 14:42 Dose: 30 mls/hr Documented By: Infusion: 04/12/22 10:02 Dose: 0 mls/hr Documented By: Admin: 04/12/22 06:00 Dose: 30 mls/hr Documented By: ELLY Diltiazem HCl 125 mg/ Dextrose 125 mls @ 10 mls/hr IV .[id number] [facility]; Protocol Stop: 05/12/22 16:44 Last Titration: 04/14/22 09:52 Dose: 0 mg/hr, 0 mls/hr Documented By: AVINASH Co-signed By: GPF Titration: 04/14/22 05:54 Dose: 10 mg/hr, 10 mls/hr Documented By: JO Co-signed By: ARR Titration: 04/14/22 04:47 Dose: 5 mg/hr, 5 mls/hr Documented By: JO Co-signed By: ARR Titration: 04/13/22 23:55 Dose: 0 mg/hr, 0 mls/hr Documented By: JO Co-signed By: ARR Titration: 04/13/22 23:44 Dose: 5 mg/hr, 5 mls/hr Documented By: JO Co-signed By: ARR Admin: 04/13/22 16:49 Dose: 10 mg/hr, 10 mls/hr Documented By: YFN Co-signed By: MAD Titration: 04/13/22 16:49 Dose: 10 mg/hr, 10 mls/hr Documented By: YFN Co-signed By: MAD Admin: 04/13/22 05:45 Dose: 10 mg/hr, 10 mls/hr Documented By: JO Co-signed By: IDRIS Titration: 04/13/22 05:44 Dose: 10 mg/hr, 10 mls/hr Documented By: JO Co-signed By: IDRIS Titration: 04/12/22 17:29 Dose: 10 mg/hr, 10 mls/hr Documented By: SAHRA Co-signed By: YFN Admin: 04/12/22 16:58 Dose: 5 mg/hr, 5 mls/hr Documented By: SAHRA Co-signed By: ALISHA Lorazepam 0.5 mg/ Syringe 0.5 mls @ 2 mls/min IV NOW STA Stop: 04/14/22 03:32 Last Admin: 04/14/22 04:27 Dose: Not Given Documented By: JO Vancomycin HCl 1,000 mg/ (Sodium Chloride) 270 mls @ 200 mls/hr IV DAILY UMER Stop: 04/21/22 08:29 Last Infusion: 04/14/22 11:25 Dose: 0 mls/hr Documented By: Admin: 04/14/22 09:49 Dose: 200 mls/hr Documented By: AVINASH Morphine Sulfate (Morphine Sulf/Nss) 250 mg in 250 mls @ 1 mls/hr IV .Q96H UMER; Protocol Stop: 04/28/22 16:14 Last Titration: 04/14/22 17:02 Dose: 0 mg/hr, 0 mls/hr Documented By: AVINSAH Co-signed By: GPF Admin: 04/14/22 16:34 Dose: 1 mg/hr, 1 mls/hr Documented By: AVINASH Co-signed By: HARRY Insulin Aspart (Insulin Aspart Per Unit) 0 units SC Q6 UMER Stop: 05/12/22 01:14 Last Admin: 04/12/22 12:54 Dose: 5 units Documented By: KJLydia Co-signed By: TB Admin: 04/12/22 06:06 Dose: 2 units Documented By: ELLY Co-signed By: ZULEIKA Admin: 04/12/22 01:25 Dose: Not Given Documented By: ELLY Insulin Aspart (Insulin Aspart Per Unit) 0 units SC ACHS [facility] Stop: 05/12/22 16:29 Last Admin: 04/14/22 11:45 Dose: Not Given Documented By: Admin: 04/14/22 07:53 Dose: 2 units Documented By: DIMA Co-signed By: Admin: 04/13/22 21:31 Dose: 1 units Documented By: JO Co-signed By: SARAH Admin: 04/13/22 16:45 Dose: Not Given Documented By: Admin: 04/13/22 12:58 Dose: 1 units Documented By: YFN Co-signed By: Admin: 04/13/22 08:38 Dose: Not Given Documented By: Admin: 04/12/22 21:18 Dose: 1 units Documented By: JO Co-signed By: JANELL Admin: 04/12/22 17:22 Dose: Not Given Documented By: SAHRA Insulin Glargine (Lantus Per Unit Charge) 6 units SQ TODAY@1200 [facility] Stop: 05/14/22 11:59 Last Admin: 04/14/22 11:49 Dose: 6 units Documented By: AVINASH Co-signed By: HARRY Ketorolac Tromethamine (Ketorolac Tromethamine 15 Mg/Ml Vial) 15 mg IV Q6H PRN PRN Reason: Pain Stop: 04/17/22 07:56 Last Admin: 04/13/22 19:35 Dose: 15 mg Documented By: Admin: 04/13/22 08:52 Dose: 15 mg Documented By: Admin: 04/13/22 02:02 Dose: 15 mg Documented By: Admin: 04/12/22 15:59 Dose: 15 mg Documented By: Admin: 04/12/22 08:57 Dose: 15 mg Documented By: ALVIN Levothyroxine Sodium (Levothyroxine Sodium 75 Mcg Tablet) [facility]: 05/14/22 06:29 Last Admin: 04/14/22 05:41 Dose: Not Given Documented By: JO Lisinopril (Lisinopril 40 Mg Tab) 40 mg PO DAILY [facility] Stop: 05/14/22 08:59 Last Admin: 04/14/22 14:28 Dose: 40 mg Documented By: Admin: 04/14/22 11:04 Dose: Not Given Documented By: AVINASH Metoprolol Tartrate (Metoprolol Tartrate 50 Mg Tab) 50 mg PO BID UMER Stop: 05/13/22 20:59 Last Admin: 04/14/22 09:49 Dose: 50 mg Documented By: Admin: 04/13/22 21:40 Dose: 50 mg Documented By: JO Metoprolol Tartrate (Metoprolol Tartrate 1 Mg/Ml Vial) 5 mg IV Q5M PRN PRN Reason: Tachycardia HR >100 Last Admin: 04/14/22 14:30 Dose: 5 mg Documented By: Admin: 04/14/22 09:49 Dose: 5 mg Documented By: AVINASH Midazolam HCl (Midazolam Hcl 1 Mg/Ml 2ml Vial) Confirm Administered Dose 2 mg .ROUTE .STK-MED ONE Stop: 04/14/22 08:49 Last Admin: 04/14/22 09:19 Dose: Not Given Documented By: AVINASH Morphine Sulfate (Morphine Sulfate 2 Mg/Ml Carp) 1 mg IV NOW STA Stop: 04/14/22 04:22 Last Admin: 04/14/22 04:45 Dose: 1 mg Documented By: JO Morphine Sulfate (Morphine Sulfate 2 Mg/Ml Carp) Confirm Administered Dose 2 mg .ROUTE .STK-MED ONE Stop: 04/14/22 15:50 Last Admin: 04/14/22 16:17 Dose: Not Given Documented By: AVINASH Morphine Sulfate (Morphine Sulfate 2 Mg/Ml Carp) 1 mg IV NOW STA Stop: 04/14/22 16:03 Last Admin: 04/14/22 16:24 Dose: 1 mg Documented By: AVINASH Ondansetron HCl (Ondansetron Inj 2 Mg/Ml 2 Ml Vial) 4 mg IV Q6H PRN PRN Reason: Nausea Stop: 05/12/22 00:34 Last Admin: 04/14/22 09:57 Dose: 4 mg Documented By: AVINASH Sodium Chloride (Sodium Chlor 7% 4 Ml Neb) 4 ml NEB BIDR UMER Stop: 05/13/22 18:59 Last Admin: 04/14/22 07:16 Dose: 4 ml Documented By: Admin: 04/13/22 19:59 Dose: 4 ml Documented By: BRB Sodium Chloride (Sodium Chlor 7% 4 Ml Neb) 4 ml NEB ONE ONE Stop: 04/14/22 03:25 Last Admin: 04/14/22 04:50 Dose: 4 ml Documented By: BRB Imaging Data Radiologist's Impression: Chest X-Ray 04/11/22 18:14 SINGLE VIEW CHEST CLINICAL HISTORY: Cough. FINDINGS: An AP, portable, upright chest radiograph is compared to study dated 04/22/2021 and correlated with chest CT dated 03/02/2021. The cardiomediastinal silhouette is obscured. There is atherosclerotic calcification of the thoracic aorta. The pulmonary vasculature is noncongested. There is dense airspace consolidation throughout the left lower lung with a left pleural effusion. A portion of the left apex remains aerated. Milder airspace consolidation is seen in the right lung base. No pneumothorax is seen. The skeletal structures are osteopenic. The bony thorax is grossly intact. Fusion hardware is noted in the lower cervical spine. IMPRESSION: 1. There is airspace consolidation throughout the left mid to lower lung with associated pleural effusion. 2. Milder airspace consolidation is seen at the right lung base. Correlate clinical evidence of pneumonia/aspiration pneumonitis. Radiographic follow-up to resolution is recommended. ACT 112: Negative or not required by law. Electronically signed by: Jose Luis Jauregui M.D. 04/11/2022 7:49 PM KUB X-Ray 04/11/22 18:41 KUB CLINICAL HISTORY: Abdominal distention. Vomiting. FINDINGS: 2 AP, portable, supine abdominal radiographs are correlated with abdominal CT dated 09/22/2020. There is a nonobstructed abdominal bowel gas pattern. Fecal retention is noted in the rectosigmoid. No evidence of intraperitoneal free air is seen on these supine images. There are no abnormal abdominal calcifications. Cholecystectomy clips are present in the right upper quadrant. The skeletal structures are osteopenic and appear intact. There is advanced lumbosacral spondylosis with evidence of previous lumbar spinal fusion. Airspace opacities are seen at the right lung base. IMPRESSION: Nonobstructed abdominal bowel gas pattern. Electronically signed by: Jose Luis Jauregui M.D. 04/11/2022 7:[address] 04/11/22 19:49 CT SCAN OF THE CHEST WITHOUT IV CONTRAST CLINICAL HISTORY: Pneumonia. COMPARISON STUDY: Chest x-ray dated 04/11/2022. Chest CT dated 03/02/2021. TECHNIQUE: CT scan of the thorax was performed from the thoracic inlet to the upper abdomen. Images are reviewed in the axial, sagittal, and coronal planes. IV contrast was not administered for this examination as per the referring clinician. A dose lowering technique was utilized adhering to the principles of ALARA. The examination is compromised by motion artifact, as well as streak artifact from the arms which could not be elevated above the chest. CT DOSE: 309.13 mGy.cm FINDINGS: Thyroid: Imaged portions of the thyroid gland are normal in size and attenu ation. Thoracic aorta: There is atherosclerotic calcification of the thoracic aorta comment which is normal in caliber and demonstrates bovine variant arch anatomy. Heart: The heart is top normal in size and without pericardial effusion. The coronary arteries and mitral annulus are densely calcified. Lungs and pleural spaces: There is a small pleural effusion. There is dense/complete atelectasis of the left lower lung with significant volume loss and leftward shift of the mediastinum. There is airspace consolidation throughout the partially aerated left apex. Patchy airspace consolidation is seen in the right mid to lower lung. There is also minimal patchy consolidation at the right apex. There is trace right pleural effusion. Secretions are noted in the distal trachea. There is complete opacification of the left mainstem bronchus and the left lower lobe airways minimal debris is seen within the right lower lobe bronchus. Mediastinum: Enlarged mediastinal lymph nodes measure up to 15 mm in short axis. Deb: Not well assessed without IV contrast. Axillae: There is no axillary lymphadenopathy. Upper abdomen: There is a moderate to large hiatal hernia. Cholecystectomy clips are noted. Simple cysts are partially visualized in the upper poles of both kidneys. Skeletal structures: The skeletal structures are osteopenic. Degenerative change and kyphoscoliosis is noted in the thoracic spine. No lytic or blastic bony lesions are seen. Fusion hardware is seen in the lower cervical spine. There is arthritic change in the shoulders. IMPRESSION: 1. There is complete atelectasis of the left lower lung with volume loss and leftward shift of the mediastinum. There is dense airspace consolidation throughout the aerated left upper lung. 2. There is minimal debris within the distal trachea, and debris fills the left mainstem bronchus and the left lower lobe airways. 3. Milder patchy airspace consolidation is seen in the right mid to lower lung and right apex. The appearance is typical for pneumonia/aspiration pneumonitis. Clinical correlation will be required and radiographic follow-up to resolution is recommended. 4. Small left and trace right pleural effusions. 5. Large hiatal hernia. 6. Mildly enlarged mediastinal lymph nodes are likely reactive. 7. Additional findings as above. ACT 112: Negative or not required by law. Electronically signed by: Jose Luis Jauregui M.D. 04/11/2022 9:26 PM Blood Pressure Blood Pressure Findings: Elevated blood pressure Blood Pressure Disposition: further management by hospitalist Discharge Plan Visit Data Chief Complaint: Illness Stated Complaint: Pnuemonia ED Provider: Mecca Peace Discharge Problem: Aspiration pneumonia, Acute respiratory failure with hypoxia, Pleural effusion Patient Disposition: Admitted As Inpatient Discharge Instructions Interventions: ED Discharge Assessment Last Done: 04/11/22 22:52 : Aspiration pneumonia Qualifiers: Aspiration pneumonia type: due to regurgitated food Laterality: left Lung location: unspecified part of lung Qualified Code(s): J69.0 - Pneumonitis due to inhalation of food and vomit
[2022-04-13] MEDS: KETOROLAC TROMETHAMINE 15 MG/ML VIAL IV PRN ×3 (02:02→19:35)
[2022-04-13] MEDS: dilTIAZem HCL 125 MG in DEXTROSE 5% 100 ML IV SCH ×2 (05:45→16:49)
[2022-04-13] MEDS: PIPERACILLIN/TAZOBACTAM 4.5 GM in DEXTROSE 5% 100 ML IV SCH ×3 (05:49→21:37)
[2022-04-13 06:48] LABS: Hematocrit (blood only) 32.5 % (34.1-44.9); Hemoglobin 10.3 g/dl (12.0-16.0); Mean Corpuscular Hemoglobin 29.2 pg (25.0-34.0); Mean Corpuscular Hgb Conc 31.7 g/dL (32.0-36.0); Mean Corpuscular Volume 92.1 fL (80.0-100.0); Mean Platelet Volume 11.3 fL (9.4-12.3); Platelet Count 100 K/uL (130-400); RDW Coefficient of Variation 14.1 % (11.5-14.5); RDW Standard Deviation 47.8 fL (36.4-46.3); Red Blood Count 3.53 M/uL (3.93-5.22); White Blood Count 8.36 K/ul (4.8-10.8)
[2022-04-13] MEDS ORDERED: VANCOMYCIN LEVEL ONE (07:00)
[2022-04-13 07:06] LABS: Albumin Level 2.8 gm/dl (3.4-5.0); Bilirubin,Total 1.2 mg/dl (0.2-1.0); Calcium 8.1 mg/dl (8.5-10.1); Creatinine Clr Calc Pharmacy 31.5 ml/min; Est GFR (African American) 52.1 ml/min; Globulin 2.9 gm/dl (2.5-4.0); Magnesium 1.7 mg/dl (1.7-2.4); Potassium 3.8 mmol/L (3.5-5.1); Total Protein 5.7 gm/dl (6.0-8.3)
[2022-04-13] MEDS: ALBUT/IPRATROP 3MG/0.5MG NEB 3 ML VIAL NEB SCH ×4 (07:08→19:59)
[2022-04-13 07:10] LABS: Basophils # (auto) 0.02 K/uL (0-0.2); Basophils % (auto) 0.2 %; Eosinophils # (auto) 0.09 K/uL (0-0.50); Eosinophils % (auto) 1.1 %; Immature Granulocytes # (auto) 0.06 K/uL (0.00-0.02); Immature Granulocytes % (auto) 0.7 %; Lymphocytes # (auto) 0.65 K/uL (1.2-3.4); Lymphocytes % (auto) 7.8 %; Monocytes # (auto) 0.51 K/uL (0.24-0.82); Monocytes % (auto) 6.1 %; Neutrophils # (auto) 7.03 K/uL (1.4-6.5); Neutrophils % (auto) 84.1 %; Ovalocytes 1+
[2022-04-13] MEDS: INSULIN ASPART PER UNIT SC SCH ×4 (08:38→21:31)
[2022-04-13] MEDS: guaiFENesin 600 MG TABCR PO SCH ×2 (08:38→21:40)
[2022-04-13] MEDS: VANCOMYCIN HCL 750 MG in SODIUM CHLORIDE 0.9% 250 ML IV SCH (08:43)
[2022-04-13] MEDS: SODIUM CHLORIDE 0.9% 1000ML 1,000 ML IV SCH ×2 (08:43→21:37)
--- NOTE | 2022-04-13 12:16 | XRay Report ---
XR chest 1V portable CLINICAL HISTORY: Complete opacification of left lung TECHNIQUE: Single frontal radiograph of the chest was obtained. Comparison: Comparison is made to FINDINGS: No lines and tubes are seen. Left mediastinal shift is seen. Worsening right lower lung airspace opac ity. Improving aeration of the left upper lung with dense airspace opacity still noted. Small left pl eural effusion is unchanged. Incidental note is made of anterior cervical fixation hardware. IMPRESSION: Findings are compatible with continued left atelectasis with or without superimposed aspiration/pneum onia. Right lower lung pneumonia/aspiration has worsened from prior exam. Redemonstration of left eff usion. ACT 112: Negative or not required by law. Electronically signed by: Marlo George M.D. 04/13/2022 12:14 PM
--- NOTE | 2022-04-13 12:59 | Hospitalist Progress Note ---
Date of Service April 13, 2022 Assessment & Plan (1) Mucus plugging of bronchi: Plan: Attending: Dr. Avtar Gonzales Impression: This is a an 89-year-old female that was admitted 04/11/2021 for acute respiratory failure with hypoxia and presumed aspiration pneumonia. Patient reports nausea and vomiting the day of admission. CT scan of the chest without contrast was performed and revealed complete atelectasis of the left lower lung with volume loss and leftward shift of the mediastinum. There is also evidence of dense airspace consolidation throughout the aerated left upper lung. Debris was noted within the distal trachea and also filled the left mainstem bronchus and the left lower lobe airways. Patient was started on Mucinex and given a flutter valve as well as antibiotics including vancomycin and Zosyn. Patient continues to demonstrate hypoxia with tachypnea and some use of accessory muscles. She is alert and oriented x3 and of good humor. Recommendations: Repeat chest x-ray this morning shows some improvement in left upper field. Will escalate pulmonary toilet to include hypertonic saline nebulizer treatments with chest therapy with the pneumo vest Continue Mucinex Initiate incentive spirometry Similar presentation 1 year ago. Patient may benefit from bronchoscopy if she does not clear on her own with aggressive pulmonary toilet. Hesitant to suggest bronchoscopy today as patient is in atrial fibrillation and we are waiting cardiology consult. Will make patient n.p.o. after midnight tonight. If no improvement to chest x- ray in the morning, will consider pulmonary consult. Chest x-ray and CT scan reviewed with Dr. Tracy of the pulmonary service. (2) Acute respiratory failure with hypoxia: Plan: Oxygen per nasal cannula to maintain saturation greater than 90%. Patient started on Zosyn as well as vancomycin for presumed pneumonia Swallow study shows some aspiration of thin liquids. This is a new development from previous swallow study 03/04/2021 which showed no evidence of aspiration Most pressing issue concern hypoxia is most likely significant mucus plugging and atelectasis of the left lung We will check a sputum culture as patient reports yellow to green sputum No history of pulmonary function testing that I could find Patient is a lifelong non-smoker (3) Aspiration pneumonia: Plan: Currently on vancomycin and Zosyn. MRSA nasal swab is positive. Sputum culture obtained and lab results are pending. Speech therapy consulted to evaluate swallowing capability. Continue to aspiration precautions and diet as outlined in [facility] [employer] discharge instructions from 04/13/2022 at 12:17 PM (4) Gait disorder: Plan: PT/OT eval and treatment Fall risk precautions Ambulate with assistance (5) Falls frequently: Plan: As above (6) Diabetes: Plan: Sliding scale coverage. ADA diet. Hemoglobin A1c is 8.2% (7) Stage 3b chronic kidney disease: Plan: Monitor intake and output. Serial labs (8) Parapneumonic effusion: Plan: Small left-sided pleural effusion seen and evaluated on CT scan on admission Doubt that this is parapneumonic At this time continue to monitor Not large enough to consider thoracentesis at this time (9) Hypothyroidism: Plan: Levothyroxine 75 mcg daily Outpatient management with PCP (10) Hypertension: Plan: Patient in atrial fibrillation Continue diltiazem Can resume amlodipine 5 mg p.o. daily, metoprolol tartrate 50 mg p.o. twice daily, and lisinopril 40 mg p.o. daily Continue to monitor vital signs per protocol (11) Rheumatoid arthritis: Plan: Medical management Plan To be determined Hold chemical prophylaxis in the event the patient needs bronchoscopy Follow-up chest x-ray in the morning Admission and Anticipated Discharge Date Admission Date: April 11, 2022 Supervising Physician Co-Signing Physician Notes Chart reviewed, case discussed with Allen Hilario above Subjective Attending: Dr. Avtar Gonzales Patient seen and examined in room 239 bed 2. She was found to have complete opacification of left lung on chest x-ray last night. CT scan of the chest was also reviewed and shows significant mucus plugging of the left main bronchus with significant calcification of the bronchial tree. She has a creased breath sounds on the left side but otherwise seems to be doing fairly well. She does have some evidence of use of accessory muscles. She does not appear to be any excessive respiratory distress. She denies fever, chills, sweats, rigors. She states she has "some shortness of breath" but states that this is oftentimes typical for her. She denies chest pain or tightness. She has no lower extremity pain. She has no pleuritic type pain. Patient has no other acute complaints. Review of Systems Review of Systems: A total of 10 systems was reviewed and is negative other than as listed in the HPI Physical Exam Physical Exam: GENERAL : No acute distress EYES: No icterus, gaze conjugate NOSE: No evidence of epistaxis MOUTH: No lesions or candidiasis NECK: Supple LUNGS: Significant decrease in breath sounds at the left base. Patient does have some evidence of some crackles bilaterally as well as some rhonchi in the left upper field. HEART: Regular, rate controlled ABDOMEN: Soft, NT, ND, BS Present EXTREMITIES: No LE edema, pedal pulses intact NEURO: A&OX3 Results & Data Results & Data ([facility]) Vital Signs (Past 12 Hours) Vital Signs Temp Pulse Resp BP BP Pulse Ox O2 Del Method 04/13/22 11:13 36.4 C L 75 18 142/62 H 99 Nasal Cannula 04/13/22 11:18 87 18 92 Nasal Cannula 04/13/22 07:53 36.4 C L 124 H 18 130/63 91 Nasal Cannula 04/13/22 07:10 92 H 18 92 Nasal Cannula 04/13/22 03:56 37.5 C 96 H 16 121/68 93 Nasal Cannula O2 Flow Rate 04/13/22 11:13 3 04/13/22 11:18 2 04/13/22 07:53 2 04/13/22 07:10 2 04/13/22 03:56 2 Critical Care Results & Data Vital Signs (Past 12 Hours) Vital Signs Temp Pulse Pulse Resp BP BP Pulse Ox 04/13/22 16:00 104 H 04/13/22 15:56 100 H 18 97 04/13/22 15:34 36.8 C 86 20 169/71 H 94 04/13/22 13:19 102 H 04/13/22 13:19 04/13/22 08:00 86 04/13/22 11:13 36.4 C L 75 18 142/62 H 99 04/13/22 11:18 87 18 92 04/13/22 07:53 36.4 C L 124 H 18 130/63 91 04/13/22 07:10 92 H 18 92 O2 Del Method O2 Flow Rate 04/13/22 16:00 04/13/22 15:56 Nasal Cannula 6 04/13/22 15:34 Nasal Cannula 6 04/13/22 13:19 04/13/22 13:19 Nasal Cannula 2 04/13/22 08:00 04/13/22 11:13 Nasal Cannula 3 04/13/22 11:18 Nasal Cannula 2 04/13/22 07:53 Nasal Cannula 2 04/13/22 07:10 Nasal Cannula 2 Lab & Micro Results (Past 24 Hours) RBC 3.82 M/uL (3.93-5.22) L 04/14/22 WBC 9.68 K/ul (4.8-10.8) 04/14/22 Hgb 11.0 g/dl (12.0-16.0) L 04/14/22 Hct 34.3 % (34.1-44.9) 04/14/22 MCV 89.8 fL (80.0-100.0) 04/14/22 MCH 28.8 pg (25.0-34.0) 04/14/22 MCHC 32.1 g/dL (32.0-36.0) 04/14/22 RDW Standard Deviation 46.1 fL (36.4-46.3) 04/14/22 RDW Coefficient of Variation 14.0 % (11.5-14.5) 04/14/22 Plt Count 150 K/uL (130-400) 04/14/22 MPV 11.2 fL (9.4-12.3) 04/14/22 Neutrophils (%) (Auto) 82.3 % 04/14/22 Lymphocytes (%) (Auto) 7.4 % 04/14/22 Monocytes # (Auto) 0.74 K/uL (0.24-0.82) 04/14/22 Eosinophils # (Auto) 0.14 K/uL (0-0.50) 04/14/22 Immature Granulocyte % (Auto) 0.9 % 04/14/22 Neutrophils # (Auto) 7.95 K/uL (1.4-6.5) H 04/14/22 Lymphocytes # (Auto) 0.72 K/uL (1.2-3.4) L 04/14/22 Monocytes # (Auto) 0.74 K/uL (0.24-0.82) 04/14/22 Eosinophils # (Auto) 0.14 K/uL (0-0.50) 04/14/22 Basophils # (Auto) 0.04 K/uL (0-0.2) 04/14/22 Immature Granulocyte # (Auto) 0.09 K/uL (0.00-0.02) H 04/14 Na 137 mmol/L (136-145) 04/14/22 K 3.6 mmol/L (3.5-5.1) 04/14/22 Cl 111 mmol/L (98-107) H 04/14/22 CO2 14 mmol/L (21-32) L 04/14/22 Anion Gap 12 (3-11) H 04/14/22 BUN 22 mg/dl (6-23) 04/14/22 Creatinine 1.06 mg/dl (0.6-1.2) 04/14/22 Estimated GFR ( Amer) 53.9 ml/min 04/14/22 Estimated GFR (Non-Af Amer) 46.5 ml/min 04/14/22 BUN/Creatinine Ratio 20.8 (10-20) H 04/14/22 Glu 173 mg/dl (70-99(Fasting)) H 04/14/22 Ca 8.3 mg/dl (8.5-10.1) L 04/14/22 Total Bilirubin 1.3 mg/dl (0.2-1.0) H 04/14/22 AST 14 U/L (13-39) 04/14/22 ALT 11 U/L (7-52) 04/14/22 Alkaline Phosphatase 76 U/L (34-104) 04/14/22 TP 6.2 gm/dl (6.0-8.3) 04/14/22 Albumin 3.1 gm/dl (3.4-5.0) L 04/14/22 Globulin 3.1 gm/dl (2.5-4.0) 04/14/22 Albumin/Globulin Ratio 1.0 (0.9-2) 04/14/22 Mg 1.7 mg/dl (1.7-2.4) 04/14/22 04:02 Calcium Level 8.3 mg/dl (8.5-10.1) L 04/14/22 04:02 Prothromb Time International Ratio 1.0 (0.9-1.1) 04/14/22 04:0 1 Arterial Blood pH 7.41 (7.35-7.45) 04/14/22 04:02 Arterial Blood Partial Pressure CO2 23 mmHg (35-46) L 04/14/22 04:02 Arterial Blood Partial Pressure O2 58 mmHg (80-95) L 04/14/22 0 4:02 Arterial Blood HCO3 15 mmol/L (19-24) L 04/14/22 04:02 Arterial Blood Base Excess -8.0 mEq/L (-9-1.8) 04/14/22 04:02 Arterial Blood Oxygen Saturation 89.9 % (90-95) L 04/14/22 04:0 2 Blood Gas Oxygen Given 4L 04/14/22 04:02 Maximo Test Pos (Pos) 04/14/22 04:02 Diagnostic Findings (Past 24 Hours) Chest X-Ray 04/12/22 18:58 XR chest 1V portable CLINICAL HISTORY: increased SOB COMPARISON STUDY: Chest radiograph and chest CT April 11, 2022. FINDINGS: Postoperative findings within the spine are incidentally noted. Complete opacification of the left hemithorax with volume loss has progressed. Left lung aeration has diminished. Right basilar airspace opacity is again noted and suggests pneumonia. Small left pleural effusion is present. There is no pneumothorax. IMPRESSION: 1. Complete opacification of the left hemithorax with volume loss. This has progressed since prior exam. This is likely due to mucous plugging. 2. Right basilar opacity which favors pneumonia or aspiration pneumonitis. ACT 112: Negative or not required by law. Electronically signed by: Bora Gale M.D. 04/12/2022 7:49 PM Chest X-Ray 04/13/22 11:45 XR chest 1V portable CLINICAL HISTORY: Complete opacification of left lung TECHNIQUE: Single frontal radiograph of the chest was obtained. Comparison: Comparison is made to FINDINGS: No lines and tubes are seen. Left mediastinal shift is seen. Worsening right lower lung airspace opacity. Improving aeration of the left upper lung with dense airspace opacity still noted. Small left pleural effusion is unchanged. Incidental note is made of anterior cervical fixation hardware. IMPRESSION: Findings are compatible with continued left atelectasis with or without superimposed aspiration/pneumonia. Right lower lung pneumonia/aspiration has worsened from prior exam. Redemonstration of left effusion. ACT 112: Negative or not required by law. Electronically signed by: aMrlo George M.D. 04/13/2022 12:14 PM I & O Totals 24 Hours 04/12/22 04/13/22 04/14/22 06:59 06:59 06:59 Intake Total 945 / 945 2736.500 / 2736.500 1518.334 / 1518.334 Output Total 100 / 100 101 / 101 Balance 945 / 945 2636.500 / 2636.500 1417.334 / 1417.334 Cumulative 04/11/22 17:43 thru 04/13/22 16:49 Intake Total 5199.834 Output Total 201 Balance 4998.834 RT Ventilator Mngmt (Last Documented) Ventilator Ordered Settings Respiratory Rate 18 04/13/22 15:56 Ventilator - PT Measurements Respiratory Rate 18 PG Care Time/CCT Total # of Minutes Spent Total Time Spent with Patient: Total time spent is greater than 50% in coordination of care (as documented) at patient's floor/unit and/or counseling patient: Coding Level of Care Code 06419 Subseq Hosp Care Lvl 2 Diagnoses Mucus plugging of bronchi T17.500A Acute respiratory failure with hypoxia J96.01 Aspiration pneumonia J69.0 Gait disorder R26.9 Falls frequently R29.6 Diabetes E11.9 Stage 3b chronic kidney disease N18.32 Parapneumonic effusion J18.9; J91.8 Hypothyroidism E03.9 Hypertension I10 Rheumatoid arthritis M06.9 Rheumatoid arthritis location: unspecified site Rheumatoid factor presence: unspecified presence (1) Rheumatoid arthritis Rheumatoid arthritis location: unspecified site Rheumatoid factor presence: unspecified presence Qualified Code(s): M06.9 - Rheumatoid arthritis, unspecified
--- NOTE | 2022-04-13 13:01 | XCELERA ---
[id number]
--- NOTE | 2022-04-13 17:40 | Electrocardiogram Report ---
Test Reason : Blood Pressure : / mmHG Vent. Rate : 123 BPM Atrial Rate : 125 BPM P-R Int : 000 ms QRS Dur : 108 ms QT Int : 286 ms P-R-T Axes : 000 027 185 degrees QTc Int : 409 ms Atrial fibrillation with rapid ventricular response Abnormal ECG When compared with ECG of 22-APR-2021 17:25, Atrial fibrillation has replaced Sinus rhythm Vent. rate has increased BY [address] now depressed in Lateral leads T wave inversion more evident in Lateral leads Confirmed by Aristides Corado ([id number]) on 04/13/2022 5:39:50 PM Referred By: REFERRED SELF Confirmed By:Christophe Corado
--- NOTE | 2022-04-13 17:50 | Electrocardiogram Report ---
Test Reason : Blood Pressure : / mmHG Vent. Rate : 097 BPM Atrial Rate : 105 BPM P-R Int : 000 ms QRS Dur : 104 ms QT Int : 358 ms P-R-T Axes : 000 -11 173 degrees QTc Int : 454 ms Atrial fibrillation Abnormal ECG When compared with ECG of 12-APR-2022 16:20, (unconfirmed) No significant change was found Confirmed by Aristides Corado ([id number]) on 04/13/2022 5:50:09 PM Referred By: REFERRED SELF Confirmed By:Christophe Corado
[2022-04-13] MEDS: SODIUM CHLOR 7% 4 ML NEB NEB SCH (19:59)
[2022-04-13] MEDS: METOPROLOL TARTRATE 50 MG TAB PO SCH (21:40)
[2022-04-14] MEDS ORDERED: SODIUM CHLOR 7% 4 ML NEB NEB ONE (03:24)
[2022-04-14] MEDS ORDERED: LORazepam 0.5 MG in SYRINGE 0.25 ML IV STA (03:31)
[2022-04-14] MEDS ORDERED: ALBUT/IPRATROP 3MG/0.5MG NEB 3 ML VIAL NEB STA (03:40)
[2022-04-14] MEDS ORDERED: ACETYLCYSTEINE 10% INHAL SOLN 4 ML **DISPENSED BY RESP. INH STA (03:41)
--- NOTE | 2022-04-14 03:50 | Communication Note ---
Date of Service: April 14, 2022 Night resident note 02:45- RN notified me that patient's respiratory exam sounded wet and patient had increasingly thick secretions, and was tachypneic between 28 and 35, spO2 91% on 4L NC (which is the amount of supplemental oxygen patient has been on througout the day). Patient had received a duoneb, hypertonic saline neb, and chest PT about six hours prior. I ordered a CXR and awaited the results. I noted that patient was already on mucinex. 03:20- RN notified me that patient's tachypnea had worsened to 40, she had expiratory wheezes, and had become a bit confused. Ordered an ABG, another hypertonic saline neb, mucomyst neb, chest PT and flutter valve, called lab to ask that patient's AM labs be run early, and added a procalcitonin. 03:35- CXR (upon my read): significant worsening of her RLL opacity, redemonstration of complete opacification of the left lung. I went upstairs to examine patient: Gen: tired-appearing but awake and alert, oriented to person but not to place or situation, denies pain HEENT: nasal cannula in place Cardiac: rate in the 80s, irregularly irregular rhythm, no murmur appreciated but heart sounds relatively drowned out by breath sounds Resp: tachypneic (30s), left side very diminished, right-sided coarse rhonchi and end-expiratory wheezes noted, no crackles, breathing moderately labored Neuro: mild confusion noted, no other focal deficits appreciated I ordered morphine 1mg IV (x1) to help with respiratory distress. Lab results came back around 04:00: ABG: pH 7.41, PaCO2 23, PaO2 58, HCO3- 15, O2 sat 89.9% CBC: WBC 9.7, Hgb 11.0, Plt 150 CMP: Na 137, K 3.6, Cl- 111, HCO3- 14, Cr 1.06, albumin 3.1 Procal: 1.92 05:30- RN notified me that patient's spO2 had fallen a bit to the mid-80s, but improved to high 80s/low 90s after switching to high-flow vapotherm 30L / 70%. A/P: ABG reflective of respiratory alkalosis Suspect overall clinical picture represents worsening of mucous plugging with RLL opacity likely a worsening pneumonia, likely bacterial based on elevated procal Continue vanc/zosyn for now; low suspicion for fungal process, will hold off on adding fluconazole Continue duonebs qid and q2h prn Continue hypertonic saline nebs bid Continue flutter valve and chest PT Increase NC rate as-needed, escalate to HFNC if hypoxia worsens despite increased NC rate Humidify supplemental oxygen Pulmonology consulted, as was already planned if patient's CXR worsened, as per yesterday's progress note [place], PGY-3 Resident Activity Tracking Resident Involvement: Resident Care Provided and Actuarial Technician Coverage Note Care Provided: Adult Hospital Medicine
[2022-04-14 04:14] LABS: HCO3 ABG 15 mmol/L (19-24); Oxygen Saturation ABG 89.9 % (90-95); PCO2 ABG 23 mmHg (35-46); PO2 ABG 58 mmHg (80-95); pH ABG 7.41 (7.35-7.45)
[2022-04-14 04:15] LABS: Basophils # (auto) 0.04 K/uL (0-0.2); Basophils % (auto) 0.4 %; Eosinophils # (auto) 0.14 K/uL (0-0.50); Eosinophils % (auto) 1.4 %; Hematocrit (blood only) 34.3 % (34.1-44.9); Immature Granulocytes # (auto) 0.09 K/uL (0.00-0.02); Immature Granulocytes % (auto) 0.9 %; Lymphocytes # (auto) 0.72 K/uL (1.2-3.4); Lymphocytes % (auto) 7.4 %; Mean Corpuscular Hemoglobin 28.8 pg (25.0-34.0); Mean Corpuscular Hgb Conc 32.1 g/dL (32.0-36.0); Mean Corpuscular Volume 89.8 fL (80.0-100.0); Mean Platelet Volume 11.2 fL (9.4-12.3); Monocytes # (auto) 0.74 K/uL (0.24-0.82); Monocytes % (auto) 7.6 %; Neutrophils # (auto) 7.95 K/uL (1.4-6.5); Neutrophils % (auto) 82.3 %; Platelet Count 150 K/uL (130-400); RDW Standard Deviation 46.1 fL (36.4-46.3); Red Blood Count 3.82 M/uL (3.93-5.22); White Blood Count 9.68 K/ul (4.8-10.8)
[2022-04-14 04:19] LABS: Allen Test Pos (Pos)
[2022-04-14] MEDS ORDERED: MoRPHine SULFATE 2 MG/ML CARP IV STA ×2 (04:21→16:02)
[2022-04-14 04:39] LABS: Albumin Level 3.1 gm/dl (3.4-5.0); BUN Creatinine Ratio 20.8 (10-20); Bilirubin,Total 1.3 mg/dl (0.2-1.0); Calcium 8.3 mg/dl (8.5-10.1); Creatinine Clr Calc Pharmacy 32.4 ml/min; Est GFR (African American) 53.9 ml/min; Est GFR (Non-African American) 46.5 ml/min; Globulin 3.1 gm/dl (2.5-4.0); Magnesium 1.7 mg/dl (1.7-2.4); Potassium 3.6 mmol/L (3.5-5.1); Total Protein 6.2 gm/dl (6.0-8.3)
[2022-04-14 04:45] LABS: Partial Thromboplastin Time 26.5 Seconds (21.0-31.0); Prothrombin Time 10.9 Seconds (9.0-12.0)
[2022-04-14] MEDS ORDERED: ALBUT/IPRATROP 3MG/0.5MG NEB 3 ML VIAL NEB PRN (05:03)
--- NOTE | 2022-04-14 05:19 | Hospitalist Progress Note ---
Date of Service April 14, 2022 Assessment & Plan (1) Mucus plugging of bronchi: Plan: Attending: Dr. Avtar Gonzales Impression: This is a an 89-year-old female that was admitted 04/11/2021 for acute respiratory failure with hypoxia and presumed aspiration pneumonia. Patient reports nausea and vomiting the day of admission. CT scan of the chest without contrast was performed and revealed complete atelectasis of the left lower lung with volume loss and leftward shift of the mediastinum. There is also evidence of dense airspace consolidation throughout the aerated left upper lung. Debris was noted within the distal trachea and also filled the left mainstem bronchus and the left lower lobe airways. Patient was started on Mucinex and given a flutter valve as well as antibiotics including vancomycin and Zosyn. Patient continues to demonstrate hypoxia with tachypnea and some use of accessory muscles. Patient was doing better yesterday afternoon but decompensated overnight and developed real opacification of the left lung. Transferred to the intensive care unit at 08:00 this morning for urgent bronchoscopy. Recommendations: Repeat chest x-ray with complete opacification of left lung. Discussed with Dr. Tracy of the pulmonary/critical care service. Transfer to ICU for urgent bronchoscopy and rate control Consent obtained by daughter via telephone for bronchoscopy Continue hi lex O2 to maintain SpO2 >90% Continue aggressive pulmonary toilet include percussion vest, mucinex, hypertonic saline/neb treatments, (2) Acute respiratory failure with hypoxia: Plan: Continue high flow O2 to maintain saturations greater than 90% Patient started on Zosyn as well as vancomycin for presumed pneumonia -await BAL for culture Expectorated sputum yesterday with no organisms seen. There was pinpoint growth present and sample is currently being read incubated. Swallow study shows some aspiration of thin liquids. This is a new development from previous swallow study 03/04/2021 which showed no evidence of aspiration Patient is a lifelong non-smoker Long discussion with patient as well as daughter, granddaughter, great-grandson. Patient wishes to be a DNR/DNI with no heroic measures POLST form placed on the chart after being completed with patient and daughter (3) Atrial fibrillation with rapid ventricular response: Plan: New onset this admission Was started on diltiazem drip. Patient became bradycardic overnight and this was stopped. Patient then became hypertensive with rapid rate Given metoprolol tartrate 5 mg IV which better controlled rate Continue metoprolol orally daily Cardiology consult has been requested Patient and family elected not to anticoagulate secondary to significant fall risk. We discussed rhythm control versus rate control and will focus on rate control at this time They report the patient has had several falls at home and at [facility]. (4) Aspiration pneumonia: Plan: Currently on vancomycin and Zosyn. MRSA nasal swab is positive. Sputum culture obtained and lab results are pending. Continue aspiration precautions and diet as outlined in [facility] discharge instructions from 04/13/2022 at 12:17 PM (5) Gait disorder: Plan: PT/OT eval and treatment Fall risk precautions Ambulate with assistance (6) Falls frequently: Plan: As above (7) Diabetes: Plan: Sliding scale coverage. ADA diet. Hemoglobin A1c is 8.2% (8) Stage 3b chronic kidney disease: Plan: Monitor intake and output. Serial labs (9) Parapneumonic effusion: Plan: Small left-sided pleural effusion seen and evaluated on CT scan on admission Doubt that this is parapneumonic At this time continue to monitor Not large enough to consider thoracentesis at this time (10) Hypothyroidism: Plan: Levothyroxine 75 mcg daily Outpatient management with PCP (11) Hypertension: Plan: Patient in atrial fibrillation Can resume amlodipine 5 mg p.o. daily, metoprolol tartrate 50 mg p.o. twice daily, and lisinopril 40 mg p.o. daily Continue to monitor vital signs per protocol (12) Rheumatoid arthritis: Plan: Medical management Plan Anticipate discharge back to [facility] care when medically stable If patient continues to remain stable, can transfer back to telemetry tomorrow Admission and Anticipated Discharge Date Admission Date: April 11, 2022 Supervising Physician Co-Signing Physician Notes Chart reviewed, case discussed with Allen Hilario above Subjective Patient declined overnight with desaturation and increased lethargy. Continues to be in atrial fibrillation. Was bradycardic so Diltiazem gtt was stopped. Patient then had elevated BP and tachycardia and gtt was restarted. CXR with complete left lung opacification. Mucomyst neb, albuterol neb ordered. ABG obtained and is WNL with low normal pO2. SaO2 91% 4 L/min via NC. Patient transferred to ICU for further management. Patient's daughter called and will c ome in before visiting hours. Consent obtained via telephone to perform bronchoscopy. Patient states that she is SOB but feeling better with high lex oxygen. She denies chest pain or tightness. No pleuritic pain. Extremely diminished breath sounds on the left. No fever or chills. Patient with no other acute complaints. Review of Systems Review of Systems: A total of 10 systems was reviewed and is negative other than as listed in the HPI Physical Exam Physical Exam: GENERAL : Moderate acute distress with use of accessory muscles. EYES: No icterus, gaze conjugate NOSE: No evidence of epistaxis. High flow nasal cannula in place and secure MOUTH: No lesions or candidiasis NECK: Supple LUNGS: Crackles at the right base. Minimal breath sounds on the left. HEART: Irregular, irregular, rate 96 bpm ABDOMEN: Soft, NT, ND, BS Present EXTREMITIES: No LE edema, pedal pulses intact NEURO: A&OX3 Results & Data Results & Data ([facility]) Vital Signs (Past 12 Hours) Vital Signs Temp Pulse Pulse Resp BP BP Pulse Ox 04/14/22 00:00 102 H 04/14/22 04:54 125 H 88 L 04/14/22 03:10 36.5 C 98 H 40 H 173/84 H 91 04/13/22 23:43 55 L 04/13/22 23:33 36.8 C 72 24 122/70 93 04/13/22 23:06 04/13/22 20:58 36.5 C 106 H 24 175/72 H 93 04/13/22 20:03 110 H 18 O2 Del Method O2 Flow Rate 04/14/22 00:00 04/14/22 04:54 Nasal Cannula 04/14/22 03:10 Nasal Cannula 4.0 04/13/22 23:43 04/13/22 23:33 Nasal Cannula 4.0 04/13/22 23:06 Nasal Cannula 4 04/13/22 20:58 Nasal Cannula 4.0 04/13/22 20:03 Nasal Cannula 4 Critical Care Results & Data Vital Signs (Past 12 Hours) Vital Signs Temp Pulse Pulse Resp BP BP BP 04/14/22 14:30 104 H 172/104 H 04/14/22 14:08 96 H 04/14/22 14:08 172/104 H 04/14/22 14:00 89 04/14/22 13:18 189/77 H 04/14/22 13:18 86 34 H 04/14/22 13:16 183/93 H 04/14/22 13:16 83 37 H 04/14/22 13:00 93 H 35 H 04/14/22 13:00 116/91 04/14/22 12:46 155/99 H 04/14/22 12:46 85 32 H 04/14/22 12:30 165/84 H 04/14/22 12:30 86 24 04/14/22 12:02 85 36 H 04/14/22 12:02 146/83 H 04/14/22 12:00 83 37 H 04/14/22 12:00 182/64 H 04/14/22 11:46 170/85 H 04/14/22 11:46 82 33 H 04/14/22 11:31 151/94 H 04/14/22 11:31 89 26 H 04/14/22 11:15 162/101 H 04/14/22 11:15 89 29 H 04/14/22 11:01 157/136 H 04/14/22 11:01 91 H 25 H 04/14/22 11:00 86 27 H 04/14/22 10:46 123/79 04/14/22 10:46 80 33 H 04/14/22 11:36 92 H 20 04/14/22 11:27 81 35 H 04/14/22 10:55 04/14/22 10:30 88 30 H 04/14/22 10:30 121/105 H 04/14/22 10:16 118/80 04/14/22 10:16 86 35 H 04/14/22 10:15 84 32 H 04/14/22 10:01 95 H 35 H 04/14/22 10:01 153/80 H 04/14/22 10:00 84 37 H 04/14/22 09:46 167/130 H 04/14/22 09:46 130 H 24 04/14/22 09:45 109 H 29 H 04/14/22 09:31 112 H 38 H 04/14/22 09:31 155/92 H 04/14/22 09:30 118 H 30 H 04/14/22 09:23 131/64 04/14/22 09:23 121 H 27 H 04/14/22 09:20 176/106 H 04/14/22 09:20 122 H 30 H 09/02/22 09:18 123 H 34 H 04/14/22 09:18 196/130 H 04/14/22 09:15 110 H 24 04/14/22 09:15 143/93 H 04/14/22 09:49 113 H 167/130 H 04/14/22 09:11 118 H 24 143/93 H 04/14/22 09:06 111 H 35 H 04/14/22 09:01 118 H 38 H 160/81 H 04/14/22 08:20 04/14/22 09:06 160/81 H 04/14/22 09:06 113 H 34 H 04/14/22 09:05 128 H 25 H 04/14/22 09:01 113 H 35 H 04/14/22 09:01 170/78 H 04/14/22 09:00 108 H 31 H 04/14/22 08:56 156/112 H 04/14/22 08:56 141 H 28 H 04/14/22 08:55 155 H 17 04/14/22 08:53 179/139 H 04/14/22 08:53 116 H 18 04/14/22 08:50 112 H 34 H 04/14/22 08:45 117 H 31 H 04/14/22 08:45 130/92 04/14/22 08:40 129 H 39 H 04/14/22 08:35 117 H 32 H 04/14/22 08:30 119 H 33 H 04/14/22 08:13 123 H 04/14/22 09:21 123 H 32 H 131/64 04/14/22 09:16 122 H 32 H 176/106 H 04/14/22 08:56 115 H 38 H 156/112 H 04/14/22 08:43 111 H 26 H 130/92 04/14/22 08:25 124 H 30 H 04/14/22 08:20 134 H 20 04/14/22 08:16 153/82 H 04/14/22 08:16 121 H 15 04/14/22 08:15 123 H 20 04/14/22 08:13 176/117 H 04/14/22 08:13 130 H 21 04/14/22 08:12 129 H 9 L 04/14/22 08:00 109 H 04/14/22 08:26 36.6 C 04/14/22 08:00 04/14/22 07:35 36.6 C 114 H 28 H 179/93 H 04/14/22 07:18 24 04/14/22 04:54 125 H Pulse Ox O2 Del Method O2 Flow Rate FiO2 04/14/22 14:30 04/14/22 14:08 94 04/14/22 14:08 04/14/22 14:00 92 04/14/22 13:18 04/14/22 13:18 94 04/14/22 13:16 04/14/22 13:16 77 L 04/14/22 13:00 94 04/14/22 13:00 04/14/22 12:46 04/14/22 12:46 82 L 04/14/22 12:30 04/14/22 12:30 87 L 04/14/22 12:02 76 L 04/14/22 12:02 04/14/22 12:00 82 L 04/14/22 12:00 04/14/22 11:46 04/14/22 11:46 76 L 04/14/22 11:31 04/14/22 11:31 04/14/22 11:15 04/14/22 11:15 81 L 04/14/22 11:01 04/14/22 11:01 82 L 04/14/22 11:00 88 L 04/14/22 10:46 04/14/22 10:46 83 L 04/14/22 11:36 93 High Flow Nasal Cannula 30 60 04/14/22 11:27 93 High Flow Nasal Cannula 30 60 04/14/22 10:55 High Flow Nasal Cannula 04/14/22 10:30 83 L 04/14/22 10:30 04/14/22 10:16 04/14/22 10:16 82 L 04/14/22 10:15 81 L 04/14/22 10:01 94 04/14/22 10:01 04/14/22 10:00 88 L 04/14/22 09:46 04/14/22 09:46 86 L 04/14/22 09:45 93 04/14/22 09:31 77 L 04/14/22 09:31 04/14/22 09:30 78 L 04/14/22 09:23 04/14/22 09:23 82 L 04/14/22 09:20 04/14/22 09:20 94 04/14/22 09:18 82 L 04/14/22 09:18 04/14/22 09:15 95 04/14/22 09:15 04/14/22 09:49 04/14/22 09:11 95 High Flow Nasal Cannula 30 60 04/14/22 09:06 96 High Flow Nasal Cannula 30 60 04/14/22 09:01 95 High Flow Nasal Cannula 30 60 04/14/22 08:20 High Flow Nasal Cannula 30 70 04/14/22 09:06 04/14/22 09:06 77 L 04/14/22 09:05 73 L 04/14/22 09:01 90 04/14/22 09:01 04/14/22 09:00 93 04/14/22 08:56 04/14/22 08:56 84 L 04/14/22 08:55 87 L 04/14/22 08:53 04/14/22 08:53 88 L 04/14/22 08:50 99 04/14/22 08:45 100 04/14/22 08:45 04/14/22 08:40 100 04/14/22 08:35 98 04/14/22 08:30 93 04/14/22 08:13 04/14/22 09:21 93 High Flow Nasal Cannula 30 60 04/14/22 09:16 94 High Flow Nasal Cannula 30 60 04/14/22 08:56 96 High Flow Nasal Cannula 30 100 04/14/22 08:43 93 High Flow Nasal Cannula 30 100 04/14/22 08:25 97 04/14/22 08:20 96 04/14/22 08:16 04/14/22 08:16 99 04/14/22 08:15 97 04/14/22 08:13 04/14/22 08:13 04/14/22 08:12 04/14/22 08:00 95 04/14/22 08:26 04/14/22 08:00 High Flow Nasal Cannula 30 70 04/14/22 07:35 88 L High Flow Nasal Cannula 30 70 04/14/22 07:18 89 L High Flow Nasal Cannula 30 70 04/14/22 04:54 88 L Nasal Cannula Lab & Micro Results (Past 24 Hours) RBC 3.82 M/uL (3.93-5.22) L 04/14/22 WBC 9.68 K/ul (4.8-10.8) 04/14/22 Hgb 11.0 g/dl (12.0-16.0) L 04/14/22 Hct 34.3 % (34.1-44.9) 04/14/22 MCV 89.8 fL (80.0-100.0) 04/14/22 MCH 28.8 pg (25.0-34.0) 04/14/22 MCHC 32.1 g/dL (32.0-36.0) 04/14/22 RDW Standard Deviation 46.1 fL (36.4-46.3) 04/14/22 RDW Coefficient of Variation 14.0 % (11.5-14.5) 04/14/22 Plt Count 150 K/uL (130-400) 04/14/22 MPV 11.2 fL (9.4-12.3) 04/14/22 Neutrophils (%) (Auto) 82.3 % 04/14/22 Lymphocytes (%) (Auto) 7.4 % 04/14/22 Monocytes # (Auto) 0.74 K/uL (0.24-0.82) 04/14/22 Eosinophils # (Auto) 0.14 K/uL (0-0.50) 04/14/22 Immature Granulocyte % (Auto) 0.9 % 04/14/22 Neutrophils # (Auto) 7.95 K/uL (1.4-6.5) H 04/14/22 Lymphocytes # (Auto) 0.72 K/uL (1.2-3.4) L 04/14/22 Monocytes # (Auto) 0.74 K/uL (0.24-0.82) 04/14/22 Eosinophils # (Auto) 0.14 K/uL (0-0.50) 04/14/22 Basophils # (Auto) 0.04 K/uL (0-0.2) 04/14/22 Immature Granulocyte # (Auto) 0.09 K/uL (0.00-0.02) H 04/14 Na 137 mmol/L (136-145) 04/14/22 K 3.6 mmol/L (3.5-5.1) 04/14/22 Cl 111 mmol/L (98-107) H 04/14/22 CO2 14 mmol/L (21-32) L 04/14/22 Anion Gap 12 (3-11) H 04/14/22 BUN 22 mg/dl (6-23) 04/14/22 Creatinine 1.06 mg/dl (0.6-1.2) 04/14/22 Estimated GFR ( Amer) 53.9 ml/min 04/14/22 Estimated GFR (Non-Af Amer) 46.5 ml/min 04/14/22 BUN/Creatinine Ratio 20.8 (10-20) H 04/14/22 Glu 173 mg/dl (70-99(Fasting)) H 04/14/22 Ca 8.3 mg/dl (8.5-10.1) L 04/14/22 Total Bilirubin 1.3 mg/dl (0.2-1.0) H 04/14/22 AST 14 U/L (13-39) 04/14/22 ALT 11 U/L (7-52) 04/14/22 Alkaline Phosphatase 76 U/L (34-104) 04/14/22 TP 6.2 gm/dl (6.0-8.3) 04/14/22 Albumin 3.1 gm/dl (3.4-5.0) L 04/14/22 Globulin 3.1 gm/dl (2.5-4.0) 04/14/22 Albumin/Globulin Ratio 1.0 (0.9-2) 04/14/22 Mg 1.7 mg/dl (1.7-2.4) 04/14/22 04:02 Calcium Level 8.3 mg/dl (8.5-10.1) L 04/14/22 04:02 Prothromb Time International Ratio 1.0 (0.9-1.1) 04/14/22 04:0 1 Arterial Blood pH 7.41 (7.35-7.45) 04/14/22 04:02 Arterial Blood Partial Pressure CO2 23 mmHg (35-46) L 04/14/22 04:02 Arterial Blood Partial Pressure O2 58 mmHg (80-95) L 04/14/22 0 4:02 Arterial Blood HCO3 15 mmol/L (19-24) L 04/14/22 04:02 Arterial Blood Base Excess -8.0 mEq/L (-9-1.8) 04/14/22 04:02 Arterial Blood Oxygen Saturation 89.9 % (90-95) L 04/14/22 04:0 2 Blood Gas Oxygen Given 4L 04/14/22 04:02 Maximo Test Pos (Pos) 04/14/22 04:02 Microbiology 04/13/22 14:30 Gram Stain - Final Sputum, Expectorated Sputum Culture - Preliminary Pin-point growth present, reincubating. Diagnostic Findings (Past 24 Hours) Chest X-Ray 04/14/22 03:08 SINGLE VIEW CHEST CLINICAL HISTORY: Tachypnea. Dyspnea. FINDINGS: An AP, portable, upright chest radiograph is compared to study dated 04/13/2022 and correlated with chest CT dated 04/11/2022. The examination is degraded by portable technique and patient rotation. The cardiomediastinal silhouette is obscured. There is atherosclerotic calcification of the thoracic aorta. The pulmonary vasculature is noncongested. There is near complete opacification of the left hemithorax with volume loss and leftward shift of the mediastinum. There is left pleural effusion. Increasing airspace consolidation is seen at the right lung base with trace right pleural effusion. No pneumothorax is seen. The skeletal structures are osteopenic. The bony thorax is grossly intact. Fusion hardware is noted in the lower cervical spine. Cholecystectomy clips are noted in the right upper quadrant. IMPRESSION: 1. There is near complete opacification of the left hemithorax with associated volume loss and leftward shift of the mediastinum. This has increased from yesterday. 2. Increasing airspace consolidation is seen at the right lung base. 3. Left larger than right pleural effusions. ACT 112: Negative or not required by law. Electronically signed by: Jose Luis Jauregui M.D. 04/14/2022 8:54 AM I & O Totals 24 Hours 04/13/22 04/14/22 04/15/22 06:59 06:59 06:59 Intake Total 2736.500 / 2736.500 2834.001 / 2834.001 1454.334 / 1454.334 Output Total 100 / 100 501 / 501 0 / 0 Balance 2636.500 / 2636.500 2333.001 / 2333.001 1454.334 / 1454.334 Cumulative 04/11/22 17:43 thru 04/14/22 12:00 Intake Total 7904.835 Output Total 601 Balance 7368.835 RT Ventilator Mngmt (Last Documented) Ventilator Ordered Settings Respiratory Rate 34 04/14/22 13:18 Fraction of Inspired Oxygen 60 04/14/22 11:36 Ventilator - PT Measurements Respiratory Rate 34 PG Care Time/CCT Total # of Minutes Spent Total Time Spent with Patient: Total time spent is greater than 50% in coordination of care (as documented) at patient's floor/unit and/or counseling patient: 50 Coding Level of Care Code 97753 Subseq Hosp Care Lvl 3 Diagnoses Mucus plugging of bronchi T17.500A Acute respiratory failure with hypoxia J96.01 Atrial fibrillation with rapid ventricular response I48.91 Aspiration pneumonia J69.0 Gait disorder R26.9 Falls frequently R29.6 Diabetes E11.9 Stage 3b chronic kidney disease N18.32 Parapneumonic effusion J18.9; J91.8 Hypothyroidism E03.9 Hypertension I10 Rheumatoid arthritis M06.9 Rheumatoid arthritis location: unspecified site Rheumatoid factor presence: unspecified presence Time Spent (min) 50 Comment 40 minutes of [id number] time with patient and with patient's family (1) Rheumatoid arthritis Rheumatoid arthritis location: unspecified site Rheumatoid factor presence: unspecified presence Qualified Code(s): M06.9 - Rheumatoid arthritis, unspecified
[2022-04-14] MEDS: PIPERACILLIN/TAZOBACTAM 4.5 GM in DEXTROSE 5% 100 ML IV SCH ×2 (05:46→15:22)
[2022-04-14] MEDS ORDERED: LEVOTHYROXINE SODIUM 75 MCG TABLET PO SCH (06:30)
[2022-04-14] MEDS ORDERED: VANCOMYCIN LEVEL ONE (07:00)
[2022-04-14] MEDS: SODIUM CHLOR 7% 4 ML NEB NEB SCH (07:16)
[2022-04-14] MEDS: ALBUT/IPRATROP 3MG/0.5MG NEB 3 ML VIAL NEB SCH ×3 (07:41→15:14)
[2022-04-14] MEDS: INSULIN ASPART PER UNIT SC SCH ×2 (07:53→11:45)
--- NOTE | 2022-04-14 08:12 | Pharmacy Report ---
Pharmacy Vanc AUC Short Note - Date of Service April 14, 2022 - Assessment & Plan Assessment 89 year old F receiving vancomycin/zosyn for suspected pneumonia/aspiration concerns. MRSA nasal swab was positive, procal elevated this morning, sputum pending. Breathing worsening overnight. Per notes, likely patient to have bronchoscopy today. Plan Vancomycin * AUC/NISH is the preferred PK/PD target for vancomycin * AUC guided dosing is effective and associated with decreased risk of nephrotoxicity compared to traditional trough targets * Random vancomycin level this AM was ~11.4 mcg/ml - this current vancomycin dosing is predicted to achieve an AUC/NISH of ~400 mg/L.hr and a trough of ~12.5, therefore will increase vancomycin dosing to 1000 mg iv q 24 hrs to target higher AUC/NISH * Vancomycin 1000 mg iv q 24 hrs is predicted to achieve a trough leel of ~16 mcg/ml and AUC/NISH of ~510. May be associated with 11% risk of nephrotoxicity. * Will plan to order another vancomycin level in next 2-3 days or sooner if renal function changes Pharmacy will continue to follow and will adjust dose/frequency as necessary. Thank you.
[2022-04-14] MEDS ORDERED: ICU PROTOCOL FOR HYPERGLYCEMIA PRN (08:24)
[2022-04-14] MEDS ORDERED: VANCOMYCIN HCL 1,000 MG in SODIUM CHLORIDE 0.9% 250 ML IV SCH (08:30)
[2022-04-14] MEDS ORDERED: fentaNYL citrate 100 MCG/2 ML VIAL ONE (08:48)
[2022-04-14] MEDS ORDERED: MIDAZOLAM HCL 1 MG/ML 2ML VIAL ONE (08:48)
--- NOTE | 2022-04-14 08:56 | XRay Report ---
SINGLE VIEW CHEST CLINICAL HISTORY: Tachypnea. Dyspnea. FINDINGS: An AP, portable, upright chest radiograph is compared to study dated 04/13/2022 and correlate d with chest CT dated 04/11/2022. The examination is degraded by portable technique and patient rotati on. The cardiomediastinal silhouette is obscured. There is atherosclerotic calcification of the thora cic aorta. The pulmonary vasculature is noncongested. There is near complete opacification of the lef t hemithorax with volume loss and leftward shift of the mediastinum. There is left pleural effusion. Increasing airspace consolidation is seen at the right lung base with trace right pleural effusion. N o pneumothorax is seen. The skeletal structures are osteopenic. The bony thorax is grossly intact. Fu lizandro hardware is noted in the lower cervical spine. Cholecystectomy clips are noted in the right uppe r quadrant. IMPRESSION: 1. There is near complete opacification of the left hemithorax with associated volume loss and leftwa rd shift of the mediastinum. This has increased from yesterday. 2. Increasing airspace consolidation is seen at the right lung base. 3. Left larger than right pleural effusions. ACT 112: Negative or not required by law. Electronically signed by: Jose Luis Jauregui M.D. 04/14/2022 8:54 AM
--- NOTE | 2022-04-14 09:20 | Critical Care Consultation ---
Date of Consultation April 14, 2022 Assessment & Plan (1) Acute respiratory failure with hypoxia: (2) Mucus plugging of bronchi: (3) Atelectasis of left lung: Plan Impression: 89-year-old female with dementia and mucous plugging with resultant atelectasis leading to hypoxemic respiratory failure. She is also in atrial fibrillation with rapid ventricular response. Recommendations: 1. Atelectasis: Patient was brought to the ICU. Bronchoscopy was performed. Please see separate procedure note. A large mucous plug was evacuated. Patient had improvement in her respiratory status post procedure. She will be monitored in the ICU until she is recovered from 12-1/2 mcg fentanyl which were administered for sedation for the procedure. At that point time she can be returned back to the floor. Would recommend continued aggressive pulmonary toilet with flutter valve, hypertonic saline, and scheduled nebulized therapies. Percussive vest therapy may also be helpful. No indication for sampling the pleural effusion. 2. We will check follow-up chest x-ray in the a.m.. 3. Will discontinue diltiazem drip. Push IV metoprolol 5 mg every 5 minutes for max dose of 15 mg and continue metoprolol 50 mg a day. May need to adjust her p.o. metoprolol dose. Anticoagulation per the primary service. 4. Questionable pneumonia. On Zosyn and vancomycin. Appreciate speech therapy evaluation. Diet per speech. 5. Diabetes: Glycemic control per primary service. As the patient was transferred to the ICU to facilitate bronchoscopy and bronchoscopy has been completed, I think she can return to the floor. We will follow for pulmonary issues. Thanks for the opportunity participating in the care of this patient. Feel free to contact us with additional questions or concerns. History of Present Illness Attending Physician: Caleb Maldonado MD History of Present Illness Asked by hospitalist to evaluate this patient with mucous plugging and hypoxemic respiratory failure with chest x-ray showing atelectasis of left lung. History is obtained from discussion with the hospitalist as well as review the electronic medical record. Patient is an 89-year-old female who was admitted from a [facility] 04/[facility]. She has a history of dementia pneumonia chronic kidney disease rheumatoid arthritis. She was brought from a [facility]. Chief complaint was shortness of breath and dyspnea on exertion. Chest x-ray at that point demonstrated atelectasis of the left lung. CT scan was performed which revealed material throughout the left mainstem bronchi. Patient was initiated on antibiotics and pulmonary toilet. Follow-up chest x-rays were performed which demonstrated persistent atelectatic changes despite mucolytic therapy. This morning we were consulted from pulmonary standpoint for abnormal chest x-ray and worsening respiratory status. The patient was tachypneic, had an escalation in her oxygen requirement, and was in atrial fibrillation with rapid ventricular response. She was transferred to the ICU for bronchoscopy. Please see separate procedure notes. Post bronchoscopy she was administered 5 mg of IV metoprolol. Patient has been initiated on antimicrobial therapy. Allergies Allergy/AdvReac Type Severity Reaction Status Date / Time aloe Allergy Mild itching Verified 04/11/22 20:59 bacitracin Allergy Mild itching Verified 04/11/22 20:59 codeine Allergy Mild ITCHING Verified 04/11/22 20:59 cortisone Allergy Mild Rash Verified 04/11/22 20:59 erythromycin base Allergy Mild ITCHING Verified 04/11/22 20:59 latex Allergy Mild ITCHING Verified 04/11/22 20:59 neomycin Allergy Mild itching Verified 04/11/22 20:59 polymyxin B Allergy Mild itching Verified 04/11/22 20:59 tramadol Allergy Mild Rash Verified 04/11/22 20:59 triamcinolone Allergy Mild ITCHING Verified 04/11/22 20:59 Iodinated Contrast Media Allergy Unknown DOES NOT Verified 04/11/22 20:59 REMEMBER propranolol Allergy Unknown DOES NOT Verified 04/11/22 20:59 REMEMBER Home Medications Medication Instructions Recorded Confirmed Type levothyroxine 75 mcg tablet 75 mcg PO DAILY #30 tabs 03/30/20 04/11/22 Rx (Synthroid) leflunomide 10 mg tablet 10 mg PO DAILY 06/17/20 04/11/22 History lisinopril 20 mg tablet 40 mg PO DAILY 12/13/20 04/11/22 History simvastatin 20 mg tablet 20 mg PO DAILY 12/13/20 04/11/22 History mirabegron 25 mg tablet,extended 25 mg PO DAILY 30 days #30 tabs 12/20/20 04/11/22 Rx release 24 hr (Myrbetriq) cyanocobalamin (vitamin B-12) 1,000 mcg PO DAILY #30 tabs 02/17/21 04/11/22 Rx 1,000 mcg tablet prednisone 10 mg tablet 10 mg PO DAILY 04/22/21 04/11/22 History amlodipine 5 mg tablet (Norvasc) 5 mg PO QAM #30 tabs 04/26/21 04/11/22 Rx metoprolol tartrate 50 mg tablet 50 mg PO BID #60 tabs 04/26/21 04/11/22 Rx acetaminophen 325 mg capsule 650 mg PO Q6 PRN pain 1-10 09/29/21 04/11/22 History acetaminophen 325 mg tablet 650 mg PO Q6 PRN .temp>100 04/11/22 04/11/22 History (Tylenol) acetaminophen 650 mg rectal 650 mg DE Q6H PRN fever or mild 04/11/22 04/11/22 History suppository pain ceftriaxone 1 gram solution for 1 g IM DAILY 04/11/22 04/11/22 History injection insulin aspart U-100 100 unit/mL 1 sliding scale dose subcut ACHS 04/11/22 04/11/22 History subcutaneous solution (Novolog U-100 Insulin aspart) ipratropium 0.5 mg-albuterol 3 mg 3 ml inhalation .EVERY 2 HOURS PRN 04/11/22 04/11/22 History (2.5 mg base)/3 mL nebulization Shortness Of Breath Or Wheezing soln ipratropium 0.5 mg-albuterol 3 mg 3 ml inhalation QID 04/11/22 04/11/22 History (2.5 mg base)/3 mL nebulization soln lidocaine HCl 10 mg/mL (1 %) 2.1 ml IM DAILY 04/11/22 04/11/22 History injection solution ondansetron HCl 4 mg tablet 4 mg PO Q6H PRN Nausea And Vomiting 04/11/22 0 04/11/22 History promethazine 25 mg/mL injection 25 mg IM Q6H PRN Nausea / Vomiting 04/11/22 04/11/22 History solution (Phenergan) Patient History Medical History (Updated 04/14/22 @ 09:15 by Adarsh Tracy MD) DEXTER (acute kidney injury) Ambulatory dysfunction Anemia Contusion of elbow, right Contusion of hip, right Contusion of knee, left Contusion of knee, right Degenerative disc disease Dehydration Hyperkalemia Hyperlipidemia Hypertension Hypothyroidism Left lower lobe pneumonia Mucus plugging of bronchi Parapneumonic effusion Pleural effusion Rheumatoid arthritis Urinary frequency Surgical History Fusion of spine LUMBAR SURGERY X 2 History of adenoidectomy History of cataract surgery RT/LEFT History of cholecystectomy History of colonoscopy History of dilatation and curettage History of discectomy CERVICAL History of open reduction and internal fixation (ORIF) procedure RT FEMUR History of tonsillectomy History of tooth extraction History of total abdominal hysterectomy and bilateral salpingo-oophorectomy Family History Mother Family history of diabetes mellitus Social History Smoking Status: Never smoker Second Hand Exposure: No; Hx Alcohol Use: No Hx Substance Use: No Preferred Language: [place] Communication Ability: Unable Combination Man Required: No Beliefs That Will Affect Care: None marital status: / Current Living Situation: Long-Term Current Living Situation Comment: Lives with daughter How many Children do You have: 1 Feels Safe at Home: Yes Assistive Devices: Hospital Bed and Wheelchair Review of Systems Review of Systems: Please refer to admission H&P and the hospitalist notes. No additions or deletions Physical Exam Physical Exam: GENERAL : No acute distress EYES: No icterus, gaze conjugate NOSE: No evidence of epistaxis MOUTH: No lesions or candidiasis NECK: Supple LUNGS: Significant decrease in breath sounds at the left base. Patient does have some evidence of some crackles bilaterally as well as some rhonchi in the left upper field. HEART: Regular, rate controlled ABDOMEN: Soft, NT, ND, BS Present EXTREMITIES: No LE edema, pedal pulses intact NEURO: A&OX3 Results & Data Results & Data ([facility]) Vital Signs (Past 12 Hours) Vital Signs Temp Pulse Pulse Resp BP BP BP 04/14/22 09:06 160/81 H 04/14/22 09:06 113 H 34 H 04/14/22 09:05 128 H 25 H 04/14/22 09:01 113 H 35 H 04/14/22 09:01 170/78 H 04/14/22 09:00 108 H 31 H 04/14/22 08:56 156/112 H 04/14/22 08:56 141 H 28 H 04/14/22 08:55 155 H 17 04/14/22 08:53 179/139 H 04/14/22 08:53 116 H 18 04/14/22 08:50 112 H 34 H 04/14/22 08:45 117 H 31 H 04/14/22 08:45 130/92 04/14/22 08:40 129 H 39 H 04/14/22 08:35 117 H 32 H 04/14/22 08:30 119 H 33 H 04/14/22 08:13 123 H 04/14/22 08:43 111 H 26 H 130/92 04/14/22 08:25 124 H 30 H 04/14/22 08:20 134 H 20 04/14/22 08:16 153/82 H 04/14/22 08:16 121 H 15 04/14/22 08:15 123 H 20 04/14/22 08:13 176/117 H 04/14/22 08:13 130 H 21 04/14/22 08:12 129 H 9 L 04/14/22 08:00 109 H 04/14/22 08:26 36.6 C 04/14/22 08:00 04/14/22 07:35 36.6 C 114 H 28 H 179/93 H 04/14/22 07:18 24 04/14/22 00:00 102 H 04/14/22 04:54 125 H 04/14/22 03:10 36.5 C 98 H 40 H 173/84 H 04/13/22 23:43 55 L 04/13/22 23:33 36.8 C 72 24 122/70 04/13/22 23:06 Pulse Ox O2 Del Method O2 Flow Rate FiO2 04/14/22 09:06 04/14/22 09:06 77 L 04/14/22 09:05 73 L 04/14/22 09:01 90 04/14/22 09:01 04/14/22 09:00 93 04/14/22 08:56 04/14/22 08:56 84 L 04/14/22 08:55 87 L 04/14/22 08:53 04/14/22 08:53 88 L 04/14/22 08:50 99 04/14/22 08:45 100 04/14/22 08:45 04/14/22 08:40 100 04/14/22 08:35 98 09/02/22 08:30 93 04/14/22 08:13 04/14/22 08:43 93 High Flow Nasal Cannula 30 100 04/14/22 08:25 97 04/14/22 08:20 96 04/14/22 08:16 04/14/22 08:16 99 04/14/22 08:15 97 04/14/22 08:13 04/14/22 08:13 04/14/22 08:12 04/14/22 08:00 95 04/14/22 08:26 04/14/22 08:00 High Flow Nasal Cannula 30 70 04/14/22 07:35 88 L High Flow Nasal Cannula 30 70 04/14/22 07:18 89 L High Flow Nasal Cannula 30 70 04/14/22 00:00 04/14/22 04:54 88 L Nasal Cannula 04/14/22 03:10 91 Nasal Cannula 4.0 04/13/22 23:43 04/13/22 23:33 93 Nasal Cannula 4.0 04/13/22 23:06 Nasal Cannula 4 Critical Care Results & Data Vital Signs (Past 12 Hours) Vital Signs Temp Pulse Pulse Resp BP BP BP 04/14/22 09:06 160/81 H 04/14/22 09:06 113 H 34 H 04/14/22 09:05 128 H 25 H 04/14/22 09:01 113 H 35 H 04/14/22 09:01 170/78 H 04/14/22 09:00 108 H 31 H 04/14/22 08:56 156/112 H 04/14/22 08:56 141 H 28 H 04/14/22 08:55 155 H 17 04/14/22 08:53 179/139 H 04/14/22 08:53 116 H 18 04/14/22 08:50 112 H 34 H 04/14/22 08:45 117 H 31 H 04/14/22 08:45 130/92 04/14/22 08:40 129 H 39 H 04/14/22 08:35 117 H 32 H 04/14/22 08:30 119 H 33 H 04/14/22 08:13 123 H 04/14/22 08:43 111 H 26 H 130/92 04/14/22 08:25 124 H 30 H 04/14/22 08:20 134 H 20 04/14/22 08:16 153/82 H 04/14/22 08:16 121 H 15 04/14/22 08:15 123 H 20 04/14/22 08:13 176/117 H 04/14/22 08:13 130 H 21 04/14/22 08:12 129 H 9 L 04/14/22 08:00 109 H 04/14/22 08:26 36.6 C 04/14/22 08:00 04/14/22 07:35 36.6 C 114 H 28 H 179/93 H 04/14/22 07:18 24 04/14/22 00:00 102 H 04/14/22 04:54 125 H 04/14/22 03:10 36.5 C 98 H 40 H 173/84 H 04/13/22 23:43 55 L 04/13/22 23:33 36.8 C 72 24 122/70 04/13/22 23:06 Pulse Ox O2 Del Method O2 Flow Rate FiO2 04/14/22 09:06 04/14/22 09:06 77 L 04/14/22 09:05 73 L 04/14/22 09:01 90 04/14/22 09:01 04/14/22 09:00 93 04/14/22 08:56 04/14/22 08:56 84 L 04/14/22 08:55 87 L 04/14/22 08:53 04/14/22 08:53 88 L 04/14/22 08:50 99 04/14/22 08:45 100 04/14/22 08:45 04/14/22 08:40 100 04/14/22 08:35 98 04/14/22 08:30 93 04/14/22 08:13 04/14/22 08:43 93 High Flow Nasal Cannula 30 100 04/14/22 08:25 97 04/14/22 08:20 96 04/14/22 08:16 04/14/22 08:16 99 04/14/22 08:15 97 04/14/22 08:13 04/14/22 08:13 04/14/22 08:12 04/14/22 08:00 95 04/14/22 08:26 04/14/22 08:00 High Flow Nasal Cannula 30 70 04/14/22 07:35 88 L High Flow Nasal Cannula 30 70 04/14/22 07:18 89 L High Flow Nasal Cannula 30 70 04/14/22 00:00 04/14/22 04:54 88 L Nasal Cannula 04/14/22 03:10 91 Nasal Cannula 4.0 04/13/22 23:43 04/13/22 23:33 93 Nasal Cannula 4.0 04/13/22 23:06 Nasal Cannula 4 Lab & Micro Results (Past 24 Hours) RBC 3.82 M/uL (3.93-5.22) L 04/14/22 WBC 9.68 K/ul (4.8-10.8) 04/14/22 Hgb 11.0 g/dl (12.0-16.0) L 04/14/22 Hct 34.3 % (34.1-44.9) 04/14/22 MCV 89.8 fL (80.0-100.0) 04/14/22 MCH 28.8 pg (25.0-34.0) 04/14/22 MCHC 32.1 g/dL (32.0-36.0) 04/14/22 RDW Standard Deviation 46.1 fL (36.4-46.3) 04/14/22 RDW Coefficient of Variation 14.0 % (11.5-14.5) 04/14/22 Plt Count 150 K/uL (130-400) 04/14/22 MPV 11.2 fL (9.4-12.3) 04/14/22 Neutrophils (%) (Auto) 82.3 % 04/14/22 Lymphocytes (%) (Auto) 7.4 % 04/14/22 Monocytes # (Auto) 0.74 K/uL (0.24-0.82) 04/14/22 Eosinophils # (Auto) 0.14 K/uL (0-0.50) 04/14/22 Immature Granulocyte % (Auto) 0.9 % 04/14/22 Neutrophils # (Auto) 7.95 K/uL (1.4-6.5) H 04/14/22 Lymphocytes # (Auto) 0.72 K/uL (1.2-3.4) L 04/14/22 Monocytes # (Auto) 0.74 K/uL (0.24-0.82) 04/14/22 Eosinophils # (Auto) 0.14 K/uL (0-0.50) 04/14/22 Basophils # (Auto) 0.04 K/uL (0-0.2) 04/14/22 Immature Granulocyte # (Auto) 0.09 K/uL (0.00-0.02) H 04/14 Na 137 mmol/L (136-145) 04/14/22 K 3.6 mmol/L (3.5-5.1) 04/14/22 Cl 111 mmol/L (98-107) H 04/14/22 CO2 14 mmol/L (21-32) L 04/14/22 Anion Gap 12 (3-11) H 04/14/22 BUN 22 mg/dl (6-23) 04/14/22 Creatinine 1.06 mg/dl (0.6-1.2) 04/14/22 Estimated GFR ( Amer) 53.9 ml/min 04/14/22 Estimated GFR (Non-Af Amer) 46.5 ml/min 04/14/22 BUN/Creatinine Ratio 20.8 (10-20) H 04/14/22 Glu 173 mg/dl (70-99(Fasting)) H 04/14/22 Ca 8.3 mg/dl (8.5-10.1) L 04/14/22 Total Bilirubin 1.3 mg/dl (0.2-1.0) H 04/14/22 AST 14 U/L (13-39) 04/14/22 ALT 11 U/L (7-52) 04/14/22 Alkaline Phosphatase 76 U/L (34-104) 04/14/22 TP 6.2 gm/dl (6.0-8.3) 04/14/22 Albumin 3.1 gm/dl (3.4-5.0) L 04/14/22 Globulin 3.1 gm/dl (2.5-4.0) 04/14/22 Albumin/Globulin Ratio 1.0 (0.9-2) 04/14/22 Mg 1.7 mg/dl (1.7-2.4) 04/14/22 04:02 Calcium Level 8.3 mg/dl (8.5-10.1) L 04/14/22 04:02 Prothromb Time International Ratio 1.0 (0.9-1.1) 04/14/22 04:0 1 Arterial Blood pH 7.41 (7.35-7.45) 04/14/22 04:02 Arterial Blood Partial Pressure CO2 23 mmHg (35-46) L 04/14/22 04:02 Arterial Blood Partial Pressure O2 58 mmHg (80-95) L 04/14/22 0 4:02 Arterial Blood HCO3 15 mmol/L (19-24) L 04/14/22 04:02 Arterial Blood Base Excess -8.0 mEq/L (-9-1.8) 04/14/22 04:02 Arterial Blood Oxygen Saturation 89.9 % (90-95) L 04/14/22 04:0 2 Blood Gas Oxygen Given 4L 04/14/22 04:02 Maximo Test Pos (Pos) 04/14/22 04:02 Microbiology 04/13/22 14:30 Gram Stain - Final Sputum, Expectorated Diagnostic Findings (Past 24 Hours) Chest X-Ray 04/13/22 11:45 XR chest 1V portable CLINICAL HISTORY: Complete opacification of left lung TECHNIQUE: Single frontal radiograph of the chest was obtained. Comparison: Comparison is made to FINDINGS: No lines and tubes are seen. Left mediastinal shift is seen. Worsening right lower lung airspace opacity. Improving aeration of the left upper lung with dense airspace opacity still noted. Small left pleural effusion is unchanged. Incidental note is made of anterior cervical fixation hardware. IMPRESSION: Findings are compatible with continued left atelectasis with or without superimposed aspiration/pneumonia. Right lower lung pneumonia/aspiration has worsened from prior exam. Redemonstration of left effusion. ACT 112: Negative or not required by law. Electronically signed by: Marlo George M.D. 04/13/2022 12:14 PM Chest X-Ray 04/14/22 03:08 SINGLE VIEW CHEST CLINICAL HISTORY: Tachypnea. Dyspnea. FINDINGS: An AP, portable, upright chest radiograph is compared to study dated 04/13/2022 and correlated with chest CT dated 04/11/2022. The examination is degraded by portable technique and patient rotation. The cardiomediastinal oz houette is obscured. There is atherosclerotic calcification of the thoracic aorta. The pulmonary vasculature is noncongested. There is near complete opacification of the left hemithorax with volume loss and leftward shift of the mediastinum. There is left pleural effusion. Increasing airspace consolidation is seen at the right lung base with trace right pleural effusion. No pneumothorax is seen. The skeletal structures are osteopenic. The bony thorax is grossly intact. Fusion hardware is noted in the lower cervical spine. Cholecystectomy clips are noted in the right upper quadrant. IMPRESSION: 1. There is near complete opacification of the left hemithorax with associated volume loss and leftward shift of the mediastinum. This has increased from yesterday. 2. Increasing airspace consolidation is seen at the right lung base. 3. Left larger than right pleural effusions. ACT 112: Negative or not required by law. Electronically signed by: Jose Luis Jauregui M.D. 04/14/2022 8:54 AM I & O Totals 24 Hours 04/13/22 04/14/22 04/15/22 06:59 06:59 06:59 Intake Total 2736.500 / 2736.500 2834.001 / 2834.001 Output Total 100 / 100 501 / 501 Balance 2636.500 / 2636.500 2333.001 / 2333.001 Cumulative 04/11/22 17:43 thru 04/14/22 08:24 Intake Total 6515.501 Output Total 601 Balance 5914.501 RT Ventilator Mngmt (Last Documented) Ventilator Ordered Settings Respiratory Rate 34 04/14/22 09:06 Fraction of Inspired Oxygen 100 04/14/22 08:43 Ventilator - PT Measurements Respiratory Rate 34 Coding Level of Care Code 84794 Inpt Consult Level 4 Diagnoses Acute respiratory failure with hypoxia J96.01 Mucus plugging of bronchi T17.500A Atelectasis of left lung J98.11
--- NOTE | 2022-04-14 09:22 | Procedure Note ---
Procedure Note Date of Service April 14, 2022 Note Procedure: Fiberoptic bronchoscopy Therapeutic aspiration of secretions, initial Conscious sedation Provider: Adarsh Tracy MD Consent: Signed by patient and timeout verified prior to procedure. Sedation start: Sedation end: Conscious sedation: Procedure: Patient was brought to the ICU. Consent was verified. Appropriate radiographic studies had been reviewed prior to the procedure. Standard monitoring was applied. Oxygen was administered via high flow nasal cannula. After topical anesthesia of the airways per respiratory therapy protocol, the fiberoptic scope was advanced through the left nares. Oropharynx was u nremarkable. Vocal cords were visualized and were normal in function and appearance. Topical anesthesia of the cords was achieved with instillation of lidocaine through the scope. Scope was then passed through the vocal cords. The trachea was tortuous. Main ashley was splayed. Anesthesia of the lower airways was achieved with instillation of lidocaine through the scope. A sequential and systematic examination of the lower airways was conducted. The right-sided airways were patent and the mucosa appeared erythematous. Left- sided airways were occluded with a large mucous plug in the left mainstem bronchus extending down into the lower lobes. This was lavaged free. Once cleared, there was no evidence of other endobronchial lesion and the airways were patent with mildly erythematous mucosa. The bronchoscope was then removed from the airways. The patient tolerated the procedure well without obvious complication. Patient was returned to the recovery room. Impression: 1. Mucous plug left mainstem bronchus status post aspiration Coding CPT Codes Pulmonary/Thoracic - Pulmonary and Thoracic: 91272 Bronchoscopy, clear airways ([id number]) [facility] [place] Procedure Codes (Charges) Pulmonary/Thoracic Procedure 1: Pulmonary and Thoracic: 77905 Bronchoscopy, clear airways
[2022-04-14] MEDS ORDERED: fentaNYL citrate 100 MCG/2 ML VIAL IV ONE (09:46)
[2022-04-14] MEDS: SODIUM CHLORIDE 0.9% 1000ML 1,000 ML IV SCH (09:48)
[2022-04-14] MEDS: lisinopril 40 MG TAB PO SCH ×3 (09:49→14:28)
[2022-04-14] MEDS: METOPROLOL TARTRATE 50 MG TAB PO SCH (09:49)
[2022-04-14] MEDS: guaiFENesin 600 MG TABCR PO SCH ×2 (09:49→11:02)
[2022-04-14] MEDS: METOPROLOL TARTRATE 1 MG/ML VIAL IV PRN ×2 (09:49→14:30)
[2022-04-14] MEDS ORDERED: PHARMACY GLYCEMIC MGMT CONSULT PRN (09:53)
--- NOTE | 2022-04-14 10:47 | Pharmacy Report ---
Pharmacy Glycemic Short Note 2 - Date of Service April 14, 2022 - Glycemic Short BSG Results (Last 24 hours): 04/13/22 04/13/22 04/13/22 11:27 16:06 20:23 Glucose POC Glucose 187 H 144 H 196 H 04/14/22 04/14/22 04:02 07:27 Glucose 173 H POC Glucose 214 H OUTPATIENT ANTIDIABETIC REGIMEN: * Novolog sliding scale * A1c 8.2% 04/12/22 ASSESSMENT: * Patient admitted with aspiration pneumonia, transferred to ICU for bronchoscopy, expected downgrade later today * Fasting BSG 214 mg/dL this morning, consulted for glycemic control. Patient NPO for procedure, mince/moist diet previously recommend, anticipate diet order later today. BSGs moderately controlled yesterday 144-196 mg/dL with 2 units of correction given. * Will continue current novolog orders, start conservative amount of lantus to help fasting BSG get to goal range. PLAN FOR INPATIENT GLYCEMIC CONTROL: * Hold outpatient oral diabetes medications * Basal insulin * Lantus 5 units x 1 * Bolus insulin * NovoLog per scale ACHS or Q6hrs while NPO * Goal Range: Low 120 mg/dL - High 170 mg/dL * Correction Factor: 30 mg/dL/unit * Nutritional / Prandial insulin per carb ratio of 1 unit per 15 grams CHO consumed
[2022-04-14] MEDS: VANCOMYCIN HCL 750 MG in SODIUM CHLORIDE 0.9% 250 ML IV SCH (11:35)
[2022-04-14] MEDS ORDERED: LANTUS PER UNIT CHARGE SQ SCH (12:00)
--- NOTE | 2022-04-14 15:32 | Billing Data ---
Date of Service April 14, 2022 Coding Level of Care Code 45463 Prolonged Care (int'l) Time Spent (min) 50 Comment 40-minute [id number] discussion regarding CODE STATUS and care plan
[2022-04-14] MEDS ORDERED: MoRPHine SULFATE 2 MG/ML CARP ONE (15:49)
[2022-04-14] MEDS ORDERED: STAT IV Infusion **Titration per Protocol STA (16:02)
[2022-04-14] MEDS ORDERED: ONDANSETRON INJ 2 MG/ML 2 ML VIAL IV PRN (16:03)
[2022-04-14] MEDS ORDERED: ONDANSETRON 4 MG OD TAB SL PRN (16:03)
[2022-04-14] MEDS ORDERED: LORazepam 0.5 MG TAB PO PRN (16:03)
[2022-04-14] MEDS ORDERED: MoRPHine SULFATE 2 MG/ML CARP IV PRN (16:03)
[2022-04-14] MEDS ORDERED: LORazepam 0.5 MG in SYRINGE 0.25 ML IV PRN (16:03)
[2022-04-14] MEDS ORDERED: MoRPHine SULF/NSS 250 MG/250 ML BTL IV SCH ×2 (16:15)
[2022-04-14] MEDS ORDERED: SCOPOLAMINE 1 MG TDSY TD SCH (17:00)
--- NOTE | 2022-04-14 17:13 | Discharge Summary ---
Date of Service April 14, 2022 Admission HPI Per Admitting Provider The patient is a an 89-year-old female with a past medical history including gait disorder, mild dementia, frequent falls, diabetes mellitus, hallucinations, pneumonia, stage IIIb CKD, parapneumonic effusion, rheumatoid arthritis, ambulatory dysfunction, acute renal failure and lower leg cellulitis. She presents to the emergency department due to shortness of breath and dyspnea on exertion, with mild worsening of underlying dementia. Radiology work-up in the emergency department: Chest x-ray with left mid and lower lung infiltrate and pleural effusion, and right lower lobe infiltrate. Abnormal laboratories: WBC 10.54, hemoglobin 11.9, hematocrit 36.7, platelets 134, and glucose 247 From the emergency department patient received the following: Vancomycin IV, Zosyn IV and NSS at 80 mils per hour Pulse ox was 90% on room air, and improved to 96% on 2 L nasal cannula Principal Diagnosis Hypoxia, respiratory failuremucous plugging due to weakness Discharge Data Allergies Allergy/AdvReac Type Severity Reaction Status Date / Time aloe Allergy Mild itching Verified 04/11/22 20:59 bacitracin Allergy Mild itching Verified 04/11/22 20:59 codeine Allergy Mild ITCHING Verified 04/11/22 20:59 cortisone Allergy Mild Rash Verified 04/11/22 20:59 erythromycin base Allergy Mild ITCHING Verified 04/11/22 20:59 latex Allergy Mild ITCHING Verified 04/11/22 20:59 neomycin Allergy Mild itching Verified 04/11/22 20:59 polymyxin B Allergy Mild itching Verified 04/11/22 20:59 tramadol Allergy Mild Rash Verified 04/11/22 20:59 triamcinolone Allergy Mild ITCHING Verified 04/11/22 20:59 Iodinated Contrast Media Allergy Unknown DOES NOT Verified 04/11/22 20:59 REMEMBER propranolol Allergy Unknown DOES NOT Verified 04/11/22 20:59 REMEMBER Consultations 04/11/22 21:02 ED Decision to Admit Stat 04/14/22 03:49 Consult Pulmonology Routine 04/14/22 08:24 Consult Paint Technician Routine Ordered Studies 04/11/22 19:49 CT chest diagnostic wo con Stat 04/12/22 11:00 FL video swallow Routine Hospital Course (1) Goals of care, counseling/discussion: Due to recurrent severe respiratory failure in spite of aggressive management, with massive mucous plugging and overall respiratory weakness likely driving the process, patient was changed to comfort measures only and quickly passed. The last assessment and plan as below: (2) Mucus plugging of bronchi: Attending: Dr. Avtar Gonzales Impression: This is a an 89-year-old female that was admitted 04/11/2021 for acute respiratory failure with hypoxia and presumed aspiration pneumonia. Patient reports nausea and vomiting the day of admission. CT scan of the chest without contrast was performed and revealed complete atelectasis of the left lower lung with volume loss and leftward shift of the mediastinum. There is also evidence of dense airspace consolidation throughout the aerated left upper lung. Debris was noted within the distal trachea and also filled the left mainstem bronchus and the left lower lobe airways. Patient was started on Mucinex and given a flutter valve as well as antibiotics including vancomycin and Zosyn. Patient continues to demonstrate hypoxia with tachypnea and some use of accessory muscles. Patient was doing better yesterday afternoon but decompensated overnight and developed real opacification of the left lung. Transferred to the intensive care unit at 08:00 this morning for urgent bronchoscopy. Recommendations: Repeat chest x-ray with complete opacification of left lung. Discussed with Dr. Tracy of the pulmonary/critical care service. Transfer to ICU for urgent bronchoscopy and rate control Consent obtained by daughter via telephone for bronchoscopy Continue hi lex O2 to maintain SpO2 >90% Continue aggressive pulmonary toilet include percussion vest, mucinex, hypertonic saline/neb treatments, (3) Acute respiratory failure with hypoxia: Continue high flow O2 to maintain saturations greater than 90% Patient started on Zosyn as well as vancomycin for presumed pneumonia -await BAL for culture Expectorated sputum yesterday with no organisms seen. There was pinpoint growth present and sample is currently being read incubated. Swallow study shows some aspiration of thin liquids. This is a new development from previous swallow study 03/04/2021 which showed no evidence of aspiration Patient is a lifelong non-smoker Long discussion with patient as well as daughter, granddaughter, great-grandson. Patient wishes to be a DNR/DNI with no heroic measures POLST form placed on the chart after being completed with patient and daughter (4) Atrial fibrillation with rapid ventricular response: New onset this admission Was started on diltiazem drip. Patient became bradycardic overnight and this was stopped. Patient then became hypertensive with rapid rate Given metoprolol tartrate 5 mg IV which better controlled rate Continue metoprolol orally daily Cardiology consult has been requested Patient and family elected not to anticoagulate secondary to significant fall risk. We discussed rhythm control versus rate control and will focus on rate control at this time They report the patient has had several falls at home and at [facility]. (5) Aspiration pneumonia: Currently on vancomycin and Zosyn. MRSA nasal swab is positive. Sputum culture obtained and lab results are pending. Continue aspiration precautions and diet as outlined in ASSISTANT CREDIT MANAGER discharge instructions from 04/13/2022 at 12:17 PM (6) Gait disorder: PT/OT eval and treatment Fall risk precautions Ambulate with assistance (7) Falls frequently: As above (8) Diabetes: Sliding scale coverage. ADA diet. Hemoglobin A1c is 8.2% (9) Stage 3b chronic kidney disease: Monitor intake and output. Serial labs (10) Parapneumonic effusion: Small left-sided pleural effusion seen and evaluated on CT scan on admission Doubt that this is parapneumonic At this time continue to monitor Not large enough to consider thoracentesis at this time (11) Hypothyroidism: Levothyroxine 75 mcg daily Outpatient management with PCP (12) Hypertension: Patient in atrial fibrillation Can resume amlodipine 5 mg p.o. daily, metoprolol tartrate 50 mg p.o. twice daily, and lisinopril 40 mg p.o. daily Continue to monitor vital signs per protocol (13) Rheumatoid arthritis: Medical management Plan Anticipate discharge back to [facility] care when medically stable If patient continues to remain stable, can transfer back to telemetry tomorrow Total Time Total Time Spent Total Time Spent (In Minutes): <30 (care done predominantly by sandra lopez) Discharge Plan Discharge Items Patient Disposition: Reason For Visit: ASPIRATION PNEUMONIA Follow-up/Referrals: [facility] [Primary Care Provider] - Medications and DC Order Prescriptions: No Action acetaminophen 325 mg capsule 650 mg PO Q6 MDD 3g PRN (Reason: pain 1-10) levothyroxine [Synthroid] 75 mcg tablet 75 mcg PO DAILY Qty: 30 0RF leflunomide 10 mg tablet 10 mg PO DAILY lisinopril 20 mg Tablet 40 mg PO DAILY simvastatin 20 mg Tablet 20 mg PO DAILY Myrbetriq 25 mg Tablet Extended Release 24 Hr 25 mg PO DAILY 30 Days Qty: 30 3RF cyanocobalamin (vitamin B-12) 1,000 mcg tablet 1,000 mcg PO DAILY Qty: 30 3RF prednisone 10 mg tablet 10 mg PO DAILY metoprolol tartrate 50 mg Tablet 50 mg PO BID Qty: 60 0RF amlodipine [Norvasc] 5 mg Tablet 5 mg PO QAM Qty: 30 0RF acetaminophen 650 mg Suppository 650 mg AL Q6H PRN (Reason: fever or mild pain) ceftriaxone 1 gram recon soln 1 g IM DAILY Rx Instructions: start 04/11/22 for 7 days ipratropium-albuterol 0.5 mg-3 mg(2.5 mg base)/3 mL Solution For Nebulization 3 ml INHALATION QID Rx Instructions: start 04/11/22 for 14 days ipratropium-albuterol 0.5 mg-3 mg(2.5 mg base)/3 mL Solution For Nebulization 3 ml INHALATION .EVERY 2 HOURS PRN (Reason: Shortness Of Breath Or Wheezing) lidocaine HCl 10 mg/mL (1 %) solution 2.1 ml IM DAILY Rx Instructions: mix with Ceftriaxone 1 gram prior to administreation. start 04/11/22 for 7 days acetaminophen [Tylenol] 325 mg Tablet 650 mg PO Q6 MDD 3g PRN (Reason: .temp>100) ondansetron HCl 4 mg Tablet 4 mg PO Q6H PRN (Reason: Nausea And Vomiting) promethazine [Phenergan] 25 mg/mL Solution 25 mg IM Q6H PRN (Reason: Nausea / Vomiting) insulin aspart U-100 [Novolog U-100 Insulin aspart] 100 unit/mL solution 1 sliding scale dose subcut ACHS Rx Instructions: BSG 350-400=8 units 401-450=12 units 451-500=16 units 501-550=18 units Krames/Other Patient Handouts: Managing Type 2 Diabetes Admission Data Admit Date/Time: 04/11/22 21:46 Attending Provider: Caleb Maldonado Admit Provider: Bhupendra Sanchez Primary Care Provider: Adonay Calix Other Providers: Adonay Calix ; Adarsh Tracy ; Bhupendra Sanchez Coding Level of Care Code None Diagnoses Goals of care, counseling/discussion Z71.89 Mucus plugging of bronchi T17.500A Acute respiratory failure with hypoxia J96.01 Atrial fibrillation with rapid ventricular response I48.91 Aspiration pneumonia J69.0 Gait disorder R26.9 Falls frequently R29.6 Diabetes E11.9 Stage 3b chronic kidney disease N18.32 Parapneumonic effusion J18.9; J91.8 Hypothyroidism E03.9 Hypertension I10 Rheumatoid arthritis M06.9 Rheumatoid arthritis location: unspecified site Rheumatoid factor presence: unspecified presence
[2022-04-14] MEDS ORDERED: ICU ELECTROLYTE REPLACEMENT PROTOCOL SCH (18:00)
[2022-04-15] MEDS ORDERED: CHECK SCOPOLAMINE PATCH PLACEMENT SCH
== END 2022-04-14 19:04 | disposition expired | DRG 189 ==
LOC: ED 17:53 → 1E 21:46 → SUATTDRO 21:46 → 1E 22:52 → 2S 04-12 14:35 → 1E 04-14 08:05